=== PATIENT | male | born 1945 | race Caucasian/White ===

== ENCOUNTER 2016-11-10 09:26 | Inpatient (IN) | payer MEDICARE, MEDICAID ==
[~2016-11-10] VITALS: Ht 172.7 cm; Wt 76.4 kg
[~2016-11-10 09:26] MED LIST: AMBI10TA PO; ASPI325T PO; BACT800T5 PO; CELE20TA PO; FURO20TA PO; GLIP10TA6 PO; IBUP800T23 PO; K-TA10TA PO; METF1000 PO; PERC10TA27 PO; SERO25TA PO; SITA25 PO
[2016-11-10 09:28] VITALS: BP 135/66; PULSE 110; RESP 24; TEMP 98.2; O2SAT 96
[2016-11-10 10:32] VITALS: RESP 18; O2SAT 97
[2016-11-10 10:34] VITALS: BP 151/80; PULSE 104; RESP 18; O2SAT 96
--- NOTE | 2016-11-10 10:43 | PD ---
HPI Chief Complaint: Fall Time Seen by Provider: 10:29 Travel History International Travel<30 days: No Contact w/Intl Traveler<30days: No Traveled to known affect area: No History of Present Illness HPI This is a 71-year-old gentleman with history of tongue and neck cancer, who presents today after he had a mechanical fall. The patient denied any loss of consciousness or syncope. He has been having problems with sleeping and was groggy and fell floor. Daughter at the bedside states she's been on a new sleeping medicine that makes him sleepy but it does not help him sleep. She feels as though this may have been one of the causes of him falling. He has a small laceration to the back of his head. He denies any neck pain. He does also have a bruise to his left hand. The patient has an old injury to his left middle finger and it is chronically extended. He has bruising noted to his mid dorsal hand. The patient denies any pain anywhere else. PFSH Past Medical History Anxiety: Yes Depression: Yes Cancer: Yes Cardiovascular Problems: No Diabetes: Yes (TYPE II) Patient Takes Glucophage: Yes Diminished Hearing: Yes (HEARING LOSS BILAT) Endocrine: Yes Gastrointestinal Disorders: No Genitourinary: No Hepatitis: No Hiatal Hernia: No Hypertension: No Immune Disorder: No Musculoskeletal: Yes Neurologic: Yes (DEMINTIA) Reproductive: No Respiratory: Yes (SLEEP APNEA ) Thyroid Disease: No Past Surgical History Abdominal Surgery: Yes (APPY) AICD: No Appendectomy: Yes (UNSURE) Joint Replacement: No Oral Surgery: Yes Pacemaker: No Other Surgery: Yes (RIGHT BICEP, BROKEN RIBS) Social History Alcohol Use: Yes (BEER/WINE EVERY SO OFTEN) Tobacco Use: No Allergies-Medications (Allergen,Severity, Reaction): Coded Allergies: No Known Allergies (Unverified , 11/10/16) Reported Meds & Prescriptions Reported Meds & Active Scripts Active Ibuprofen 800 Mg Tab 800 Mg PO Q8H PRN Take with food Reported Pioglitazone (Pioglitazone HCl) 30 Mg Tab 30 Mg PO DAILY Metformin (Metformin HCl) 500 Mg Tab 500 Mg PO BID With meals Glipizide 10 Mg Tab 10 Mg PO BIDAC Take 30 minutes before a meal Percocet (Oxycodone-Acetaminophen) 10-325 mg Tab 1 Tab PO Q4H PRN Celexa (Citalopram Hydrobromide) 20 Mg Tab 20 Mg PO DAILY Aspirin 325 Mg Tab 325 Mg PO DAILY Ambien (Zolpidem Tartrate) 10 Mg Tab 10 Mg PO HS PRN Review of Systems Except as stated in HPI: all other systems reviewed are Neg General / Constitutional: No: Fever, Chills HENT: Positive: Headaches (scalp tenderness in the posterior scalp where he has a small superficial laceration.), Masses (mass and swelling to the left lateral neck.), Other (history of left sided tongue cancer) Cardiovascular: No: Chest Pain or Discomfort, Palpitations Respiratory: No: Cough, Shortness of Breath Gastrointestinal: No: Nausea, Vomiting, Abdominal Pain Genitourinary: No: Dysuria, Decreased Urinary Output Musculoskeletal: Positive: Pain (left hand), No: Weakness Neurologic: Positive: Weakness (and realized), Headache (posterior scalp), Other (chronic fatigue with associated insomnia), No: Sensory Disturbance Physical Exam Narrative GENERAL: Elderly ill appearing male in no acute respiratory distress. SKIN: Warm and dry. HEAD: There is a small superficial 1/2 cm laceration to his posterior scalp. Otherwise Normocephalic. EYES: No scleral icterus. No injection or drainage. ENT: No nasal bleeding or discharge. Mucous membranes pink and moist. NECK: Trachea midline. Large mass in the left lateral neck. CARDIOVASCULAR: Regular rate and rhythm. No murmur appreciated. RESPIRATORY: No accessory muscle use. Clear to auscultation. Breath sounds equal bilaterally. GASTROINTESTINAL: Abdomen soft, non-tender, nondistended. MUSCULOSKELETAL: Swelling and ecchymosis on the dorsal surface of the left hand. As per ROS, chronic deformity of the left middle finger with chronic extension. NEUROLOGICAL: Awake and alert. No obvious cranial nerve deficits. Motor grossly within normal limits. Slurred speech secondary to his oral and neck cancer. Data Data Last Documented VS Vital Signs Date Time Temp Pulse Resp B/P Pulse Ox O2 Delivery O2 Flow Rate FiO2 11/10/16 10:34 104 18 151/80 96 Room Air 11/10/16 09:[address] Brain W/O Iv Contrast(Rout) (11/10/16 ) Ct Cerv Spine W/O Contrast (11/10/16 10:29) Complete Blood Count With Diff (11/10/16 10:29) Comprehensive Metabolic Panel (11/10/16 10:29) Iv Access Insert/Monitor (11/10/16 10:29) Ecg Monitoring (11/10/16 10:29) Oximetry (11/10/16 10:29) Hand, Complete (Qyd1aup) (11/10/16 10:43) Urinalysis - C+S If Indicated (11/10/16 12:06) Chest, Single Ap (11/10/16 12:06) Insulin Human Regular Inj (Novolin R Inj (11/10/16 13:45) Sodium Chlorid 0.9% 500 Ml Inj (Ns 500 M (11/10/16 13:45) Admit Order (Ed Use Only) (11/10/16 13:57) Diet 1800 Ada Cons Carb (11/10/16 Dinner) Vital Signs (Adult) NESS.Q4H (11/10/16 14:01) Sodium Chlor 0.9% 1000 Ml Inj (Ns 1000 M (11/10/16 15:00) Basic Metabolic Panel (Bmp) (11/11/16 06:00) Consult Pt Eval & Treat (11/10/16 14:01) Consult Medical Oncology (11/10/16 ) ^ Fall Precautions (11/10/16 14:01) ^ Blood Glucose Goal (Criteria (11/10/16 14:01) ^ Hypoglycemia 51 - 69 Mg/Dl (11/10/16 14:01) ^ Hypoglycemia 50 Mg/Dl Or < (11/10/16 14:01) ^ Notify Dr: Other (11/10/16 14:01) Dextrose 50% In He (Vial) Inj (D50w (Vi (11/10/16 14:15) Glucagon Inj (Glucagon Inj) (11/10/16 14:15) Insulin Aspart Supplemtl Scale (Novolog (11/10/16 16:00) Acetaminophen (Tylenol) (11/10/16 14:15) Acetamin-Hydrocod 325-5 Mg ([place] 5-325 (11/10/16 14:15) Ondansetron Inj (Zofran Inj) (11/10/16 14:15) Scd Bilateral/Knee High NESS.QSHIFT (11/10/16 14:01) Zolpidem (Ambien) (11/10/16 14:15) Labs Laboratory Tests Test 11/10/16 11/10/16 10:36 12:47 White Blood Count 16.5 TH/MM3 Red Blood Count 4.84 MIL/MM3 Hemoglobin 13.7 GM/DL Hematocrit 41.1 % Mean Corpuscular Volume 84.8 FL Mean Corpuscular Hemoglobin 28.2 PG Mean Corpuscular Hemoglobin 33.3 % Concent Red Cell Distribution Width 12.9 % Platelet Count 435 TH/MM3 Mean Platelet Volume 7.6 FL Neutrophils (%) (Auto) 77.0 % Lymphocytes (%) (Auto) 13.8 % Monocytes (%) (Auto) 7.5 % Eosinophils (%) (Auto) 1.2 % Basophils (%) (Auto) 0.5 % Neutrophils # (Auto) 12.7 TH/MM3 Lymphocytes # (Auto) 2.3 TH/MM3 Monocytes # (Auto) 1.2 TH/MM3 Eosinophils # (Auto) 0.2 TH/MM3 Basophils # (Auto) 0.1 TH/MM3 CBC Comment DIFF FINAL Differential Comment Sodium Level 129 MEQ/L Potassium Level 4.3 MEQ/L Chloride Level 91 MEQ/L Carbon Dioxide Level 29.1 MEQ/L Anion Gap 9 MEQ/L Blood Urea Nitrogen 15 MG/DL Creatinine 1.15 MG/DL Estimat Glomerular Filtration 63 ML/MIN Rate Random Glucose 388 MG/DL Calcium Level 8.8 MG/DL Total Bilirubin 0.5 MG/DL Aspartate Amino Transf 17 U/L (AST/SGOT) Alanine Aminotransferase 19 U/L (ALT/SGPT) Alkaline Phosphatase 113 U/L Total Protein 7.4 GM/DL Albumin 3.1 GM/DL Urine Color LIGHT-YELLOW Urine Turbidity CLEAR Urine pH 5.5 Urine Specific [place] 1.012 Urine Protein 30 mg/dL Urine Glucose (UA) 1000 mg/dL Urine Ketones NEG mg/dL Urine Occult Blood NEG Urine Nitrite NEG Urine Bilirubin NEG Urine Urobilinogen LESS THAN 2.0 MG/DL Urine Leukocyte Esterase NEG Urine RBC 1 /hpf Urine WBC 1 /hpf Microscopic Urinalysis Comment CULT NOT INDICATED MDM Medical Decision Making Medical Screen Exam Complete: Yes Emergency Medical Condition: Yes Differential Diagnosis Closed head injury versus intracranial hemorrhage versus left hand fracture versus electrolyte abnormalities Narrative Course This is a 71-year-old male with a history of tongue and neck cancer, who presents today with complaints of mechanical fall. Patient and daughter who is at the bedside states that he's had severe insomnia and has not been sleeping well. He was started on a new medication for sleep and they were concerned that this may have caused him to fall. The patient is a poor historian but denies any loss of consciousness. Patient has a large left lateral neck mass that is being worked up for possible chemotherapy versus radiation therapy. The patient appears to be volume depleted with dry mucous membranes. His laboratory tests show a blood glucose of 388. He is currently not taking any diabetes medicine. The patient also appears to be very weak. His sodium is 129 , his urine shows 1000 glucose with protein. His white count is 16,000. Chest x-ray shows no obvious infiltrate and his urine does not appear to be infected. The leukocytosis could be secondary to his neck mass. Given this and no primary care physician, Field is important that we bring him into the hospital and correct his electrolytes and glucose. It may be prudent also to get a oncology consult as well. Is a call out to the [facility] hospitalist service. He's been started on I V fluids and has been given 6 units of Regular Insulin. Diagnosis Primary Impression: Uncontrolled diabetes mellitus with hyperglycemia Additional Impressions: Hyponatremia Squamous cell cancer of tongue Mass of left side of neck Devin Rubio MD Nov 10, 2016 10:43
[2016-11-10 10:48] LABS: AUTOMATED NEUTROPHIL # 12.7 TH/MM3 (1.8-7.7); BASOPHIL # 0.1 TH/MM3 (0-0.2); BASOPHIL % 0.5 % (0.0-2.0); EOSINOPHIL # 0.2 TH/MM3 (0-0.4); EOSINOPHIL % 1.2 % (0.0-4.0); HEMATOCRIT 41.1 % (39.0-51.0); HEMO FLAGS DIFF FINAL; LYMPH % 13.8 % (9.0-44.0); LYMPHOCYTE # 2.3 TH/MM3 (1.0-4.8); MEAN CELL VOLUME 84.8 FL (80.0-100.0); MEAN CORPUSCULAR HEMOGLOBIN 28.2 PG (27.0-34.0); MEAN CORPUSCULAR HGB CONC 33.3 % (32.0-36.0); MONO % 7.5 % (0.0-8.0); PLATELET COUNT 435 TH/MM3 (150-450); RED BLOOD COUNT 4.84 MIL/MM3 (4.50-5.90); RED CELL DISTRIBUTION WIDTH 12.9 % (11.6-17.2); WHITE BLOOD COUNT 16.5 TH/MM3 (4.0-11.0)
[2016-11-10 11:08] LABS: ALT (GPT) 19 U/L (12-78); ANION GAP 9 MEQ/L (5-15); AST (GOT) 17 U/L (15-37); BICARBONATE 29.1 MEQ/L (21.0-32.0); BLOOD UREA NITROGEN 15 MG/DL (7-18); CHLORIDE 91 MEQ/L (98-107); GLOMERULAR FILTRATION RATE 63 ML/MIN (>89); POTASSIUM 4.3 MEQ/L (3.5-5.1); SODIUM (NA) 129 MEQ/L (136-145)
[2016-11-10 11:10] LABS: ALKALINE PHOSPHATASE 113 U/L (45-117); TOTAL BILIRUBIN ADULT 0.5 MG/DL (0.2-1.0)
--- NOTE | 2016-11-10 11:11 | RADRPT ---
EXAM DATE/TIME: 11/10/2016 10:54 [facility] COMPARISON: No previous studies available for comparison. INDICATIONS : Patient fell this morning. MEDICAL HISTORY : None. SURGICAL HISTORY : Third digit left hand. ENCOUNTER: Initial ACUITY: 1 day PAIN SCORE: 0/10 LOCATION: Left Hand. FINDINGS: There is no evidence of fracture or dislocation. There is arthritic change in the wrist dorsally at t he radiocarpal joint and distal radioulnar joint. There is moderate dorsal soft tissue swelling. Vasc ular calcifications present in the forearm. CONCLUSION: Soft tissue swelling. No acute bony injury Milton Shay MD on November 10, 2016 at 11:07 Board Certified Radiologist. This report was verified electronically.
--- NOTE | 2016-11-10 11:58 | RADRPT ---
EXAM DATE/TIME: 11/10/2016 11:00 [facility] COMPARISON: No previous studies available for comparison. INDICATIONS : Trauma. Fall. Cephalgia. RADIATION DOSE: 56.35 CTDIvol (mGy) MEDICAL HISTORY : Dementia. Diabetes mellitus type 2. SURGICAL HISTORY : None. ENCOUNTER: Initial ACUITY: 1 day PAIN SCALE: 6/10 LOCATION: cranial TECHNIQUE: Multiple contiguous axial images were obtained of the head. Using automated exposure control and adj ustment of the mA and/or kV according to patient size, radiation dose was kept as low as reasonably a chievable to obtain optimal diagnostic quality images. FINDINGS: Mild generalized ventriculomegaly, increased from before. There is chronic low-attenuation in the per iventricular white matter. No bleed. No mass, mass effect or midline shift. No evidence of an acute i schemic event. Bone window images show an intact skull. Tiny fluid seen in a few of the right mastoid air cells . Visualized portions of the paranasal sinuses are clear. CONCLUSION: 1. No bleed or other acute intracranial abnormality. 2. Mild nonspecific ventriculomegaly. 3. Chronic white matter changes. Milton Shea MD on November 10, 2016 at 11:54 Board Certified Radiologist. This report was verified electronically.
--- NOTE | 2016-11-10 12:02 | RADRPT ---
EXAM DATE/TIME: 11/10/2016 11:00 [facility] COMPARISON: No previous studies available for comparison. INDICATIONS : Trauma. Fall. RADIATION DOSE: 38.03 CTDIvol (mGy) MEDICAL HISTORY : Dementia. Diabetes mellitus type 2. SURGICAL HISTORY : None. ENCOUNTER: Initial ACUITY: 1 day PAIN SCALE: 5/10 LOCATION: neck TECHNIQUE: Volumetric scanning of the cervical spine was performed. Multiplanar reconstructions in the sagittal, coronal and oblique axial planes were performed. Using automated exposure control and adjustment o f the mA and/or kV according to patient size, radiation dose was kept as low as reasonably achievable to obtain optimal diagnostic quality images. FINDINGS: Cervical spine alignment is normal. No fracture demonstrated. Vertebral bodies have normal height. Moderate disc space narrowing with uncovertebral and facet osteoarthritis, anterior and right greater the left osseous ridging seen at C5/C6 and C6/C7. There is right foraminal stenosis at C5/C6. Milder degenerative changes are seen at the other levels. CONCLUSION: No fracture or subluxation of the cervical spine. Multilevel degenerative changes, especially C5/C6 a nd C6 on C7. Milton Shea MD on November 10, 2016 at 11:59 Board Certified Radiologist. This report was verified electronically.
[2016-11-10] MEDS ORDERED: METF500T PO (12:27)
[2016-11-10] MEDS ORDERED: PIOG30TA4 PO (12:37)
--- NOTE | 2016-11-10 12:44 | RADRPT ---
EXAM DATE/TIME: 11/10/2016 12:18 [facility] COMPARISON: CHEST SINGLE AP, February 04, 2013, 16:05. INDICATIONS : Dry cough. MEDICAL HISTORY : Diabetes mellitus type II. dementia SURGICAL HISTORY : None. ENCOUNTER: Initial ACUITY: 3 days PAIN SCORE: 4/10 LOCATION: Bilateral upper chest FINDINGS: A single view of the chest demonstrates the lungs to be symmetrically aerated without evidence of mas s, infiltrate or effusion. The cardiomediastinal contours are unremarkable. Osseous structures are intact. CONCLUSION: No acute disease. Milton Shay MD on November 10, 2016 at 12:43 Board Certified Radiologist. This report was verified electronically.
[2016-11-10 12:56] LABS: BLOOD, URINE NEG (NEG); GLUCOSE,URINE 1000 mg/dL (NEG); KETONE, URINE NEG (NEG); NITRITE,URINE NEG (NEG); PH, URINE 5.5 (5.0-8.5); URINE COLOR LIGHT-YELLOW (YELLW/STRAW)
[2016-11-10 13:12] LABS: COMMENT (UR) CULT NOT INDICATED; CULTURE IF INDICATED CULT NOT INDICATED
[2016-11-10] MEDS ORDERED: INSULIN HUMAN REGULAR 1,000 UNITS/10 ML VIAL IVP ONE (13:45)
[2016-11-10] MEDS ORDERED: SODIUM CHLORID 0.9% 500 ML INJ 500 ML IV ONE (13:45)
--- NOTE | 2016-11-10 14:14 | HHI.HP ---
[facility] Service [facility] Hospitalists Primary Care Physician No Primary Care Physician Admission Diagnosis hyponatremia, uncontrolled hyperglycemia, leukocytosis, Diagnoses: (1) Fall Diagnosis: Principal (2) Squamous cell cancer of tongue Diagnosis: Principal (3) Uncontrolled diabetes mellitus with hyperglycemia Diagnosis: Principal (4) Mass of left side of neck Diagnosis: Secondary (5) Hyponatremia Diagnosis: Secondary (6) Insomnia Diagnosis: Secondary Chief Complaint: fall Travel History International Travel<30 Days: No Contact w/Intl Traveler <30 Da: No Traveled to Known Affected Are: No History of Present Illness patient is a 71 y/o male with history of tongue cancer who was brought to ER after he fell earlier. he says that he was walking in the house when he fell. he denies any prodromal symptoms like chest pain, sob or dizziness before the incident. he didn't lose his consciousness but he says that he thinks he hit his head on the floor. he denies any pain at this time. he says that he uses a cane but he doesn't walk as much. he says that he's noticed a mass in the left neck which has been going on for a few weeks and apparently it's being worked up for possible chemo/ radiation therapy. Review of Systems Constitutional: COMPLAINS OF: Fatigue, DENIES: Fever, Weight loss, Chills, Night Sweats Eyes: DENIES: Blurred vision, Diplopia, Vision loss, Double Vision Ears, nose, mouth, throat: DENIES: Tinnitus, Vertigo, Throat pain, Epistaxis Respiratory: DENIES: Apneas, Cough, Snoring, Wheezing, Hemoptysis, Sputum production, Shortness of breath Cardiovascular: DENIES: Chest pain, Palpitations, Syncope, Dyspnea on Exertion , PND, Lower Extremity Edema, Orthopnea, Claudication Gastrointestinal: DENIES: Abdominal pain, Black stools, Bloody stools, Constipation, Diarrhea, Nausea, Vomiting, Difficulty Swallowing, Anorexia Genitourinary: DENIES: Urinary frequency, Urgency, Hematuria, Dysuria Musculoskeletal: DENIES: Joint pain, Muscle aches, Stiffness, Joint Swelling Integumentary: DENIES: Rash Neurologic: DENIES: Abnormal gait, Headache, Localized weakness, Paresthesias, Seizures, Speech Problems, Tremor, Poor Balance Psychiatric: DENIES: Anxiety, Confusion, Mood changes, Depression, Hallucinations, Agitation, Suicidal Ideation, Homicidal Ideation, Delusions Past Family Social History Past Medical History tongue cancer diabetes mellitus Past Surgical History glossectomy appendectomy Reported Medications Pioglitazone (Pioglitazone HCl) 30 Mg Tab 30 Mg PO DAILY Metformin (Metformin HCl) 500 Mg Tab 500 Mg PO BID With meals Glipizide 10 Mg Tab 10 Mg PO BIDAC Take 30 minutes before a meal Percocet (Oxycodone-Acetaminophen) 10-325 mg Tab 1 Tab PO Q4H PRN Celexa (Citalopram Hydrobromide) 20 Mg Tab 20 Mg PO DAILY Aspirin 325 Mg Tab 325 Mg PO DAILY Ambien (Zolpidem Tartrate) 10 Mg Tab 10 Mg PO HS PRN Allergies: Coded Allergies: No Known Allergies (Unverified , 11/10/16) Active Ordered Medications Current Medications Insulin Human Regular 6 units 6 units ONCE ONCE IVP ; Start 11/10/16 at 13:45; Stop 11/10/16 at 13:47; Status DC Sodium Chloride (NS 500 ml Inj) 500 ml @ 500 mls/hr BOLUS ONCE IV ; Start 11/10 at 13:45; Stop 11/10/16 at 14:44 Social History doesn't smoke. quit drinking in the past. Physical Exam Vital Signs Vital Signs Date Time Temp Pulse Resp B/P Pulse Ox O2 Delivery O2 Flow Rate FiO2 11/10/16 10:34 104 18 151/80 96 Room Air 11/10/16 10:32 18 97 Room Air 11/10/16 10:21 106 18 96 Room Air 11/10/16 09:28 98.2 110 24 135/66 96 Room Air Physical Exam GENERAL: in no apparent distress. SKIN: No rashes, ecchymoses or lesions. Cool and dry. HEAD: Atraumatic. Normocephalic. No temporal or scalp tenderness. EYES: Pupils equal round and reactive. Extraocular motions intact. No scleral icterus. No injection or drainage. ENT: Nose without bleeding, purulent drainage or septal hematoma. Throat without erythema, tonsillar hypertrophy or exudate. Uvula midline. Airway patent. NECK:mass noted on the left neck CARDIOVASCULAR: Regular rate and rhythm without murmurs, gallops, or rubs. RESPIRATORY: Clear to auscultation. Breath sounds equal bilaterally. No wheezes , rales, or rhonchi. GASTROINTESTINAL: Abdomen soft, non-tender, nondistended. No hepato-splenomegaly , or palpable masses. No guarding. MUSCULOSKELETAL: Extremities without clubbing, cyanosis, or edema. No joint tenderness, effusion, or edema noted. No calf tenderness. Negative Homans sign bilaterally. NEUROLOGICAL: Awake and alert. Cranial nerves II through XII intact. Motor and sensory grossly within normal limits. Five out of 5 muscle strength in all muscle groups. Normal speech. Laboratory Laboratory Tests Test 11/10/16 11/10/16 10:36 12:47 White Blood Count 16.5 Red Blood Count 4.84 Hemoglobin 13.7 Hematocrit 41.1 Mean Corpuscular Volume 84.8 Mean Corpuscular Hemoglobin 28.2 Mean Corpuscular Hemoglobin 33.3 Concent Red Cell Distribution Width 12.9 Platelet Count 435 Mean Platelet Volume 7.6 Neutrophils (%) (Auto) 77.0 Lymphocytes (%) (Auto) 13.8 Monocytes (%) (Auto) 7.5 Eosinophils (%) (Auto) 1.2 Basophils (%) (Auto) 0.5 Neutrophils # (Auto) 12.7 Lymphocytes # (Auto) 2.3 Monocytes # (Auto) 1.2 Eosinophils # (Auto) 0.2 Basophils # (Auto) 0.1 CBC Comment DIFF FINAL Differential Comment Sodium Level 129 Potassium Level 4.3 Chloride Level 91 Carbon Dioxide Level 29.1 Anion Gap 9 Blood Urea Nitrogen 15 Creatinine 1.15 Estimat Glomerular Filtration 63 Rate Random Glucose 388 Calcium Level 8.8 Total Bilirubin 0.5 Aspartate Amino Transf 17 (AST/SGOT) Alanine Aminotransferase 19 (ALT/SGPT) Alkaline Phosphatase 113 Total Protein 7.4 Albumin 3.1 Urine Color LIGHT-YELLOW Urine Turbidity CLEAR Urine pH 5.5 Urine Specific [place] 1.012 Urine Protein 30 Urine Glucose (UA) 1000 Urine Ketones NEG Urine Occult Blood NEG Urine Nitrite NEG Urine Bilirubin NEG Urine Urobilinogen LESS THAN 2.0 Urine Leukocyte Esterase NEG Urine RBC 1 Urine WBC 1 Microscopic Urinalysis Comment CULT NOT INDICATED Result Diagram: 11/10/16 1036 11/10/16 1036 Imaging Last Impressions Chest X-Ray 11/10/16 1206 Signed Impressions: Service Date/Time: Thursday, November 10, 2016 12:18 - CONCLUSION: No acute disease. Milton Shay MD Hand X-Ray 11/10/16 1043 Signed Impressions: Service Date/Time: Thursday, November 10, 2016 10:54 - CONCLUSION: Soft tissue swelling. No acute bony injury Milton Shay MD Cervical Spine CT 11/10/16 1029 Signed Impressions: Service Date/Time: Thursday, November 10, 2016 11:00 - CONCLUSION: No fracture or subluxation of the cervical spine. Multilevel degenerative changes, especially C5/C6 and C6 on C7. Milton Shea MD Head CT 11/10/16 0000 Signed Impressions: Service Date/Time: Thursday, November 10, 2016 11:00 - CONCLUSION: 1. No bleed or other acute intracranial abnormality. 2. Mild nonspecific ventriculomegaly. 3. Chronic white matter changes. Milton Shea MD Assessment and Plan Assessment and Plan A/P - fall with generalized weakness fall precautions- will consult PT and case management. -diabetes mellitus- uncontrolled- start accu-check with SSI- hold oral hypoglycemics for now-will monitor- -tongue cancer with left neck mass- will consult oncology -hyponatremia; likely due to hyperglycemia- will start IV fluid and monitor the level. -leukocytosis- stress-related?- will monitor- CBC in am. -insomnia; ambien as needed. -DVT prophylaxis with lovenox Discussed Condition With ER physician and the patient. Physician Certification 2 Midnight Certification Type: Admission for Inpatient Services Order for Inpatient Services The services are ordered in accordance with Medicare regulations or non- Medicare payer requirements, as applicable. In the case of services not specified as inpatient-only, they are appropriately provided as inpatient services in accordance with the 2-midnight benchmark. Estimated LOS (days): 2 days is the estimated time the patient will need to remain in the hospital, assuming treatment plan goals are met and no additional complications. Post-Hospital Plan: Not yet determined Problem Qualifiers (1) Uncontrolled diabetes mellitus with hyperglycemia: Qualified Code: E11.65 - Uncontrolled type 2 diabetes mellitus with hyperglycemia, unspecified terminal manager insulin use status Maya Braden MD Nov 10, 2016 14:14 Maya Braden MD Nov 10, 2016 14:14
[2016-11-10] MEDS ORDERED: ACETAMINOPHEN 325 MG TAB PO PRN (14:15)
[2016-11-10] MEDS ORDERED: DEXTROSE 50% IN WATER 50 ML VIAL(D50) IV PUSH PRN (14:15)
[2016-11-10] MEDS ORDERED: ONDANSETRON HCL 4 MG/2 ML VIAL IV PUSH PRN (14:15)
[2016-11-10] MEDS ORDERED: GLUCAGON 1 MG/ML VIAL OTHER PRN (14:15)
[2016-11-10 14:57] VITALS: BP 135/83; PULSE 100; RESP 16; O2SAT 96
[2016-11-10] MEDS: SODIUM CHLOR 0.9% 1000 ML INJ 1,000 ML IV SCH (15:15)
[2016-11-10] MEDS: ACETAMINOPHEN/HYDROcodone 325 MG/5 MG TAB PO PRN (15:15)
[2016-11-10 16:00] VITALS: BP 136/94; PULSE 91; RESP 18; TEMP 98.9; O2SAT 97
[2016-11-10] MEDS: INSULIN ASPART SUPPLEMENTAL SCALE SQ SCH ×2 (16:00→20:51)
[2016-11-10 20:00] VITALS: BP 164/78; PULSE 85; RESP 20; TEMP 98.2; O2SAT 96
--- NOTE | 2016-11-10 21:36 | RADRPT ---
EXAM DATE/TIME: 11/10/2016 21:02 [facility] COMPARISON: No previous studies available for comparison. INDICATIONS : Evaluate status of left sided neck mass. RADIATION DOSE: 26.17 CTDIvol (mGy) MEDICAL HISTORY : Carcinoma, tongue. Dementia. SURGICAL HISTORY : Appendectomy. ENCOUNTER: Initial ACUITY: 1 day PAIN SCORE: Non-responsive LOCATION: Bilateral neck TECHNIQUE: Volumetric scanning of the neck was performed. Using automated exposure control and adjustment of th e mA and/or kV according to patient size, radiation dose was kept as low as reasonably achievable to obtain optimal diagnostic quality images. FINDINGS: NASOPHARYNX: The nasopharyngeal airway has a normal configuration. No mucosal thickening or mass is seen. OROPHARYNX: Slight soft tissue prominence in the left vallecula. LARYNX: The supraglottic, glottic, and infraglottic structures are intact. PARAPHARYNGEAL: The parapharyngeal space is intact. SALIVARY GLANDS: The parotid and submandibular glands are intact. LYMPH NODES: No enlarged or necrotic-appearing nodes. THYROID: Homogeneous enhancement without evidence of nodule. BONES: Unremarkable. OTHER: Large left-sided neck mass is posterior to the left submandibular gland and just deep to the sternocl eidomastoid musculature. This measures approximately 3.2 x 4.6 cm. Adjacent prominent lymph nodes are seen. There is some supraclavicular adenopathy. CONCLUSION: 1. Large left-sided neck mass measuring up to 4.6 cm. 2. Prominent lymph nodes in the left neck and left supraclavicular region. 3. Slight soft tissue prominence in the vallecula on the left. Koby Viveros MD on November 10, 2016 at 21:30 Board Certified Radiologist. This report was verified electronically.
--- NOTE | 2016-11-10 21:59 | MB ---
cc: FREDY BRADEN MD, RUBY ANNE E. M.D. DATE OF CONSULTATION: 11/10/2016 DATE OF : [address] Braden CHIEF COMPLAINT Recurrent head and neck cancer. HISTORY OF PRESENT ILLNESS Mr. Moura is a 71 year-old man with multiple medical problems. He has history of diabetes, hypertension, hyperlipidemia, hypertriglyceridemia. He has a psychiatric history, [place] Act initiated by police. He told his sister he wanted to kill himself. He was disinterested. Psychiatry found him to have dementia with psychosis, possible polysubstance induced mood disorder. He had positive amphetamines in his urine drug screen. His course was complicated by left oral tongue cancer. He was managed with Dr. Denise. 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 He was admitted by Dr. Denise on 06/10/2016 for resection. Workup prior to his definitive surgery was not available during the consultation. Unable to find his preoperative staging scans. He has not been seen by medical oncology or radiation oncology. He had definitive surgery for his oral tongue cancer June 10, 2016. He underwent a partial glossectomy with tumor measuring 2.7 x 1.7 x 0.5 cm. It was squamous cell cancer, moderately differentiated grade 2. The margins were uninvolved. The tumor in the partial glossectomy specimen extended within a few cell diameter of the deep surgical margin of resection. Additional tissue was sent as the deep margin, and that was negative for carcinoma. There were no lymph nodes identified. Mr. Moura recovered from his surgery. His follow up has been through his primary surgeon. His course was further complicated by a left middle finger injury after a fall. He states that he just cannot get a break. He presents to the emergency room on 11/10/2016 after a fall. He denies loss of consciousness. He has been having trouble sleeping and was groggy with the Ambien and fell to the floor. He had a small laceration on the back of the head and bruise on his left hand. On examination he has swelling in the neck. He has leukocytosis and hyponatremia. He was subsequently admitted for further evaluation. The ER evaluation for his head laceration included CT scan of the head that shows no bleed or other intracranial abnormality. There was some mild nonspecific ventriculomegaly and chronic white matter changes. Cervical spine shows no fracture. There are multilevel degenerative changes especially C5-6, C6-C7. Hand x-ray showed soft tissue swelling, no acute bony injury. Chest x-ray shows no acute disease. Because of the left neck swelling and history of oral tongue cancer, hematology/oncology is consulted. Mr. Moura was able to give limited history. He finds it painful to talk post his hemiglossectomy. He has an ulceration left side of the tongue. His mouth is dry. He complains of being depressed. He is agreeable to try something for depression. He has insomnia and is requesting his Ambien. He reports the 10 milligrams of Ambien helps him the best. He denies any headaches, no vision changes. His bowels move regularly. He was able to walk prior to his hospitalization. He has been advised not to walk in light of fall precautions. He denies any chest pain or shortness of breath. He does not recall when or how soon after the left neck swelling began. He reports referral to radiation oncology is still being contemplated despite the obvious left neck swelling and prominent adenopathy. The rest of his review of systems is negative. PAST MEDICAL HISTORY 1. Oral tongue cancer. 2. Anxiety 3. Depression 4. Diabetes 5. Hearing loss 6. Tinnitus 7. Dementia. 8. Sleep apnea. 9. Degenerative disc disease, cervical spine. 10. Chronic white matter changes. 11. Dementia with psychosis. PAST SURGICAL HISTORY 1. Appendectomy for a left hemiglossectomy 2. Tongue biopsy. SOCIAL HISTORY Occasional alcohol use. Denies tobacco use. He was never a smoker. He lives with his brother and his [id number]. FAMILY HISTORY Reports mother had breast cancer in her 80s. Father had no cancer. PHYSICAL EXAMINATION VITAL SIGNS: Temperature 98.2, heart rate 85, respiratory rate 20, blood pressure 164/78. GENERAL: Mr. Moura is a well-developed elderly man. He looks depressed and lethargic. HEENT: His pupils are small and reactive. Oropharynx is dry with thickened mucosa. There is some coating on the tongue, ulceration on the lateral left side. There is some packing in the upper molar. There is a mild parotid enlargement, swelling on the left side of the neck, there is a prominent lymph node. Neck: Supple. There is abrasion of the left cheek in the nasolabial fold. Lungs: Clear to auscultation. Cardiovascular: Normal rate and rhythm. Abdomen: Large and benign. Extremities: Lower extremity with no edema. He has chronic injury of the left hand which he moves very little. He has no focal deficits. IMAGING STUDIES Described above. LABORATORY DATA Sodium 129, BUN of 15, creatinine 1.5, glucose 388. His urine tox from 2012 was positive for amphetamines. ASSESSMENT/PLAN Mr. Moura is a 71 year-old male with multiple medical problems described above. He has also underlying psychiatric history with dementia associated with psychosis. He looks clinically depressed. He was Regalado Acted several years ago. Hematology/Oncology is consulted for oral tongue cancer. Staging evaluation prior to his definitive resection was not available. Appears that the surgery went well with negative margins. He had staging CT PET scan shortly after his definitive resection June 29, 2016. This showed no evidence of residual disease status post partial glossectomy. There is no evidence of metastatic disease in the neck nodes. There is some nonspecific changes in the chest including an infiltrate of the right costophrenic angle and minimally but not enlarged left axillary lymph nodes were found. We discussed plans to evaluate his head and neck cancer further. I will obtain CT scan of the soft tissue of the neck. If this lymph node is indeed enlarged, he may need a biopsy to rule out recurrent disease. We consider that this may be associated with healing, however, he did very well after his surgery in the beginning of june. The neck swelling and lymph node appears to be a recurrence. It is also concerning that there is a lesion and ulceration on his tongue. The chronicity of that is also not known. If he has evidence of recurrence, we will need to restage him to rule out metastatic disease. This is appearing to be a local recurrence in which case the definitive concurrent chemotherapy and radiation will still render him a cure. We discussed his depression. He was agreeable to try trazodone which is an antidepressant may help him with sleep. We will take care to give him Ambien which may have precipitated his fall per history provided by his daughter to the emergency room. Emotional support is provided. Magic Mouth Wash for symptomatic relief. Pending on the results of the CT scan, soft tissue of the neck consultation with radiation oncology to coordinate his care will be needed. MD VANESSA Hu/SEBASTIAN /8:37 PM /9:24 PM
[2016-11-10] MEDS: traZODone HCL 50 MG TAB PO SCH (23:07)
[2016-11-10] MEDS: NYSTAT/DIPHENHY/LIDO MOUTHWASH (Adult) 120ML SWISH-SWAL SCH (23:07)
[2016-11-11] VITALS: BP 142/78; PULSE 89; RESP 18; TEMP 98.2; O2SAT 97
[2016-11-11] MEDS: SODIUM CHLOR 0.9% 1000 ML INJ 1,000 ML IV SCH ×2 (01:32→07:56)
[2016-11-11 04:00] VITALS: BP 171/89; PULSE 95; RESP 18; TEMP 98.6; O2SAT 94
[2016-11-11] MEDS: INSULIN ASPART SUPPLEMENTAL SCALE SQ SCH ×4 (06:10→21:49)
[2016-11-11 07:49] LABS: POTASSIUM 3.8 MEQ/L (3.5-5.1)
[2016-11-11] MEDS: NYSTAT/DIPHENHY/LIDO MOUTHWASH (Adult) 120ML SWISH-SWAL SCH ×4 (07:53→21:48)
[2016-11-11] MEDS: ENOXAPARIN SODIUM 40 MG/0.4 ML SYRINGE SQ SCH (07:54)
[2016-11-11 08:00] VITALS: BP 142/75; PULSE 109; RESP 16; TEMP 98.7; O2SAT 96
--- NOTE | 2016-11-11 08:21 | HHI.PR ---
Subjective Remarks sitting on the chair having his breakfast. says that overall ' he's not feeling good'. couldn't sleep well last night. d/w the RN and no acute issues over night. Objective Vitals Vital Signs Date Time Temp Pulse Resp B/P Pulse Ox O2 Delivery O2 Flow Rate FiO2 11/11/16 04:00 98.6 95 18 171/89 94 11/11/16 00:00 98.2 89 18 142/78 97 11/10/16 20:00 98.2 85 20 164/78 96 11/10/16 16:00 98.9 91 18 136/94 97 11/10/16 14:57 100 16 135/83 96 Room Air 11/10/16 10:34 104 18 151/80 96 Room Air 11/10/16 10:32 18 97 Room Air 11/10/16 10:21 106 18 96 Room Air 11/10/16 09:28 98.2 110 24 135/66 96 Room Air I/O 11/10/16 11/10/16 11/10/16 11/11/16 11/11/16 11/11/16 07:00 15:00 23:00 07:00 15:00 23:00 Intake Total 1240 ml 120 ml Output Total 100 ml Balance 1240 ml 20 ml Intake Oral 540 ml 120 ml IV Total 700 ml Output Urine Total 100 ml # Voids 1 # Bowel Movements 0 0 Result Diagram: 11/10/16 1036 11/11/16 0619 Imaging Last Impressions Chest X-Ray 11/10/16 1206 Signed Impressions: Service Date/Time: Thursday, November 10, 2016 12:18 - CONCLUSION: No acute disease. Milton Shay MD Hand X-Ray 11/10/16 1043 Signed Impressions: Service Date/Time: Thursday, November 10, 2016 10:54 - CONCLUSION: Soft tissue swelling. No acute bony injury Milton Shay MD Cervical Spine CT 11/10/16 1029 Signed Impressions: Service Date/Time: Thursday, November 10, 2016 11:00 - CONCLUSION: No fracture or subluxation of the cervical spine. Multilevel degenerative changes, especially C5/C6 and C6 on C7. Milton Shea MD Neck CT 11/10/16 0000 Signed Impressions: Service Date/Time: Thursday, November 10, 2016 21:02 - CONCLUSION: 1. Large left-sided neck mass measuring up to 4.6 cm. 2. Prominent lymph nodes in the left neck and left supraclavicular region. 3. Slight soft tissue prominence in the vallecula on the left. Koby Viveros MD Head CT 11/10/16 0000 Signed Impressions: Service Date/Time: Thursday, November 10, 2016 11:00 - CONCLUSION: 1. No bleed or other acute intracranial abnormality. 2. Mild nonspecific ventriculomegaly. 3. Chronic white matter changes. Milton Shea MD Objective Remarks GENERAL: This is a well-nourished, well-developed patient, in no apparent distress. Neck; left neck mass with no tenderness CARDIOVASCULAR: Regular rate and regular rhythm without murmurs, gallops, or rubs. RESPIRATORY: Clear to auscultation. Breath sounds equal bilaterally. No wheezes , rales, or rhonchi. GASTROINTESTINAL: Abdomen soft, non-tender, nondistended. Normal, active bowel sounds MUSCULOSKELETAL: Extremities without clubbing, cyanosis, or edema. NEURO: Alert & Oriented x4 to person, place, time, situation. Moves all ext x4 Procedures none Medications and IVs Current Medications Insulin Human Regular 6 units 6 units ONCE ONCE IVP Last administered on 15:15; Start 11/10/16 at 13:45; Stop 11/10/16 at 13:47; Status DC Sodium Chloride 500 ml @ 500 mls/hr BOLUS ONCE IV Last administered on 15:14; Start 11/10/16 at 13:45; Stop 11/10/16 at 14:44; Status DC Sodium Chloride (NS 1000 ml Inj) 1,000 ml @ 100 mls/hr Q10H IV Last administered on 11/11/16 07:56; Start 11/10/16 at 15:00 Dextrose (D50w (Vial) Inj) 25 ml UNSCH PRN IV PUSH HYPOGLYCEMIA-SEE COMMENTS; Start 11/10/16 at 14:15 Glucagon (Glucagon Inj) 1 mg UNSCH PRN OTHER HYPOGLYCEMIA-SEE COMMENTS; Start 11/10/16 at 14:15 Insulin Aspart (NovoLOG SUPPLEMENTAL SCALE) 1 ACHS SLIDING SCALE SQ Last administered on 11/11/16 06:10; Start 11/10/16 at 16:00 Acetaminophen (Tylenol) 650 mg Q4H PRN PO FEVER/ PAIN <5; Start 11/10/16 at 14: 15 Acetaminophen/ Hydrocodone Bitart ([place] 5-325 Mg) 1 tab Q4H PRN PO PAIN> 5 Last administered on 11/10/16 15:15; Start 11/10/16 at 14:15 Ondansetron HCl (Zofran Inj) 4 mg Q8H PRN IV PUSH NAUSEA; Start 11/10/16 at 14: 15; Status Cancel Zolpidem Tartrate (Ambien) 5 mg HS PRN PO INSOMNIA; Start 11/10/16 at 14:15 Enoxaparin Sodium (Lovenox Inj) 40 mg Q24H SQ Last administered on 11/11/16 07: 54; Start 11/11/16 at 09:00 Trazodone HCl (Desyrel) 50 mg HS PO Last administered on 11/10/16 23:07; Start 11/10/16 at 21:00 Multi-Ingredient Mouthwash/Gargle (Magic Mouthwash Adult Liq) 5 ml QID SWISH- SWAL Last administered on 11/11/16 07:53; Start 11/10/16 at 21:00 A/P Assessment and Plan A/P - fall with generalized weakness fall precautions- consulted PT and case management. -diabetes mellitus- overall better controlled- continue accu-check with SSI- hold oral hypoglycemics for now-will monitor- -tongue cancer with left neck mass- oncology consult appreciated. -hyponatremia; resolved. -leukocytosis- stress-related?- will monitor- CBC in am. -insomnia; ambien as needed. -depressed mood; started on Trazodone -DVT prophylaxis with Maya Garcia MD Nov 11, 2016 08:20
[2016-11-11 12:00] VITALS: BP 178/86; PULSE 100; RESP 16; TEMP 98.6; O2SAT 97
--- NOTE | 2016-11-11 13:55 | PD.ONC.PN ---
Subjective Subjective Remarks "Can I have a milk shake?" Discussed finding of L neck LN concerning for local recurrence. State that we would be willing to receive chemotherapy and XRT. Objective Data Date Time Temp Pulse Resp B/P Pulse Ox O2 Delivery O2 Flow Rate FiO2 11/11/16 12:00 98.6 100 16 178/86 97 11/11/16 08:00 98.7 109 16 142/75 96 11/11/16 04:00 98.6 95 18 171/89 94 11/11/16 00:00 98.2 89 18 142/78 97 11/10/16 20:00 98.2 85 20 164/78 96 11/10/16 16:00 98.9 91 18 136/94 97 11/10/16 14:57 100 16 135/83 96 Room Air 11/11/16 11/11/16 11/11/16 07:00 15:00 23:00 Intake Total 120 ml 761 ml Output Total 100 ml Balance 20 ml 761 ml Result Diagram: 11/10/16 1036 11/11/16 0619 Laboratory Results Laboratory Tests Test 11/11/16 06:19 Sodium Level 137 MEQ/L Potassium Level 3.8 MEQ/L Chloride Level 101 MEQ/L Carbon Dioxide Level 27.0 MEQ/L Anion Gap 9 MEQ/L Blood Urea Nitrogen 15 MG/DL Creatinine 0.91 MG/DL Estimat Glomerular Filtration 82 ML/MIN Rate Random Glucose 204 MG/DL Calcium Level 8.5 MG/DL Administered Medications Medications (Trade) Dose Ordered Sig/Rosalind Route PRN Reason Start Time Stop Time Status Last Admin Dose Admin Sodium Chloride (NS 1000 ml Inj) 1,000 ml @ 100 mls/hr Q10H IV 11/10/16 15:00 Hold 11/11/16 07:56 Acetaminophen/ Hydrocodone Bitart ([place] 5-325 Mg) 1 tab Q4H PRN PO PAIN> 5 11/10/16 14:15 11/10/16 15:15 Enoxaparin Sodium (Lovenox Inj) 40 mg Q24H SQ 11/11/16 09:00 11/11/16 07:54 Trazodone HCl (Desyrel) 50 mg HS PO 11/10/16 21:00 11/10/16 23:07 Multi-Ingredient Mouthwash/Gargle (Magic Mouthwash Adult Liq) 5 ml QID SWISH-RAVINDRA 11/10/16 21:00 11/11/16 11:25 Objective Remarks GENERAL: Elderly, well-developed patient. SKIN: Warm and dry. HEAD: Normocephalic. Mouth with thick mucous, L tongue ulceration. EYES: No scleral icterus. No injection or drainage. NECK: Supple, trachea midline. No JVD or lymphadenopathy. LYMPHATIC: No adenopathy. L face swelling, L neck lymphadenopathy. CARDIOVASCULAR: Regular rate and rhythm without murmurs. RESPIRATORY: Breath sounds equal bilaterally. No accessory muscle use. GASTROINTESTINAL: Abdomen large and mildly distended. EXTREMITIES: No cyanosis, or edema. MUSCULOSKELETAL: Adequate muscle tone. NEUROLOGICAL: No obvious focal deficit. Awake, alert, and oriented x3. PSYCHIATRIC: Looks depressed. Assessment/Plan Problem List: (1) Squamous cell cancer of tongue Status: Acute Plan: CT soft tissue neck show LN L neck measure 4.6cm, suspect recurrent disease. Check CT chest to r/o metastatic disease. Need CT guided bx to r/o local recurrence. Consult RAd Onc inplanning concurrent chemo/XRT for treatment or palliation pending result of staging. Pt agree to receive therapy. (2) Insomnia Status: Chronic Plan: Trial Trazodone. Monitor also his depression. Assessment 71 y/o man with oral tongue cancer s/p L hemoglossectomy with local recurrence. Plan 1. CT guided biopsy L neck LN. 2. CT chest r/o distant metastatic disease 3. Consult rad onc. Marjan Villeda MD Nov 11, 2016 13:55
[2016-11-11 16:00] VITALS: BP 155/86; PULSE 103; RESP 18; TEMP 98.3; O2SAT 98
--- NOTE | 2016-11-11 18:28 | RADRPT ---
EXAM DATE/TIME: 11/11/2016 18:15 [facility] COMPARISON: CT SOFT TISSUE NECK W/O CONTRAST, November 10, 2016, 21:02. INDICATIONS : Recurrent oral cancer with cough; evaluate for metastatic disease. RADIATION DOSE: 9.89 CTDIvol (mGy) MEDICAL HISTORY : Dementia. Diabetes mellitus type 2. Carcinoma, oral cavity. SURGICAL HISTORY : Tonsillectomy. ENCOUNTER: Initial ACUITY: 1 day PAIN SCALE: 2/10 LOCATION: chest TECHNIQUE: Volumetric scanning of the chest was performed. Using automated exposure control and adjustment of t he mA and/or kV according to patient size, radiation dose was kept as low as reasonably achievable to obtain optimal diagnostic quality images. FINDINGS: LUNGS: Trace atelectasis of the bases. PLEURAE: There is no pleural thickening or pleural effusion. MEDIASTINUM: The heart and great vessels demonstrate no acute abnormality. There is no mediastinal or hilar lymph adenopathy. Coronary artery calcification noted. AXILLAE: Within normal limits. No lymphadenopathy. MUSCULOSKELETAL: Within normal limits for patient age. MISCELLANEOUS: The visualized upper abdominal organs demonstrate no acute abnormality. CONCLUSION: No evidence of metastatic disease or other acute chest disease. Milton Shea MD on November 11, 2016 at 18:26 Board Certified Radiologist. This report was verified electronically.
[2016-11-11 20:00] VITALS: BP 158/83; PULSE 100; RESP 20; TEMP 100.1; O2SAT 96
[2016-11-11] MEDS: traZODone HCL 50 MG TAB PO SCH (21:48)
[2016-11-12] VITALS (7 sets, daily range): BP systolic 112–168; BP diastolic 58–83; PULSE 87–115; RESP 17–20; TEMP 98.1–102.3; O2SAT 94–97
[2016-11-12] MEDS: INSULIN ASPART SUPPLEMENTAL SCALE SQ SCH ×4 (06:46→21:12)
[2016-11-12 08:08] LABS: AUTOMATED NEUTROPHIL # 9.2 TH/MM3 (1.8-7.7); BASOPHIL # 0.2 TH/MM3 (0-0.2); BASOPHIL % 1.3 % (0.0-2.0); EOSINOPHIL # 0.3 TH/MM3 (0-0.4); EOSINOPHIL % 1.8 % (0.0-4.0); HEMATOCRIT 39.9 % (39.0-51.0); HEMO FLAGS DIFF FINAL; LYMPH % 22.6 % (9.0-44.0); LYMPHOCYTE # 3.2 TH/MM3 (1.0-4.8); MEAN CELL VOLUME 83.3 FL (80.0-100.0); MEAN CORPUSCULAR HEMOGLOBIN 28.1 PG (27.0-34.0); MEAN CORPUSCULAR HGB CONC 33.7 % (32.0-36.0); MONO % 8.3 % (0.0-8.0); PLATELET COUNT 332 TH/MM3 (150-450); RED BLOOD COUNT 4.79 MIL/MM3 (4.50-5.90); RED CELL DISTRIBUTION WIDTH 12.9 % (11.6-17.2)
[2016-11-12] MEDS: NYSTAT/DIPHENHY/LIDO MOUTHWASH (Adult) 120ML SWISH-SWAL SCH ×4 (09:00→21:12)
--- NOTE | 2016-11-12 10:05 | PD.ONC.PN ---
Subjective Subjective Remarks Tmax 100.1 overnight. Patient waiting to go down for biopsy. He complains of some pain in tongue. Objective Data Date Time Temp Pulse Resp B/P Pulse Ox O2 Delivery O2 Flow Rate FiO2 11/12/16 08:11 98.2 87 18 168/83 96 11/12/16 04:00 98.3 90 20 150/76 94 11/12/16 00:00 99.3 94 20 140/65 97 11/11/16 20:00 100.1 100 20 158/83 96 11/11/16 16:00 98.3 103 18 155/86 98 11/11/16 12:00 98.6 100 16 178/86 97 Result Diagram: 11/12/16 0643 11/11/16 0619 Laboratory Results Laboratory Tests Test 11/12/16 06:43 White Blood Count 14.0 TH/MM3 Red Blood Count 4.79 MIL/MM3 Hemoglobin 13.5 GM/DL Hematocrit 39.9 % Mean Corpuscular Volume 83.3 FL Mean Corpuscular Hemoglobin 28.1 PG Mean Corpuscular Hemoglobin 33.7 % Concent Red Cell Distribution Width 12.9 % Platelet Count 332 TH/MM3 Mean Platelet Volume 8.5 FL Neutrophils (%) (Auto) 66.0 % Lymphocytes (%) (Auto) 22.6 % Monocytes (%) (Auto) 8.3 % Eosinophils (%) (Auto) 1.8 % Basophils (%) (Auto) 1.3 % Neutrophils # (Auto) 9.2 TH/MM3 Lymphocytes # (Auto) 3.2 TH/MM3 Monocytes # (Auto) 1.2 TH/MM3 Eosinophils # (Auto) 0.3 TH/MM3 Basophils # (Auto) 0.2 TH/MM3 CBC Comment DIFF FINAL Differential Comment Hematology Comments Administered Medications Medications (Trade) Dose Ordered Sig/Rosalind Route PRN Reason Start Time Stop Time Status Last Admin Dose Admin Sodium Chloride (NS 1000 ml Inj) 1,000 ml @ 100 mls/hr Q10H IV 11/10/16 15:00 Hold 11/11/16 07:56 Acetaminophen/ Hydrocodone Bitart ([place] 5-325 Mg) 1 tab Q4H PRN PO PAIN> 5 11/10/16 14:15 11/10/16 15:15 Enoxaparin Sodium (Lovenox Inj) 40 mg Q24H SQ 11/11/16 09:00 11/11/16 07:54 Trazodone HCl (Desyrel) 50 mg HS PO 11/10/16 21:00 11/11/16 21:48 Multi-Ingredient Mouthwash/Gargle (Magic Mouthwash Adult Liq) 5 ml QID SWISH-SWAL 11/10/16 21:00 11/11/16 21:48 Objective Remarks GENERAL: Elderly male, sitting up in bed in nad. SKIN: Warm and dry. HEAD: Normocephalic. EYES: No injection or drainage. NECK: Supple, trachea midline. CARDIOVASCULAR: +S1/S2 RESPIRATORY: anterior geller clear GASTROINTESTINAL: Abdomen soft, non-tender, nondistended. EXTREMITIES: No cyanosis NEUROLOGICAL: awake and alert, normal speech. moving all extremities. Assessment/Plan Problem List: (1) Squamous cell cancer of tongue Status: Acute Plan: CT soft tissue neck show LN L neck measure 4.6cm, suspect recurrent disease--awaiting biopsy CT chest: no metsce. await Radiation oncology consult --will need concurrent chemo/radiation (2) Insomnia Status: Chronic Plan: Trial Trazodone. Monitor also his depression. Assessment 71 y/o man with oral tongue cancer s/p L hemoglossectomy with local recurrence. Plan 1. biopsy today 2. supportive care 3. radiation oncology consult Attending Statement The exam, history, and the medical decision-making described in the above note were completed with the assistance of the mid-level provider. I reviewed and agree with the findings presented. I attest that I had a [id number] encounter with the patient on the same day, and personally performed and documented my assessment and findings in the medical record. Jacqueline Bowden Nov 12, 2016 10:05 Magdaleno Clarke MD Nov 12, 2016 23:40
[2016-11-12] MEDS ORDERED: LIDOCAINE HCL 1% PF 30 ML VIAL ONE (12:36)
[2016-11-12] MEDS ORDERED: SODIUM BICARBONATE 8.4% INJ 50 ML ONE (12:36)
--- NOTE | 2016-11-12 12:40 | RADRPT ---
EXAM DATE/TIME: 11/12/2016 11:42 [facility] COMPARISON: EXTERNAL COMPARISON: CT SOFT TISSUE NECK W/O CONTRAST, November 10, 2016, 21:02. [facility], PET/CT - HEAD & NECK CA , Jun 29 2016. INDICATIONS : Left neck lymph node. MEDICAL HISTORY : Dementia. Diabetes mellitus type 2. Tongue cancer. SURGICAL HISTORY : Tonsillectomy. Appendectomy. Right upper arm surgery. ENCOUNTER: Initial ACUITY: 1 day PAIN SCORE: 1/10 LOCATION: Left neck ORGAN: Left neck SPECIMENS: Five core specimen(s) submitted for pathologic evaluation. DEVICE: 18 gauge Temno needle Post procedure scanning reveals no hematoma or other complication. The possibility does exist that the tissue obtained will be non-diagnostic. If the sample is non-mariya gnostic a repeat biopsy or surgical biopsy may need to be performed. TECHNIQUE: 1. Ultrasound guidance for needle biopsy. 2. Needle biopsy. The risks, benefits, and alternatives to ultrasound guided needle biopsy were explained to the patien t's brother in detail including the risk of bleeding and infection. Written and verbal informed cons ent was obtained. The patient is unable to consent for himself. With the patient on the ultrasound table, images were obtained. There are multiple enlarged lymph no [place] in the left neck in levels 2 through 4. The targeted lymph node measures 3.4 x 1.8 x 2.2 cm. Ther e is an adjacent conglomeration of adjacent lymph nodes measuring up to 4.1 x 2.7 x 3.5 cm. Given the blood vessels associated with this larger conglomeration of lymph nodes, decision was made to biopsy the next largest lymph node. Overlying skin was prepped and draped in the usual sterile fashion and Lidocaine was utilized as a local anesthetic. A needle was advanced into the identified target and the number of specimens as above obtained and bermudez bmitted for pathologic evaluation. The patient tolerated the procedure well and left the ultrasound suite in stable condition. CONCLUSION: Uncomplicated ultrasound guided needle biopsy of an abnormally enlarged left neck lymph node. Milton Laughlin MD on November 12, 2016 at 12:37 Board Certified Radiologist. This report was verified electronically.
--- NOTE | 2016-11-12 13:17 | HHI.PR ---
Subjective Remarks came back from the biopsy of the neck mass. in no acute distress. had a low grade fever last night. Objective Vitals Vital Signs Date Time Temp Pulse Resp B/P Pulse Ox O2 Delivery O2 Flow Rate FiO2 11/12/16 12:08 98.1 90 20 159/79 97 11/12/16 08:11 98.2 87 18 168/83 96 11/12/16 04:00 98.3 90 20 150/76 94 11/12/16 00:00 99.3 94 20 140/65 97 11/11/16 20:00 100.1 100 20 158/83 96 11/11/16 16:00 98.3 103 18 155/86 98 I/O 11/11/16 11/11/16 11/11/16 11/12/16 11/12/16 11/12/16 07:00 15:00 23:00 07:00 15:00 23:00 Intake Total 120 ml 1241 ml Output Total 100 ml 325 ml 25 ml Balance 20 ml 916 ml -25 ml Intake Oral 120 ml 480 ml IV Total 761 ml Output Urine Total 100 ml 325 ml 25 ml # Voids 2 1 # Bowel Movements 0 0 0 Result Diagram: 11/12/16 0643 11/11/16 0619 Imaging Last Impressions Lymph Node Biopsy Ultrasound 11/12/16 0000 Signed Impressions: Service Date/Time: Saturday, November 12, 2016 11:42 - CONCLUSION: Uncomplicated ultrasound guided needle biopsy of an abnormally enlarged left neck lymph node. Milton Laughlin MD Chest CT 11/11/16 0000 Signed Impressions: Service Date/Time: November 18:15 - CONCLUSION: No evidence of metastatic disease or other acute chest disease. Milton Shea MD Chest X-Ray 11/10/16 1206 Signed Impressions: Service Date/Time: Thursday, November 10, 2016 12:18 - CONCLUSION: No acute disease. Milton Shay MD Hand X-Ray 11/10/16 1043 Signed Impressions: Service Date/Time: Thursday, November 10, 2016 10:54 - CONCLUSION: Soft tissue swelling. No acute bony injury Milton Shay MD Cervical Spine CT 11/10/16 1029 Signed Impressions: Service Date/Time: Thursday, November 10, 2016 11:00 - CONCLUSION: No fracture or subluxation of the cervical spine. Multilevel degenerative changes, especially C5/C6 and C6 on C7. Milton Shea MD Neck CT 11/10/16 Signed Impressions: Service Date/Time: Thursday, November 10, 2016 21:02 - CONCLUSION: 1. Large left-sided neck mass measuring up to 4.6 cm. 2. Prominent lymph nodes in the left neck and left supraclavicular region. 3. Slight soft tissue prominence in the vallecula on the left. Koby Viveros MD Head CT 11/10/16 Signed Impressions: Service Date/Time: Thursday, November 10, 2016 11:00 - CONCLUSION: 1. No bleed or other acute intracranial abnormality. 2. Mild nonspecific ventriculomegaly. 3. Chronic white matter changes. Milton Shea MD Objective Remarks GENERAL: This is a well-nourished, well-developed patient, in no apparent distress. Neck; left neck mass with no tenderness CARDIOVASCULAR: Regular rate and regular rhythm without murmurs, gallops, or rubs. RESPIRATORY: Clear to auscultation. Breath sounds equal bilaterally. No wheezes , rales, or rhonchi. GASTROINTESTINAL: Abdomen soft, non-tender, nondistended. Normal, active bowel sounds MUSCULOSKELETAL: Extremities without clubbing, cyanosis, or edema. NEURO: Alert & Oriented x4 to person, place, time, situation. Moves all ext x4 Procedures none Medications and IVs Current Medications Insulin Human Regular 6 units 6 units ONCE ONCE IVP Last administered on 15:15; Start 11/10/16 at 13:45; Stop 11/10/16 at 13:47; Status DC Sodium Chloride 500 ml @ 500 mls/hr BOLUS ONCE IV Last administered on 15:14; Start 11/10/16 at 13:45; Stop 11/10/16 at 14:44; Status DC Sodium Chloride (NS 1000 ml Inj) 1,000 ml @ 100 mls/hr Q10H IV Last administered on 11/11/16 07:56; Start 11/10/16 at 15:00; Status Hold Dextrose (D50w (Vial) Inj) 25 ml UNSCH PRN IV PUSH HYPOGLYCEMIA-SEE COMMENTS; Start 11/10/16 at 14:15 Glucagon (Glucagon Inj) 1 mg UNSCH PRN OTHER HYPOGLYCEMIA-SEE COMMENTS; Start 11/10/16 at 14:15 Insulin Aspart (NovoLOG SUPPLEMENTAL SCALE) 1 ACHS SLIDING SCALE SQ Last administered on 11/12/16 06:46; Start 11/10/16 at 16:00 Acetaminophen (Tylenol) 650 mg Q4H PRN PO FEVER/ PAIN <5; Start 11/10/16 at 14: 15 Acetaminophen/ Hydrocodone Bitart ([place] 5-325 Mg) 1 tab Q4H PRN PO PAIN> 5 Last administered on 11/10/16 15:15; Start 11/10/16 at 14:15 Ondansetron HCl (Zofran Inj) 4 mg Q8H PRN IV PUSH NAUSEA; Start 11/10/16 at 14: 15; Status Cancel Zolpidem Tartrate (Ambien) 5 mg HS PRN PO INSOMNIA; Start 11/10/16 at 14:15 Enoxaparin Sodium (Lovenox Inj) 40 mg Q24H SQ Last administered on 11/11/16 07: 54; Start 11/11/16 at 09:00 Trazodone HCl (Desyrel) 50 mg HS PO Last administered on 11/11/16 21:48; Start 11/10/16 at 21:00 Multi-Ingredient Mouthwash/Gargle (Magic Mouthwash Adult Liq) 5 ml QID SWISH- SWAL Last administered on 11/11/16 21:48; Start 11/10/16 at 21:00 Lidocaine HCl 30 ml 30 ml STK-MED ONCE .ROUTE ; Start 11/12/16 at 12:36; Stop at 12:37; Status DC Sodium Bicarbonate (Sodium Bicarbonate 8.4% Inj) 50 ml @ As Directed STK-MED ONCE .ROUTE ; Start 11/12/16 at 12:36; Stop 11/12/16 at 12:37; Status DC A/P Assessment and Plan A/P - fall with generalized weakness fall precautions- consulted PT and case management. -diabetes mellitus- continue accu-check with SSI- hold oral hypoglycemics for now-will monitor- -tongue cancer with left neck mass- oncology consult appreciated. s/p biopsy of the neck mass- will follow the pathology. radiation oncology consulted. -hyponatremia; resolved. -leukocytosis- stress-related?- improved- will monitor. -insomnia; ambien as needed. -depressed mood; started on Trazodone -DVT prophylaxis with lovenox Discharge Planning will consult case management for possible rehab. Maya Braden MD Nov 12, 2016 13:17
[2016-11-12] MEDS: ENOXAPARIN SODIUM 40 MG/0.4 ML SYRINGE SQ SCH (14:00)
[2016-11-12] MEDS: traZODone HCL 50 MG TAB PO SCH (21:11)
[2016-11-12 21:39] LABS: AUTOMATED NEUTROPHIL # 14.3 TH/MM3 (1.8-7.7); BASOPHIL # 0.1 TH/MM3 (0-0.2); BASOPHIL % 0.7 % (0.0-2.0); EOSINOPHIL # 0.1 TH/MM3 (0-0.4); EOSINOPHIL % 0.5 % (0.0-4.0); HEMATOCRIT 36.4 % (39.0-51.0); HEMO FLAGS DIFF FINAL; LYMPH % 9.4 % (9.0-44.0); LYMPHOCYTE # 1.6 TH/MM3 (1.0-4.8); MEAN CELL VOLUME 84.3 FL (80.0-100.0); MEAN CORPUSCULAR HEMOGLOBIN 27.7 PG (27.0-34.0); MEAN CORPUSCULAR HGB CONC 32.8 % (32.0-36.0); MONO % 6.3 % (0.0-8.0); NEUT % 83.1 % (16.0-70.0); PLATELET COUNT 386 TH/MM3 (150-450); RED BLOOD COUNT 4.32 MIL/MM3 (4.50-5.90); RED CELL DISTRIBUTION WIDTH 13.2 % (11.6-17.2); WHITE BLOOD COUNT 17.1 TH/MM3 (4.0-11.0)
--- NOTE | 2016-11-12 22:04 | RADRPT ---
EXAM DATE/TIME: 11/12/2016 21:06 [facility] COMPARISON: CHEST SINGLE AP, November 10, 2016, 12:18. INDICATIONS : Fever, SOB MEDICAL HISTORY : Diabetes mellitus type II. Dementia. SURGICAL HISTORY : None. ENCOUNTER: Subsequent ACUITY: 2 days PAIN SCORE: 0/10 LOCATION: chest FINDINGS: A single view of the chest demonstrates the lungs to be symmetrically aerated without evidence of mas s, infiltrate or effusion. The cardiomediastinal contours are unremarkable. Osseous structures are intact. CONCLUSION: No evidence of acute cardiopulmonary disease. Milton Shea MD on November 12, 2016 at 22:02 Board Certified Radiologist. This report was verified electronically.
[2016-11-12 22:44] LABS: BICARBONATE 29.2 MEQ/L (21.0-32.0); POTASSIUM 4.2 MEQ/L (3.5-5.1)
[2016-11-13] MEDS: ZOLPIDEM TARTRATE 5 MG TAB PO PRN ×2 (01:20→20:44)
[2016-11-13] MEDS: PIPERACIL-TAZO 3.375 GM PREMIX 50 ML IV SCH ×4 (01:51→17:17)
[2016-11-13 04:00] VITALS: BP 144/71; PULSE 91; RESP 18; TEMP 98.8; O2SAT 96
[2016-11-13] MEDS: INSULIN ASPART SUPPLEMENTAL SCALE SQ SCH ×4 (05:44→20:45)
[2016-11-13 08:04] VITALS: BP 149/73; PULSE 93; RESP 18; TEMP 98.6; O2SAT 96
[2016-11-13] MEDS: ENOXAPARIN SODIUM 40 MG/0.4 ML SYRINGE SQ SCH (09:13)
[2016-11-13] MEDS: NYSTAT/DIPHENHY/LIDO MOUTHWASH (Adult) 120ML SWISH-SWAL SCH ×4 (09:13→20:46)
[2016-11-13 09:35] LABS: BACTERIA, URINE OCC /hpf; BLOOD, URINE NEG (NEG); GLUCOSE,URINE 300 mg/dL (NEG); GRANULAR CAST, URINE 1 /lpf; HYALINE CAST, URINE 1 /lpf (RARE); KETONE, URINE NEG (NEG); NITRITE,URINE NEG (NEG); PH, URINE 5.5 (5.0-8.5); URINE COLOR YELLOW (YELLW/STRAW)
[2016-11-13 09:36] LABS: COMMENT (UR) CULT NOT INDICATED; CULTURE IF INDICATED CULT NOT INDICATED
--- NOTE | 2016-11-13 09:44 | HHI.PR ---
Subjective Remarks in no acute distress. was febrile last night ; T max 102.3. has some back pain. Objective Vitals Vital Signs Date Time Temp Pulse Resp B/P Pulse Ox O2 Delivery O2 Flow Rate FiO2 11/13/16 08:04 98.6 93 18 149/73 96 11/13/16 04:00 98.8 91 18 144/71 96 11/12/16 23:59 100.8 110 17 112/58 94 11/12/16 20:00 102.3 115 18 158/80 95 11/12/16 16:05 98.6 109 20 155/80 96 11/12/16 12:08 98.1 90 20 159/79 97 I/O 11/12/16 11/12/16 11/12/16 11/13/16 11/13/16 11/13/16 07:00 15:00 23:00 07:00 15:00 23:00 Intake Total 240 ml 240 ml 180 ml Output Total 100 ml Balance 140 ml 240 ml 180 ml Intake Oral 240 ml 240 ml 180 ml Output Urine Total 100 ml # Voids 1 2 1 0 # Bowel Movements 0 0 0 0 Result Diagram: 11/12/16212611/12/162126 Imaging Last Impressions Lymph Node Biopsy Ultrasound 11/12/16 0000 Signed Impressions: Service Date/Time: Saturday, November 12, 2016 11:42 - CONCLUSION: Uncomplicated ultrasound guided needle biopsy of an abnormally enlarged left neck lymph node. Milton Laughlin MD Chest X-Ray 11/12/16 0000 Signed Impressions: Service Date/Time: Saturday, November 12, 2016 21:06 - CONCLUSION: No evidence of acute cardiopulmonary disease. Milton Shea MD Chest CT 11/11/16 0000 Signed Impressions: Service Date/Time: November 18:15 - CONCLUSION: No evidence of metastatic disease or other acute chest disease. Milton Shea MD Hand X-Ray 11/10/16 1043 Signed Impressions: Service Date/Time: Thursday, November 10, 2016 10:54 - CONCLUSION: Soft tissue swelling. No acute bony injury Milton Shay MD Cervical Spine CT 11/10/16 1029 Signed Impressions: Service Date/Time: Thursday, November 10, 2016 11:00 - CONCLUSION: No fracture or subluxation of the cervical spine. Multilevel degenerative changes, especially C5/C6 and C6 on C7. Milton Shea MD Neck CT 11/10/16 0000 Signed Impressions: Service Date/Time: Thursday, November 10, 2016 21:02 - CONCLUSION: 1. Large left-sided neck mass measuring up to 4.6 cm. 2. Prominent lymph nodes in the left neck and left supraclavicular region. 3. Slight soft tissue prominence in the vallecula on the left. Koby Viveros MD Head CT 11/10/16 0000 Signed Impressions: Service Date/Time: Thursday, November 10, 2016 11:00 - CONCLUSION: 1. No bleed or other acute intracranial abnormality. 2. Mild nonspecific ventriculomegaly. 3. Chronic white matter changes. Milton Shea MD Objective Remarks GENERAL: This is a well-nourished, well-developed patient, in no apparent distress. Neck; left neck mass with no tenderness CARDIOVASCULAR: Regular rate and regular rhythm without murmurs, gallops, or rubs. RESPIRATORY: Clear to auscultation. Breath sounds equal bilaterally. No wheezes , rales, or rhonchi. GASTROINTESTINAL: Abdomen soft, non-tender, nondistended. Normal, active bowel sounds MUSCULOSKELETAL: Extremities without clubbing, cyanosis, or edema. NEURO: Alert & Oriented x4 to person, place, time, situation. Moves all ext x4 Procedures biopsy of the neck mass Medications and IVs Current Medications Insulin Human Regular 6 units 6 units ONCE ONCE IVP Last administered on 15:15; Start 11/10/16 at 13:45; Stop 11/10/16 at 13:47; Status DC Sodium Chloride 500 ml @ 500 mls/hr BOLUS ONCE IV Last administered on 15:14; Start 11/10/16 at 13:45; Stop 11/10/16 at 14:44; Status DC Sodium Chloride (NS 1000 ml Inj) 1,000 ml @ 100 mls/hr Q10H IV Last administered on 11/11/16 07:56; Start 11/10/16 at 15:00; Status Hold Dextrose (D50w (Vial) Inj) 25 ml UNSCH PRN IV PUSH HYPOGLYCEMIA-SEE COMMENTS; Start 11/10/16 at 14:15 Glucagon (Glucagon Inj) 1 mg UNSCH PRN OTHER HYPOGLYCEMIA-SEE COMMENTS; Start 11/10/16 at 14:15 Insulin Aspart (NovoLOG SUPPLEMENTAL SCALE) 1 ACHS SLIDING SCALE SQ Last administered on 11/13/16 05:44; Start 11/10/16 at 16:00 Acetaminophen (Tylenol) 650 mg Q4H PRN PO FEVER/ PAIN <5 Last administered on 21:11; Start 11/10/16 at 14:15 Acetaminophen/ Hydrocodone Bitart ([place] 5-325 Mg) 1 tab Q4H PRN PO PAIN> 5 Last administered on 11/10/16 15:15; Start 11/10/16 at 14:15 Ondansetron HCl (Zofran Inj) 4 mg Q8H PRN IV PUSH NAUSEA; Start 11/10/16 at 14: 15; Status Cancel Zolpidem Tartrate (Ambien) 5 mg HS PRN PO INSOMNIA Last administered on 01:20; Start 11/10/16 at 14:15 Enoxaparin Sodium (Lovenox Inj) 40 mg Q24H SQ Last administered on 11/13/16 09 :13; Start 11/11/16 at 09:00 Trazodone HCl (Desyrel) 50 mg HS PO Last administered on 11/12/16 21:11; Start 11/10/16 at 21:00 Multi-Ingredient Mouthwash/Gargle (Magic Mouthwash Adult Liq) 5 ml QID SWISH- SWAL Last administered on 11/13/16 09:13; Start 11/10/16 at 21:00 Lidocaine HCl 30 ml 30 ml STK-MED ONCE .ROUTE ; Start 11/12/16 at 12:36; Stop at 12:37; Status DC Sodium Bicarbonate 50 ml @ As Directed STK-MED ONCE .ROUTE ; Start 11/12/16 at 12:36; Stop 11/12/16 at 12:37; Status DC Piperacillin Sod/ Tazobactam Sod (Zosyn 3.375 Gm Premix) 50 ml @ 100 mls/hr Q6H IV Last administered on 11/13/16 05:40; Start 11/13/16 at 01:00 A/P Assessment and Plan A/P - fall with generalized weakness fall precautions- consulted PT and case management. -diabetes mellitus- continue accu-check with SSI- hold oral hypoglycemics for now-will monitor- will consider starting long-acting insulin if blood sugar levels remain elevated. -tongue cancer with left neck mass- oncology consult appreciated. s/p biopsy of the neck mass- will follow the pathology. radiation oncology consulted. -fever spike- started on Zosyn- will follow the cultures- CXR with no acute disease. -hyponatremia; resolved. -leukocytosis-monitor temps- continue Abx- will monitor. -insomnia; ambien as needed. -depressed mood; started on Trazodone -DVT prophylaxis with lovenox Discharge Planning consulted case management for possible rehab. not ready for discharge. Maya Braden MD Nov 13, 2016 09:44
[2016-11-13 12:01] VITALS: BP 159/80; PULSE 93; RESP 18; TEMP 98.5; O2SAT 95
[2016-11-13 16:01] VITALS: BP 141/68; PULSE 99; RESP 18; TEMP 98.6; O2SAT 96
[2016-11-13 20:00] VITALS: BP 175/81; PULSE 94; RESP 20; TEMP 98.9; O2SAT 96
[2016-11-13] MEDS ORDERED: ENALAPRILAT 2.5 MG/2 ML VIAL IV PUSH ONE (20:30)
[2016-11-13] MEDS: traZODone HCL 50 MG TAB PO SCH (20:44)
[2016-11-13 21:23] VITALS: BP 148/70
[2016-11-14] VITALS: BP 145/63; PULSE 94; RESP 18; TEMP 97.8; O2SAT 96
[2016-11-14] MEDS: PIPERACIL-TAZO 3.375 GM PREMIX 50 ML IV SCH ×4 (03:16→17:28)
[2016-11-14 04:00] VITALS: BP 140/68; PULSE 93; RESP 20; TEMP 97.6; O2SAT 98
[2016-11-14] MEDS: INSULIN ASPART SUPPLEMENTAL SCALE SQ SCH ×4 (05:39→22:13)
[2016-11-14 08:00] VITALS: BP 144/67; PULSE 100; RESP 20; TEMP 98.6; O2SAT 94
[2016-11-14 08:24] LABS: BASOPHIL # 0.1 TH/MM3 (0-0.2); BASOPHIL % 0.7 % (0.0-2.0); EOSINOPHIL # 0.3 TH/MM3 (0-0.4); EOSINOPHIL % 2.1 % (0.0-4.0); HEMATOCRIT 33.7 % (39.0-51.0); HEMO FLAGS DIFF FINAL; LYMPH % 17.9 % (9.0-44.0); LYMPHOCYTE # 2.5 TH/MM3 (1.0-4.8); MEAN CELL VOLUME 84.6 FL (80.0-100.0); MEAN CORPUSCULAR HEMOGLOBIN 27.5 PG (27.0-34.0); MEAN CORPUSCULAR HGB CONC 32.6 % (32.0-36.0); MONO % 8.6 % (0.0-8.0); NEUT % 70.7 % (16.0-70.0); PLATELET COUNT 353 TH/MM3 (150-450); RED BLOOD COUNT 3.98 MIL/MM3 (4.50-5.90); WHITE BLOOD COUNT 14.2 TH/MM3 (4.0-11.0)
[2016-11-14] MEDS: NYSTAT/DIPHENHY/LIDO MOUTHWASH (Adult) 120ML SWISH-SWAL SCH ×4 (09:02→22:21)
[2016-11-14] MEDS: ENOXAPARIN SODIUM 40 MG/0.4 ML SYRINGE SQ SCH (09:02)
[2016-11-14 09:49] LABS: BICARBONATE 30.8 MEQ/L (21.0-32.0); POTASSIUM 3.7 MEQ/L (3.5-5.1)
--- NOTE | 2016-11-14 11:41 | HHI.PR ---
Subjective Remarks in no acute distress. no fever this morning. still with some pain to the left hand. d/w the RN. Objective Vitals Vital Signs Date Time Temp Pulse Resp B/P Pulse Ox O2 Delivery O2 Flow Rate FiO2 11/14/16 08:00 98.6 100 20 144/67 94 11/14/16 04:00 97.6 93 20 140/68 98 11/14/16 00:00 97.8 94 18 145/63 96 11/13/16 21:23 148/70 11/13/16 20:00 98.9 94 20 175/81 96 11/13/16 16:01 98.6 99 18 141/68 96 11/13/16 12:01 98.5 93 18 159/80 95 I/O 11/13/16 11/13/16 11/13/16 11/14/16 11/14/16 11/14/16 07:00 15:00 23:00 07:00 15:00 23:00 Intake Total 180 ml 360 ml 360 ml Output Total 700 ml 350 ml Balance 180 ml -340 ml 10 ml Intake Oral 180 ml 360 ml 360 ml Output Urine Total 700 ml 350 ml # Voids 0 1 # Bowel Movements 0 0 0 Result Diagram: 11/14/16 0721 11/14/16 0721 Imaging Last Impressions Lymph Node Biopsy Ultrasound 11/12/16 0000 Signed Impressions: Service Date/Time: Saturday, November 12, 2016 11:42 - CONCLUSION: Uncomplicated ultrasound guided needle biopsy of an abnormally enlarged left neck lymph node. Milton Laughlin MD Chest X-Ray 11/12/16 0000 Signed Impressions: Service Date/Time: Saturday, November 12, 2016 21:06 - CONCLUSION: No evidence of acute cardiopulmonary disease. Milton Shea MD Chest CT 11/11/16 0000 Signed Impressions: Service Date/Time: November 18:15 - CONCLUSION: No evidence of metastatic disease or other acute chest disease. Milton Shea MD Hand X-Ray 11/10/16 1043 Signed Impressions: Service Date/Time: Thursday, November 10, 2016 10:54 - CONCLUSION: Soft tissue swelling. No acute bony injury Milton Shay MD Cervical Spine CT 11/10/16 1029 Signed Impressions: Service Date/Time: Thursday, November 10, 2016 11:00 - CONCLUSION: No fracture or subluxation of the cervical spine. Multilevel degenerative changes, especially C5/C6 and C6 on C7. Milton Shea MD Neck CT 11/10/16 Signed Impressions: Service Date/Time: Thursday, November 10, 2016 21:02 - CONCLUSION: 1. Large left-sided neck mass measuring up to 4.6 cm. 2. Prominent lymph nodes in the left neck and left supraclavicular region. 3. Slight soft tissue prominence in the vallecula on the left. Koby Viveros MD Head CT 11/10/16 Signed Impressions: Service Date/Time: Thursday, November 10, 2016 11:00 - CONCLUSION: 1. No bleed or other acute intracranial abnormality. 2. Mild nonspecific ventriculomegaly. 3. Chronic white matter changes. Milton Shea MD Objective Remarks GENERAL: This is a well-nourished, well-developed patient, in no apparent distress. Neck; left neck mass with no tenderness CARDIOVASCULAR: Regular rate and regular rhythm without murmurs, gallops, or rubs. RESPIRATORY: Clear to auscultation. Breath sounds equal bilaterally. No wheezes , rales, or rhonchi. GASTROINTESTINAL: Abdomen soft, non-tender, nondistended. Normal, active bowel sounds MUSCULOSKELETAL: Extremities without clubbing, cyanosis, or edema. NEURO: Alert & Oriented x4 to person, place, time, situation. Moves all ext x4 Procedures biopsy of the neck mass Medications and IVs Current Medications Insulin Human Regular 6 units 6 units ONCE ONCE IVP Last administered on 15:15; Start 11/10/16 at 13:45; Stop 11/10/16 at 13:47; Status DC Sodium Chloride 500 ml @ 500 mls/hr BOLUS ONCE IV Last administered on 15:14; Start 11/10/16 at 13:45; Stop 11/10/16 at 14:44; Status DC Sodium Chloride (NS 1000 ml Inj) 1,000 ml @ 100 mls/hr Q10H IV Last administered on 11/11/16 07:56; Start 11/10/16 at 15:00; Status Hold Dextrose (D50w (Vial) Inj) 25 ml UNSCH PRN IV PUSH HYPOGLYCEMIA-SEE COMMENTS; Start 11/10/16 at 14:15 Glucagon (Glucagon Inj) 1 mg UNSCH PRN OTHER HYPOGLYCEMIA-SEE COMMENTS; Start 11/10/16 at 14:15 Insulin Aspart (NovoLOG SUPPLEMENTAL SCALE) 1 ACHS SLIDING SCALE SQ Last administered on 11/14/16 05:39; Start 11/10/16 at 16:00 Acetaminophen (Tylenol) 650 mg Q4H PRN PO FEVER/ PAIN <5 Last administered on 21:11; Start 11/10/16 at 14:15 Acetaminophen/ Hydrocodone Bitart ([place] 5-325 Mg) 1 tab Q4H PRN PO PAIN> 5 Last administered on 11/10/16 15:15; Start 11/10/16 at 14:15 Ondansetron HCl (Zofran Inj) 4 mg Q8H PRN IV PUSH NAUSEA; Start 11/10/16 at 14: 15; Status Cancel Zolpidem Tartrate (Ambien) 5 mg HS PRN PO INSOMNIA Last administered on 20:44; Start 11/10/16 at 14:15 Enoxaparin Sodium (Lovenox Inj) 40 mg Q24H SQ Last administered on 11/14/16 09 :02; Start 11/11/16 at 09:00 Trazodone HCl (Desyrel) 50 mg HS PO Last administered on 11/13/16 20:44; Start 11/10/16 at 21:00 Multi-Ingredient Mouthwash/Gargle (Magic Mouthwash Adult Liq) 5 ml QID SWISH- SWAL Last administered on 11/14/16 09:02; Start 11/10/16 at 21:00 Lidocaine HCl 30 ml 30 ml STK-MED ONCE .ROUTE ; Start 11/12/16 at 12:36; Stop at 12:37; Status DC Sodium Bicarbonate 50 ml @ As Directed STK-MED ONCE .ROUTE ; Start 11/12/16 at 12:36; Stop 11/12/16 at 12:37; Status DC Piperacillin Sod/ Tazobactam Sod (Zosyn 3.375 Gm Premix) 50 ml @ 100 mls/hr Q6H IV Last administered on 11/14/16 05:36; Start 11/13/16 at 01:00 Enalaprilat (Vasotec Inj) 2.5 mg ONCE ONCE IV PUSH Last administered on t 20:43; Start 11/13/16 at 20:30; Stop 11/13/16 at 20:31; Status DC A/P Assessment and Plan A/P - fall with generalized weakness fall precautions- consulted PT and case management. -diabetes mellitus- continue accu-check with SSI- hold oral hypoglycemics for now-will monitor- will add long-acting insulin while is in the hospital. -tongue cancer with left neck mass- oncology consult appreciated. s/p biopsy of the neck mass- will follow the pathology. radiation oncology consulted. -fever spike- with no recurrence- started on Zosyn- blood cultures negative so far. CXR with no acute disease. -left hand swelling/ pain; XR with soft tissue swelling- will consult hand surgery -right foot swelling; will check XR of the right foot -hyponatremia; resolved. -leukocytosis-monitor temps- continue Abx- will monitor. -insomnia; ambien as needed. -depressed mood; started on Trazodone -DVT prophylaxis with lovenox Discharge Planning consulted case management for possible rehab. not ready for discharge. Maya Braden MD Nov 14, 2016 11:41
[2016-11-14 12:00] VITALS: BP 186/90; PULSE 95; RESP 20; TEMP 98.8; O2SAT 96
--- NOTE | 2016-11-14 12:36 | RADRPT ---
EXAM DATE/TIME: 11/14/2016 12:01 [facility] COMPARISON: No previous studies available for comparison. INDICATIONS : Patient states right foot pain. MEDICAL HISTORY : None. SURGICAL HISTORY : None. ENCOUNTER: Initial ACUITY: 1 day PAIN SCORE: 09/14 LOCATION: Right Foot FINDINGS: No fracture is seen. The bones and joints are aligned. There is hypertrophic change and joint space n arrowing at the first MTP joint. There does abuser 0.5 cm area of soft tissue calcification or foreig n material seen in the anterior aspect of the heel fat-pad. Calcaneal spurring is seen at the Milady s attachment site. Vascular calcifications are seen. CONCLUSION: 1. 5 mm calcification or a foreign material seen in the anterior superficial fat pad. 2. Degenerative change at the first MTP joint. 3. Calcaneal spur. Milton Cheek MD on November 14, 2016 at 12:32 Board Certified Radiologist. This report was verified electronically.
--- NOTE | 2016-11-14 15:39 | RADRPT ---
EXAM DATE/TIME: 11/14/2016 15:07 [facility] COMPARISON: No previous studies available for comparison. INDICATIONS : Left posterior hand palpable area. MEDICAL HISTORY : Dementia. Diabetes. Sleep apnea. Tongue cancer. Pneumonia. SURGICAL HISTORY : Tonsillectomy. Appendectomy. ENCOUNTER: Initial ACUITY: 1 week PAIN SCORE: 3/10 LOCATION: Left posterior hand. AREA EVALUATED: Left posterior hand. FINDINGS: There is a superficial debris filled fluid collection dorsal to the metacarpal phalangeal joints of t he left hand. The collection measures approximately 1.1 x 2.5 x 4.7 cm in size. There is surrounding hyperemia and this may be indicative of chest. It does not appear to be related to any of the extenso r tendons or extensor tendon sheaths. Also no convincing evidence of intra-articular involvement. CONCLUSION: Relatively large fluid collection just below the skin dorsally of the left hand as described above, c ould be an abscess in the proper clinical setting. Milton Shea MD on November 14, 2016 at 15:35 Board Certified Radiologist. This report was verified electronically.
[2016-11-14 16:00] VITALS: BP 125/66; PULSE 97; RESP 20; TEMP 98.6; O2SAT 94
--- NOTE | 2016-11-14 16:42 | MB ---
cc: KASIA BOWER MD DATE OF CONSULTATION 11/14/2016 REASON FOR CONSULTATION Left hand pain and swelling. HISTORY OF THE PRESENT ILLNESS The patient is 71-year-old right-hand dominant male with history of tongue and neck cancer presented to the hospital with history of fall on November 10, 2016. The patient was initially noted to have swelling over the left hand. He also had associated bruising. He had x-rays done which was negative for fracture. Hand surgery was consulted for persistent swelling involving the left hand with associated pain. The patient denies any constant throbbing pain. The patient gives history of injury to the left middle finger of several months' duration and states he is unable to flex the left middle finger since then. He complains of worsening pain with range of motion of the finger. Denies any tingling or numbness. PAST MEDICAL AND SURGICAL HISTORY His past medical and surgical history are noted. PHYSICAL EXAMINATION GENERAL: The patient is lying down on the bed. He does respond to commands. EXTREMITIES: Examination of left hand reveals swelling over the dorsal aspect of the third and fourth metacarpal phalangeal joint region. Chronically extended middle finger with loss of creases on the dorsal aspect of the PIP joint. Fluctuation noted over the dorsal aspect of the hand. Tenderness noted over the fourth metacarpal head and base of the proximal phalanx. On making a fist, terminal degrees of flexion of the ring finger is associated with pain. No active flexion noted with the middle finger. He has limited flexion of the index finger. He has intact distal circulation. IMAGING X-rays of the left hand done a few days ago were reviewed and show evidence of soft tissue swelling. No evidence of fracture. LABORATORY FINDINGS Was reviewed. He has a white count of 14.2. ASSESSMENT A 71-year-old male with injury to the left hand likely a hematoma over the third and fourth metacarpal phalangeal joint region. PLAN The plan will be to keep the limb elevated. We will obtain ultrasound of left hand. Hand surgery will follow Kasia Bower MD SE/[facility]AN[facility] /1:23 PM /3:31 PM [facility]
[2016-11-14 20:00] VITALS: BP 162/71; PULSE 98; RESP 18; TEMP 98.7; O2SAT 96
[2016-11-14] MEDS ORDERED: INSULIN DETEMIR 100 UNITS/ML VIAL SQ SCH (21:00)
[2016-11-14] MEDS: ZOLPIDEM TARTRATE 5 MG TAB PO PRN (22:12)
[2016-11-14] MEDS: traZODone HCL 50 MG TAB PO SCH (22:13)
[2016-11-15] VITALS (7 sets, daily range): BP systolic 135–186; BP diastolic 64–91; PULSE 79–95; RESP 18–20; TEMP 97.1–99.4; O2SAT 93–96
[2016-11-15] MEDS: PIPERACIL-TAZO 3.375 GM PREMIX 50 ML IV SCH ×4 (02:47→19:00)
[2016-11-15] MEDS: INSULIN ASPART SUPPLEMENTAL SCALE SQ SCH ×4 (05:56→22:31)
[2016-11-15] MEDS: NYSTAT/DIPHENHY/LIDO MOUTHWASH (Adult) 120ML SWISH-SWAL SCH ×4 (09:00→22:34)
[2016-11-15] MEDS: ENOXAPARIN SODIUM 40 MG/0.4 ML SYRINGE SQ SCH (09:00)
--- NOTE | 2016-11-15 10:49 | HHI.PR ---
Subjective Remarks in no acute distress. looks somewhat lethargic but per RN he was up last night. no fever. denies pain. Objective Vitals Vital Signs Date Time Temp Pulse Resp B/P Pulse Ox O2 Delivery O2 Flow Rate FiO2 11/15/16 08:04 98.3 90 18 164/77 95 11/15/16 04:00 97.1 95 18 167/79 96 11/15/16 00:00 99.4 90 18 157/68 96 11/14/16 20:00 98.7 98 18 162/71 96 11/14/16 16:00 98.6 97 20 125/66 94 11/14/16 12:00 98.8 95 20 186/90 96 I/O 11/14/16 11/14/16 11/14/16 11/15/16 11/15/16 11/15/16 07:00 15:00 23:00 07:00 15:00 23:00 Intake Total 360 ml 290 ml 120 ml 400 ml Output Total 350 ml 150 ml 200 ml Balance 10 ml 140 ml -80 ml 400 ml Intake Oral 360 ml 240 ml 120 ml 100 ml IV Total 50 ml 300 ml Output Urine Total 350 ml 150 ml 200 ml # Voids 1 1 2 # Bowel Movements 0 1 0 0 Result Diagram: 11/14/16 0721 11/14/16 0721 Imaging Last Impressions Lymph Node Biopsy Ultrasound 11/12/16 0000 Signed Impressions: Service Date/Time: Saturday, November 12, 2016 11:42 - CONCLUSION: Uncomplicated ultrasound guided needle biopsy of an abnormally enlarged left neck lymph node. Milton Laughlin MD Chest X-Ray 11/12/16 0000 Signed Impressions: Service Date/Time: Saturday, November 12, 2016 21:06 - CONCLUSION: No evidence of acute cardiopulmonary disease. Milton Shea MD Chest CT 11/11/16 0000 Signed Impressions: Service Date/Time: November 18:15 - CONCLUSION: No evidence of metastatic disease or other acute chest disease. Milton Shea MD Hand X-Ray 11/10/16 1043 Signed Impressions: Service Date/Time: Thursday, November 10, 2016 10:54 - CONCLUSION: Soft tissue swelling. No acute bony injury Milton Shay MD Cervical Spine CT 11/10/16 1029 Signed Impressions: Service Date/Time: Thursday, November 10, 2016 11:00 - CONCLUSION: No fracture or subluxation of the cervical spine. Multilevel degenerative changes, especially C5/C6 and C6 on C7. Milton Shea MD Neck CT 11/10/16 0000 Signed Impressions: Service Date/Time: Thursday, November 10, 2016 21:02 - CONCLUSION: 1. Large left-sided neck mass measuring up to 4.6 cm. 2. Prominent lymph nodes in the left neck and left supraclavicular region. 3. Slight soft tissue prominence in the vallecula on the left. Koby Viveros MD Head CT 11/10/16 0000 Signed Impressions: Service Date/Time: Thursday, November 10, 2016 11:00 - CONCLUSION: 1. No bleed or other acute intracranial abnormality. 2. Mild nonspecific ventriculomegaly. 3. Chronic white matter changes. Milton Shea MD Objective Remarks GENERAL: This is a well-nourished, well-developed patient, in no apparent distress. Neck; left neck mass with no tenderness CARDIOVASCULAR: Regular rate and regular rhythm without murmurs, gallops, or rubs. RESPIRATORY: Clear to auscultation. Breath sounds equal bilaterally. No wheezes , rales, or rhonchi. GASTROINTESTINAL: Abdomen soft, non-tender, nondistended. Normal, active bowel sounds MUSCULOSKELETAL: swelling of the left hand NEURO: somewhat lethargic today. Procedures biopsy of the neck mass Medications and IVs Current Medications Insulin Human Regular 6 units 6 units ONCE ONCE IVP Last administered on 15:15; Start 11/10/16 at 13:45; Stop 11/10/16 at 13:47; Status DC Sodium Chloride 500 ml @ 500 mls/hr BOLUS ONCE IV Last administered on 15:14; Start 11/10/16 at 13:45; Stop 11/10/16 at 14:44; Status DC Sodium Chloride (NS 1000 ml Inj) 1,000 ml @ 100 mls/hr Q10H IV Last administered on 11/11/16 07:56; Start 11/10/16 at 15:00; Status Hold Dextrose (D50w (Vial) Inj) 25 ml UNSCH PRN IV PUSH HYPOGLYCEMIA-SEE COMMENTS; Start 11/10/16 at 14:15 Glucagon (Glucagon Inj) 1 mg UNSCH PRN OTHER HYPOGLYCEMIA-SEE COMMENTS; Start 11/10/16 at 14:15 Insulin Aspart (NovoLOG SUPPLEMENTAL SCALE) 1 ACHS SLIDING SCALE SQ Last administered on 11/15/16 05:56; Start 11/10/16 at 16:00 Acetaminophen (Tylenol) 650 mg Q4H PRN PO FEVER/ PAIN <5 Last administered on 21:11; Start 11/10/16 at 14:15 Acetaminophen/ Hydrocodone Bitart ([place] 5-325 Mg) 1 tab Q4H PRN PO PAIN> 5 Last administered on 11/10/16 15:15; Start 11/10/16 at 14:15 Ondansetron HCl (Zofran Inj) 4 mg Q8H PRN IV PUSH NAUSEA; Start 11/10/16 at 14: 15; Status Cancel Zolpidem Tartrate (Ambien) 5 mg HS PRN PO INSOMNIA Last administered on 22:12; Start 11/10/16 at 14:15 Enoxaparin Sodium (Lovenox Inj) 40 mg Q24H SQ Last administered on 11/14/16 09 :02; Start 11/11/16 at 09:00 Trazodone HCl (Desyrel) 50 mg HS PO Last administered on 11/14/16 22:13; Start 11/10/16 at 21:00 Multi-Ingredient Mouthwash/Gargle (Magic Mouthwash Adult Liq) 5 ml QID SWISH- SWAL Last administered on 11/14/16 22:21; Start 11/10/16 at 21:00 Lidocaine HCl 30 ml 30 ml STK-MED ONCE .ROUTE ; Start 11/12/16 at 12:36; Stop at 12:37; Status DC Sodium Bicarbonate 50 ml @ As Directed STK-MED ONCE .ROUTE ; Start 11/12/16 at 12:36; Stop 11/12/16 at 12:37; Status DC Piperacillin Sod/ Tazobactam Sod (Zosyn 3.375 Gm Premix) 50 ml @ 100 mls/hr Q6H IV Last administered on 11/15/16 05:56; Start 11/13/16 at 01:00 Enalaprilat (Vasotec Inj) 2.5 mg ONCE ONCE IV PUSH Last administered on 20:43; Start 11/13/16 at 20:30; Stop 11/13/16 at 20:31; Status DC Insulin Detemir (Levemir Inj) 5 units HS SQ Last administered on 11/14/16 22: 13; Start 11/14/16 at 21:00 A/P Assessment and Plan A/P - fall with generalized weakness fall precautions- consulted PT and case management. -diabetes mellitus- continue accu-check with SSI- hold oral hypoglycemics for now-will monitor- will increase long-acting insulin while is in the hospital. -tongue cancer with left neck mass- oncology consult appreciated. s/p biopsy of the neck mass- will follow the pathology. radiation oncology consulted. -possible abscess of the left hand; continue Abx- hand surgery consult appreciated. blood cultures negative so far. CXR with no acute disease. -right footn mild swelling;XR with no acute fracture. -hyponatremia; resolved. -leukocytosis-monitor temps- continue Abx- will monitor. -insomnia; ambien as needed. -depressed mood; started on Trazodone -DVT prophylaxis with lovenox Discharge Planning consulted case management for possible rehab. not ready for discharge. Maya Braden MD Nov 15, 2016 10:49
[2016-11-15] MEDS ORDERED: KETAMINE HCL 500 MG/5 ML VIAL IV ONE (12:00)
[2016-11-15] MEDS ORDERED: MIDAZOLAM HCL 2 MG/2 ML VIAL IV ONE (12:00)
[2016-11-15] MEDS ORDERED: ENALAPRILAT 1.25 MG/ML VIAL IV PUSH PRN (13:00)
[2016-11-15] MEDS ORDERED: LIDOCAINE HCL 1% 50 ML VIAL ONE (13:01)
--- NOTE | 2016-11-15 15:11 | PD.OP ---
Operative Report Preoperative Diagnosis: (1) Abscess of hand, left (2) Traumatic hematoma of left hand Postoperative Diagnosis: (1) Traumatic hematoma of left hand Procedure: incision and drainage of hematoma left hand dorsum Anesthesia: MAC Surgeon: Napoleon Cosme Software Trainer(s): bhavani Operation and Findings: clotted hematoma over the dorsal aspect of the left hand Napoleon Cosme MD Nov 15, 2016 15:11
[2016-11-15] MEDS ORDERED: DO NOT ADM ANY ANTICOAGULANT DRUGS XX PRN (16:00)
[2016-11-15] MEDS: ACETAMINOPHEN/HYDROcodone 325 MG/5 MG TAB PO PRN (22:28)
[2016-11-15] MEDS: traZODone HCL 50 MG TAB PO SCH (22:29)
[2016-11-15] MEDS: INSULIN DETEMIR 100 UNITS/ML VIAL SQ SCH (22:30)
[2016-11-16] MEDS: PIPERACIL-TAZO 3.375 GM PREMIX 50 ML IV SCH ×5 (02:07→23:58)
[2016-11-16 04:18] VITALS: BP 146/71; PULSE 89; RESP 18; TEMP 89; O2SAT 94
[2016-11-16] MEDS: ACETAMINOPHEN/HYDROcodone 325 MG/5 MG TAB PO PRN ×3 (05:45→21:01)
[2016-11-16] MEDS: INSULIN ASPART SUPPLEMENTAL SCALE SQ SCH ×4 (05:46→21:04)
[2016-11-16 08:00] VITALS: BP 123/65; PULSE 79; RESP 18; TEMP 98.6; O2SAT 97
[2016-11-16 08:55] LABS: AUTOMATED NEUTROPHIL # 8.4 TH/MM3 (1.8-7.7); BASOPHIL # 0.1 TH/MM3 (0-0.2); BASOPHIL % 0.9 % (0.0-2.0); EOSINOPHIL # 0.4 TH/MM3 (0-0.4); HEMATOCRIT 32.8 % (39.0-51.0); HEMO FLAGS DIFF FINAL; LYMPH % 20.3 % (9.0-44.0); LYMPHOCYTE # 2.5 TH/MM3 (1.0-4.8); MEAN CELL VOLUME 83.1 FL (80.0-100.0); MEAN CORPUSCULAR HEMOGLOBIN 28.1 PG (27.0-34.0); MEAN CORPUSCULAR HGB CONC 33.8 % (32.0-36.0); MONO % 7.7 % (0.0-8.0); NEUT % 68.1 % (16.0-70.0); PLATELET COUNT 391 TH/MM3 (150-450); RED BLOOD COUNT 3.94 MIL/MM3 (4.50-5.90); RED CELL DISTRIBUTION WIDTH 12.7 % (11.6-17.2); WHITE BLOOD COUNT 12.3 TH/MM3 (4.0-11.0)
[2016-11-16] MEDS: NYSTAT/DIPHENHY/LIDO MOUTHWASH (Adult) 120ML SWISH-SWAL SCH ×4 (09:00→21:01)
[2016-11-16] MEDS: ENOXAPARIN SODIUM 40 MG/0.4 ML SYRINGE SQ SCH (09:23)
--- NOTE | 2016-11-16 10:04 | PD.ONC.PN ---
Subjective Subjective Remarks Afebrile overnight. Patient resting comfortably without complaint. He ate breakfast this AM. Denies pain. Tells me he wants to go home. Objective Data Date Time Temp Pulse Resp B/P Pulse Ox O2 Delivery O2 Flow Rate FiO2 11/16/16 08:00 98.6 79 18 123/65 97 11/16/16 04:18 89.0 89 18 146/71 94 11/15/16 23:30 98.9 95 18 156/82 96 11/15/16 19:20 99.4 86 18 135/65 93 11/15/16 16:00 97.1 79 18 138/64 96 11/15/16 15:40 98.5 80 15 119/62 98 Nasal Cannula 2 11/15/16 15:30 78 18 112/60 99 Nasal Cannula 2 11/15/16 15:15 77 12 152/80 97 Nasal Cannula 2 11/15/16 15:09 98.7 85 15 139/73 98 Nasal Cannula 2 Manual Cuff/Auscultation 11/15/16 12:00 98.8 89 20 186/91 96 11/16/16 11/16/16 11/16/16 07:00 15:00 23:00 Intake Total 120 ml Output Total 450 ml Balance -330 ml Result Diagram: 11/16/16 0748 11/14/16 0721 Laboratory Results Laboratory Tests Test 11/16/16 07:48 White Blood Count 12.3 TH/MM3 Red Blood Count 3.94 MIL/MM3 Hemoglobin 11.1 GM/DL Hematocrit 32.8 % Mean Corpuscular Volume 83.1 FL Mean Corpuscular Hemoglobin 28.1 PG Mean Corpuscular Hemoglobin 33.8 % Concent Red Cell Distribution Width 12.7 % Platelet Count 391 TH/MM3 Mean Platelet Volume 7.5 FL Neutrophils (%) (Auto) 68.1 % Lymphocytes (%) (Auto) 20.3 % Monocytes (%) (Auto) 7.7 % Eosinophils (%) (Auto) 3.0 % Basophils (%) (Auto) 0.9 % Neutrophils # (Auto) 8.4 TH/MM3 Lymphocytes # (Auto) 2.5 TH/MM3 Monocytes # (Auto) 1.0 TH/MM3 Eosinophils # (Auto) 0.4 TH/MM3 Basophils # (Auto) 0.1 TH/MM3 CBC Comment DIFF FINAL Differential Comment Culture Results Microbiology Date/Time Procedure Status Source Growth 11/15/16 14:38 Gram Stain - Final Resulted Wound Hand 11/15/16 14:38 Wound Culture Resulted Wound Hand Pending 11/15/16 14:38 Acid Fast Stain Received Wound Hand Pending 11/15/16 14:38 Mycobacterial Culture Received Wound Hand Pending 11/15/16 14:38 Fungal Smear Received Wound Hand Pending 11/15/16 14:38 Fungal Culture Received Wound Hand Pending Administered Medications Medications (Trade) Dose Ordered Sig/Rosalind Route PRN Reason Start Time Stop Time Status Last Admin Dose Admin Sodium Chloride (NS 1000 ml Inj) 1,000 ml @ 100 mls/hr Q10H IV 11/10/16 15:00 Hold 11/11/16 07:56 Acetaminophen (Tylenol) 650 mg Q4H PRN PO FEVER/ PAIN <5 11/10/16 14:15 11/12/16 21:11 Acetaminophen/ Hydrocodone Bitart ([place] 5-325 Mg) 1 tab Q4H PRN PO PAIN> 5 11/10/16 14:15 11/16/16 09:25 Zolpidem Tartrate (Ambien) 5 mg HS PRN PO INSOMNIA 11/10/16 14:15 11/14/16 22:12 Enoxaparin Sodium (Lovenox Inj) 40 mg Q24H SQ 11/11/16 09:00 11/16/16 09:23 Trazodone HCl (Desyrel) 50 mg HS PO 11/10/16 21:00 11/15/16 22:29 Multi-Ingredient Mouthwash/Gargle 5 ml 5 ml QID SWISH-SWAL 11/10/16 21:00 11/16/16 09:00 Piperacillin Sod/ Tazobactam Sod (Zosyn 3.375 Gm Premix) 50 ml @ 100 mls/hr Q6H IV 11/13/16 01:00 11/16/16 05:46 Insulin Detemir (Levemir Inj) 10 units HS SQ 11/15/16 21:00 11/15/16 22:30 Objective Remarks GENERAL: Elderly male, sitting up in bed in [facility]. SKIN: Warm and dry. HEAD: Normocephalic. EYES: No injection or drainage. NEUROLOGICAL: awake and alert, garbled speech d/t prior partial glossectomy. able to move extremities. Assessment/Plan Problem List: (1) Squamous cell cancer of tongue Status: Acute Plan: CT soft tissue neck show LN L neck measure 4.6cm, pathology shows moderately differentiated squamous cell carcinoma CT chest: no mets --will need concurrent chemo/radiation Assessment 71 y/o man with oral tongue cancer s/p L hemoglossectomy with local recurrence. Plan 1. LN biopsy returned showing moderately differentiated squamous cell carcinoma. Discussed with patient the diagnosis and plan for chemo and radiation outpatient. Emotional support provided. Opportunity to ask questions provided. Patient states he understands the diagnosis and need for follow up. He tells me he wants to go home. Jacqueline Bowden Nov 16, 2016 10:04 provided. Patient states he understands the diagnosis and need for follow up. He tells me he wants to go home. Jacqueline Bowden Nov 16, 2016 10:04
--- NOTE | 2016-11-16 11:05 | HHI.PR ---
Subjective Remarks in no acute distress. no fever. pain is controlled. Objective Vitals Vital Signs Date Time Temp Pulse Resp B/P Pulse Ox O2 Delivery O2 Flow Rate FiO2 11/16/16 08:00 98.6 79 18 123/65 97 11/16/16 04:18 89.0 89 18 146/71 94 11/15/16 23:30 98.9 95 18 156/82 96 11/15/16 19:20 99.4 86 18 135/65 93 11/15/16 16:00 97.1 79 18 138/64 96 11/15/16 15:40 98.5 80 15 119/62 98 Nasal Cannula 2 11/15/16 15:30 78 18 112/60 99 Nasal Cannula 2 11/15/16 15:15 77 12 152/80 97 Nasal Cannula 2 11/15/16 15:09 98.7 85 15 139/73 98 Nasal Cannula 2 Manual Cuff/Auscultation 11/15/16 12:00 98.8 89 20 186/91 96 I/O 11/15/16 11/15/16 11/15/16 11/16/16 11/16/16 11/16/16 07:00 15:00 23:00 07:00 15:00 23:00 Intake Total 400 ml 0 ml 940 ml 120 ml Output Total 200 ml 225 ml 450 ml Balance 400 ml -200 ml 715 ml -330 ml Intake Oral 100 ml 0 ml 240 ml 120 ml IV Total 300 ml Other 700 ml Output Urine Total 200 ml 200 ml 450 ml Estimated Blood Loss 25 ml # Voids 2 # Bowel Movements 0 0 1 0 Result Diagram: 11/16/16 0748 11/14/16 0721 Imaging Last Impressions Upper Extremity Ultrasound 11/14/16 0000 Signed Impressions: Service Date/Time: Monday, November 14, 2016 15:07 - CONCLUSION: Relatively large fluid collection just below the skin dorsally of the left hand as described above, could be an abscess in the proper clinical setting. Milton Shea MD Foot X-Ray 11/14/16 0000 Signed Impressions: Service Date/Time: Monday, November 14, 2016 12:01 - CONCLUSION: 1. 5 mm calcification or a foreign material seen in the anterior superficial fat pad. 2. Degenerative change at the first MTP joint. 3. Calcaneal spur. Milton Cheek MD Lymph Node Biopsy Ultrasound 11/12/16 0000 Signed Impressions: Service Date/Time: Saturday, November 12, 2016 11:42 - CONCLUSION: Uncomplicated ultrasound guided needle biopsy of an abnormally enlarged left neck lymph node. Milton Laughlin MD Chest X-Ray 11/12/16 0000 Signed Impressions: Service Date/Time: Saturday, November 12, 2016 21:06 - CONCLUSION: No evidence of acute cardiopulmonary disease. Milton Shea MD Chest CT 11/11/16 0000 Signed Impressions: Service Date/Time: November 18:15 - CONCLUSION: No evidence of metastatic disease or other acute chest disease. Milton Shea MD Hand X-Ray 11/10/16 1043 Signed Impressions: Service Date/Time: Thursday, November 10, 2016 10:54 - CONCLUSION: Soft tissue swelling. No acute bony injury Milton Shay MD Cervical Spine CT 11/10/16 1029 Signed Impressions: Service Date/Time: Thursday, November 10, 2016 11:00 - CONCLUSION: No fracture or subluxation of the cervical spine. Multilevel degenerative changes, especially C5/C6 and C6 on C7. Milton Shea MD Neck CT 11/10/16 0000 Signed Impressions: Service Date/Time: Thursday, November 10, 2016 21:02 - CONCLUSION: 1. Large left-sided neck mass measuring up to 4.6 cm. 2. Prominent lymph nodes in the left neck and left supraclavicular region. 3. Slight soft tissue prominence in the vallecula on the left. Koby Viveros MD Head CT 11/10/16 0000 Signed Impressions: Service Date/Time: Thursday, November 10, 2016 11:00 - CONCLUSION: 1. No bleed or other acute intracranial abnormality. 2. Mild nonspecific ventriculomegaly. 3. Chronic white matter changes. Milton Shea MD Objective Remarks GENERAL: This is a well-nourished, well-developed patient, in no apparent distress. Neck; left neck mass with no tenderness CARDIOVASCULAR: Regular rate and regular rhythm without murmurs, gallops, or rubs. RESPIRATORY: Clear to auscultation. Breath sounds equal bilaterally. No wheezes , rales, or rhonchi. GASTROINTESTINAL: Abdomen soft, non-tender, nondistended. Normal, active bowel sounds MUSCULOSKELETAL: left hand covered with clean dressing. NEURO: awake and alert. Procedures biopsy of the neck mass I/D of the left hand hematoma Medications and IVs Current Medications Insulin Human Regular 6 units 6 units ONCE ONCE IVP Last administered on 15:15; Start 11/10/16 at 13:45; Stop 11/10/16 at 13:47; Status DC Sodium Chloride 500 ml @ 500 mls/hr BOLUS ONCE IV Last administered on 15:14; Start 11/10/16 at 13:45; Stop 11/10/16 at 14:44; Status DC Sodium Chloride (NS 1000 ml Inj) 1,000 ml @ 100 mls/hr Q10H IV Last administered on 11/11/16 07:56; Start 11/10/16 at 15:00; Status Hold Dextrose (D50w (Vial) Inj) 25 ml UNSCH PRN IV PUSH HYPOGLYCEMIA-SEE COMMENTS; Start 11/10/16 at 14:15 Glucagon (Glucagon Inj) 1 mg UNSCH PRN OTHER HYPOGLYCEMIA-SEE COMMENTS; Start 11/10/16 at 14:15 Insulin Aspart (NovoLOG SUPPLEMENTAL SCALE) 1 ACHS SLIDING SCALE SQ Last administered on 11/16/16 05:46; Start 11/10/16 at 16:00 Acetaminophen (Tylenol) 650 mg Q4H PRN PO FEVER/ PAIN <5 Last administered on 21:11; Start 11/10/16 at 14:15 Acetaminophen/ Hydrocodone Bitart ([place] 5-325 Mg) 1 tab Q4H PRN PO PAIN> 5 Last administered on 11/16/16 09:25; Start 11/10/16 at 14:15 Ondansetron HCl (Zofran Inj) 4 mg Q8H PRN IV PUSH NAUSEA; Start 11/10/16 at 14: 15; Status Cancel Zolpidem Tartrate (Ambien) 5 mg HS PRN PO INSOMNIA Last administered on 22:12; Start 11/10/16 at 14:15 Enoxaparin Sodium (Lovenox Inj) 40 mg Q24H SQ Last administered on 11/16/16 09 :23; Start 11/11/16 at 09:00 Trazodone HCl (Desyrel) 50 mg HS PO Last administered on 11/15/16 22:29; Start 11/10/16 at 21:00 Multi-Ingredient Mouthwash/Gargle (Magic Mouthwash Adult Liq) 5 ml QID SWISH- SWAL Last administered on 11/16/16 09:00; Start 11/10/16 at 21:00 Lidocaine HCl 30 ml 30 ml STK-MED ONCE .ROUTE ; Start 11/12/16 at 12:36; Stop at 12:37; Status DC Sodium Bicarbonate 50 ml @ As Directed STK-MED ONCE .ROUTE ; Start 11/12/16 at 12:36; Stop 11/12/16 at 12:37; Status DC Piperacillin Sod/ Tazobactam Sod (Zosyn 3.375 Gm Premix) 50 ml @ 100 mls/hr Q6H IV Last administered on 11/16/16 05:46; Start 11/13/16 at 01:00 Enalaprilat (Vasotec Inj) 2.5 mg ONCE ONCE IV PUSH Last administered on 20:43; Start 11/13/16 at 20:30; Stop 11/13/16 at 20:31; Status DC Insulin Detemir (Levemir Inj) 5 units HS SQ Last administered on 11/14/16 22: 13; Start 11/14/16 at 21:00; Stop 11/15/16 at 10:50; Status DC Insulin Detemir (Levemir Inj) 10 units HS SQ Last administered on 11/15/16 22: 30; Start 11/15/16 at 21:00 Enalaprilat (Vasotec Inj) 1.25 mg Q8H PRN IV PUSH SBP> OR = 180, DBP> OR = 100 ; Start 11/15/16 at 13:00 Lidocaine HCl (Xylocaine 1% Inj (50 ml)) 50 ml STK-MED ONCE .ROUTE ; Start 11/15 at 13:01; Stop 11/15/16 at 13:02; Status DC Miscellaneous Information ALL NURSING DEPARTME... UNSCH PRN XX SEE LABEL COMMENTS; Start 11/15/16 at 16:00; Stop 11/16/16 at 15:59 Fentanyl Citrate (fentaNYL INJ) 75 mcg STK-MED ONCE IV ; Start 11/15/16 at 12:00 ; Stop 11/16/16 at 10:23; Status DC Ketamine HCl (Ketalar Inj) 30 mg STK-MED ONCE IV ; Start 11/15/16 at 12:00; Stop 11/16/16 at 10:23; Status DC Midazolam HCl (Versed Inj) 2 mg STK-MED ONCE IV ; Start 11/15/16 at 12:00; Stop 11/16/16 at 10:23; Status DC A/P Assessment and Plan A/P - fall with generalized weakness fall precautions- consulted PT and case management. -diabetes mellitus- continue accu-check with SSI- hold oral hypoglycemics for now-will monitor- continue long-acting insulin while is in the hospital. -tongue cancer with left neck mass- oncology consult appreciated. s/p biopsy of the neck mass- pathology with squamous cell carcinoma outpatient f/u with oncology and radiation oncology- -hematoma of the left hand; s/p I/D of the hematoma- continue Abx- follow the cultures. blood cultures negative so far. -right foot mild swelling;XR with no acute fracture. -hyponatremia; resolved. -lvyqfotgxkee-iutaidyni-jpuhsnw temps- continue Abx- will monitor. -insomnia; ambien as needed. -depressed mood; started on Trazodone -DVT prophylaxis with lovenox Discharge Planning rehab was offered but the patient decline; he wants to go home. will consult case management for HHC. possible discharge within the next 24-48 hrs - if cleared by hand surgery- pending the cultures. Maya Braden MD Nov 16, 2016 11:05
--- NOTE | 2016-11-16 11:06 | HHI.FF ---
Face to Face Verification Diagnosis: (1) Fall (2) Abscess of hand, left Physical Therapy Order: Evaluate and Treat Home Health Nursing Order: Medical education Signs/symptoms of disease process Wound care and dressing changes I have seen patient Devante Moura on 11/16/16. My clinical findings support the need for the requested home health care services because: Ltd mobility - disease progression I certify that my clinical findings support that this patient is homebound because: Unsteady gait/balance Maya Braden MD Nov 16, 2016 11:06
[2016-11-16] MEDS ORDERED: TRAZ50TA12 PO (11:09)
[2016-11-16] MEDS ORDERED: AMBI5TAB PO (11:09)
[2016-11-16] MEDS ORDERED: HYDR-3516 PO (11:09)
[2016-11-16 11:46] VITALS: BP 111/55; PULSE 77; RESP 18; TEMP 98.5; O2SAT 94
[2016-11-16 16:00] VITALS: BP 153/88; PULSE 83; RESP 18; TEMP 97; O2SAT 99
[2016-11-16 20:00] VITALS: BP 178/89; PULSE 86; RESP 18; TEMP 98; O2SAT 97
[2016-11-16] MEDS: INSULIN DETEMIR 100 UNITS/ML VIAL SQ SCH (21:03)
--- NOTE | 2016-11-16 21:32 | RC ---
cc: LUC MUSA,CATHERINE KING MD, MICHAEL DATE OF SERVICE 11/11/16 DATE OF [address] Marjan Villeda. DIAGNOSIS Recurrent oral tongue squamous cell carcinoma. Stage: clinically at least stage T3 versus T4a due to possible deep muscle of tongue involvement. N3, IVB. CHIEF COMPLAINT Left neck mass, new tongue lesion. REASON FOR VISIT The patient being evaluated for possible concomitant chemoradiotherapy for cure. HISTORY OF PRESENT ILLNESS This is a 71-year-old year-old white male who had diagnosis of squamous cell carcinoma of the tongue and had surgical resection on 06/10/2016. It appears from the records that the patient underwent a partial glossectomy and the tumor measured 2.7 x 1.7 x 0.5 cm moderately differentiated and grade II with negative margins. No lymph nodes identified. It appears that the patient had a fall on 2016 and presented to the emergency room. During evaluation, the patient was noted to have left neck swelling and as a result of this an oncology consult was obtained. The patient was seen by Dr. Villeda on a 11/10/2016 with suspicions of recurrent squamous cell carcinoma of the tongue. As a result of this, I have been requested to see the patient in consultation for possible concomitant radiotherapy treatment options. PAST MEDICAL HISTORY As above. Also history of multiple medical problems including 1. History of diabetes, 2. Hypertension, 3. Hyperlipidemia 4. Hypertriglyceridemia 5. Psychiatric history has been [place] Acted by police. The patient has been found to have some dementia with psychosis and possible drug abuse. 6. History of depression. 7. Anxiety 8. Diabetes 9. Hearing loss. 10. sleep apnea. 11. Degenerative disk disease of the cervical spine 12. Chronic white matter changes. 13. History of appendectomy. 14. Tongue biopsy. MEDICATIONS 1. Insulin regular. 2. Sodium chloride. 3. Pioglitazone 4. Metformin 5. Glipizide 6. Percocet 7. Celexa. 8. Aspirin 9. Ambien ALLERGIES No known drug allergies. FAMILY HISTORY Mother of breast carcinoma. No other history of carcinoma in the family. SOCIAL HISTORY The patient denies any tobacco use. Has never been a smoker apparently. Occasional alcohol use. REVIEW OF SYSTEMS CONSTITUTIONAL: The patient denies any major decrease in appetite. ALLERGIES: Has not had any allergic reaction recently. EYES: Unremarkable. ENT: The patient has some difficulty swallowing. Initially I asked him - he says he had no pain in the mouth but then he says that when he eats or drinks something tongue hurts. I asked him how long has the mass been on the left neck, he says about 2 weeks. NECK: Admits to left neck mass. ENT: Unremarkable. CARDIOVASCULAR: Unremarkable. Denies any chest pain. No clinical signs or symptoms of myocardial infarction. RESPIRATORY: Unremarkable. Denies any wheezing or hemoptysis. CHEST: Unremarkable. RECTAL: Denies any rectal bleeding. GENITOURINARY:: Unremarkable. MUSCULOSKELETAL: Unremarkable. NEUROLOGIC: No clinical signs, symptoms of stroke. No motor function deficits. PSYCHIATRIC: Multiple psychiatric problems as described above. ENDOCRINE: As noted. HEMATOLOGIC: Unremarkable. DERMATOLOGIC: Unremarkable. PHYSICAL EXAMINATION GENERAL: The patient knows that he is in the hospital and appears to be oriented in time and space. Does not appear to be in a major distress. When asked about the pain level, he is not able to tell me how much pain he has, but he says he has some pain in the tongue. He says his left neck also bothers him. The patient appears to have a laceration on the left oral commissure, has bruising of the left hand with a stiff left middle finger which the patient was caused by injury. He also has a laceration on the right knee. LUNGS: Clear to auscultation with decreased ventilatory and inspiratory respiratory effort. HEART: Regular rate and rhythm for murmurs. HEENT: Visual examination of the face area - there is swelling of the left neck. No suspicious changes in the dermal architecture. To palpation of the right neck - No masses or nodules were palpated. The right supraclavicular is unremarkable. Palpation of the left neck - there is a large mass measuring about 8.5 cm x 6.5 cm occupying the left jugulodigastric area. It is hard, irregular in shape, slightly tender to palpation. To visual examination of the oral cavity, the left side of the tongue appears to have some bulging when compared to the left, but overall the tongue appears to be swollen bilaterally. There is a lesion which appears to be superficial on the anterior one-third of the tongue measuring about 2.5 x 3 cm in diameter which is ulcerative, non-bleeding. Palpation of the oral cavity is tender in the tongue. I cannot detect any extension into the floor of mouth, but the left side of tongue is extremely indurated and there is some induration on the right, but not as much as on the left. The tongue movement is not adequate and deep tongue muscle involvement by the carcinoma is suspected. Area is tender to palpation. The patient has bad dentition. ABDOMEN: To palpation of the abdominal cavity, no hepatosplenomegaly was palpated. No periumbilical masses noted. No pain elicited. EXTREMITIES: To examination there is no lower extremity edema detected. NEUROLOGIC: No neurological deficits were detected. Cognitive functions appear to be preserved. No other positive findings. PATHOLOGY: Surgical pathology - History of squamous cell carcinoma of the tongue: No recent tongue biopsy. RADIOLOGY: CT of the neck 11/10/2016: Impression - Large left-sided neck mass measuring 4.6 cm. Prominent lymph nodes in the left neck and left supraclavicular region. Slight soft tissue prominence of the vallecula on the left. CT of the head 11/10/2016: Impression - No bleed or acute intracranial abnormality. Mild nonspecific ventriculomegaly, chronic white matter changes. Cervical spine 11/10/2016: Impression - No fracture of subluxation of the cervical spine. Multilevel degenerative changes especially C5-C6 and C6-C7. CT of the chest 11/11/2016: Impression - No evidence of metastatic disease or acute chest disease. ASSESSMENT A 71-year white male with diagnosis of recurrent squamous cell carcinoma of the tongue. Clinically no biopsy yet. The patient being evaluated for possible radiotherapy treatment options. PLAN I have discussed this case with Dr. Villeda and I have also evaluated her note from 11/10/2016. We are in agreement that the patient may have a recurrence of his previous oral tongue carcinoma and we are in agreement that the patient will benefit from concomitant chemoradiotherapy if patient so desires to do so. The patient has a bad dentition, so he will need a dental evaluation and extraction. Since this could delay the treatment, I have discussed this with Dr. Villeda and told her that if she wants to proceed forward with initial neoadjuvant chemotherapy that this could be done followed by concomitant chemoradiation therapy once a dental evaluation takes place. I personally would like to have also a PET scan once the patient gets discharged. The patient may want to consider an ENT evaluation. Discussed with the patient also the possibility of PEG placement due to the fact that I would have to treat the entire tongue and mouth area due to the clinical findings. I discussed with the patient the merits of the radiation therapy. Potential side effects, complications to include but not limited to weakness and fatigue, decreased blood counts, edema of the skin, necrosis of the skin, difficulty and pain with swallowing, esophageal strictures which may require dilation, lung damage, lung fibrosis, lung pneumonitis, nerve damage, spinal cord damage, Lhermitte's syndrome, loss of hair in the occipital area as well as the facial area which could be permanent, dry mouth which will be permanent, damage to the salivary glands which will be permanent, bone necrosis in the jaw which may require surgical repair, thick saliva, loss of weight, loss of taste which could be permanent, decreased hearing, loss of hearing, fibrosis of the tissues of the neck, telangiectasia. After discussion he understood everything that was explained. He agreed to move forward accordingly. The patient will be followed with Dr. Villeda. The patient advised that if I can be of any further assistance to please let me know. I left him one of my business cards in case any family members want to give me a call. He is to return for evaluation once discharged. Nurse navigator consult placed. Dr. Villeda, thank you much for placing this consult and allowing me to participate in the care of your patient. If you have any questions, please do not hesitate to contact me. Luc Musa MD Radiation Oncologist PEDRO ZAVALA/ /6:47 PM /7:56 PM YOBANY
[2016-11-16] MEDS: traZODone HCL 50 MG TAB PO SCH (23:58)
[2016-11-17] VITALS: BP 197/91; PULSE 85; RESP 18; TEMP 98.8; O2SAT 98
[2016-11-17] MEDS: ZOLPIDEM TARTRATE 5 MG TAB PO PRN ×2 (01:37→23:38)
[2016-11-17] MEDS: ACETAMINOPHEN/HYDROcodone 325 MG/5 MG TAB PO PRN ×4 (01:38→18:45)
[2016-11-17 04:00] VITALS: BP 159/94; PULSE 93; RESP 18; TEMP 97.4; O2SAT 97
[2016-11-17] MEDS: INSULIN ASPART SUPPLEMENTAL SCALE SQ SCH ×4 (06:03→21:44)
[2016-11-17] MEDS: PIPERACIL-TAZO 3.375 GM PREMIX 50 ML IV SCH ×4 (06:03→23:38)
[2016-11-17 08:00] VITALS: BP 134/69; PULSE 91; RESP 20; TEMP 98.2; O2SAT 98
[2016-11-17] MEDS: ENOXAPARIN SODIUM 40 MG/0.4 ML SYRINGE SQ SCH (08:49)
[2016-11-17] MEDS: NYSTAT/DIPHENHY/LIDO MOUTHWASH (Adult) 120ML SWISH-SWAL SCH ×4 (08:49→21:42)
--- NOTE | 2016-11-17 11:02 | HHI.PR ---
Subjective Remarks resting comfortably with no distress. pain is controlled. no fever. no new complaints. Objective Vitals Vital Signs Date Time Temp Pulse Resp B/P Pulse Ox O2 Delivery O2 Flow Rate FiO2 11/17/16 08:00 98.2 91 20 134/69 98 11/17/16 04:00 97.4 93 18 159/94 97 11/17/16 00:00 98.8 85 18 197/91 98 11/16/16 20:00 98.0 86 18 178/89 97 11/16/16 16:00 97.0 83 18 153/88 99 11/16/16 11:46 98.5 77 18 111/55 94 I/O 11/16/16 11/16/16 11/16/16 11/17/16 11/17/16 11/17/16 07:00 15:00 23:00 07:00 15:00 23:00 Intake Total 120 ml 120 ml 410 ml 290 ml Output Total 450 ml 200 ml 600 ml Balance -330 ml 120 ml 210 ml -310 ml Intake Oral 120 ml 120 ml 360 ml 240 ml IV Total 50 ml 50 ml Output Urine Total 450 ml 200 ml 600 ml # Voids 4 # Bowel Movements 0 1 0 0 Result Diagram: 11/16/16 0748 11/14/16 0721 Imaging Last Impressions Upper Extremity Ultrasound 11/14/16 0000 Signed Impressions: Service Date/Time: Monday, November 14, 2016 15:07 - CONCLUSION: Relatively large fluid collection just below the skin dorsally of the left hand as described above, could be an abscess in the proper clinical setting. Milton Shea MD Foot X-Ray 11/14/16 0000 Signed Impressions: Service Date/Time: Monday, November 14, 2016 12:01 - CONCLUSION: 1. 5 mm calcification or a foreign material seen in the anterior superficial fat pad. 2. Degenerative change at the first MTP joint. 3. Calcaneal spur. Milton Cheek MD Lymph Node Biopsy Ultrasound 11/12/16 0000 Signed Impressions: Service Date/Time: Saturday, November 12, 2016 11:42 - CONCLUSION: Uncomplicated ultrasound guided needle biopsy of an abnormally enlarged left neck lymph node. Milton Laughlin MD Chest X-Ray 11/12/16 0000 Signed Impressions: Service Date/Time: Saturday, November 12, 2016 21:06 - CONCLUSION: No evidence of acute cardiopulmonary disease. Milton Shea MD Chest CT 11/11/16 0000 Signed Impressions: Service Date/Time: November 18:15 - CONCLUSION: No evidence of metastatic disease or other acute chest disease. Milton Shea MD Hand X-Ray 11/10/16 1043 Signed Impressions: Service Date/Time: Thursday, November 10, 2016 10:54 - CONCLUSION: Soft tissue swelling. No acute bony injury Milton Shay MD Cervical Spine CT 11/10/16 1029 Signed Impressions: Service Date/Time: Thursday, November 10, 2016 11:00 - CONCLUSION: No fracture or subluxation of the cervical spine. Multilevel degenerative changes, especially C5/C6 and C6 on C7. Milton Shea MD Neck CT 11/10/16 0000 Signed Impressions: Service Date/Time: Thursday, November 10, 2016 21:02 - CONCLUSION: 1. Large left-sided neck mass measuring up to 4.6 cm. 2. Prominent lymph nodes in the left neck and left supraclavicular region. 3. Slight soft tissue prominence in the vallecula on the left. Koby Viveros MD Head CT 11/10/16 0000 Signed Impressions: Service Date/Time: Thursday, November 10, 2016 11:00 - CONCLUSION: 1. No bleed or other acute intracranial abnormality. 2. Mild nonspecific ventriculomegaly. 3. Chronic white matter changes. Milton Shea MD Objective Remarks GENERAL: This is a well-nourished, well-developed patient, in no apparent distress. Neck; left neck mass with no tenderness CARDIOVASCULAR: Regular rate and regular rhythm without murmurs, gallops, or rubs. RESPIRATORY: Clear to auscultation. Breath sounds equal bilaterally. No wheezes , rales, or rhonchi. GASTROINTESTINAL: Abdomen soft, non-tender, nondistended. Normal, active bowel sounds MUSCULOSKELETAL: left hand covered with clean dressing. NEURO: awake and alert. Procedures biopsy of the neck mass I/D of the left hand hematoma Medications and IVs Current Medications Insulin Human Regular 6 units 6 units ONCE ONCE IVP Last administered on t 15:15; Start 11/10/16 at 13:45; Stop 11/10/16 at 13:47; Status DC Sodium Chloride 500 ml @ 500 mls/hr BOLUS ONCE IV Last administered on 15:14; Start 11/10/16 at 13:45; Stop 11/10/16 at 14:44; Status DC Sodium Chloride (NS 1000 ml Inj) 1,000 ml @ 100 mls/hr Q10H IV Last administered on 11/11/16 07:56; Start 11/10/16 at 15:00; Status Hold Dextrose (D50w (Vial) Inj) 25 ml UNSCH PRN IV PUSH HYPOGLYCEMIA-SEE COMMENTS; Start 11/10/16 at 14:15 Glucagon (Glucagon Inj) 1 mg UNSCH PRN OTHER HYPOGLYCEMIA-SEE COMMENTS; Start 11/10/16 at 14:15 Insulin Aspart (NovoLOG SUPPLEMENTAL SCALE) 1 ACHS SLIDING SCALE SQ Last administered on 11/17/16 06:03; Start 11/10/16 at 16:00 Acetaminophen (Tylenol) 650 mg Q4H PRN PO FEVER/ PAIN <5 Last administered on 21:11; Start 11/10/16 at 14:15 Acetaminophen/ Hydrocodone Bitart ([place] 5-325 Mg) 1 tab Q4H PRN PO PAIN> 5 Last administered on 11/17/16 10:33; Start 11/10/16 at 14:15 Ondansetron HCl (Zofran Inj) 4 mg Q8H PRN IV PUSH NAUSEA; Start 11/10/16 at 14: 15; Status Cancel Zolpidem Tartrate (Ambien) 5 mg HS PRN PO INSOMNIA Last administered on 01:37; Start 11/10/16 at 14:15 Enoxaparin Sodium (Lovenox Inj) 40 mg Q24H SQ Last administered on 11/17/16 08 :49; Start 11/11/16 at 09:00 Trazodone HCl (Desyrel) 50 mg HS PO Last administered on 11/16/16 23:58; Start 11/10/16 at 21:00 Multi-Ingredient Mouthwash/Gargle (Magic Mouthwash Adult Liq) 5 ml QID SWISH- SWAL Last administered on 11/17/16 08:49; Start 11/10/16 at 21:00 Lidocaine HCl 30 ml 30 ml STK-MED ONCE .ROUTE ; Start 11/12/16 at 12:36; Stop at 12:37; Status DC Sodium Bicarbonate 50 ml @ As Directed STK-MED ONCE .ROUTE ; Start 11/12/16 at 12:36; Stop 11/12/16 at 12:37; Status DC Piperacillin Sod/ Tazobactam Sod (Zosyn 3.375 Gm Premix) 50 ml @ 100 mls/hr Q6H IV Last administered on 11/17/16 06:03; Start 11/13/16 at 01:00 Enalaprilat (Vasotec Inj) 2.5 mg ONCE ONCE IV PUSH Last administered on 20:43; Start 11/13/16 at 20:30; Stop 11/13/16 at 20:31; Status DC Insulin Detemir (Levemir Inj) 5 units HS SQ Last administered on 11/14/16 22: 13; Start 11/14/16 at 21:00; Stop 11/15/16 at 10:50; Status DC Insulin Detemir (Levemir Inj) 10 units HS SQ Last administered on 11/16/16 21: 03; Start 11/15/16 at 21:00 Enalaprilat (Vasotec Inj) 1.25 mg Q8H PRN IV PUSH SBP> OR = 180, DBP> OR = 100 Last administered on 11/16/16 23:57; Start 11/15/16 at 13:00 Lidocaine HCl (Xylocaine 1% Inj (50 ml)) 50 ml STK-MED ONCE .ROUTE ; Start 11/15 at 13:01; Stop 11/15/16 at 13:02; Status DC Miscellaneous Information ALL NURSING DEPARTME... UNSCH PRN XX SEE LABEL COMMENTS; Start 11/15/16 at 16:00; Stop 11/16/16 at 15:59; Status DC Fentanyl Citrate (fentaNYL INJ) 75 mcg STK-MED ONCE IV ; Start 11/15/16 at 12:00 ; Stop 11/16/16 at 10:23; Status DC Ketamine HCl (Ketalar Inj) 30 mg STK-MED ONCE IV ; Start 11/15/16 at 12:00; Stop 3/14/17 at 10:23; Status DC Midazolam HCl (Versed Inj) 2 mg STK-MED ONCE IV ; Start 11/15/16 at 12:00; Stop 11/16/16 at 10:23; Status DC A/P Assessment and Plan A/P - fall with generalized weakness fall precautions- consulted PT and case management. -diabetes mellitus- continue accu-check with SSI- hold oral hypoglycemics for now-will monitor- continue long-acting insulin while is in the hospital. -tongue cancer with left neck mass- oncology consult appreciated. s/p biopsy of the neck mass- pathology with squamous cell carcinoma outpatient f/u with oncology and radiation oncology- -hematoma of the left hand; s/p I/D of the hematoma- continue Abx- follow the cultures. blood cultures negative so far. -right foot mild swelling;XR with no acute fracture. -hyponatremia; resolved. -fgtyvjyvnhqb-bnqzyiban-eyowqjc temps- continue Abx- will monitor. -insomnia; ambien as needed. -depressed mood; started on Trazodone -DVT prophylaxis with lovenox Discharge Planning rehab was offered but the patient decline; he wants to go home. consulted case management for [facility]. possible discharge with tomorrow when cleared by hand surgery. d/w . Maya Braden MD Nov 17, 2016 11:02
--- NOTE | 2016-11-17 11:03 | HHI.DCPOC ---
Discharge Care Plan Diagnosis: (1) Traumatic hematoma of left hand (2) Squamous cell cancer of tongue Your Health Problems Are: Difficulty with ADL Inflammation Swelling Goals to Promote Your Health * To prevent worsening of your condition and complications * To maintain your health at the optimal level Directions to Meet Your Goals Take your medications as prescribed Follow your dietary instruction Follow activity as directed Keep your appointments as scheduled Take your immunizations and boosters as scheduled If your symptoms worsen call your PCP, if no PCP go to Urgent Care Center or Emergency Room Smoking is Dangerous to Your Health. Avoid second hand smoke Call the 24-hour hour crisis hotline for domestic abuse at Maya Braden MD Nov 17, 2016 11:03
[2016-11-17 12:00] VITALS: BP 149/70; PULSE 82; RESP 20; TEMP 98.4; O2SAT 98
[2016-11-17 16:00] VITALS: BP 139/70; PULSE 83; RESP 20; TEMP 98.8; O2SAT 98
--- NOTE | 2016-11-17 16:59 | HHI.PR ---
Subjective Remarks left hand surgery follow up denies any pain complaint with dressing Objective Vital Signs Date Time Temp Pulse Resp B/P Pulse Ox O2 Delivery O2 Flow Rate FiO2 11/17/16 16:00 98.8 83 20 139/70 98 11/17/16 12:00 98.4 82 20 149/70 98 11/17/16 11:33 20 11/17/16 08:00 98.2 91 20 134/69 98 11/17/16 04:00 97.4 93 18 159/94 97 11/17/16 00:00 98.8 85 18 197/91 98 11/16/16 20:00 98.0 86 18 178/89 97 I/O 11/16/16 11/16/16 11/16/16 11/17/16 11/17/16 11/17/16 07:00 15:00 23:00 07:00 15:00 23:00 Intake Total 120 ml 120 ml 410 ml 290 ml 480 ml Output Total 450 ml 200 ml 600 ml 1475 ml Balance -330 ml 120 ml 210 ml -310 ml -995 ml Intake Oral 120 ml 120 ml 360 ml 240 ml 480 ml IV Total 50 ml 50 ml Output Urine Total 450 ml 200 ml 600 ml 1475 ml # Voids 4 # Bowel Movements 0 1 0 0 0 left hand: dressing in place examination after removal of dressing reveals surgical incision site clean and dry mild swelling noted sutures in place terminal degrees of flexion limited cultures are negative to date Result Diagram: 11/16/16 0748 11/14/16 0721 Assessment and Plan Assessment and Plan 71 year old male s/p incision and drainage of hematoma pod 2 Plan; dressing changed keep the part clean and dry cleared for discharge from hand surgery follow up in office in two weeks time for suture removal Napoleon Cosme MD Nov 17, 2016 16:59
--- NOTE | 2016-11-17 17:42 | MP ---
cc: KASIA BOWER MD DATE OF SURGERY: 11/15/2016 PREOPERATIVE DIAGNOSIS: Abscess versus traumatic hematoma left hand dorsum POSTOPERATIVE DIAGNOSIS Traumatic hematoma, left hand dorsum PROCEDURE Incision and evacuation of hematoma, left hand dorsum. SURGEON Dr. Bower. ANESTHESIA MAC. ESTIMATED BLOOD LOSS Minimal TOURNIQUET TIME 6 minutes at 250 mmHg. DISPOSITION: The patient was sent to the Recovery Room in stable condition. INDICATIONS FOR PROCEDURE: The patient is a 71-year-old male who presented to the hospital with history of fall and injury. The patient was noticed to have swelling over the dorsal aspect of the left hand. The patient also has history of tongue cancer for which he had partial ostectomy and had an enlarged lymph node on the left side of the neck. The patient continued to have fevers, swelling and he also had elevated white count. On examination he had a fluctuant mass over the dorsal aspect of the left hand corresponding to the third and fourth metacarpal phalangeal joint region and the dorsal aspect of the hand. Ultrasound showed evidence of collection with particles slightly abscessed. Because of the fever and elevated white count and questionable abscess, aspiration was initially carried out which was negative, hence he was consented for incision and drainage. The patient was explained the risks and benefits of the procedure. DESCRIPTION OF PROCEDURE: The patient was brought to the operating room. The left upper extremity was thoroughly prepped and draped under MAC anesthesia, 4 cc of local anesthesia containing 2% lidocaine about the palm, 0.25% Marcaine was injected as a proximal block. After limb elevation the tourniquet is inflated 250 mmHg. Incision was then made over the proposed incision site. Incision deepened. There was evidence in the subcutaneous pocket of clots in the region which was evacuated by rongeur. No evidence of purulent material was noted. Swab was obtained for culture and sensitivity. Bleeding points were cauterized with bipolar cautery. Tourniquet was deflated. Total tourniquet time was 6 minutes. He had complete collapse of the mass on the dorsal aspect after activation of the hematoma. After obtaining hemostasis, pressure dressing was applied. This was held in place by Sof-Rol and bias hand wrap. The patient had good distal circulation at the end of the procedure. He was recovered sent to recovery in stable condition. The plan will be to keep the dressing for another two days and change it to a smaller dressing. Kasia Bower MD SE/SEBASTIAN /2:14 PM /4:18 PM YOBANY
[2016-11-17 20:00] VITALS: BP 128/73; PULSE 81; RESP 18; TEMP 98.1; O2SAT 97
[2016-11-17] MEDS: traZODone HCL 50 MG TAB PO SCH (21:42)
[2016-11-17] MEDS: INSULIN DETEMIR 100 UNITS/ML VIAL SQ SCH (21:43)
[2016-11-18] VITALS: BP 156/81; PULSE 85; RESP 18; TEMP 99.2; O2SAT 100
[2016-11-18] MEDS: ACETAMINOPHEN/HYDROcodone 325 MG/5 MG TAB PO PRN ×3 (02:29→23:52)
[2016-11-18 04:00] VITALS: BP 149/75; PULSE 83; RESP 18; TEMP 98; O2SAT 97
[2016-11-18] MEDS: PIPERACIL-TAZO 3.375 GM PREMIX 50 ML IV SCH ×3 (06:29→19:00)
[2016-11-18] MEDS: INSULIN ASPART SUPPLEMENTAL SCALE SQ SCH ×4 (06:30→21:38)
[2016-11-18 08:00] VITALS: BP 119/67; PULSE 78; RESP 18; TEMP 97.7; O2SAT 97
[2016-11-18] MEDS: ENOXAPARIN SODIUM 40 MG/0.4 ML SYRINGE SQ SCH (09:21)
[2016-11-18] MEDS: NYSTAT/DIPHENHY/LIDO MOUTHWASH (Adult) 120ML SWISH-SWAL SCH ×4 (09:22→21:00)
[2016-11-18] MEDS ORDERED: WALKER WHEELS/F1 MIS (13:35)
--- NOTE | 2016-11-18 14:53 | HHI.PR ---
Subjective Remarks Pt feels ok. States his tongue bothers him but otherwise has no other complaints. Tells me that he wants to go home. no nausea or vomiting. no CP/SOB Objective Vitals Vital Signs Date Time Temp Pulse Resp B/P Pulse Ox O2 Delivery O2 Flow Rate FiO2 11/18/16 08:00 97.7 78 18 119/67 97 11/18/16 04:00 98.0 83 18 149/75 97 11/18/16 00:00 99.2 85 18 156/81 100 11/17/16 20:00 98.1 81 18 128/73 97 11/17/16 16:00 98.8 83 20 139/70 98 I/O 11/17/16 11/17/16 11/17/16 11/18/16 11/18/16 11/18/16 07:00 15:00 23:00 07:00 15:00 23:00 Intake Total 290 ml 480 ml 240 ml 240 ml Output Total 600 ml 1475 ml 200 ml 300 ml Balance -310 ml -995 ml 40 ml -60 ml Intake Oral 240 ml 480 ml 240 ml 240 ml IV Total 50 ml Output Urine Total 600 ml 1475 ml 200 ml 300 ml # Voids 1 # Bowel Movements 0 0 0 0 Result Diagram: 11/16/16 0748 11/14/16 0721 Imaging Last Impressions Upper Extremity Ultrasound 11/14/16 0000 Signed Impressions: Service Date/Time: Monday, November 14, 2016 15:07 - CONCLUSION: Relatively large fluid collection just below the skin dorsally of the left hand as described above, could be an abscess in the proper clinical setting. Milton Shea MD Foot X-Ray 11/14/16 0000 Signed Impressions: Service Date/Time: Monday, November 14, 2016 12:01 - CONCLUSION: 1. 5 mm calcification or a foreign material seen in the anterior superficial fat pad. 2. Degenerative change at the first MTP joint. 3. Calcaneal spur. Milton Cheek MD Lymph Node Biopsy Ultrasound 11/12/16 0000 Signed Impressions: Service Date/Time: Saturday, November 12, 2016 11:42 - CONCLUSION: Uncomplicated ultrasound guided needle biopsy of an abnormally enlarged left neck lymph node. Milton Laughlin MD Chest X-Ray 11/12/16 0000 Signed Impressions: Service Date/Time: Saturday, November 12, 2016 21:06 - CONCLUSION: No evidence of acute cardiopulmonary disease. Milton Shea MD Chest CT 11/11/16 0000 Signed Impressions: Service Date/Time: November 18:15 - CONCLUSION: No evidence of metastatic disease or other acute chest disease. Milton Shea MD Hand X-Ray 11/10/16 1043 Signed Impressions: Service Date/Time: Thursday, November 10, 2016 10:54 - CONCLUSION: Soft tissue swelling. No acute bony injury Milton Shay MD Cervical Spine CT 11/10/16 1029 Signed Impressions: Service Date/Time: Thursday, November 10, 2016 11:00 - CONCLUSION: No fracture or subluxation of the cervical spine. Multilevel degenerative changes, especially C5/C6 and C6 on C7. Milton Shea MD Neck CT 11/10/16 0000 Signed Impressions: Service Date/Time: Thursday, November 10, 2016 21:02 - CONCLUSION: 1. Large left-sided neck mass measuring up to 4.6 cm. 2. Prominent lymph nodes in the left neck and left supraclavicular region. 3. Slight soft tissue prominence in the vallecula on the left. Koby Viveros MD Head CT 11/10/16 0000 Signed Impressions: Service Date/Time: Thursday, November 10, 2016 11:00 - CONCLUSION: 1. No bleed or other acute intracranial abnormality. 2. Mild nonspecific ventriculomegaly. 3. Chronic white matter changes. Milton Shea MD Objective Remarks GENERAL: This is a well-nourished, well-developed patient, in no apparent distress. Neck; left neck mass with no tenderness, tongue noted to have some enlargement and some thrush. CARDIOVASCULAR: Regular rate and regular rhythm without murmurs, gallops, or rubs. RESPIRATORY: Clear to auscultation. Breath sounds equal bilaterally. No wheezes , rales, or rhonchi. GASTROINTESTINAL: Abdomen soft, non-tender, nondistended. Normal, active bowel sounds MUSCULOSKELETAL: left hand covered with clean dressing. NEURO: awake and alert. 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 I have discussed w CM, pt wants to go home w home health however because of PT's recs, pt's brother Anmol was contacted by CM and he stated that he cannot take care of pt and therefore would like pt to go to rehab. At this time , it was explained to pt and pt's brother will call pt to once again explain why he needs to go to rehab. apparently the two brothers had spoken to each other last night and brother had convinced pt to go to rehab. CM to work on rehab placement. -diabetes mellitus- continue accu-check with SSI- hold oral hypoglycemics for now-will monitor- continue long-acting insulin while is in the hospital. -tongue cancer with left neck mass- oncology consult appreciated. s/p biopsy of the neck mass- pathology with squamous cell carcinoma outpatient f/u with oncology and radiation oncology- added magic mouth wash -hematoma of the left hand; s/p I/D of the hematoma- cultures neg. Discussed w Dr. Tony Weldon sx, and from his standpoint pt can be discharged and he would like pt to f/u w him in 2 weeks for suture removal. no need for Abx from his standpoint -right foot mild swelling;XR with no acute fracture. -hyponatremia; resolved. -leukocytosis-much improved. suspect from his cancer. f/u w oncology as an outpatient. -insomnia; ambien as needed. 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
[2016-11-18 16:00] VITALS: BP 149/67; PULSE 80; RESP 18; TEMP 97; O2SAT 99
[2016-11-18 20:00] VITALS: BP 173/93; PULSE 85; RESP 18; TEMP 97.9; O2SAT 97
[2016-11-18] MEDS: INSULIN DETEMIR 100 UNITS/ML VIAL SQ SCH (21:38)
[2016-11-18] MEDS: ZOLPIDEM TARTRATE 5 MG TAB PO PRN (21:38)
[2016-11-18] MEDS: traZODone HCL 50 MG TAB PO SCH (21:39)
[2016-11-19] VITALS: BP 170/70; PULSE 98; RESP 20; TEMP 98.7; O2SAT 97
[2016-11-19] MEDS: PIPERACIL-TAZO 3.375 GM PREMIX 50 ML IV SCH ×3 (01:00→13:30)
[2016-11-19 04:00] VITALS: BP 172/85; PULSE 92; RESP 20; TEMP 97.6; O2SAT 96
[2016-11-19] MEDS: ACETAMINOPHEN/HYDROcodone 325 MG/5 MG TAB PO PRN ×4 (05:57→21:23)
[2016-11-19] MEDS: INSULIN ASPART SUPPLEMENTAL SCALE SQ SCH ×4 (05:58→21:18)
[2016-11-19 08:00] VITALS: BP 176/84; PULSE 92; RESP 20; TEMP 98.6; O2SAT 96
[2016-11-19] MEDS: ENOXAPARIN SODIUM 40 MG/0.4 ML SYRINGE SQ SCH (08:53)
[2016-11-19] MEDS: NYSTAT/DIPHENHY/LIDO MOUTHWASH (Adult) 120ML SWISH-SWAL SCH ×4 (08:56→21:19)
[2016-11-19 12:00] VITALS: BP 137/83; PULSE 84; RESP 16; TEMP 99.2; O2SAT 98
--- NOTE | 2016-11-19 14:55 | HHI.PR ---
Subjective Remarks Pt doing ok. not happy about his diet. No pain at this time. no n/v Objective Vitals Vital Signs Date Time Temp Pulse Resp B/P Pulse Ox O2 Delivery O2 Flow Rate FiO2 11/19/16 12:00 99.2 84 16 137/83 98 11/19/16 08:00 98.6 92 20 176/84 96 11/19/16 04:00 97.6 92 20 172/85 96 11/19/16 00:00 98.7 98 20 170/70 97 11/18/16 20:00 97.9 85 18 173/93 97 11/18/16 16:00 97.0 80 18 149/67 99 I/O 11/18/16 11/18/16 11/18/16 11/19/16 11/19/16 11/19/16 07:00 15:00 23:00 07:00 15:00 23:00 Intake Total 240 ml 120 ml 240 ml Output Total 300 ml 600 ml Balance -60 ml -480 ml 240 ml Intake Oral 240 ml 120 ml 240 ml Output Urine Total 300 ml 600 ml # Voids 1 103 # Bowel Movements 0 0 0 Result Diagram: 11/16/16 0748 Imaging Last Impressions Upper Extremity Ultrasound 11/14/16 0000 Signed Impressions: Service Date/Time: Monday, November 14, 2016 15:07 - CONCLUSION: Relatively large fluid collection just below the skin dorsally of the left hand as described above, could be an abscess in the proper clinical setting. Milton Shea MD Foot X-Ray 11/14/16 0000 Signed Impressions: Service Date/Time: Monday, November 14, 2016 12:01 - CONCLUSION: 1. 5 mm calcification or a foreign material seen in the anterior superficial fat pad. 2. Degenerative change at the first MTP joint. 3. Calcaneal spur. Milton Cheek MD Lymph Node Biopsy Ultrasound 11/12/16 0000 Signed Impressions: Service Date/Time: Saturday, November 12, 2016 11:42 - CONCLUSION: Uncomplicated ultrasound guided needle biopsy of an abnormally enlarged left neck lymph node. Milton Laughlin MD Chest X-Ray 11/12/16 0000 Signed Impressions: Service Date/Time: Saturday, November 12, 2016 21:06 - CONCLUSION: No evidence of acute cardiopulmonary disease. Milton Shea MD Chest CT 11/11/16 0000 Signed Impressions: Service Date/Time: November 18:15 - CONCLUSION: No evidence of metastatic disease or other acute chest disease. Milton Shea MD Hand X-Ray 11/10/16 1043 Signed Impressions: Service Date/Time: Thursday, November 10, 2016 10:54 - CONCLUSION: Soft tissue swelling. No acute bony injury Milton Shay MD Cervical Spine CT 11/10/16 1029 Signed Impressions: Service Date/Time: Thursday, November 10, 2016 11:00 - CONCLUSION: No fracture or subluxation of the cervical spine. Multilevel degenerative changes, especially C5/C6 and C6 on C7. Milton Shea MD Neck CT 11/10/16 0000 Signed Impressions: Service Date/Time: Thursday, November 10, 2016 21:02 - CONCLUSION: 1. Large left-sided neck mass measuring up to 4.6 cm. 2. Prominent lymph nodes in the left neck and left supraclavicular region. 3. Slight soft tissue prominence in the vallecula on the left. Koby Viveros MD Head CT 11/10/16 0000 Signed Impressions: Service Date/Time: Thursday, November 10, 2016 11:00 - CONCLUSION: 1. No bleed or other acute intracranial abnormality. 2. Mild nonspecific ventriculomegaly. 3. Chronic white matter changes. Milton Shea MD Objective Remarks GENERAL: This is a well-nourished, well-developed patient, in no apparent distress. Neck; left neck mass with no tenderness, tongue noted to have some enlargement. CARDIOVASCULAR: Regular rate and regular rhythm without murmurs, gallops, or rubs. RESPIRATORY: Clear to auscultation. Breath sounds equal bilaterally. No wheezes , rales, or rhonchi. GASTROINTESTINAL: Abdomen soft, non-tender, nondistended. Normal, active bowel sounds MUSCULOSKELETAL: left hand covered with clean dressing. NEURO: awake and alert. 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 pt's brother Anmol was contacted by CM and he stated that he cannot take care of pt and therefore would like pt to go to rehab. Pt is agreable to this. CM is currently working on rehab placement. -diabetes mellitus- continue accu-check with SSI- hold oral hypoglycemics for now-will monitor- continue long-acting insulin while is in the hospital. -tongue cancer with left neck mass- oncology consult appreciated. s/p biopsy of the neck mass- pathology with squamous cell carcinoma outpatient f/u with oncology and radiation oncology- added magic mouth wash and this has been helping -hematoma of the left hand; s/p I/D of the hematoma- cultures neg. Discussed w Dr. Tony Weldon sx, and from his standpoint pt can be discharged and he would like pt to f/u w him in 2 weeks for suture removal. no need for Abx from his standpoint. d/c Zosyn -right foot mild swelling;XR with no acute fracture. -hyponatremia; resolved. -leukocytosis-much improved. suspect from his cancer. f/u w oncology as an outpatient. -insomnia; ambien as needed. 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
[2016-11-19 16:00] VITALS: BP 166/95; PULSE 87; RESP 20; TEMP 98.2; O2SAT 96
--- NOTE | 2016-11-19 19:04 | PD.ONC.PN ---
Subjective Subjective Remarks left neck mass Objective Data Date Time Temp Pulse Resp B/P Pulse Ox O2 Delivery O2 Flow Rate FiO2 11/19/16 16:00 98.2 87 20 166/95 96 11/19/16 12:00 99.2 84 16 137/83 98 11/19/16 08:00 98.6 92 20 176/84 96 11/19/16 04:00 97.6 92 20 172/85 96 11/19/16 00:00 98.7 98 20 170/70 97 11/18/16 20:00 97.9 85 18 173/93 97 11/19/16 11/19/16 11/19/16 07:00 15:00 23:00 Intake Total 600 ml Output Total 350 ml Balance 250 ml Result Diagram: 11/16/16 0748 Administered Medications Medications (Trade) Dose Ordered Sig/Rosalind Route PRN Reason Start Time Stop Time Status Last Admin Dose Admin Sodium Chloride (NS 1000 ml Inj) 1,000 ml @ 100 mls/hr Q10H IV 11/10/16 15:00 Hold 11/11/16 07:56 Acetaminophen (Tylenol) 650 mg Q4H PRN PO FEVER/ PAIN <5 11/10/16 14:15 11/12/16 21:11 Acetaminophen/ Hydrocodone Bitart ([place] 5-325 Mg) 1 tab Q4H PRN PO PAIN> 5 11/10/16 14:15 11/19/16 16:15 Zolpidem Tartrate (Ambien) 5 mg HS PRN PO INSOMNIA 11/10/16 14:15 11/18/16 21:38 Enoxaparin Sodium (Lovenox Inj) 40 mg Q24H SQ 11/11/16 09:00 11/19/16 08:53 Trazodone HCl (Desyrel) 50 mg HS PO 11/10/16 21:00 11/18/16 21:39 Insulin Detemir (Levemir Inj) 10 units HS SQ 11/15/16 21:00 11/18/16 21:38 Enalaprilat (Vasotec Inj) 1.25 mg Q8H PRN IV PUSH SBP> OR = 180, DBP> OR = 100 11/15/16 13:00 11/16/16 23:57 Multi-Ingredient Mouthwash/Gargle (Magic Mouthwash Adult Liq) 10 ml QID SWISH-SWAL 11/18/16 18:00 11/19/16 17:33 Objective Remarks GENERAL: Well-nourished, well-developed patient. SKIN: Warm and dry. HEAD: Normocephalic. EYES: No scleral icterus. No injection or drainage. NECK:left neck mass LYMPHATIC: No adenopathy. CARDIOVASCULAR: Regular rate and rhythm without murmurs. RESPIRATORY: Breath sounds equal bilaterally. No accessory muscle use. GASTROINTESTINAL: Abdomen soft, non-tender, nondistended. EXTREMITIES: No cyanosis, or edema. Assessment/Plan Problem List: (1) Squamous cell cancer of tongue Status: Acute Plan: CT soft tissue neck show LN L neck measure 4.6cm, pathology shows moderately differentiated squamous cell carcinoma CT chest: no mets will need concurrent chemo/radiation Dr Villeda to follow as outpt Assessment 71 y/o man with oral tongue cancer s/p L hemoglossectomy with local recurrence. Plan 1. LN biopsy returned showing moderately differentiated squamous cell carcinoma. Discussed with patient the diagnosis and plan for chemo and radiation outpatient. Emotional support provided. Opportunity to ask questions provided. Patient states he understands the diagnosis and need for follow up. He tells me he wants to go home. Fátima Montelongo MD Nov 19, 2016 19:03
[2016-11-19 20:00] VITALS: BP 163/92; PULSE 77; RESP 20; TEMP 98.1; O2SAT 97
[2016-11-19] MEDS: traZODone HCL 50 MG TAB PO SCH (21:17)
[2016-11-19] MEDS: INSULIN DETEMIR 100 UNITS/ML VIAL SQ SCH (21:17)
[2016-11-19] MEDS: ZOLPIDEM TARTRATE 5 MG TAB PO PRN (22:45)
[2016-11-20] VITALS: BP 158/78; PULSE 84; RESP 20; TEMP 98.4; O2SAT 97
[2016-11-20 04:08] VITALS: BP 173/93; PULSE 87; RESP 20; TEMP 98.8; O2SAT 98
[2016-11-20] MEDS: ACETAMINOPHEN/HYDROcodone 325 MG/5 MG TAB PO PRN ×4 (06:10→21:16)
[2016-11-20] MEDS: INSULIN ASPART SUPPLEMENTAL SCALE SQ SCH ×4 (06:11→21:18)
[2016-11-20 08:00] VITALS: BP 149/85; PULSE 87; RESP 12; TEMP 98.5; O2SAT 97
[2016-11-20] MEDS: ENOXAPARIN SODIUM 40 MG/0.4 ML SYRINGE SQ SCH (10:06)
[2016-11-20] MEDS: NYSTAT/DIPHENHY/LIDO MOUTHWASH (Adult) 120ML SWISH-SWAL SCH ×4 (10:07→21:00)
[2016-11-20] MEDS ORDERED: amLODIPine BESYLATE 5 MG TAB PO SCH (10:45)
[2016-11-20 12:00] VITALS: BP 165/87; PULSE 89; RESP 16; TEMP 97.6; O2SAT 95
[2016-11-20] MEDS ORDERED: AMLO5 PO ×2 (12:48→13:40)
--- NOTE | 2016-11-20 12:48 | HHI.DS ---
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 he says that he was walking in the house when he fell. he denies any prodromal symptoms like chest pain, sob or dizziness before the incident. he didn't lose his consciousness but he says that he thinks he hit his head on the floor. he denies any pain at this time. he says that he uses a cane but he doesn't walk as much. he says that he's noticed a mass in the left neck which has been going on for a few weeks and apparently it's being worked up for possible chemo/ radiation therapy. CBC/BMP: 11/16/16 0748 Imaging Last Impressions Upper Extremity Ultrasound 11/14/16 0000 Signed Impressions: Service Date/Time: Monday, November 14, 2016 15:07 - CONCLUSION: Relatively large fluid collection just below the skin dorsally of the left hand as described above, could be an abscess in the proper clinical setting. Milton Shea MD Foot X-Ray 11/14/16 0000 Signed Impressions: Service Date/Time: Monday, November 14, 2016 12:01 - CONCLUSION: 1. 5 mm calcification or a foreign material seen in the anterior superficial fat pad. 2. Degenerative change at the first MTP joint. 3. Calcaneal spur. Milton Cheek MD Lymph Node Biopsy Ultrasound 11/12/16 0000 Signed Impressions: Service Date/Time: Saturday, November 12, 2016 11:42 - CONCLUSION: Uncomplicated ultrasound guided needle biopsy of an abnormally enlarged left neck lymph node. Milton Laughlin MD Chest X-Ray 11/12/16 0000 Signed Impressions: Service Date/Time: Saturday, November 12, 2016 21:06 - CONCLUSION: No evidence of acute cardiopulmonary disease. Milton Shea MD Chest CT 11/11/16 0000 Signed Impressions: Service Date/Time: November 18:15 - CONCLUSION: No evidence of metastatic disease or other acute chest disease. Milton Shea MD Hand X-Ray 11/10/16 1043 Signed Impressions: Service Date/Time: Thursday, November 10, 2016 10:54 - CONCLUSION: Soft tissue swelling. No acute bony injury Milton Shay MD Cervical Spine CT 11/10/16 1029 Signed Impressions: Service Date/Time: Thursday, November 10, 2016 11:00 - CONCLUSION: No fracture or subluxation of the cervical spine. Multilevel degenerative changes, especially C5/C6 and C6 on C7. Milton Shea MD Neck CT 11/10/16 0000 Signed Impressions: Service Date/Time: Thursday, November 10, 2016 21:02 - CONCLUSION: 1. Large left-sided neck mass measuring up to 4.6 cm. 2. Prominent lymph nodes in the left neck and left supraclavicular region. 3. Slight soft tissue prominence in the vallecula on the left. Koby Viveros MD Head CT 11/10/16 0000 Signed Impressions: Service Date/Time: Thursday, November 10, 2016 11:00 - CONCLUSION: 1. No bleed or other acute intracranial abnormality. 2. Mild nonspecific ventriculomegaly. 3. Chronic white matter changes. Milton Shea MD PE at Discharge GENERAL: This is a well-nourished, well-developed patient, in no apparent distress. Neck; left neck mass with no tenderness, tongue noted to have some enlargement. CARDIOVASCULAR: Regular rate and regular rhythm without murmurs, gallops, or rubs. RESPIRATORY: Clear to auscultation. Breath sounds equal bilaterally. No wheezes , rales, or rhonchi. GASTROINTESTINAL: Abdomen soft, non-tender, nondistended. Normal, active bowel sounds MUSCULOSKELETAL: left hand covered with clean dressing. NEURO: awake and alert. Pt update on day of discharge Pt has pain on his tongue but did ask for some medication. otherwise has no other complaints. no CP/SOB/N/V Hospital Course - fall with generalized weakness fall precautions- PT is recommending rehab. pt's brother Anmol was contacted by CM and he stated that he cannot take care of pt and therefore would like pt to go to rehab. Pt is agreable to this. CM is currently working on rehab placement. -tongue cancer with left neck mass- s/p biopsy of the neck mass- pathology with squamous cell carcinoma Oncology evaluated the patient and recommended outpatient f/u with oncology and radiation oncology -hematoma of the left hand; s/p I/D of the hematoma- cultures neg. Discussed w Dr. Tony Weldon sx, and from his standpoint pt can be discharged and he would like pt to f/u w him in 2 weeks for suture removal. no need for Abx from his standpoint. HTN: I have adjusted pt's meds: amlodipine 5mg po BID Pt will be discharged to rehab/SNF once arrangements are made by CM. Pt Condition on Discharge: Stable Discharge Disposition: Discharge to SNF Discharge Time: > 30 minutes Discharge Instructions DIET: Follow Instructions for: Heart Healthy Diet Speech Therapy-Diet Recommends: Mechanical Soft, [place] Thickened Liquids Activities you can perform: See Additionl Instruction Other Activity Instructions: keep the left hand clean and dry Follow up Referrals: Hand Surgery - 2 Weeks Oncology PCP Follow-up New Medications: Walker with Front Wheels (Walker with Front Wheels) 1 Mis Mis 1 EA .ROUTE DIRECTED #1 Ref 0 EA Amlodipine (Norvasc) 5 Mg Tab 5 MG PO BID Days 30 TAB Hydrocodone-Acetaminophen (Hydrocodone-Acetaminophen) 5-325 mg Tab 1 TAB PO Q6HR NEB PRN PAIN> 5 #20 Ref 0 TAB Trazodone (Trazodone) 50 Mg Tab 50 MG PO HS Depression Control Days 30 Ref 0 TAB Zolpidem (Ambien) 5 Mg Tab 5 MG PO HS PRN INSOMNIA Days 10 Ref 0 TAB Continued Medications: Aspirin (Aspirin) 325 Mg Tab 325 MG PO DAILY #30 Ref 0 TAB Glipizide (Glipizide) 10 Mg Tab 10 MG PO BIDAC Take 30 minutes before a meal Blood Sugar Management #60 Ref 0 TAB Metformin (Metformin) 500 Mg Tab 500 MG PO BID With meals Blood Sugar Management #60 Ref 0 TAB Pioglitazone (Pioglitazone) 30 Mg Tab 30 MG PO DAILY Blood Sugar Management #30 Ref 0 TAB Discontinued Medications: Citalopram (Celexa) 20 Mg Tab 20 MG PO DAILY Control Depression #30 Ref 0 TAB Ibuprofen (Ibuprofen) 800 Mg Tab 800 MG PO Q8H Take with food PRN PAIN SCALE 4 TO 10 #90 Ref 0 TAB Oxycodone-Acetaminophen (Percocet) 10-325 mg Tab 1 TAB PO Q4H PRN PAIN Ref 0 TAB Zolpidem (Ambien) 10 Mg Tab 10 MG PO HS PRN INSOMNIA Ref 0 TAB Myrna Prince MD Nov 20, 2016 12:48
[2016-11-20 16:00] VITALS: BP 124/69; PULSE 86; RESP 16; TEMP 98.6; O2SAT 97
[2016-11-20 20:00] VITALS: BP 130/71; PULSE 95; RESP 18; TEMP 98.6; O2SAT 96
[2016-11-20] MEDS: INSULIN DETEMIR 100 UNITS/ML VIAL SQ SCH (21:16)
[2016-11-20] MEDS: amLODIPine BESYLATE 5 MG TAB PO SCH (21:16)
[2016-11-20] MEDS: traZODone HCL 50 MG TAB PO SCH (21:16)
[2016-11-20] MEDS: ZOLPIDEM TARTRATE 5 MG TAB PO PRN (23:12)
[2016-11-21] VITALS: BP 114/65; PULSE 91; RESP 18; TEMP 98.6; O2SAT 96
[2016-11-21] MEDS: ACETAMINOPHEN/HYDROcodone 325 MG/5 MG TAB PO PRN ×4 (02:11→20:57)
[2016-11-21 04:00] VITALS: BP 152/76; PULSE 93; RESP 18; TEMP 98.2; O2SAT 96
[2016-11-21] MEDS: INSULIN ASPART SUPPLEMENTAL SCALE SQ SCH ×4 (06:13→20:58)
[2016-11-21 08:00] VITALS: BP 168/85; PULSE 106; RESP 16; TEMP 97.4; O2SAT 93
[2016-11-21] MEDS: ENOXAPARIN SODIUM 40 MG/0.4 ML SYRINGE SQ SCH (08:41)
[2016-11-21] MEDS: NYSTAT/DIPHENHY/LIDO MOUTHWASH (Adult) 120ML SWISH-SWAL SCH ×4 (08:42→21:00)
[2016-11-21] MEDS: amLODIPine BESYLATE 5 MG TAB PO SCH ×2 (08:42→20:56)
[2016-11-21 12:00] VITALS: BP 168/80; PULSE 90; RESP 20; TEMP 97.6; O2SAT 97
--- NOTE | 2016-11-21 13:52 | HHI.PR ---
Subjective Remarks Pt seen and evaluated. No concerns at this time. about to eat lunch states he still has the pain in his tongue but is able to eat Objective Vitals Vital Signs Date Time Temp Pulse Resp B/P Pulse Ox O2 Delivery O2 Flow Rate FiO2 11/21/16 09:43 18 11/21/16 08:00 97.4 106 16 168/85 93 11/21/16 04:00 98.2 93 18 152/76 96 11/21/16 00:00 98.6 91 18 114/65 96 11/20/16 20:00 98.6 95 18 130/71 96 11/20/16 16:00 98.6 86 16 124/69 97 I/O 11/20/16 11/20/16 11/20/16 11/21/16 11/21/16 11/21/16 07:00 15:00 23:00 07:00 15:00 23:00 Intake Total 360 ml 660 ml 480 ml Output Total 475 ml 575 ml 300 ml 300 ml Balance -115 ml 85 ml 180 ml -300 ml Intake Oral 360 ml 660 ml 480 ml Output Urine Total 475 ml 575 ml 300 ml 300 ml # Bowel Movements 0 0 0 0 Imaging Last Impressions Upper Extremity Ultrasound 11/14/16 0000 Signed Impressions: Service Date/Time: Monday, November 14, 2016 15:07 - CONCLUSION: Relatively large fluid collection just below the skin dorsally of the left hand as described above, could be an abscess in the proper clinical setting. Milton Shea MD Foot X-Ray 11/14/16 0000 Signed Impressions: Service Date/Time: Monday, November 14, 2016 12:01 - CONCLUSION: 1. 5 mm calcification or a foreign material seen in the anterior superficial fat pad. 2. Degenerative change at the first MTP joint. 3. Calcaneal spur. Milton Cheek MD Lymph Node Biopsy Ultrasound 11/12/16 0000 Signed Impressions: Service Date/Time: Saturday, November 12, 2016 11:42 - CONCLUSION: Uncomplicated ultrasound guided needle biopsy of an abnormally enlarged left neck lymph node. Milton Laughlin MD Chest X-Ray 11/12/16 0000 Signed Impressions: Service Date/Time: Saturday, November 12, 2016 21:06 - CONCLUSION: No evidence of acute cardiopulmonary disease. Milton Shea MD Chest CT 11/11/16 0000 Signed Impressions: Service Date/Time: November 18:15 - CONCLUSION: No evidence of metastatic disease or other acute chest disease. Milton Shea MD Hand X-Ray 11/10/16 1043 Signed Impressions: Service Date/Time: Thursday, November 10, 2016 10:54 - CONCLUSION: Soft tissue swelling. No acute bony injury Milton Shay MD Cervical Spine CT 11/10/16 1029 Signed Impressions: Service Date/Time: Thursday, November 10, 2016 11:00 - CONCLUSION: No fracture or subluxation of the cervical spine. Multilevel degenerative changes, especially C5/C6 and C6 on C7. Milton Shea MD Neck CT 11/10/16 0000 Signed Impressions: Service Date/Time: Thursday, November 10, 2016 21:02 - CONCLUSION: 1. Large left-sided neck mass measuring up to 4.6 cm. 2. Prominent lymph nodes in the left neck and left supraclavicular region. 3. Slight soft tissue prominence in the vallecula on the left. Koby Viveros MD Head CT 11/10/16 0000 Signed Impressions: Service Date/Time: Thursday, November 10, 2016 11:00 - CONCLUSION: 1. No bleed or other acute intracranial abnormality. 2. Mild nonspecific ventriculomegaly. 3. Chronic white matter changes. Milton Shea MD Objective Remarks GENERAL: This is a well-nourished, well-developed patient, in no apparent distress. Neck; left neck mass with no tenderness, tongue noted to have some enlargement. CARDIOVASCULAR: Regular rate and regular rhythm without murmurs. RESPIRATORY: Clear to auscultation. Breath sounds equal bilaterally. No wheezes GASTROINTESTINAL: Abdomen soft, non-tender, nondistended. Normal, active bowel sounds MUSCULOSKELETAL: left hand covered with clean dressing. NEURO: awake and alert. 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 pt's brother Anmol was contacted by CM and he stated that he cannot take care of pt and therefore would like pt to go to rehab. Pt is agreable to this. CM is currently working on rehab placement. -tongue cancer with left neck mass- s/p biopsy of the neck mass- pathology with squamous cell carcinoma Oncology evaluated the patient and recommended outpatient f/u with oncology and radiation oncology -hematoma of the left hand; s/p I/D of the hematoma- cultures neg. Discussed w Dr. Tony Weldon sx, and from his standpoint pt can be discharged and he would like pt to f/u w him in 2 weeks for suture removal. no need for Abx from his standpoint. HTN: amlodipine 5mg po BID, I will add lisinopril 20mg po daily as BP's in the 160's systolic Pt will be discharged to rehab/SNF once arrangements are made by CM. Discharge Planning anticipate discharge later today or tomorrow CM assisting Problem Qualifiers (1) Uncontrolled diabetes mellitus with hyperglycemia: Qualified Code: E11.65 - Uncontrolled type 2 diabetes mellitus with hyperglycemia, unspecified fci insulin use status Myrna Prince MD Nov 21, 2016 13:52
[2016-11-21] MEDS ORDERED: LISI-515 PO ×2 (13:53→13:54)
[2016-11-21] MEDS ORDERED: LISINOPRIL 20 MG TAB PO ONE (14:00)
[2016-11-21 16:00] VITALS: BP 136/69; PULSE 89; RESP 20; TEMP 98.1; O2SAT 97
[2016-11-21 20:11] VITALS: BP 155/79; PULSE 95; RESP 18; TEMP 98.3; O2SAT 96
[2016-11-21] MEDS: traZODone HCL 50 MG TAB PO SCH (20:56)
[2016-11-21] MEDS: INSULIN DETEMIR 100 UNITS/ML VIAL SQ SCH (20:58)
[2016-11-21] MEDS: ZOLPIDEM TARTRATE 5 MG TAB PO PRN (22:26)
[2016-11-22 00:01] VITALS: BP 159/78; PULSE 97; RESP 20; TEMP 98.5; O2SAT 97
[2016-11-22 04:15] VITALS: BP 113/62; PULSE 98; RESP 20; TEMP 99.5; O2SAT 95
[2016-11-22] MEDS: ACETAMINOPHEN/HYDROcodone 325 MG/5 MG TAB PO PRN (05:57)
[2016-11-22] MEDS: INSULIN ASPART SUPPLEMENTAL SCALE SQ SCH (05:58)
[2016-11-22 08:01] VITALS: BP 141/69; PULSE 83; RESP 18; TEMP 97.2; O2SAT 95
[2016-11-22] MEDS: NYSTAT/DIPHENHY/LIDO MOUTHWASH (Adult) 120ML SWISH-SWAL SCH (08:58)
[2016-11-22] MEDS: amLODIPine BESYLATE 5 MG TAB PO SCH (08:58)
[2016-11-22] MEDS: ENOXAPARIN SODIUM 40 MG/0.4 ML SYRINGE SQ SCH (08:58)
[2016-11-22] MEDS ORDERED: LISINOPRIL 20 MG TAB PO SCH (09:00)
[2016-12-14] MEDS ORDERED: NOVOINJ3 SQ (09:09)
[2016-12-14] MEDS ORDERED: LANTINJ SQ (09:09)
[2016-12-14] MEDS ORDERED: MAGICADU2 SWISH-SWAL (09:12)
[2016-12-14] MEDS ORDERED: NYST1000 SWISH-SWAL (09:12)
[2016-12-14] MEDS ORDERED: HYDR1SOL3 PO ×2 (10:52→10:54)
== END 2016-11-22 10:04 | DRG 629 ==
LOC: NEPC 09:26 → NEDA 14:04 → N04B 15:48
PROVIDERS: ADMIT Hospitalist; ATTEND Hospitalist
PROC: 07B23ZX Excision of Left Neck Lymphatic, Percutaneous Approach, Diagnostic (ICD-10-PCS; principal; 2016-11-12)
PROC: 0JCK0ZZ Extirpation of Matter from Left Hand Subcutaneous Tissue and Fascia, Open Approach (ICD-10-PCS; 2016-11-15)
DX: E87.1 Hypo-osmolality and hyponatremia (principal); C77.0 Secondary and unspecified malignant neoplasm of lymph nodes of head, face and neck; E11.65 Type 2 diabetes mellitus with hyperglycemia; D72.829 Elevated white blood cell count, unspecified; I10 Essential (primary) hypertension; C02.3 Malignant neoplasm of anterior two-thirds of tongue, part unspecified; S60.222A Contusion of left hand, initial encounter; F32.9 Major depressive disorder, single episode, unspecified; E78.1 Pure hyperglyceridemia; R53.1 Weakness; G47.00 Insomnia, unspecified; S01.01XA Laceration without foreign body of scalp, initial encounter; R50.9 Fever, unspecified; E78.5 Hyperlipidemia, unspecified; R22.41 Localized swelling, mass and lump, right lower limb; W18.30XA Fall on same level, unspecified, initial encounter; Y92.009 Unspecified place in unspecified non-institutional (private) residence as the place of occurrence of the external cause; Z79.84 Long term (current) use of oral hypoglycemic drugs
CPT/HCPCS: 38505; 70450; 70490; 71010; 71250; 72125; 73130; 73630; 76882; 76942; 80048; 80053; 81001; 82948; 83605; 85025; 87015; 87040; 87070; 87102; 87116; 87205; 87206; 88305; 99222; J1650; J1815; J2250; J2543; J3010; J7030; J7040

== ENCOUNTER → 2016-12-14 | Day surgery (SDC) | payer MEDICARE ==
[~2016-12-14] VITALS: Ht 172.7 cm; Wt 71.7 kg
[~2016-12-14] MED LIST changes: +*morphine SULFATE 8 MG/ML PERIprocedure ONLY ONE; +ACETAMINOPHEN 325MG/HYDROcodone 7.5MG/15ML UDC ONE; +ACETAMINOPHEN 325MG/HYDROcodone 7.5MG/15ML UDC PO ONE; -AMBI10TA PO; +AMBI5TAB PO; +AMLO5 PO; -BACT800T5 PO; +BUPIVACAINE HCL PF 0.5% 30 ML VIAL ONE; +BUPIVACAINE/EPINEPHRINE 0.5% PF 30 ML VIAL ONE; -CELE20TA PO; +CHLORHEXIDINE GLUCONATE 2 % 1 PACK (2 CLOTHS) TOPICAL PRN; +DIFL200T PO; +DILT60TA33 G-TUBE; +DO NOT ADM ANY ANTICOAGULANT DRUGS PRN; +FENT50T T-DERMAL; -FURO20TA PO; +HEPARIN SODIUM - IV 10,000 UNITS/10 ML VIAL ONE; +HYDR-3516 PO; +HYDR1SOL3 PO; +HYOS0.1231 PO; -IBUP800T23 PO; +INSULIN HUMAN REGULAR 1,000 UNITS/10 ML VIAL SQ PRN; +IPRASOL NEB; -K-TA10TA PO; +KETAMINE HCL 500 MG/5 ML VIAL ONE; +LACTATED RINGER'S 1000 ML IV PRN; +LANTINJ SQ; +LEVA500T PO; +LIDOCAINE 1%/EPINEPHrine 1:100,000 SOLN 20 ML VIAL ONE; +LISI-515 PO; +MAGICADU2 SWISH-SWAL; -METF1000 PO; +METF500T PO; +METOPROLOL TARTRATE 25 MG TAB PO PRN; +METR-1 PO; +MIDAZOLAM HCL 2 MG/2 ML VIAL ONE; +NOVOINJ3 SQ; +NYST1000 SWISH-SWAL; -PERC10TA27 PO; +PIOG30TA4 PO; +POVIDONE IODINE 5% (ANTISEPSIS KIT) 4 APPLICATIONS EACH NARE PRN; +PROPOFOL 200 MG/20 ML AMP IV ONE; +QUET1TAB7 PO; -SERO25TA PO; -SITA25 PO; +SODIUM CHLORID 0.9% 500 ML IV PRN; +SODIUM CHLORIDE 0.9% 20 ML VIAL ONE; +SODIUM CHLORIDE 0.9% INJ 100 ML ONE; +TRAZ50TA12 PO; +WALKER WHEELS/F1 MIS; +ceFAZolin 1,000 MG/NS 100 ML IV SCH; +ceFAZolin INJ 1,000 MG VIAL ONE
[2016-12-14 08:56] VITALS: BP 135/72; PULSE 90; RESP 18; TEMP 97.9; O2SAT 99
[2016-12-14 09:22] LABS: AUTOMATED NEUTROPHIL # 10.4 TH/MM3 (1.8-7.7); BASOPHIL # 0.1 TH/MM3 (0-0.2); BASOPHIL % 0.9 % (0.0-2.0); EOSINOPHIL # 0.5 TH/MM3 (0-0.4); EOSINOPHIL % 3.4 % (0.0-4.0); HEMATOCRIT 32.7 % (39.0-51.0); HEMO FLAGS DIFF FINAL; LYMPHOCYTE # 2.1 TH/MM3 (1.0-4.8); MEAN CELL VOLUME 82.4 FL (80.0-100.0); MEAN CORPUSCULAR HEMOGLOBIN 27.6 PG (27.0-34.0); MEAN CORPUSCULAR HGB CONC 33.5 % (32.0-36.0); MONO % 7.3 % (0.0-8.0); NEUT % 73.4 % (16.0-70.0); PLATELET COUNT 466 TH/MM3 (150-450); RED BLOOD COUNT 3.97 MIL/MM3 (4.50-5.90); RED CELL DISTRIBUTION WIDTH 13.4 % (11.6-17.2); WHITE BLOOD COUNT 14.2 TH/MM3 (4.0-11.0)
--- NOTE | 2016-12-14 10:42 | HHI.PR ---
cc: Wei Sosa MD Immediate Post Op Note Procedure Date: Dec 14, 2016 Pre Op Diagnosis: (1) Squamous cell cancer of tongue (2) Mass of left side of neck Post Op Diagnosis: (1) Squamous cell cancer of tongue (2) Mass of left side of neck Surgeon: Wei Sosa [employer]ing Machine Setter(s): see OR records Procedure: port placement Anesthesia: MAC Drains: None IVF Patient to: PACU Patient Condition: Good Implant/Devices: SEE IMPLANT LOG (if applicable) Date/Time of Procedure: SEE SURGICAL CARE RECORD Wei Sosa MD Dec 14, 2016 10:42
--- NOTE | 2016-12-14 11:15 | RADRPT ---
EXAM DATE/TIME: 12/14/2016 11:50 [facility] COMPARISON: CHEST SINGLE AP, November 12, 2016, 21:06. INDICATIONS : Post port placement. MEDICAL HISTORY : Dementia. Diabetes mellitus type 2. Carcinoma, oral cavity. SURGICAL HISTORY : Tonsillectomy. ENCOUNTER: Subsequent ACUITY: 1 day PAIN SCORE: 0/10 LOCATION: Bilateral chest FINDINGS: Left sided portacatheter is SVC. There is no evidence of pneumothorax. Cardiomegaly. Diminished lung volumes. Osseous structures are intact. CONCLUSION: 1. Portacatheter placement as above. Jassi An MD on December 14, 2016 at 11:13 Board Certified Radiologist. This report was verified electronically.
[2016-12-14 13:10] VITALS: BP 101/59; PULSE 80; RESP 18; TEMP 97.8; O2SAT 97
--- NOTE | 2016-12-14 23:48 | MP ---
cc: REGGIE DEL CID JOSEPH D. M.D. DATE OF SURGERY: 12/14/2016 PREOPERATIVE DIAGNOSIS: Tongue cancer, in need of Ambnlq-Q-Utvw. POSTOPERATIVE DIAGNOSIS Tongue cancer, in need of Vnxyre-A-Tpsy. PROCEDURE Placement of left sided Uckzih-T-Pbqi under fluoroscopic guidance. ANESTHESIA TIVA. SURGEON Dr. Sosa INDICATIONS A pleasant unfortunate 71-year-old gentleman who has advanced tongue carcinoma. He is in need of chemotherapy under the direction of Dr. Del Cid. DESCRIPTION OF PROCEDURE: The patient was taken to the operating room, placed in supine position. After anesthesia his left shoulder and chest was prepped with Betadine. Time-out was done. He was given preoperative antibiotics. We anesthetized the area with 0.25% Marcaine solution and the infraclavicular area on the left side. An 18 gauge needle was used to cannulate the subclavian vein without difficulty under fluoroscopic guidance. The guidewire was threaded through the needle into the superior vena cava. The needle was then removed. The subcutaneous pocket is made. The catheter is cut at 20-1/2 cm. The introducer and dilator then threaded over the guidewire without difficulty. The dilators was then removed. The catheter was threaded through the introducer. The introducer was removed and the catheter lays in the superior vena cava as this all was done under fluoroscopic guidance. The catheter was then secured to the deep layers with 3-0 Vicryl. The skin was closed with 4-0 Vicryl. The catheter aspirated blood quite easily and flushed with heparinized saline soltuion. Stat portable chest x-ray done at the time of the procedure showed no pneumothorax with the [id number]-B-Gbhx in place. MD RACHAEL Fisher/SEBASTIAN /1:23 PM /11:42 PM
== END | disposition home or self-care (01) ==
LOC: HSDC 08:25
PROVIDERS: ATTEND Surgery
DX: Z45.2 Encounter for adjustment and management of vascular access device (principal); C02.9 Malignant neoplasm of tongue, unspecified; R22.1 Localized swelling, mass and lump, neck; E11.9 Type 2 diabetes mellitus without complications; F03.90 Unspecified dementia, unspecified severity, without behavioral disturbance, psychotic disturbance, mood disturbance, and anxiety
CPT/HCPCS: 00532; 36561; 71010; 76000; 82948; 85025; C1788; J0690; J1644; J1815; J2250; J2270

== ENCOUNTER 2016-12-22 15:48 | Inpatient (IN) | payer MEDICARE, MEDICAID ==
[~2016-12-22] VITALS: Ht 172.7 cm; Wt 71.0 kg
[~2016-12-22 15:48] MED LIST changes: -*morphine SULFATE 8 MG/ML PERIprocedure ONLY ONE; -ACETAMINOPHEN 325MG/HYDROcodone 7.5MG/15ML UDC ONE; -ACETAMINOPHEN 325MG/HYDROcodone 7.5MG/15ML UDC PO ONE; -AMLO5 PO; -BUPIVACAINE HCL PF 0.5% 30 ML VIAL ONE; -BUPIVACAINE/EPINEPHRINE 0.5% PF 30 ML VIAL ONE; -CHLORHEXIDINE GLUCONATE 2 % 1 PACK (2 CLOTHS) TOPICAL PRN; -DIFL200T PO; -DILT60TA33 G-TUBE; -DO NOT ADM ANY ANTICOAGULANT DRUGS PRN; -FENT50T T-DERMAL; -GLIP10TA6 PO; -HEPARIN SODIUM - IV 10,000 UNITS/10 ML VIAL ONE; -HYDR-3516 PO; -HYOS0.1231 PO; -INSULIN HUMAN REGULAR 1,000 UNITS/10 ML VIAL SQ PRN; -IPRASOL NEB; -KETAMINE HCL 500 MG/5 ML VIAL ONE; -LACTATED RINGER'S 1000 ML IV PRN; -LEVA500T PO; -LIDOCAINE 1%/EPINEPHrine 1:100,000 SOLN 20 ML VIAL ONE; -METF500T PO; -METOPROLOL TARTRATE 25 MG TAB PO PRN; -METR-1 PO; -MIDAZOLAM HCL 2 MG/2 ML VIAL ONE; -PIOG30TA4 PO; -POVIDONE IODINE 5% (ANTISEPSIS KIT) 4 APPLICATIONS EACH NARE PRN; -PROPOFOL 200 MG/20 ML AMP IV ONE; -QUET1TAB7 PO; -SODIUM CHLORID 0.9% 500 ML IV PRN; -SODIUM CHLORIDE 0.9% 20 ML VIAL ONE; -SODIUM CHLORIDE 0.9% INJ 100 ML ONE; -ceFAZolin 1,000 MG/NS 100 ML IV SCH; -ceFAZolin INJ 1,000 MG VIAL ONE
[2016-12-22] MEDS ORDERED: NALOXONE HCL 0.4 MG/ML AMP IV PRN (16:15)
[2016-12-22] MEDS ORDERED: ONDANSETRON HCL 4 MG/2 ML VIAL IVP PRN (16:15)
[2016-12-22 17:38] VITALS: BP 138/82; PULSE 80; PULSE 85; RESP 18; RESP 20; TEMP 95.1; O2SAT 96; O2SAT 97
[2016-12-22] MEDS ORDERED: GLUCAGON 1 MG/ML VIAL OTHER PRN (18:30)
[2016-12-22] MEDS ORDERED: RESP: ALBUTEROL 2.5 MG/IPRATROPIUM 0.5 MG NEB (PRN) NEB (18:30)
[2016-12-22] MEDS ORDERED: ZOLPIDEM TARTRATE 5 MG TAB PO PRN (18:30)
[2016-12-22] MEDS ORDERED: DEXTROSE 50% IN WATER 50 ML VIAL(D50) IV PUSH PRN (18:30)
--- NOTE | 2016-12-22 20:10 | RADRPT ---
EXAM DATE/TIME: 12/22/2016 19:51 [facility] COMPARISON: CHEST SINGLE AP, December 14, 2016, 11:50. INDICATIONS : Cough. MEDICAL HISTORY : None. SURGICAL HISTORY : None. ENCOUNTER: Initial ACUITY: 2 weeks PAIN SCORE: 0/10 LOCATION: Bilateral chest FINDINGS: A single view of the chest demonstrates the lungs to be symmetrically aerated without evidence of mas s, infiltrate or effusion. The cardiomediastinal contours are unremarkable. Osseous structures are intact. Left-sided Port-A-Cath. CONCLUSION: No acute disease. Ji Trevino Jr., MD on December 22, 2016 at 20:08 Board Certified Radiologist. This report was verified electronically.
[2016-12-22 20:11] VITALS: BP 158/73; PULSE 81; RESP 16; TEMP 97.1; O2SAT 96
[2016-12-22 21:08] LABS: AUTOMATED NEUTROPHIL # 10.3 TH/MM3 (1.8-7.7); BASOPHIL # 0.1 TH/MM3 (0-0.2); BASOPHIL % 0.5 % (0.0-2.0); HEMATOCRIT 30.2 % (39.0-51.0); HEMO FLAGS DIFF FINAL; LYMPHOCYTE # 0.8 TH/MM3 (1.0-4.8); MEAN CORPUSCULAR HEMOGLOBIN 27.3 PG (27.0-34.0); MEAN CORPUSCULAR HGB CONC 32.4 % (32.0-36.0); MONO % 2.2 % (0.0-8.0); NEUT % 90.3 % (16.0-70.0); PLATELET COUNT 407 TH/MM3 (150-450); RED BLOOD COUNT 3.59 MIL/MM3 (4.50-5.90); RED CELL DISTRIBUTION WIDTH 13.8 % (11.6-17.2); WHITE BLOOD COUNT 11.4 TH/MM3 (4.0-11.0)
[2016-12-22 21:23] LABS: INDIRECT BILIRUBIN 0.2 MG/DL (0.0-0.8); POTASSIUM 5.3 MEQ/L (3.5-5.1); TOTAL BILIRUBIN ADULT 0.3 MG/DL (0.2-1.0)
[2016-12-22] MEDS: SODIUM CHLORIDE 0.9% FLUSH 10 ML FLUSH IV FLUSH SCH (22:27)
[2016-12-22] MEDS: traZODone HCL 50 MG TAB PO SCH (22:27)
[2016-12-22] MEDS: NYSTATIN SUSP 500,000 U/5 ML CUP SWISH-SWAL SCH (22:28)
[2016-12-22] MEDS: SODIUM CHLOR 0.9% 1000 ML INJ 1,000 ML IV SCH (22:28)
[2016-12-22] MEDS: INSULIN DETEMIR 100 UNITS/ML VIAL SQ SCH (22:29)
[2016-12-22] MEDS: NYSTAT/DIPHENHY/LIDO MOUTHWASH (Adult) 120ML SWISH-SWAL SCH (22:42)
[2016-12-22] MEDS: INSULIN ASPART SUPPLEMENTAL SCALE SQ SCH (22:43)
[2016-12-22] MEDS: ACETAMINOPHEN 325MG/HYDROcodone 7.5MG/15ML UDC PO PRN (22:44)
[2016-12-23] VITALS: BP 184/84; PULSE 84; RESP 18; TEMP 97.7; O2SAT 95
[2016-12-23] MEDS: methylPREDNISolone SOD SUCC 40 MG/1 ML VIAL IV PUSH SCH ×5 (01:15→23:33)
[2016-12-23 04:00] VITALS: BP 145/66; PULSE 78; RESP 18; TEMP 97.7; O2SAT 99
[2016-12-23] MEDS: MORPHINE SULFATE 4 MG/ML INJ IV PUSH PRN ×2 (04:50→09:09)
[2016-12-23] MEDS: SODIUM CHLOR 0.9% 1000 ML INJ 1,000 ML IV SCH ×3 (05:00→23:00)
[2016-12-23] MEDS: HEPARIN SODIUM - SQ 10,000 UNITS/ML VIAL SQ SCH ×2 (05:00→17:34)
[2016-12-23 06:03] LABS: AUTOMATED NEUTROPHIL # 10.6 TH/MM3 (1.8-7.7); BASOPHIL % 0.4 % (0.0-2.0); HEMATOCRIT 32.6 % (39.0-51.0); HEMO FLAGS DIFF FINAL; LYMPH % 10.1 % (9.0-44.0); LYMPHOCYTE # 1.2 TH/MM3 (1.0-4.8); MEAN CELL VOLUME 82.6 FL (80.0-100.0); MEAN CORPUSCULAR HEMOGLOBIN 27.8 PG (27.0-34.0); MEAN CORPUSCULAR HGB CONC 33.6 % (32.0-36.0); MONO % 0.7 % (0.0-8.0); NEUT % 88.8 % (16.0-70.0); PLATELET COUNT 414 TH/MM3 (150-450); RED BLOOD COUNT 3.94 MIL/MM3 (4.50-5.90); RED CELL DISTRIBUTION WIDTH 13.7 % (11.6-17.2)
[2016-12-23 06:15] LABS: POTASSIUM 4.5 MEQ/L (3.5-5.1)
[2016-12-23] MEDS: INSULIN ASPART SUPPLEMENTAL SCALE SQ SCH ×4 (06:32→22:08)
[2016-12-23] MEDS: NYSTAT/DIPHENHY/LIDO MOUTHWASH (Adult) 120ML SWISH-SWAL SCH ×4 (06:32→21:59)
--- NOTE | 2016-12-23 07:35 | MB ---
cc: NEWTON DELGADILLO MD, RUBY ANNE E. M.D. DATE OF CONSULTATION 12/22/2016 DATE OF [address] Newton Delgadillo CHIEF COMPLAINT Dr. Delgadillo requested a consultation for Mr. Moura regarding head and neck cancer. HISTORY OF PRESENT ILLNESS Mr. Moura PTCA GERD is a 71-year-old man well-known patient from initial consultation November 10, 2016. He has a history of diabetes, hypertension, hyperlipidemia and a psychiatric history. He was initially [place] acted by police. He has a history of dementia with psychoses. He had possible polysubstance induced mood disorder. He had a left oral tongue cancer managed by Dr. Denise. 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 Denise on 06/10/2016. The tumor measured 2.7 x 1.7 by 0.5 cm. It was moderately differentiated grade 2. The margins were uninvolved. The tumor in the partial glossectomy specimen extended within a few cell diameter of the deep surgical margin of resection. Additional tissue was sent as the deep margin and that was negative. His follow up has been sketchy in terms of his head and neck cancer. He was admitted to the hospital after a fall. He had a head laceration. He was noted to have left neck swelling with a history of oral tongue cancer. Hematology/Oncology was consulted. A CT-guided biopsy was performed of the left neck mass on November 12, 2016 that confirmed a moderately differentiated keratinizing squamous, cell carcinoma. Mr. Moura is discharged to rehab after that hospitalization. During his stay in rehab, his follow up in hematology oncology clinic was delayed. He was finally seen in clinic to coordinate treatment with radiation oncology. He was agreeable to concurrent chemotherapy and radiation. He has missed several appointments due to his social situation. Since his rehab days have completed, he returned home. His family reports hardship in taking care of him at home. His brother, who he lives with has a history of cancer himself and was requiring surgery. He had trouble meeting his appointments with medical oncology. We had planned to administer induction chemotherapy two weeks ago which appointment he has missed, as well as the rescheduled appointment. Finally, Mr. Moura was able to have one of the items for his treatment port placed on 12/14/[address] Wei Sosa. He was seen by the maxillofacial surgeon who recommended tooth extraction in which Mr. Moura had declined. He returned to clinic today for his first dose of induction therapy. His family reports that he was swallowing at home, his Boost and Ensure. His pills have been crushed by his home care nurse. He has a lot of pain associated with his oral tongue cancer recurrence. He is treating it with Magic Mouthwash. He has find the use of liquid Lortab helpful. He was set up to receive his first dose of carboplatin and Taxol in clinic. It became apparent very shortly that he would had difficulty controlling and managing his own secretions. He required suctioning from respiratory. He had rhonchi in both lungs. He had difficulty swallowing the premedication despite it being crushed. He has difficulty managing even his secretions. His labs show evidence of dehydration as he was clinically dehydrated as well. His PEG tube has not been placed as yet. He is pending PEG tube placement in two weeks' time by Dr. Montes De Oca. In this setting with dehydration, difficulty managing his secretions and no access for nutrition, he was admitted to the hospital coordinated through Dr. Delgadillo. His chemotherapy could not be administered. PAST MEDICAL HISTORY 1. Recurrent oral tongue cancer 2. Anxiety 3. Depression 4. Diabetes 5. Dementia 6. Sleep apnea 7. Degenerative disk disease PAST SURGICAL HISTORY 1. Biopsy of left neck lymph node 2. Appendectomy 3. Left hemiglossectomy 4. Tongue biopsy SOCIAL HISTORY He has occasional alcohol use. Denies any tobacco use. He was never a smoker. He lives with his brother and [id number]. FAMILY HISTORY Mother had breast cancer in her 80s. Father had no cancer. PHYSICAL EXAMINATION Temperature 97.1 heart rate 81, respiratory rate 16, blood pressure 158/73, saturation 96%. GENERAL: Mr. Moura he is a well-developed, slender man who looks thinner than previous exam. He has drooling constantly, unable to manage his secretions. He is having difficulty with communication in light of the partial glossectomy. NECK: His left neck mass appears larger. LUNGS: His lungs are clear to auscultation. CARDIOVASCULAR: Exam reveals a normal rate, rhythm. ABDOMEN: Benign. EXTREMITIES: Lower extremities with no edema. A port is in place. LABORATORY DATA Significant for anemia with hemoglobin 9.8, platelet counts are normal, white blood cell count mildly elevated at 11.4. BUN in clinic is 31, creatinine 1.20 which is increased to his baseline of 0.9. Iron studies are difficult to interpret, decreased iron saturation his albumin is low at 2.8. Serum B12 levels is 721. ASSESSMENT/PLAN Mr. Moura is a 71-year-old man with a locally recurrent oral tongue cancer metastatic to the left neck. He is pending definitive treatment with concurrent chemotherapy and radiation. He was supposed to receive induction chemotherapy that was delayed because of difficulty managing his secretions and no way to manage his nutrition. I discussed with Mr. Moura and his family present at the consultation in clinic our plans to admit him to the hospital to manage his secretions better. He will need a way to obtain nutrition sooner than two weeks given the fact that he is clearly unable to swallow despite the history provided by the family of his swallowing liquid nutrition at home. He is an aspiration risk. He has evidence of dehydration at the time of his presentation with an increased BUN and hyponatremia. He is given IV fluid hydration in the clinic and continued in the hospital. We will monitor electrolyte abnormality and optimize his renal function. His glucose is poorly controlled. It will be difficult to manage in light of his erratic p.o. intake. At this point, he is not taking anything p.o. and we will keep him n.p.o. until a PEG tube can be placed. GI or interventional radiology will be consulted for PEG tube placement for nutrition. Chemotherapy needs to be placed on hold as supportive treatment and care not in place. His port is functioning well. I have no way to provide for his nutrition to keep him from becoming dehydrated or decompensating quickly so that his chemotherapy was held. We anticipate resuming his chemotherapy once he is more stable with a way to manage his nutrition. The acute problem of dehydration will be corrected. Furthermore, he has cancer related pain. Cancer related pain management will be optimized. Since he is unable to tolerate p.o. pain medications, parenteral pain medication is needed at present. He is offered a Fentanyl patch since he cannot take p.o. treatment. We will monitor closely for increased sedation. Over the past two weeks, he has been using the oxycodone liquid, but preferred the Lortab liquid which he is using a p.r.n. basis. On further questioning, he is using the treatment rather regularly. His glucose will be monitored. He has evidence of anemia, but no bleeding. His iron studies are difficult to interpret. He is noted to have mild hypercalcemia I suspected to be related to his dehydration. We will monitor his calcium after the hydration. Mr. Moura and his family's questions were answered to his satisfaction. His admission was coordinated with Dr. Delgadillo for the above. MD VANESSA Hu/DANNY /9:19 PM /7:07 AM
[2016-12-23 08:00] VITALS: BP 157/84; PULSE 79; RESP 20; TEMP 97; O2SAT 97
[2016-12-23] MEDS: NYSTATIN SUSP 500,000 U/5 ML CUP SWISH-SWAL SCH ×4 (08:48→22:00)
[2016-12-23] MEDS: SODIUM CHLORIDE 0.9% FLUSH 10 ML FLUSH IV FLUSH SCH ×2 (08:48→22:01)
[2016-12-23] MEDS ORDERED: ASPIRIN 325 MG TAB PO SCH (09:00)
--- NOTE | 2016-12-23 10:11 | HHI.HP ---
HPI Service [facility] Primary Care Physician Jordy Martinez MD Admission Diagnosis Diagnoses: Chief Complaint: unable to hold secretions Travel History International Travel<30 Days: No Contact w/Intl Traveler <30 Da: No Traveled to Known Affected Are: No History of Present Illness Pt is a 71-year-old man with PMHx of diabetes, hypertension, hyperlipidemia, dementia with psychoses, previous Baked Act, possible polysubstance induced mood disorder. Pt. was sent as a direct admit. Information is obtained from medical record, pt. is a poor historian and has difficulty speaking. He was diagnosed last year with left oral tongue cancer by Dr. Denise. 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 Denise on 06/10/2016. Most recently was admitted November 2016 after fall and hyponatremia. Was noted to have left neck swelling, Hematology/ Oncology was consulted. A CT-guided biopsy was performed of the left neck mass on November 12, 2016 that confirmed a moderately differentiated keratinizing squamous, cell carcinoma. He was discharged to rehab. Pt. has missed oncology follow and they have not been able to coordinate treatment with radiation oncology. Has also missed appointment for induction chemotherapy. Yesterday, he presented to Dr. Vick's office for induction chemotherapy, and was noted with difficulty clearing secretions. Per Dr. Vick's notes, family has reported difficulty caring for patient as pt's own brother also has cancer. He had a port placed on 12/14/2016 and was supposed to have tooth extraction by maxillofacial but has refused. dose of induction therapy. Family reports patient taking medications crushed and drinking Boost and Ensure. Pt. was sent to hospital for admission. He is noted dehydrated, currently on IVF. He is pending peg placement per Dr. Montes De Oca and is scheduled for next week. Pt. is evaluated in the oncology unit. He wants to go home and refuses peg placement. He wants to drink coffee and states there is nothing wrong with him even as he is obviously drooling and can't control secretions. When asked why type of cancer he has, states he doesn't know. He has been seen by Dr. Villeda who recommends GI evaluation as well as psychiatric evaluation for competency. Pt. states he has as son in [place] and states it's okay to contact him. Pt. is admitted for further evaluation and treatment. Review of Systems ROS Limitations: Speech Impaired, Poor Historian Past Family Social History Past Medical History 1. Oral tongue cancer. 2. Anxiety 3. Depression 4. Diabetes 5. Hearing loss 6. Tinnitus 7. Dementia. 8. Sleep apnea. 9. Degenerative disc disease, cervical spine. 10. Chronic white matter changes. 11. Dementia with psychosis. 12. Hyponatremia Past Surgical History ben glossectomy 06/10/2016 tongue biopsy. port placed on 12/14/2016 left neck mass Bx 11/12/2016 Reported Medications Reported Meds & Active Scripts Active Hydrocodone-Acetaminophen Liq 7.5-325 Mg/15 Ml Soln 10 Ml PO Q6H PRN Lisinopril 20 Mg Tab 20 Mg PO DAILY Walker with Front Wheels (Device) 1 Mis Mis 1 Ea .ROUTE DIRECTED Ambien (Zolpidem Tartrate) 5 Mg Tab 5 Mg PO HS PRN 10 Days Trazodone (Trazodone HCl) 50 Mg Tab 50 Mg PO HS 30 Days Reported Nystatin Liq 100,000 unit/ml Susp 5 Ml SWISH-SWAL QID Magic Mouthwash Adult Liq (Multi-Ingredient Mouthwash/Gargle) 120 Ml Susp 10 Ml SWISH-SWAL ACHS Each 5mL contains: Nystatin 200,000units, Diphenhydramine 4.25mg, Viscous Lidocaine 10mg, Archer syrup 0.8 mL Lantus Solostar Pen Inj (Insulin Glargine) 300 Unit/3 Ml Pen 5 Units SQ HS Novolog Flexpen Inj (Insulin Aspart) 300 Unit/3 Ml Pen Unknown Dose SQ Aspirin 325 Mg Tab 325 Mg PO DAILY Allergies: Coded Allergies: No Known Allergies (Unverified , 11/10/16) Active Ordered Medications Inpatient Medications Acetaminophen/ Hydrocodone Bitart (Hycet 325-7.5 Mg Liq) 10 ml Q6H PRN PO PAIN 1-6 Last administered on 12/22/16t 22:44; Start 12/22/16 at 18:30 Albuterol/ Ipratropium (Duoneb Neb) 1 ampule Q4HR NEB PRN NEB dyspnea; Start at 18:30 Aspirin (Aspirin) 325 mg DAILY PO ; Start 12/23/16 at 09:00; Stop 12/23/16 at 09 :00; Status DC Dextrose (D50w (Vial) Inj) 25 ml UNSCH PRN IV PUSH HYPOGLYCEMIA-SEE COMMENTS; Start 12/22/16 at 18:30 Glucagon (Glucagon Inj) 1 mg UNSCH PRN OTHER HYPOGLYCEMIA-SEE COMMENTS; Start 12/22/16 at 18:30 Heparin Sodium (Porcine) (Heparin Inj) 5,000 units Q12H SQ Last administered on 12/23/16 05:00; Start 12/22/16 at 17:00 Insulin Aspart (NovoLOG SUPPLEMENTAL SCALE) 1 ACHS SLIDING SCALE SQ Last administered on 12/23/16 06:32; Start 12/22/16 at 21:00 Insulin Detemir (Levemir Inj) 5 units HS SQ Last administered on 12/22/16 22: 29; Start 12/22/16 at 21:00 Methylprednisolone Sodium Succinate (SoluMEDROL INJ) 80 mg Q6HR IV PUSH Last administered on 12/23/16 05:03; Start 12/22/16 at 18:30 Morphine Sulfate (Morphine Inj) 4 mg Q3H PRN IV PUSH pain 7-10 Last administered on 12/23/16 09:09; Start 12/22/16 at 18:45 Multi-Ingredient Mouthwash/Gargle (Magic Mouthwash Adult Liq) 10 ml ACHS SWISH- SWAL ; Start 12/22/16 at 21:00 Naloxone HCl (Narcan Inj) 0.4 mg UNSCH PRN IV SEE LABEL COMMENTS; Start at 16:15 Nystatin (Mycostatin Liq) 5 ml QID SWISH-SWAL Last administered on 12/23/16 08:48; Start 12/22/16 at 21:00 Ondansetron HCl (Zofran Inj) 4 mg Q6H PRN IVP NAUSEA OR VOMITING; Start at 16:15 Sodium Chloride (NS 1000 ml Inj) 1,000 ml @ 100 mls/hr Q10H IV Last administered on 12/23/16 05:00; Start 12/22/16 at 17:00 Sodium Chloride (NS Flush) 2 ml BID IV FLUSH ; Start 12/22/16 at 21:00 Trazodone HCl (Desyrel) 50 mg HS PO ; Start 12/22/16 at 21:00 Zolpidem Tartrate (Ambien) 5 mg HS PRN PO INSOMNIA; Start 12/22/16 at 18:30 Family History Reports mother had breast cancer in her 80s. Father had no cancer. Social History Occasional alcohol use. Denies tobacco use. He was never a smoker. He lives with his brother and his [id number]. Has a son who lives in [place] Physical Exam Vital Signs Vital Signs Date Time Temp Pulse Resp B/P Pulse Ox O2 Delivery O2 Flow Rate FiO2 12/23/16 08:00 97.0 79 20 157/84 97 12/23/16 04:00 97.7 78 18 145/66 99 12/23/16 00:00 97.7 84 18 184/84 95 12/22/16 20:11 97.1 81 16 158/73 96 12/22/16 17:38 95.1 85 18 138/82 96 12/22/16 17:38 95.1 80 20 138/82 97 Physical Exam GENERAL: This is a well-nourished, well-developed patient, in no apparent distress. SKIN: No rashes, ecchymoses or lesions. Cool and dry. HEAD: Atraumatic. Normocephalic. No temporal or scalp tenderness. EYES: Pupils equal round and reactive. Extraocular motions intact. No scleral icterus. No injection or drainage. ENT: Nose without bleeding, purulent drainage or septal hematoma. Throat without erythema, tonsillar hypertrophy or exudate. Uvula midline. Airway patent. Partial glossectomy, thrush noted. Constantly drooling, unable to hold secretions NECK: Trachea midline.Left neck mass. CARDIOVASCULAR: Regular rate and rhythm without murmurs, gallops, or rubs. RESPIRATORY: faint bibasilar rales, diminished at bases. Left CW with PAC. GASTROINTESTINAL: Abdomen soft, non-tender, nondistended. No hepato-splenomegaly , or palpable masses. No guarding. MUSCULOSKELETAL: Extremities without clubbing, cyanosis, or edema. No joint tenderness, effusion, or edema noted. No calf tenderness. Negative Homans sign bilaterally. NEUROLOGICAL: Speech slurred due to partial glossectomy, oriented to year, place , self, doesn't understand why he is here. No focal deficits. Laboratory Laboratory Tests Test 12/22/16 12/23/16 20:19 04:55 White Blood Count 11.4 12.0 Red Blood Count 3.59 3.94 Hemoglobin 9.8 11.0 Hematocrit 30.2 32.6 Mean Corpuscular Volume 84.0 82.6 Mean Corpuscular Hemoglobin 27.3 27.8 Mean Corpuscular Hemoglobin 32.4 33.6 Concent Red Cell Distribution Width 13.8 13.7 Platelet Count 407 414 Mean Platelet Volume 8.4 9.0 Neutrophils (%) (Auto) 90.3 88.8 Lymphocytes (%) (Auto) 7.0 10.1 Monocytes (%) (Auto) 2.2 0.7 Eosinophils (%) (Auto) 0.0 0.0 Basophils (%) (Auto) 0.5 0.4 Neutrophils # (Auto) 10.3 10.6 Lymphocytes # (Auto) 0.8 1.2 Monocytes # (Auto) 0.2 0.1 Eosinophils # (Auto) 0.0 0.0 Basophils # (Auto) 0.1 0.0 CBC Comment DIFF FINAL DIFF FINAL Differential Comment Sodium Level 134 135 Potassium Level 5.3 4.5 Chloride Level 96 98 Carbon Dioxide Level 27.0 27.0 Anion Gap 11 10 Blood Urea Nitrogen 28 26 Creatinine 1.14 0.99 Estimat Glomerular Filtration 63 74 Rate Random Glucose 357 304 Calcium Level 10.0 10.1 Phosphorus Level 3.3 Magnesium Level 2.0 Total Bilirubin 0.3 Direct Bilirubin 0.1 Indirect Bilirubin 0.2 Aspartate Amino Transf 11 (AST/SGOT) Alanine Aminotransferase 13 (ALT/SGPT) Alkaline Phosphatase 82 Total Protein 7.0 Albumin 2.5 Result Diagram: 12/23/16 0455 12/23/16 0455 Imaging Last Impressions Chest X-Ray 12/22/16 0000 Signed Impressions: Service Date/Time: Thursday, December 22, 2016 19:51 - CONCLUSION: No acute disease. Ji Trevino Jr., MD Assessment and Plan Problem List: (1) Dehydration (2) Dysphagia (3) Squamous cell cancer of tongue (4) Mass of left side of neck (5) Depression (6) HTN (hypertension) (7) Dementia (8) Uncontrolled diabetes mellitus with hyperglycemia Assessment and Plan Admit to Dr. 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 Has not started chemo and radiation. Dysphagia, unable to clear secretions, came in with diffuse rhonchi and Rales, some respiratory distress -Oxygen as needed -Solu-Medrol 80 mg IV every 6 -DuoNeb's when necessary -Keep NPO -IVF -GI consult for peg placement, pt. refusing Dementia, hx psychosis, doesn't appear to be competent to make healthcare decision. -Psychiatry consulted for evaluation Dehydration, secondary to poor PO intake, malnourished -continue with IVF -monitor labs HTN, stable -continue home meds Type 2 diabetes, uncontrolled blood glucose Continue with Accu-Cheks before meals and at bedtime and insulin therapy Oral pain, thrush -Pain management Continue with nystatin Continue with Magic mouth wash Heparin for DVT prophylaxis Plan of care discussed with the patient, doesn't appear to have good insight into his medical condition. We will need to recheck to family, most likely his son for decision-making. Plan of care discussed with RN and attending. Further management of the patient will be dependent on the hospital course This patient was seen by myself and Dr. Mckeon, this H&P is written on his behalf Physician Certification 2 Midnight Certification Type: Admission for Inpatient Services Order for Inpatient Services The services are ordered in accordance with Medicare regulations or non- Medicare payer requirements, as applicable. In the case of services not specified as inpatient-only, they are appropriately provided as inpatient services in accordance with the 2-midnight benchmark. Estimated LOS (days): 2 2 days is the estimated time the patient will need to remain in the hospital, assuming treatment plan goals are met and no additional complications. Post-Hospital Plan: Not yet determined Problem Qualifiers (1) Dysphagia: Qualified Code: R13.10 - Dysphagia, unspecified type (2) Depression: Qualified Code: F32.9 - Depression, unspecified depression type (3) HTN (hypertension): Qualified Code: I10 - Essential hypertension (4) Dementia: Qualified Code: F03.90 - Dementia without behavioral disturbance, unspecified dementia type (5) Uncontrolled diabetes mellitus with hyperglycemia: Qualified Code: E11.65 - Uncontrolled type 2 diabetes mellitus with hyperglycemia, unspecified terminal operations supervisor insulin use status Savanna Kent Dec 23, 2016 10:11
--- NOTE | 2016-12-23 11:11 | HP.UPD ---
H&P Update Note There is a 71-year-old male who was referred as a direct admission from Dr. DEL CID office on 12/22/16. He was seen by the undersigned in room 701 at 7:30 PM on 12/22/16. He's a gentleman with left-sided tongue cancer and the large left-sided neck tumor. He was admitted because of his inability to handle his oropharyngeal secretions. Labs are not available at the time of admission. X-ray was not available at time of admission. A stat chest x-ray was ordered. Also per oncologist opinion the patient is to have a PEG tube placement for nutrition. Full history and physical to follow. The case was discussed with the patient and with the nurse and also with the oncologist This is a belated note reflecting encounter with this patient on 12/22/16. The patient was registered initially incorrectly therefore an admission note could not be completed on 12/22/16. The reader is referred to the orders given on 12/22/16 Newton Mckeon MD Dec 23, 2016 11:04
--- NOTE | 2016-12-23 11:23 | PD.ONC.PN ---
Subjective Subjective Remarks Afebrile overnight. Patient having difficulty controlling oral secretions. continuing to drool. No difficulty breathing. Objective Data Date Time Temp Pulse Resp B/P Pulse Ox O2 Delivery O2 Flow Rate FiO2 12/23/16 08:00 97.0 79 20 157/84 97 12/23/16 04:00 97.7 78 18 145/66 99 12/23/16 00:00 97.7 84 18 184/84 95 12/22/16 20:11 97.1 81 16 158/73 96 12/22/16 17:38 95.1 85 18 138/82 96 12/22/16 17:38 95.1 80 20 138/82 97 Result Diagram: 12/23/16 0455 12/23/16 0455 Laboratory Results Laboratory Tests Test 12/22/16 12/23/16 20:19 04:55 White Blood Count 11.4 TH/MM3 12.0 TH/MM3 Red Blood Count 3.59 MIL/MM3 3.94 MIL/MM3 Hemoglobin 9.8 GM/DL 11.0 GM/DL Hematocrit 30.2 % 32.6 % Mean Corpuscular Volume 84.0 FL 82.6 FL Mean Corpuscular Hemoglobin 27.3 PG 27.8 PG Mean Corpuscular Hemoglobin 32.4 % 33.6 % Concent Red Cell Distribution Width 13.8 % 13.7 % Platelet Count 407 TH/MM3 414 TH/MM3 Mean Platelet Volume 8.4 FL 9.0 FL Neutrophils (%) (Auto) 90.3 % 88.8 % Lymphocytes (%) (Auto) 7.0 % 10.1 % Monocytes (%) (Auto) 2.2 % 0.7 % Eosinophils (%) (Auto) 0.0 % 0.0 % Basophils (%) (Auto) 0.5 % 0.4 % Neutrophils # (Auto) 10.3 TH/MM3 10.6 TH/MM3 Lymphocytes # (Auto) 0.8 TH/MM3 1.2 TH/MM3 Monocytes # (Auto) 0.2 TH/MM3 0.1 TH/MM3 Eosinophils # (Auto) 0.0 TH/MM3 0.0 TH/MM3 Basophils # (Auto) 0.1 TH/MM3 0.0 TH/MM3 CBC Comment DIFF FINAL DIFF FINAL Differential Comment Sodium Level 134 MEQ/L 135 MEQ/L Potassium Level 5.3 MEQ/L 4.5 MEQ/L Chloride Level 96 MEQ/L 98 MEQ/L Carbon Dioxide Level 27.0 MEQ/L 27.0 MEQ/L Anion Gap 11 MEQ/L 10 MEQ/L Blood Urea Nitrogen 28 MG/DL 26 MG/DL Creatinine 1.14 MG/DL 0.99 MG/DL Estimat Glomerular Filtration 63 ML/MIN 74 ML/MIN Rate Random Glucose 357 MG/DL 304 MG/DL Calcium Level 10.0 MG/DL 10.1 MG/DL Phosphorus Level 3.3 MG/DL Magnesium Level 2.0 MG/DL Total Bilirubin 0.3 MG/DL Direct Bilirubin 0.1 MG/DL Indirect Bilirubin 0.2 MG/DL Aspartate Amino Transf 11 U/L (AST/SGOT) Alanine Aminotransferase 13 U/L (ALT/SGPT) Alkaline Phosphatase 82 U/L Total Protein 7.0 GM/DL Albumin 2.5 GM/DL Administered Medications Medications (Trade) Dose Ordered Sig/Rosalind Route PRN Reason Start Time Stop Time Status Last Admin Dose Admin Sodium Chloride (NS 1000 ml Inj) 1,000 ml @ 100 mls/hr Q10H IV 12/22/16 17:00 12/23/16 05:00 Heparin Sodium (Porcine) (Heparin Inj) 5,000 units Q12H SQ 12/22/16 17:00 12/23/16 05:00 Methylprednisolone Sodium Succinate (SoluMEDROL INJ) 80 mg Q6HR IV PUSH 12/22/16 18:30 12/23/16 05:03 Acetaminophen/ Hydrocodone Bitart (Hycet 325-7.5 Mg Liq) 10 ml Q6H PRN PO PAIN 1-6 12/22/16 18:30 12/22/16 22:44 Nystatin (Mycostatin Liq) 5 ml QID SWISH-SWAL 12/22/16 21:00 12/23/16 08:48 Insulin Detemir (Levemir Inj) 5 units HS SQ 12/22/16 21:00 12/22/16 22:29 Morphine Sulfate (Morphine Inj) 4 mg Q3H PRN IV PUSH pain 7-10 12/22/16 18:45 12/23/16 09:09 Objective Remarks GENERAL: Elderly male, sitting up in bed, drooling. SKIN: Warm and dry. HEAD: Normocephalic. EYES: No injection or drainage. NECK: Supple, trachea midline. CARDIOVASCULAR: Regular rate and rhythm RESPIRATORY: Breath sounds equal bilaterally. No accessory muscle use. GASTROINTESTINAL: Abdomen soft, non-tender, nondistended. EXTREMITIES: No cyanosis NEUROLOGICAL: awake and alert, garbled speech. moving extremities. Assessment/Plan Problem List: (1) Squamous cell cancer of tongue Status: Acute Plan: --pending definitive treatment with concurrent chemotherapy and radiation. --was supposed to receive induction chemotherapy that was delayed because of difficulty managing his secretions and no way to manage his nutrition. --will keep him n.p.o. until a PEG tube can be placed. (2) Mouth pain Status: Acute Plan: --due to oral cancer --currently receiving Morphine 4mg IV PRN --may need to add Fentanyl patch in the future --was using Oxycodone liquid on outpatient basis, but stated he preferred the Lortab liquid. Assessment 71y/o male with head and neck cancer. history of diabetes, hypertension, hyperlipidemia history of dementia with psychoses. He had possible polysubstance induced mood disorder. Left hemiglossectomy Plan 1. consult GI for PEG tube placement 2. keep NPO 3. maintain IVF 4. pain management with morphine. 5. consult psychiatry to determine competence 6. swallow eval Attending Statement The exam, history, and the medical decision-making described in the above note were completed with the assistance of the mid-level provider. I reviewed and agree with the findings presented. I attest that I had a [id number] encounter with the patient on the same day, and personally performed and documented my assessment and findings in the medical record. Pt seen and examined. Angry as he wanted coffee, pointed out he is having trouble handling his own secretions, compromise to taste and spit out his coffee. Consulted psychiatry for aggitation and pt's previous psychiatric problem. Appreciate consult. Dehydration improved but still no access to give nutrition w/o PEG tube, to be discussed with family. Case manger consulted for DC planning and placement. Treatment for head and neck cancer with chemo held until health care surrogate established and goals of therapy clarified and supportive procedure in place such as PEG. Jacqueline Bowden Dec 23, 2016 11:23 Marjan Villeda MD Dec 23, 2016 20:20
[2016-12-23 12:00] VITALS: BP 131/79; PULSE 79; RESP 16; TEMP 96.9; O2SAT 96
[2016-12-23] MEDS ORDERED: DOCUSATE SODIUM 100 MG CAP PO SCH (13:00)
--- NOTE | 2016-12-23 14:35 | PD.CONS ---
HPI History of Present Illness This is a 71 year old with a history of DM, hypertension, hyperlipidemia, dementia, who was sent as a direct admission from [facility] for difficulty clearing secretions and GI evaluation (PEG tube placement) and Psychiatric evaluation (determine competency). The patient is a very poor historian and therefore the history has been obtained from the EMR. 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 He was then hospitalized in November for after a fall and electrolyte abnormalities. He was noted to have left neck swelling and he underwent a biopsy of the mass (11/12/16) which revealed moderately differentiated keratinizing squamous, cell carcinoma. A port was placed on . He was also supposed to have tooth extraction by maxillofacial but has refused.He was discharged to rehab and has since missed his follow up appointments with oncology and has not been able to coordinate treatment with radiation oncology. He was seen in Dr. Vick's office for induction chemotherapy, but was found to be having difficulty clearing his secretions. Pt. has missed oncology follow and they have not been able to coordinate treatment with radiation oncology. Yesterday, he presented to Dr. Vick's office for induction chemotherapy, and was noted with difficulty clearing secretions. According to the EMR, the family reports that the patient has been taking his medications crushed and drinking Boost and Ensure. The patient tells me that he has no difficulty eating at home and tells me that he does not want a PEG tube. He becomes upset and yells "NO! NO!" when feeding tube is mentioned. Shortly after I saw the patient, the psychiatrist went in to evaluate the patient and deemed him incompetent to make decisions. His sister' s Alexandria Graves and Kimberly Woodward are listed as the next of kin/person to notify. I called and spoke to Kimberly Woodward at re: failed speech evaluation, recommendation for PEG, patient refusing, and psychiatrist declaring him incompetent. She reports that she will speak to the other siblings and call us back with their decision. Of note, when I was reviewing records, there is mention of a son, but no number for him. (oTva ReedP) PFSH Past Medical History Oral tongue cancer. Anxiety/Depression Diabetes Hearing loss Tinnitus Dementia. Sleep apnea. Degenerative disc disease, cervical spine. Chronic white matter changes. Hyponatremia Past Surgical History Roland glossectomy 06/10/2016 Tongue biopsy. Port placed on 12/14/2016 (Tova Reed) Coded Allergies: No Known Allergies (Unverified , 11/10/16) Medications Allergies Coded Allergies Type Severity Reaction Last Updated Verified No Known Allergies 11/10/16 No Active Scripts Medications Dose Route/Sig Days Date Category Dose Instructions Hydrocodone-Acetaminophen Liq 7.5-325 Mg/15 Ml Soln 10 Ml PO Q6H PRN 12/14/16 Rx Nystatin Liq 100,000 unit/ml Susp 5 Ml SWISH-SWAL QID 12/14/16 Reported Magic Mouthwash Adult Liq (Multi-Ingredient Mouthwash/Gargle) 120 Ml Susp 10 Ml SWISH-SWAL ACHS 12/14/16 Reported Each 5mL contains: Nystatin 200,000units, Diphenhydramine 4.25mg, Viscous Lidocaine 10mg, Archer syrup 0.8 mL Lantus Solostar Pen Inj (Insulin Glargine) 300 Unit/3 Ml Pen 5 Units SQ HS 12/14/16 Reported Novolog Flexpen Inj (Insulin Aspart) 300 Unit/3 Ml Pen Unknown Dose SQ 12/14/16 Reported Lisinopril 20 Mg Tab 20 Mg PO DAILY 11/21/16 Rx Walker with Front Wheels (Device) 1 Mis Mis 1 Ea .ROUTE DIRECTED 11/18/16 Rx Ambien (Zolpidem Tartrate) 5 Mg Tab 5 Mg PO HS PRN 10 11/16/16 Rx Trazodone (Trazodone HCl) 50 Mg Tab 50 Mg PO HS 30 11/16/16 Rx Aspirin 325 Mg Tab 325 Mg PO DAILY 07/15/16 Reported Family History Mother had breast cancer in her 80s. Father had no cancer. Social History Occasional alcohol use. Denies tobacco use. (Tova Reed) Review of Systems ROS Unable to get from patient. He was upset that feeding tube was mentioned and uncooperative (Tova Reed) GI Exam Vitals I&O Vital Signs Date Time Temp Pulse Resp B/P Pulse Ox O2 Delivery O2 Flow Rate FiO2 12/23/16 08:00 97.0 79 20 157/84 97 12/23/16 04:00 97.7 78 18 145/66 99 12/23/16 00:00 97.7 84 18 184/84 95 12/22/16 20:11 97.1 81 16 158/73 96 12/22/16 17:38 95.1 85 18 138/82 96 12/22/16 17:38 95.1 80 20 138/82 97 I/O 12/22/16 12/22/16 12/22/16 12/23/16 12/23/16 12/23/16 07:00 15:00 23:00 07:00 15:00 23:00 Intake Total 800 ml Output Total 250 ml 400 ml Balance -250 ml 400 ml Intake IV Total 800 ml Output Urine Total 250 ml 400 ml Imaging Last Impressions Chest X-Ray 12/22/16 0000 Signed Impressions: Service Date/Time: Thursday, December 22, 2016 19:51 - CONCLUSION: No acute disease. Ji Trevino Jr., MD Laboratory Test 12/22/16 12/23/16 20:19 04:55 White Blood Count 11.4 TH/MM3 12.0 TH/MM3 Red Blood Count 3.59 MIL/MM3 3.94 MIL/MM3 Hemoglobin 9.8 GM/DL 11.0 GM/DL Hematocrit 30.2 % 32.6 % Mean Corpuscular Volume 84.0 FL 82.6 FL Mean Corpuscular Hemoglobin 27.3 PG 27.8 PG Mean Corpuscular Hemoglobin 32.4 % 33.6 % Concent Red Cell Distribution Width 13.8 % 13.7 % Platelet Count 407 TH/MM3 414 TH/MM3 Mean Platelet Volume 8.4 FL 9.0 FL Neutrophils (%) (Auto) 90.3 % 88.8 % Lymphocytes (%) (Auto) 7.0 % 10.1 % Monocytes (%) (Auto) 2.2 % 0.7 % Eosinophils (%) (Auto) 0.0 % 0.0 % Basophils (%) (Auto) 0.5 % 0.4 % Neutrophils # (Auto) 10.3 TH/MM3 10.6 TH/MM3 Lymphocytes # (Auto) 0.8 TH/MM3 1.2 TH/MM3 Monocytes # (Auto) 0.2 TH/MM3 0.1 TH/MM3 Eosinophils # (Auto) 0.0 TH/MM3 0.0 TH/MM3 Basophils # (Auto) 0.1 TH/MM3 0.0 TH/MM3 CBC Comment DIFF FINAL DIFF FINAL Differential Comment Sodium Level 134 MEQ/L 135 MEQ/L Potassium Level 5.3 MEQ/L 4.5 MEQ/L Chloride Level 96 MEQ/L 98 MEQ/L Carbon Dioxide Level 27.0 MEQ/L 27.0 MEQ/L Anion Gap 11 MEQ/L 10 MEQ/L Blood Urea Nitrogen 28 MG/DL 26 MG/DL Creatinine 1.14 MG/DL 0.99 MG/DL Estimat Glomerular Filtration 63 ML/MIN 74 ML/MIN Rate Random Glucose 357 MG/DL 304 MG/DL Calcium Level 10.0 MG/DL 10.1 MG/DL Phosphorus Level 3.3 MG/DL Magnesium Level 2.0 MG/DL Total Bilirubin 0.3 MG/DL Direct Bilirubin 0.1 MG/DL Indirect Bilirubin 0.2 MG/DL Aspartate Amino Transf 11 U/L (AST/SGOT) Alanine Aminotransferase 13 U/L (ALT/SGPT) Alkaline Phosphatase 82 U/L Total Protein 7.0 GM/DL Albumin 2.5 GM/DL Physical Examination HEENT: Normocephalic; atraumatic; no jaundice. Significant oral secretions NECK: Left neck mass CHEST: CTA CARDIAC: RRR ABDOMEN: Soft, nondistended, nontender; no hepatosplenomegaly; bowel sounds are present in all four quadrants. EXTREMITIES: No clubbing, cyanosis, or edema. SKIN: Normal; no rash; no jaundice. GRANT MANAGER: Alert, ?oriented to self. Uncooperative. Garbled speech (Tova Reed) Assessment and Plan Plan ASSESSMENT: - Dysphagia, FEN. 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 Port was placed on 12/14/16. He was also supposed to have teeth extraction by maxillofacial in anticipation of radiation. He was seen in Dr. Vick's office for induction chemotherapy, but was found to be having difficulty clearing his secretions. Pt. has missed oncology follow and they have not been able to coordinate treatment with radiation oncology. Yesterday, he presented to Dr. Vick's office for induction chemotherapy, and was noted with difficulty clearing secretions. GI consulted for PEG tube placement. Pt is adamantly refusing, but shortly after I saw patient, the psychiatrist evaluated the patient and declared him incompetent. His sister's Alexandria Graves and Kimberly Woodward are listed as the next of kin/person to notify. I called and spoke to Kimberly Woodward at re: failed speech evaluation, recommendation for PEG, patient refusing, and psychiatrist declaring him incompetent. She reports that she will speak to the other siblings and call us back with their decision. Of note, when I was reviewing records, there is mention of a son, but no number for him. Kimberly did call back and say that they are still trying to contact all family members. I did ask if there were any children and Kimberly said there is a son, but that he has only seen his father a couple of times during the last 10 years and that they do not have any contact information for him. They will try to obtain this. Palliative care consult. 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 Port has been placed. Needs teeth extraction for radiation and PEG for nutrition prior to tx for cancer. - DM, HTN, Hyperlipidemia, Dementia per primary. PLAN: - EGD with PEG tube placement once consents obtained - Obtain consents - Palliative care consult. - Pt deemed incompetent. Next of kin listed in computer are siblings. However , there is a son, for which we do not have any contact information for. His siblings will try to obtain this. Will ask CM to help assist with this. Legally, consents should come from children before his siblings. - Pt seen and examined by Dr. Mancia and myself and this note is written on his behalf (Tova Reed) Physician Comments seen, examined agree with above possible peg in am, we will ask anesthesia to evaluate, if airway problem , may need to consult IR for placement pt/inr (Lima Mancia MD) Tova Reed Dec 23, 2016 14:35 Lima Mancia MD Dec 23, 2016 18:05
[2016-12-23] MEDS ORDERED: HYOSCYAMINE SOLN 0.125 MG/ML 15 ML BTL PO PRN (14:45)
--- NOTE | 2016-12-23 14:51 | PD.CONS ---
Provisional Diagnosis Admission Date Dec 22, 2016 at 16:13 [employer]. Dementia without behavioral disturbances, history of anxiety and depression [employer] II. Deferred History of Present Illness Service Psychiatry Consult Requested By Primary Care Physician Jordy Martinez MD HPI The patient is 71-year-old man with psychiatric history of depression, anxiety and dementia, rigorously Regalado acted, probably related with drug use, he is on trazodone 50 mg, PMHx of diabetes, hypertension, hyperlipidemia, previous Baked Act. Pt. was sent as a direct admit. Information is obtained from medical record, pt. is a poor historian and has difficulty speaking. He was diagnosed last year with left oral tongue cancer by Dr. Denise. 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 Denise on 06/10/2016. Most recently was admitted November 2016 after fall and hyponatremia. Was noted to have left neck swelling, Hematology/Oncology was consulted. A CT-guided biopsy was performed of the left neck mass on November 12, 2016 that confirmed a moderately differentiated keratinizing squamous, cell carcinoma. He was discharged to rehab. Pt. has missed oncology follow and they have not been able to coordinate treatment with radiation oncology. Has also missed appointment for induction chemotherapy. Yesterday, he presented to Dr. Vick's office for induction chemotherapy, and was noted with difficulty clearing secretions. Per Dr. Vick's notes, family has reported difficulty caring for patient as pt's own brother also has cancer. "He had a port placed on 12/14/2016 and was supposed to have tooth extraction by maxillofacial but has refused. dose of induction therapy. Family reports patient taking medications crushed and drinking Boost and Ensure. Pt. was sent to hospital for admission. He is noted dehydrated, currently on IVF. He is pending peg placement per Dr. Montes De Oca and is scheduled for next week. Pt. is evaluated in the oncology unit. He wants to go home and refuses peg placement. He wants to drink coffee and states there is nothing wrong with him even as he is obviously drooling and can' t control secretions. When asked why type of cancer he has, states he doesn't know. He has been seen by Dr. Villeda who recommends GI evaluation as well as psychiatric evaluation for competency. Pt. states he has as son in [place] and states it's okay to contact him. Pt. is admitted for further evaluation and treatment". The patient was consulted to psychiatry for management of agitation and also for decision-making capacity assessment. On psychiatric evaluation patient is found calm, irritable, superficially cooperative, assessment becomes difficult due to difficulty expressing ideas, profuse drooling, and disorientation. Patient is stays that he doesn't want to be in the hospital. He says that he wants to go home. However, he is unable to clarify where he lives and who he lives with. Patient is able to verbalize that he is in the hospital, he doesn't know which hospital, he doesn't know today's date. Patient doesn't know the reason his in the hospital. He is perseverant in the idea of this discharged back home and refuses to elaborate in the understanding and appreciation of medical conditions.. He denies depressive symptoms, he reports his mood as angry but denies hopelessness, denies helplessness, denies worthlessness, denies suicidal or homicidal ideation. He denies visual and auditory hallucinations.. Even though full cognitive tests could not be done due to lack of cooperation, cognition seems to be impaired. He denies the use of drugs and alcohol. Review of Systems Constitutional: DENIES: Diaphoretic episodes, Fatigue, Fever, Weight gain, Weight loss, Chills, Dizziness, Change in appetite, Night Sweats Endocrine: DENIES: Heat/cold intolerance, Polydipsia, Polyuria, Polyphagia Ears, nose, mouth, throat: DENIES: Tinnitus, Hearing loss, Vertigo, Nasal discharge, Oral lesions, Throat pain, Hoarseness, Ear Pain, Running Nose, Epistaxis, Sinus Pain, Toothache, Odynophagia Respiratory: DENIES: Apneas, Cough, Snoring, Wheezing, Hemoptysis, Sputum production, Shortness of breath Cardiovascular: DENIES: Chest pain, Palpitations, Syncope, Dyspnea on Exertion , PND, Lower Extremity Edema, Orthopnea, Claudication Gastrointestinal: DENIES: Abdominal pain, Black stools, Bloody stools, Constipation, Diarrhea, Nausea, Vomiting, Difficulty Swallowing, Anorexia Musculoskeletal: DENIES: Joint pain, Muscle aches, Stiffness, Joint Swelling, Back pain, Neck pain Integumentary: DENIES: Abnormal pigmentation, Nail changes, Pruritus, Rash Hematologic/lymphatic: DENIES: Bruising, Lymphadenopathy Immunologic/allergic: DENIES: Eczema, Urticaria Neurologic: DENIES: Abnormal gait, Headache, Localized weakness, Paresthesias, Seizures, Speech Problems, Tremor, Poor Balance Psychiatric: DENIES: Anxiety, Confusion, Mood changes, Depression, Hallucinations, Agitation, Suicidal Ideation, Homicidal Ideation, Delusions Other Patient has a profuse poorly Past Family Social History Coded Allergies: No Known Allergies (Unverified , 11/10/16) Active Scripts Hydrocodone-Acetaminophen Liq 7.5-325 Mg/15 Ml Soln10 Ml PO Q6H PRN (PAIN) #200 ML Ref 0 Prov:Wei Sosa MD 12/14/16 Lisinopril 20 Mg Tab20 Mg PO DAILY #30 TAB Ref 0 Prov:Myrna Prince MD 11/21/16 Walker with Front Wheels 1 Mis Mis #1 EA .ROUTE DIRECTED Ref 0 Prov:Myrna Prince MD 11/18/16 Zolpidem (Ambien)5 Mg Tab5 Mg PO HS PRN (INSOMNIA) 10 Days Ref 0 Prov:Maya Braden MD 11/16/16 Trazodone 50 Mg Tab50 Mg PO HS 30 Days Ref 0 Prov:Maya Braden MD 11/16/16 Reported Medications Nystatin Liq 100,000 unit/ml Susp5 Ml SWISH-SWAL QID Ref 0 12/14/16 Lubluhtv-Vxiebsjgzmiqasi-Mvadkixyl Liq (Magic Mouthwash Adult Liq)120 Ml Susp10 Ml SWISH-SWAL ACHS #120 ML Ref 0 Each 5mL contains: Nystatin 200,000units, Diphenhydramine 4.25mg, Viscous Lidocaine 10mg, Archer syrup 0.8 mL 12/14/16 Insulin Glargine Inj (Lantus Solostar Pen Inj)300 Unit/3 Ml Pen5 Units SQ HS Ref 0 12/14/16 Insulin Aspart Inj (Novolog Flexpen Inj)300 Unit/3 Ml PenUnknown Dose SQ #1 PEN Ref 0 12/14/16 Aspirin 325 Mg Ipr643 Mg PO DAILY #30 TAB Ref 0 07/15/16 Current Medications Medications (Trade) Dose Ordered Sig/Rosalind Route Start Time Stop Time Status Last Admin (NS 1000 ml Inj) 1,000 ml @ 100 mls/hr Q10H IV 12/22/16 17:00 12/23/16 13:00 (NS Flush) 2 ml UNSCH PRN IV FLUSH 12/22/16 16:15 (NS Flush) 2 ml BID IV FLUSH 12/22/16 21:00 (Zofran Inj) 4 mg Q6H PRN IVP 12/22/16 16:15 (Heparin Inj) 5,000 units Q12H SQ 12/22/16 17:00 12/23/16 05:00 (Narcan Inj) 0.4 mg UNSCH PRN IV 12/22/16 16:15 (D50w (Vial) Inj) 25 ml UNSCH PRN IV PUSH 12/22/16 18:30 (Glucagon Inj) 1 mg UNSCH PRN OTHER 12/22/16 18:30 (SoluMEDROL INJ) 80 mg Q6HR IV PUSH 12/22/16 18:30 12/23/16 13:50 (Hycet 325-7.5 Mg Liq) 10 ml Q6H PRN PO 12/22/16 18:30 12/22/16 22:44 (Mycostatin Liq) 5 ml QID SWISH-SWAL 12/22/16 21:00 12/23/16 13:47 (Magic Mouthwash Adult Liq) 10 ml ACHS SWISH-SWAL 12/22/16 21:00 (Desyrel) 50 mg HS PO 12/22/16 21:00 (Ambien) 5 mg HS PRN PO 12/22/16 18:30 (Levemir Inj) 5 units HS SQ 12/22/16 21:00 12/22/16 22:29 (Morphine Inj) 4 mg Q3H PRN IV PUSH 12/22/16 18:45 12/23/16 09:09 (Levsin Liq) 0.125 mg Q4H PRN PO 12/23/16 14:45 UNV Physical Exam Vital Signs Vital Signs Date Time Temp Pulse Resp B/P Pulse Ox O2 Delivery O2 Flow Rate FiO2 12/23/16 12:00 96.9 79 16 131/79 96 I/O 12/22/16 12/22/16 12/23/16 08:00 16:00 00:00 Output Total 450 ml Balance -450 ml Mental Status Examination Appearance man, age appearing, poorly cooperative, oppositional, with profuse pulling Speech: Incoherent (due to profuse drooling) Orientation: Person Memory: Impaired (describe) Thought Process: Goal Directed, Loose Association Thought Content: Unremarkable Hallucination Type: None Attention and Concentration: Good Homicidal Ideation: No Judgment: Poor Affect if Inappropriate: Blunt Mood: Angry Motor Activity: Normal gait Assessment & Plan Problem List: (1) Dementia Assessment & Plan: Patient was documented history of dementia with psychosis, history of agitation and aggressive behavior. However, he denies depression, denies anxiety, denies perceptual disturbances. No agitation or aggressive behavior observed at this moment. Patient would benefit of Seroquel 25 mg twice a day for behavioral control. Collateral information from his son and his sister could not be reached by me at this moment. Since patient is unable to verbalize a rational understanding and appreciation of medical conditions, and unable to express a rational reason to be discharged back home and to refuse PEG tube, since patient doesn't seem to be aware of the consequences of his actions, he does not have decision-making capacity to refuse PEG tube of to leave AMA. Next of kin or health care by proxy should be contacted in order to be involved in the decision-making thing of the patient. Palliative care team could be very helpful helping with this. We'll follow-up. ICD Code: F03.90 Assessment & Plan Estimated LOS: days Problem Qualifiers (1) Dementia: Qualified Code: F03.90 - Dementia without behavioral disturbance, unspecified dementia type Loco Arellano MD Dec 23, 2016 14:51
[2016-12-23 16:00] VITALS: BP 135/80; PULSE 77; RESP 16; TEMP 97; O2SAT 96
--- NOTE | 2016-12-23 16:28 | PD.CONS ---
Consult Service Palliative Care Consult Requested By Christy JOHNS Primary Care Physician Jordy Martinez MD Reason for Consultation a. To assist with evaluation and management of symptoms including: dysphagia , pain b. To assist medical decision maker(s) with: better understanding of current medical conditions; weighing benefits/burdens of medical treatment options; making medical treatment decisions. HPI History of Present Illness 71-year-old patient is admitted to [facility] on 12/23/16. Patient was a direct admit. He apparently presented to his known oncologist office yesterday Dr. Villeda for induction chemotherapy and was noted to have difficulty clearing secretions. He apparently had been pending for a PEG placement, scheduled for next week. Patient's family reported increased difficulties in caring for the patient. He was sent to the hospital for admission. He had been having ongoing difficulties with oral intake. Upon admission here at [place] patient apparently requesting to go home and refusing PEG placement. He also indicates he wants to eat and drink and there is nothing wrong with him he does not appear to have insight into his conditions. Dr. Villeda requested GI consult, psychiatry evaluation, palliative care also consulted to assist with clarification of goals of treatment. Is planned for possible induction chemotherapy, which has since been delayed due to difficulty managing secretions and no nutrition Route, currently nothing by mouth until PEG tube can be in place. GI has been consulted for PEG tube. He is reported to have some acute oral pain secondary to disease process, currently managed with morphine, at home had been using oxycodone, Lortab liquids. --CXR with no acute process identified. PVC 12. --Psychiatry has evaluated patient 12/22- psychiatry notes patient is unable to verbalize rational understanding or appreciation of medical conditions unable to express rational reasons to discharge home or refused treatments and patient does not seem aware of consequences of his actions. Further notes he does not have decision-making capacity to refuse PEG or to leave AMA. Recommends next of kin or appropriate proxy be contacted for decision making for the patient. --Speech therapy has evaluated the patient patient demonstrating significant oral spillage, significant signs of cough reflex and symptoms of aspiration. Nothing by mouth recommended Pt seen in room no visitors present. He is alert. He is oriented x2-3-- answers some questions appropriately, however appears to have very limited understanding of overall situation, hospitalization, disease process. He speaks very few words, gestures, soft weak voice, at first he did not speak I asked if he could and he then did. He keeps asking for the nurse to trim his fingernails. When I explore feeding tube with him he says no way. When I explore why his reason is "it is a pain in the a ". He is able to name his son , 3 sisters first name (though apparently some of these are sister in law). He does follow commands and is generally cooperative. 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 * Additional oncology history =diagnosed last year with left oral tongue cancer by Dr. Denise. 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 Denise on 06/10/2016. =admitted November 2016 after fall and hyponatremia. Was noted to have left neck swelling, Hematology/Oncology was consulted. A CT-guided biopsy of the left neck mass on November 12, 2016 confirmed a moderately differentiated keratinizing squamous, cell carcinoma. He was discharged to rehab. Pt. has missed oncology follow ups and they have not been able to coordinate treatment with radiation oncology. Has also missed appointment for induction chemotherapy. During prior admission November 2016 he was discharged to SNF. Of note patient insisted that he wanted to go home not to an SNF however medical attending, case management spoke with patient and family and it was felt patient was not safe to return home. He was discharged to [facility]. Function/Cognitive Trajectory Prior to admission apparently lives at home with his sister fairly independent with ADLs. Review of Systems ROS Limitations: Poor Historian (not clear how accurate his provided ROS is given hx poor historian/dementia ) Constitutional: COMPLAINS OF: Pain (oral), Generalized weakness Eyes: DENIES: Vision loss Ears, nose, mouth, throat: COMPLAINS OF: Oral lesions, DENIES: Throat pain Respiratory: DENIES: Cough, Shortness of breath Cardiovascular: DENIES: Dyspnea on Exertion, Lower Extremity Edema Gastrointestinal: COMPLAINS OF: Difficulty Swallowing, DENIES: Abdominal pain , Constipation, Diarrhea, Nausea, Vomiting Neurologic: COMPLAINS OF: Speech Problems, DENIES: Headache Past Family Social History Coded Allergies: No Known Allergies (Unverified , 11/10/16) Past Medical History Oral tongue cancer. Anxiety/Depression Diabetes Hearing loss Tinnitus Dementia. Sleep apnea. Degenerative disc disease, cervical spine. Chronic white matter changes. Hyponatremia . Past Surgical History Roland glossectomy 06/10/2016 Tongue biopsy. Port placed on 12/14/2016 Reported Medications Hydrocodone-Acetaminophen Liq 7.5-325 Mg/15 Ml Soln 10 Ml PO Q6H PRN Lisinopril 20 Mg Tab 20 Mg PO DAILY Walker with Front Wheels (Device) 1 Mis Mis 1 Ea .ROUTE DIRECTED Ambien (Zolpidem Tartrate) 5 Mg Tab 5 Mg PO HS PRN 10 Days Trazodone (Trazodone HCl) 50 Mg Tab 50 Mg PO HS 30 Days Nystatin Liq 100,000 unit/ml Susp 5 Ml SWISH-SWAL QID Magic Mouthwash Adult Liq (Multi-Ingredient Mouthwash/Gargle) 120 Ml Susp 10 Ml SWISH-SWAL ACHS Each 5mL contains: Nystatin 200,000units, Diphenhydramine 4.25mg, Viscous Lidocaine 10mg, Archer syrup 0.8 mL Lantus Solostar Pen Inj (Insulin Glargine) 300 Unit/3 Ml Pen 5 Units SQ HS Novolog Flexpen Inj (Insulin Aspart) 300 Unit/3 Ml Pen Unknown Dose SQ Aspirin 325 Mg Tab 325 Mg PO DAILY . Current Medications Medications (Trade) Dose Ordered Sig/Rosalind Route Start Time Stop Time Status Last Admin (NS 1000 ml Inj) 1,000 ml @ 100 mls/hr Q10H IV 12/22/16 17:00 12/23/16 13:00 (NS Flush) 2 ml UNSCH PRN IV FLUSH 12/22/16 16:15 (NS Flush) 2 ml BID IV FLUSH 12/22/16 21:00 (Zofran Inj) 4 mg Q6H PRN IVP 12/22/16 16:15 (Heparin Inj) 5,000 units Q12H SQ 12/22/16 17:00 12/23/16 05:00 (Narcan Inj) 0.4 mg UNSCH PRN IV 12/22/16 16:15 (D50w (Vial) Inj) 25 ml UNSCH PRN IV PUSH 12/22/16 18:30 (Glucagon Inj) 1 mg UNSCH PRN OTHER 12/22/16 18:30 (SoluMEDROL INJ) 80 mg Q6HR IV PUSH 12/22/16 18:30 12/23/16 13:50 (Hycet 325-7.5 Mg Liq) 10 ml Q6H PRN PO 12/22/16 18:30 12/22/16 22:44 (Mycostatin Liq) 5 ml QID SWISH-SWAL 12/22/16 21:00 12/23/16 13:47 (Magic Mouthwash Adult Liq) 10 ml ACHS SWISH-SWAL 12/22/16 21:00 (Desyrel) 50 mg HS PO 12/22/16 21:00 (Ambien) 5 mg HS PRN PO 12/22/16 18:30 (Levemir Inj) 5 units HS SQ 12/22/16 21:00 12/22/16 22:29 (Morphine Inj) 4 mg Q3H PRN IV PUSH 12/22/16 18:45 12/23/16 09:09 (Levsin Liq) 0.125 mg Q4H PRN PO 12/23/16 14:45 (SEROquel) 25 mg BID PO 12/23/16 15:00 Family History Mother had breast cancer in her 80s. Father had no cancer. Patient brother with some type of cancer Substance Use Tobacco: Never smoked no tobacco Alcohol: Occasional alcohol use Prescription med abuse: None reported Illicits: None reported . Psychosocial History Patient currently lives with his brother and [id number]. He has 1 son who lives in [place]. He apparently has previously been under a Regalado act for possible polysubstance-induced mood disorder (2012). Per review of prior psychiatric records from 2012 here it appears he is originally from [place], [place] parents are . He is supported by 2 sisters and one brother per this record. He has been and twice. His son Salas apparently lives in [place] and time of psychiatry (2012) evaluation was age 40. During that psychiatric admission family indicated some signs of dementia for the prior 2 years. 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 Living Will: Never completed Health Care Surrogate: Never completed Durable Power of Certified Nurse Aide: Never completed Ethical and Legal Issues There are no known advance directives. Patient apparently supported by several siblings, as well as a son who he may have been estranged from. There is no contact information available for the son, but per [place] statutes son would be appropriate legal proxy decision-maker. If the son is unable to be located or does not wish to participate been legal decision making would fall to the majority of his adult siblings. contact information available provided to CM for accurints report. Family to attempt to find contact information for son. Physical Exam Vital Signs Date Time Temp Pulse Resp B/P Pulse Ox O2 Delivery O2 Flow Rate FiO2 12/23/16 12:00 96.9 79 16 131/79 96 12/23/16 08:00 97.0 79 20 157/84 97 12/23/16 04:00 97.7 78 18 145/66 99 12/23/16 00:00 97.7 84 18 184/84 95 12/22/16 20:11 97.1 81 16 158/73 96 12/22/16 17:38 95.1 85 18 138/82 96 12/22/16 17:38 95.1 80 20 138/82 97 12/22/16 12/23/16 19:00 07:00 Intake Total 800 ml Output Total 650 ml Balance 150 ml IV Total 800 ml Output Urine Total 650 ml Exam CONSTITUTIONAL/GENERAL: This is an adequately nourished patient,alert, in no apparent distress. TUBES/LINES/DRAINS:POrt accessed Lt SC SKIN: No jaundice, rashes, or lesions. No wounds seen anteriorly. Skin temperature appropriate. Not diaphoretic. . EYES: Pupils equal and round and reactive. Extraocular motions intact. No scleral icterus. No injection or drainage. Fundi not examined. ENT:Nose without bleeding or purulent drainage.+ erosion left tongue, tissue deficit left tongue. +copious oral secretions. voice faint/soft. Large palpable mass left neck/jaw region. NECK: Trachea midline.+ large mass left neck. CARDIOVASCULAR: Regular rate and rhythm no murmur. Peripheral pulses symmetric. RESPIRATORY/CHEST: Symmetric, unlabored respirations on room air. Clear to auscultation. Breath sounds equal bilaterally. GASTROINTESTINAL: Abdomen soft, non-tender, nondistended. No palpable masses. No guarding. Bowel sounds present. GENITOURINARY: Without palpable bladder distension. MUSCULOSKELETAL: Extremities without clubbing, cyanosis, or edema. No mottling or clubbing. NEUROLOGICAL: Awake and alert.Oriented x 2-3. Insight poor . speech is soft and fairly garbled, speaks only a few words, difficult to understand. Gestures. Moves all 4 extremities PSYCHIATRIC: No obvious anxiety/depression. Diagnostic Tests Laboratory Laboratory Tests Test 12/22/16 12/23/16 20:19 04:55 White Blood Count 11.4 TH/MM3 12.0 TH/MM3 (4.0-11.0) (4.0-11.0) Red Blood Count 3.59 MIL/MM3 3.94 MIL/MM3 (4.50-5.90) (4.50-5.90) Hemoglobin 9.8 GM/DL 11.0 GM/DL (13.0-17.0) (13.0-17.0) Hematocrit 30.2 % 32.6 % (39.0-51.0) (39.0-51.0) Mean Corpuscular Volume 84.0 FL 82.6 FL (80.0-100.0) (80.0-100.0) Mean Corpuscular Hemoglobin 27.3 PG 27.8 PG (27.0-34.0) (27.0-34.0) Mean Corpuscular Hemoglobin 32.4 % 33.6 % Concent (32.0-36.0) (32.0-36.0) Red Cell Distribution Width 13.8 % 13.7 % (11.6-17.2) (11.6-17.2) Platelet Count 407 TH/MM3 414 TH/MM3 (150-450) (150-450) Mean Platelet Volume 8.4 FL 9.0 FL (7.0-11.0) (7.0-11.0) Neutrophils (%) (Auto) 90.3 % 88.8 % (16.0-70.0) (16.0-70.0) Lymphocytes (%) (Auto) 7.0 % 10.1 % (9.0-44.0) (9.0-44.0) Monocytes (%) (Auto) 2.2 % (0.0-8.0) 0.7 % (0.0-8.0) Eosinophils (%) (Auto) 0.0 % (0.0-4.0) 0.0 % (0.0-4.0) Basophils (%) (Auto) 0.5 % (0.0-2.0) 0.4 % (0.0-2.0) Neutrophils # (Auto) 10.3 TH/MM3 10.6 TH/MM3 (1.8-7.7) (1.8-7.7) Lymphocytes # (Auto) 0.8 TH/MM3 1.2 TH/MM3 (1.0-4.8) (1.0-4.8) Monocytes # (Auto) 0.2 TH/MM3 0.1 TH/MM3 (0-0.9) (0-0.9) Eosinophils # (Auto) 0.0 TH/MM3 0.0 TH/MM3 (0-0.4) (0-0.4) Basophils # (Auto) 0.1 TH/MM3 0.0 TH/MM3 (0-0.2) (0-0.2) CBC Comment DIFF FINAL DIFF FINAL Differential Comment Sodium Level 134 MEQ/L 135 MEQ/L (136-145) (136-145) Potassium Level 5.3 MEQ/L 4.5 MEQ/L (3.5-5.1) (3.5-5.1) Chloride Level 96 MEQ/L 98 MEQ/L (98-107) (98-107) Carbon Dioxide Level 27.0 MEQ/L 27.0 MEQ/L (21.0-32.0) (21.0-32.0) Anion Gap 11 MEQ/L (5-15) 10 MEQ/L (5-15) Blood Urea Nitrogen 28 MG/DL (7-18) 26 MG/DL (7-18) Creatinine 1.14 MG/DL 0.99 MG/DL (0.60-1.30) (0.60-1.30) Estimat Glomerular Filtration 63 ML/MIN (>89) 74 ML/MIN (>89) Rate Random Glucose 357 MG/DL 304 MG/DL (74-106) (74-106) Calcium Level 10.0 MG/DL 10.1 MG/DL (8.5-10.1) (8.5-10.1) Phosphorus Level 3.3 MG/DL (2.5-4.9) Magnesium Level 2.0 MG/DL (1.5-2.5) Total Bilirubin 0.3 MG/DL (0.2-1.0) Direct Bilirubin 0.1 MG/DL (0.0-0.2) Indirect Bilirubin 0.2 MG/DL (0.0-0.8) Aspartate Amino Transf 11 U/L (15-37) (AST/SGOT) Alanine Aminotransferase 13 U/L (12-78) (ALT/SGPT) Alkaline Phosphatase 82 U/L (45-117) Total Protein 7.0 GM/DL (6.4-8.2) Albumin 2.5 GM/DL (3.4-5.0) Result Diagram: 12/23/16 0455 12/23/16 0455 Imaging Last Impressions Chest X-Ray 12/22/16 0000 Signed Impressions: Service Date/Time: Thursday, December 22, 2016 19:51 - CONCLUSION: No acute disease. Ji Trevino Jr., MD Patient/Family Conference Issues Discussed: spoke briefly sister Marcus to introduce palliative care team. Plan for meeting Tue12/24/16, time TBD Assessment and Plan Disease Oriented Problem List: (1) Hyponatremia (2) Depression (3) Dementia (4) Dysphagia (5) Squamous cell cancer of tongue (6) Mass of left side of neck (7) Uncontrolled diabetes mellitus with hyperglycemia (8) HTN (hypertension) Symptom Scale: (1) Dysphagia (2) Mouth pain Pertinent Non-Medical Issues Psychosocial:Patient currently lives with his brother and [id number]. He has 1 son who lives in [place]. He apparently has previously been under a Reg[place]ado act for possible polysubstance-induced mood disorder. Per review of prior psychiatric records from 2012 here it appears he is originally from [facility] parents are . He is supported by 2 sisters and one brother. He has been and twice. His son Salas apparently lives in [place] and time of psychiatry (2013) evaluation was age 40. During that psychiatric admission family indicated some signs of dementia for the prior 2 years. 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 Spiritual: Legal:There are no known advance directives. Patient apparently supported by several siblings, as well as a son who he may have been estranged from. There is no contact information available for the son, but per [place] statutes son would be appropriate legal proxy decision-maker. If the son is unable to be located or does not wish to participate been legal decision making would fall to the majority of his adult siblings. Request case management assist in obtaining ACCURINT report from [facility] financial dept to locate possible son (salas [facility]) Ethical issues impacting care: Important Contacts Sister in law Kimberly Woodward friend Alexandria Graves [phone] Sister Demond Bundy brother Anmol ([phone]) Son? ___ Salas (Evangelista JOHNS?) . 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 He has had pending treatments with concurrent chemotherapy and radiation though has been unable to obtain these treatments thus far. He has had delay in treatment due to airway /nutrition issues. Oncology indicates that nutritional status will need to be supplemented, IV fluids for dehydration , will need to manage acute medical issues before pursuing chemotherapy. Oncology 10 again offered chemotherapy once overall condition stable and nutrition is managed. Plan * Legal decision maker:There are no known advance directives. Psychiatry has been consulted and patient is not felt to have decision-making capacity to make decisions and recommends a proxy to assist with decision-making. Patient apparently supported by several siblings, as well as a son who he may have been estranged from. There is no contact information available for the son, but per [place] statutes son would be appropriate legal proxy decision-maker. If the son is unable to be located or does not wish to participate been legal decision making would fall to the majority of his adult siblings- he apparently has a few sisters, and sister in laws, and a brother. Parents . 12/23 Request case management assist in obtaining ACCURINT report from [facility] financial dept to locate possible son (korey Bingham). Spoke w sister Kimberly 12/23 (apprently sister in law) who is his primary caregiver, she is going to try to locate contact info for the son. * Goals: TBD, pending ID of approp legal decision maker .Spoke w sister Kimberly (apparently sister in law) who is his primary caregiver, she is going to try to locate contact info for the son. Introduced palliative care team, role. Plan for meeting sometime Tuesday12/24/16-- she will call back w possible time, and coordinate other family members who can be present. * CODE STATUS: would be full by default * SYMPTOMS: --Dysphagia-progressive swallowing difficulties, unable to manage secretions. 2/2 disease process. --Oral pain- some erosion to tongue/oral mucosa. 2/2 disease process. reported to oncology was well managed at home on liq lortab. On IV morpine here. At time of my exam, denies pain currently but indicates ongoing oral pain. * Palliative care will continue to follow during hospital course as condition evolves, to assist patient/decision-maker with understanding of medical conditions, weighing benefits/burdens of treatment options, for clarification of goals of treatment. Additionally will assist with any symptoms of palliative concern Time Spent Total Floor Time (mins): 45 Thank you for the opportunity to participate in the care of Mr. Moura. Attestation To help prompt me to consider important information that might be impacting today's encounter and assessment, information from prior notes written by myself or my colleagues may have been "brought forward" into today's note. My signature on this note, however, is an attestation that I personally performed the exam, history, and/or decision-making noted today, and, unless otherwise indicated, the interactions with patient, family, and staff as well as the review of records all occurred today. I also attest that the listed assessment and stated plan reflect my best clinical judgment today based on the combination of historical information, prior notes, and today's exam/ interactions. When time spent is documented, it refers only to time spent today by the signer, or if indicated, combined time spent today by collaborating physician/nurse practitioner. Cynthia Caal Dec 23, 2016 16:28
[2016-12-23] MEDS: QUEtiapine FUMARATE 25 MG TAB PO SCH ×2 (17:45→23:33)
[2016-12-23] MEDS ORDERED: ceFAZolin 2 GM PREMIX 50 ML IV SCH (18:15)
--- NOTE | 2016-12-23 18:48 | HHI.PR ---
Subjective Interval History Alert, responsive, trying to say things, difficult to understand what he says, but does not appear to be rational, no visible distress Review of Systems Constitutional Constitutional Remarks Difficult to achieve Vitals/Results Intake & Output 12/22/16 12/22/16 12/23/16 15:00 23:00 07:00 Intake Total 800 ml Output Total 250 ml 400 ml Balance -250 ml 400 ml IV Total 800 ml Output Urine Total 250 ml 400 ml Vital Signs Vital Signs Date Time Temp Pulse Resp B/P Pulse Ox O2 Delivery O2 Flow Rate FiO2 12/23/16 16:00 97.0 77 16 135/80 96 12/23/16 12:00 96.9 79 16 131/79 96 12/23/16 08:00 97.0 79 20 157/84 97 12/23/16 04:00 97.7 78 18 145/66 99 12/23/16 00:00 97.7 84 18 184/84 95 12/22/16 20:11 97.1 81 16 158/73 96 CBC/BMP: 12/23/16 0455 12/23/16 0455 Lab Results Laboratory Tests Test 12/22/16 12/23/16 20:19 04:55 White Blood Count 11.4 TH/MM3 12.0 TH/MM3 Red Blood Count 3.59 MIL/MM3 3.94 MIL/MM3 Hemoglobin 9.8 GM/DL 11.0 GM/DL Hematocrit 30.2 % 32.6 % Mean Corpuscular Volume 84.0 FL 82.6 FL Mean Corpuscular Hemoglobin 27.3 PG 27.8 PG Mean Corpuscular Hemoglobin 32.4 % 33.6 % Concent Red Cell Distribution Width 13.8 % 13.7 % Platelet Count 407 TH/MM3 414 TH/MM3 Mean Platelet Volume 8.4 FL 9.0 FL Neutrophils (%) (Auto) 90.3 % 88.8 % Lymphocytes (%) (Auto) 7.0 % 10.1 % Monocytes (%) (Auto) 2.2 % 0.7 % Eosinophils (%) (Auto) 0.0 % 0.0 % Basophils (%) (Auto) 0.5 % 0.4 % Neutrophils # (Auto) 10.3 TH/MM3 10.6 TH/MM3 Lymphocytes # (Auto) 0.8 TH/MM3 1.2 TH/MM3 Monocytes # (Auto) 0.2 TH/MM3 0.1 TH/MM3 Eosinophils # (Auto) 0.0 TH/MM3 0.0 TH/MM3 Basophils # (Auto) 0.1 TH/MM3 0.0 TH/MM3 CBC Comment DIFF FINAL DIFF FINAL Differential Comment Sodium Level 134 MEQ/L 135 MEQ/L Potassium Level 5.3 MEQ/L 4.5 MEQ/L Chloride Level 96 MEQ/L 98 MEQ/L Carbon Dioxide Level 27.0 MEQ/L 27.0 MEQ/L Anion Gap 11 MEQ/L 10 MEQ/L Blood Urea Nitrogen 28 MG/DL 26 MG/DL Creatinine 1.14 MG/DL 0.99 MG/DL Estimat Glomerular Filtration 63 ML/MIN 74 ML/MIN Rate Random Glucose 357 MG/DL 304 MG/DL Calcium Level 10.0 MG/DL 10.1 MG/DL Phosphorus Level 3.3 MG/DL Magnesium Level 2.0 MG/DL Total Bilirubin 0.3 MG/DL Direct Bilirubin 0.1 MG/DL Indirect Bilirubin 0.2 MG/DL Aspartate Amino Transf 11 U/L (AST/SGOT) Alanine Aminotransferase 13 U/L (ALT/SGPT) Alkaline Phosphatase 82 U/L Total Protein 7.0 GM/DL Albumin 2.5 GM/DL Physical Exam General General Appearance: Well Nourished, Anxious Ears & Nose Ears & Nose Remarks Large ulceration involving the left side of the tongue Neck Neck Remarks Firm tumor protruding under the skin of the left neck Pulmonary Resp Exam: Crackles Cardiology CV Exam: Normal Sinus Rhythm, Good Perfusion Gastrointestinal/Abdomen GI Exam: Non-Tender, Bowel Sounds Present Musculoskeletal MS Exam: Normal Tone Integumentary Skin Exam: Warm, Intact Neurologic Neuro Exam: Alert, Awake, Moving All Extremities Assessment/Plan Assessment/Plan Assessment Lung cancer, squamous cell carcinoma Mouth pain Large neck tumor Difficulty swallowing Anemia History of Dementia,Diabetes, psychosis, hyperlipidemia, hypertension, mood disorder Management Pain control IV fluids Nothing by mouth GI consulted for PEG tube placement Psychiatry consultation to determine competence Swallow evaluation DVT prophylaxis Oncology following Discussed with nurse Discussed with GI team 35 minutes Discussed Condition with: Medical Consult Newton Mckeon MD Dec 23, 2016 18:48
[2016-12-23 20:00] VITALS: BP 152/83; PULSE 66; RESP 17; TEMP 95.5; O2SAT 98
[2016-12-23] MEDS: INSULIN DETEMIR 100 UNITS/ML VIAL SQ SCH (22:08)
[2016-12-23] MEDS: traZODone HCL 50 MG TAB PO SCH (23:33)
[2016-12-24] VITALS: BP 147/76; PULSE 78; RESP 18; TEMP 95.8; O2SAT 98
[2016-12-24] MEDS: methylPREDNISolone SOD SUCC 40 MG/1 ML VIAL IV PUSH SCH ×2 (06:28→21:17)
[2016-12-24] MEDS: HEPARIN SODIUM - SQ 10,000 UNITS/ML VIAL SQ SCH ×2 (06:28→17:34)
[2016-12-24] MEDS: INSULIN ASPART SUPPLEMENTAL SCALE SQ SCH ×4 (06:28→21:18)
[2016-12-24] MEDS: NYSTAT/DIPHENHY/LIDO MOUTHWASH (Adult) 120ML SWISH-SWAL SCH ×4 (06:30→21:15)
[2016-12-24 08:00] VITALS: BP 155/87; PULSE 81; RESP 16; TEMP 96.3; O2SAT 98
[2016-12-24] MEDS: QUEtiapine FUMARATE 25 MG TAB PO SCH ×2 (08:16→21:16)
[2016-12-24] MEDS: NYSTATIN SUSP 500,000 U/5 ML CUP SWISH-SWAL SCH ×4 (08:16→21:15)
[2016-12-24] MEDS: SODIUM CHLORIDE 0.9% FLUSH 10 ML FLUSH IV FLUSH SCH ×2 (09:00→21:17)
[2016-12-24] MEDS: SODIUM CHLOR 0.9% 1000 ML INJ 1,000 ML IV SCH ×2 (09:00→19:00)
--- NOTE | 2016-12-24 09:51 | HHI.GIFU ---
Subjective Remarks Resting in bed. Still stating he does not want PEG tube. D/W CM- working on [employer] report to try to locate son. Pt has never completed POA paperwork. EGD with peg on hold until consents obtained. (Tova Reed) Objective Vitals I&O Vital Signs Date Time Temp Pulse Resp B/P Pulse Ox O2 Delivery O2 Flow Rate FiO2 12/24/16 00:00 95.8 78 18 147/76 98 12/23/16 20:00 95.5 66 17 152/83 98 12/23/16 16:00 97.0 77 16 135/80 96 12/23/16 12:00 96.9 79 16 131/79 96 I/O 12/23/16 12/23/16 12/23/16 12/24/16 12/24/16 12/24/16 07:00 15:00 23:00 07:00 15:00 23:00 Intake Total 800 ml 50 ml 1477 ml 543 ml Output Total 400 ml 300 ml 300 ml 900 ml Balance 400 ml -250 ml 1177 ml -357 ml Intake Oral 50 ml IV Total 800 ml 1477 ml 543 ml Output Urine Total 400 ml 300 ml 300 ml 900 ml # Bowel Movements 0 Imaging Last Impressions Chest X-Ray 12/22/16 0000 Signed Impressions: Service Date/Time: Thursday, December 22, 2016 19:51 - CONCLUSION: No acute disease. Ji Trevino Jr., MD Physical Exam HEENT: Normocephalic; atraumatic; no jaundice. Significant oral secretions NECK: Left neck mass CHEST: CTA CARDIAC: RRR ABDOMEN: Soft, nondistended, nontender; no hepatosplenomegaly; bowel sounds are present in all four quadrants. EXTREMITIES: No clubbing, cyanosis, or edema. SKIN: Normal; no rash; no jaundice. WATER HAULER: Alert, ?oriented to self. Uncooperative. Garbled speech (Tova Reed) Assessment and Plan Plan ASSESSMENT: - Dysphagia, FEN. 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 Port was placed on 12/14/16. He was also supposed to have teeth extraction by maxillofacial in anticipation of radiation. He was seen in Dr. Vick's office for induction chemotherapy, but was found to be having difficulty clearing his secretions. Pt. has missed oncology follow and they have not been able to coordinate treatment with radiation oncology. Yesterday, he presented to Dr. Vick's office for induction chemotherapy, and was noted with difficulty clearing secretions. GI consulted for PEG tube placement. Pt is adamantly refusing, but shortly after I saw patient, the psychiatrist evaluated the patient and declared him incompetent. Palliative care/CM following. Durable POA has never been completed. CM running [employer] report to try to locate son. EGD with PEG is on hold until consents are able to be obtained. Has port and will get Complaint Operator recommendations for TPN. 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 Port has been placed. Needs teeth extraction for radiation and PEG for nutrition prior to tx for cancer. - DM, HTN, Hyperlipidemia, Dementia per primary. PLAN: - NPO - Complaint Operator consult for TPN recommendations - EGD with PEG tube placement once consents obtained - Palliative care following - Oncology following - Per psych, "Since patient is unable to verbalize a rational understanding and appreciation of medical conditions, and unable to express a rational reason to be discharged back home and to refuse PEG tube, since patient doesn't seem to be aware of the consequences of his actions, he does not have decision-making capacity to refuse PEG tube of to leave AMA. Next of kin or health care by proxy should be contacted in order to be involved in the decision-making thing of the patient" - Pt seen and examined by Dr. Mancia and myself and this note is written on his behalf (Tova Reed) Physician Comments seen, examined agree with above (Lima Mancia MD) Tova Reed Dec 24, 2016 09:51 Lima Mancia MD Dec 24, 2016 13:37
--- NOTE | 2016-12-24 10:25 | HHI.PR ---
Subjective Remarks refusing pain c/o oral pain secretions have lessened PEG procedure on hold, unable to obtain consent, son has been been located. pt. refusing peg tube no fever Objective Objective Results - Vital Signs Date Time Temp Pulse Resp B/P Pulse Ox O2 Delivery O2 Flow Rate FiO2 12/24/16 00:00 95.8 78 18 147/76 98 12/23/16 20:00 95.5 66 17 152/83 98 12/23/16 16:00 97.0 77 16 135/80 96 12/23/16 12:00 96.9 79 16 131/79 96 I/O 12/23/16 12/23/16 12/23/16 12/24/16 12/24/16 12/24/16 07:00 15:00 23:00 07:00 15:00 23:00 Intake Total 800 ml 50 ml 1477 ml 543 ml Output Total 400 ml 300 ml 300 ml 900 ml Balance 400 ml -250 ml 1177 ml -357 ml Intake Oral 50 ml IV Total 800 ml 1477 ml 543 ml Output Urine Total 400 ml 300 ml 300 ml 900 ml # Bowel Movements 0 Result Diagram: 12/23/16 0455 12/23/16 0455 Imaging Last Impressions Chest X-Ray 12/22/16 0000 Signed Impressions: Service Date/Time: Thursday, December 22, 2016 19:51 - CONCLUSION: No acute disease. Ji Trevino Jr., MD ROS HEENT: Other (ORAL PAIN ) Pulmonary: Cough Physical Exam Physical Exam GENERAL: This is a well-nourished, well-developed patient, in no apparent distress. SKIN: No rashes, ecchymoses or lesions. Cool and dry. HEAD: Atraumatic. Normocephalic. No temporal or scalp tenderness. EYES: Pupils equal round and reactive. Extraocular motions intact. No scleral icterus. No injection or drainage. ENT: Nose without bleeding, purulent drainage or septal hematoma. Throat without erythema, tonsillar hypertrophy or exudate. Uvula midline. Airway patent. Partial glossectomy, thrush noted. Constantly drooling, unable to hold secretions NECK: Trachea midline.Left neck mass. CARDIOVASCULAR: Regular rate and rhythm without murmurs, gallops, or rubs. RESPIRATORY: faint bibasilar rales, diminished at bases. Left CW with PAC. GASTROINTESTINAL: Abdomen soft, non-tender, nondistended. No hepato-splenomegaly , or palpable masses. No guarding. MUSCULOSKELETAL: Extremities without clubbing, cyanosis, or edema. No joint tenderness, effusion, or edema noted. No calf tenderness. Negative Homans sign bilaterally. NEUROLOGICAL: Speech slurred due to partial glossectomy, oriented to year, place , self, doesn't understand why he is here. No focal deficits. 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 Has not started chemo and radiation. Dysphagia, unable to clear secretions, came in with diffuse rhonchi and Rales, some respiratory distress -Oxygen as needed -Wean down Solu-Medrol 40 mg IV every 12 -DuoNeb's when necessary -Keep NPO -On Levsin to control secretions, improving -IVF -GI input appreciated, PEG on hold, son has not been located yet. -Will need TPN, dietary consulted per GI for recommendations. We will follow up Dementia, hx psychosis, doesn't appear to be competent to make healthcare decision. -Psychiatry input appreciated, recommends Seroquel for agitation. Agrees with palliative care input -Palliative care input appreciated, ACCURINT report pending Dehydration, secondary to poor PO intake, malnourished -continue with IVF -monitor labs HTN, stable -continue home meds Type 2 diabetes, uncontrolled blood glucose Continue with Accu-Cheks before meals and at bedtime and insulin therapy -Blood glucose elevated, on steroids, wean off steroids Oral pain, thrush -Pain management Continue with nystatin Continue with Magic mouth wash Heparin for DVT prophylaxis Continue with above treatment labs in am condition guarded D/W RN D/W pt D/W Dr. Mckeon This patient was seen by myself and Dr. Mckeon, this note is written on his behalf Problem Qualifiers (1) Dysphagia: Qualified Code: R13.10 - Dysphagia, unspecified type (2) Depression: Qualified Code: F32.9 - Depression, unspecified depression type (3) HTN (hypertension): Qualified Code: I10 - Essential hypertension (4) Dementia: Qualified Code: F03.90 - Dementia without behavioral disturbance, unspecified dementia type (5) Uncontrolled diabetes mellitus with hyperglycemia: Qualified Code: E11.65 - Uncontrolled type 2 diabetes mellitus with hyperglycemia, unspecified senior care insulin use status Savanna Kent [facility] Dec 24, 2016 10:25
[2016-12-24 12:00] VITALS: BP 175/86; PULSE 75; RESP 16; TEMP 96.7; O2SAT 97
[2016-12-24] MEDS: MORPHINE SULFATE 4 MG/ML INJ IV PUSH PRN ×3 (12:29→21:17)
--- NOTE | 2016-12-24 13:15 | PD.ONC.PN ---
Subjective Subjective Remarks Afebrile overnight. patient resting in bed. Remains adamant that he does not want a PEG tube. No family members at bedside. Objective Data Date Time Temp Pulse Resp B/P Pulse Ox O2 Delivery O2 Flow Rate FiO2 12/24/16 08:00 96.3 81 16 155/87 98 12/24/16 00:00 95.8 78 18 147/76 98 12/23/16 20:00 95.5 66 17 152/83 98 12/23/16 16:00 97.0 77 16 135/80 96 12/24/16 12/24/16 12/24/16 07:00 15:00 23:00 Intake Total 543 ml Output Total 900 ml Balance -357 ml Result Diagram: 12/23/16 0455 12/23/16 0455 Administered Medications Medications (Trade) Dose Ordered Sig/Rosalind Route PRN Reason Start Time Stop Time Status Last Admin Dose Admin Sodium Chloride (NS 1000 ml Inj) 1,000 ml @ 100 mls/hr Q10H IV 12/22/16 17:00 12/23/16 13:00 Sodium Chloride (NS Flush) 2 ml BID IV FLUSH 12/22/16 21:00 12/23/16 22:01 Heparin Sodium (Porcine) (Heparin Inj) 5,000 units Q12H SQ 12/22/16 17:00 12/24/16 06:28 Acetaminophen/ Hydrocodone Bitart (Hycet 325-7.5 Mg Liq) 10 ml Q6H PRN PO PAIN 1-6 12/22/16 18:30 12/22/16 22:44 Nystatin (Mycostatin Liq) 5 ml QID SWISH-SWAL 12/22/16 21:00 12/24/16 12:21 Multi-Ingredient Mouthwash/Gargle (Magic Mouthwash Adult Liq) 10 ml ACHS SWISH-SWAL 12/22/16 21:00 12/24/16 12:21 Trazodone HCl (Desyrel) 50 mg HS PO 12/22/16 21:00 12/23/16 23:33 Insulin Detemir (Levemir Inj) 5 units HS SQ 12/22/16 21:00 12/23/16 22:08 Morphine Sulfate (Morphine Inj) 4 mg Q3H PRN IV PUSH pain 7-10 12/22/16 18:45 12/24/16 12:29 Quetiapine Fumarate (SEROquel) 25 mg BID PO 12/23/16 15:00 12/24/16 08:16 Objective Remarks GENERAL: Elderly male, sitting up in bed in nad. watching tv SKIN: Warm and dry. HEAD: Normocephalic. EYES: No injection or drainage. NECK: Supple, trachea midline. CARDIOVASCULAR: Regular rate and rhythm RESPIRATORY: Breath sounds equal bilaterally. No accessory muscle use. GASTROINTESTINAL: Abdomen soft, non-tender, nondistended. EXTREMITIES: No cyanosis NEUROLOGICAL: awake. garbled speech. moving extremities Assessment/Plan Problem List: (1) Squamous cell cancer of tongue Status: Acute Plan: --physically patient is an excellent candidate for chemotherapy/ radiation. However, due to his mental status and rendering of incompetence by Psychiatry we will need assistance of palliative care team to define goals of care along with patient's family. --was supposed to receive induction chemotherapy that was delayed because of difficulty managing his secretions and no way to manage his nutrition. (2) Mouth pain Status: Acute Plan: --due to oral cancer --currently receiving Morphine 4mg IV PRN --may need to add Fentanyl patch in the future --was using Oxycodone liquid on outpatient basis, but stated he preferred the Lortab liquid. Assessment 71y/o male with head and neck cancer. history of diabetes, hypertension, hyperlipidemia history of dementia with psychoses. He had possible polysubstance induced mood disorder. Left hemiglossectomy Plan 1. await palliative care consult. appreciate palliative care assistance. 2. once a healthcare surrogate has been determined, goals of care can be further determined. 3. patient continuing to refuse PEG tube--without PEG tube placement he would not have adequate nutrition to be able to tolerate chemotherapy Attending Statement The exam, history, and the medical decision-making described in the above note were completed with the assistance of the mid-level provider. I reviewed and agree with the findings presented. I attest that I had a [id number] encounter with the patient on the same day, and personally performed and documented my assessment and findings in the medical record. Pt seen and examined. Cleaned, halitosis, still having trouble with secretions, wants mouthwash at bedside. Wants Ambien at 7:30Pm Events noted earlier, Healthcare surrogate established to be Anmol pt's brother. Family would like to proceed with plans for treatment. Proceed with PEG tube placement. Anticipate pt OK for DC after PEG tube, case management consulted to assist with placement to SNF. Plan to coordinate chemo xrt as out pt. Dehydration managed. Current symptoms stem from oral tongue cancer recurrence, needs to start treatment after nutrition/hydration established. Appreciate palliative care officiating the [facility]. Jacqueline Bowden Dec 24, 2016 13:15 Marjan Villeda MD Dec 24, 2016 18:40
[2016-12-24 16:00] VITALS: BP 156/81; PULSE 75; RESP 16; TEMP 96.2; O2SAT 96
--- NOTE | 2016-12-24 16:02 | HHI.HCPN ---
Reason for visit a. To assist with evaluation and management of symptoms including: dysphagia , pain b. To assist medical decision maker(s) with: better understanding of current medical conditions; weighing benefits/burdens of medical treatment options; making medical treatment decisions. Subjective/Interval History INTERVAL NOTE: Pt says he doesn't think anything has changed since yesterday. He is denying pain or dyspnea at this time. He remains afebrile. We had a lengthy discussion with patient and family about decision making, and about the challenges that they'll face in the upcoming weeks; see below. From initial consultation note from Richie TOLEDO on 12/23/16: --Psychiatry has evaluated patient 12/22- psychiatry notes patient is unable to verbalize rational understanding or appreciation of medical conditions unable to express rational reasons to discharge home or refused treatments and patient does not seem aware of consequences of his actions. Further notes he does not have decision-making capacity to refuse PEG or to leave AMA. Recommended next of kin or appropriate proxy be contacted for decision making for the patient. . Family/friend interactions Discussion in the room with the patient, his sister Lynnette Chaudhry, his brother Anmol, and Anmol's Kimberly, and patient's sister Demond via telephone.. They confirm that the patient is not , that he has no living parents, and that his son Bart has been estranged for more than 25 years and they have no idea where he is or how to reach him. [employer] reports here indicate pt's son Bart is in [place] with a phone # [phone] -- I tried to call that number 4 times today, and it just gives a "busy" sound. The patient's brother Anmol notes that he has the DPOA to handle the patient's affairs, and he does believe that that also includes healthcare (although they're having construction done at their home and he was unable to find that paperwork up to this point in time -- he says he will bring it in so we can copy it). The patient's two sisters opt out of any decision-making role for the pt, wanting the patient's brother Anmol to be the decision making proxy. Healthcare Proxy form completed, signed by Anmol. After much discussion on 12/24/16, the patient is now accepting the recommendations of his family and his doctors to have the PEG tube placed and to start chemotherapy and radiation. (Brother) Anmol and (S-I-L) Kimberly understand that the burden for getting the patient to all of these appointments , for managing his medicines and symptoms that will develop, and for ensuring strict and consistent follow-up will fall on their shoulders. Anmol notes that he is 74 years old and has a malignancy and is weak, and Kimberly cries and wonders how she "will manage all of this." They understand that, should chemotherapy and radiation ultimately be impossible to complete (whether due to refusal to cooperate by the patient, symptoms that become too severe, or other psychosocial or medical issues), it is likely that a transition to hospice services would be appropriate at that time. . Advance Directives Living Will: Never completed Health Care Surrogate: Never completed Durable Power of Telephone Answering Service Operator: Completed, but not made available Advance Directive Specifics Health Care Surrogate(s): The family confirm that the patient is not , that he has no living parents, and that his son Bart has been estranged for more than 25 years and they have no idea where he is or how to reach him. [employer] reports here indicate pt's son Bart may be in [place] with a phone # [phone] -- that number was called 4 times on 12/24/16, and it just gives a "busy" sound, no VM option. The patient's brother Anmol notes that he has the DPOA to handle the patient's affairs, and he does believe that that also includes healthcare ( although they're having construction done at their home and he was unable to find that paperwork up to this point in time -- he says he will bring it in so we can copy it). The patient's two sisters opt out of any decision-making role for the pt, wanting the patient's brother Anmol to be the decision making proxy. Anmol has been functioning as the decision-maker the past couple years, granting consents for surgery, etc. Healthcare Proxy form completed, signed by Anmol 12/24/16. . Significant change in goals: The patient and his family want to proceed with PEG tube placement, chemotherapy , and radiation. . Objective Vital Signs Date Time Temp Pulse Resp B/P Pulse Ox O2 Delivery O2 Flow Rate FiO2 12/24/16 12:00 96.7 75 16 175/86 97 12/24/16 08:00 96.3 81 16 155/87 98 12/24/16 00:00 95.8 78 18 147/76 98 12/23/16 20:00 95.5 66 17 152/83 98 12/23/16 16:00 97.0 77 16 135/80 96 Intake & Output 12/24/16 12/24/16 07:00 19:00 Intake Total 987 ml Output Total 1200 ml 150 ml Balance -213 ml -150 ml IV Total 987 ml Output Urine Total 1200 ml 150 ml Physical Exam CONSTITUTIONAL/GENERAL: This is an adequately nourished patient,alert, in no apparent distress. SKIN: No jaundice, rashes, or lesions. No wounds seen anteriorly. Skin temperature appropriate. Not diaphoretic. . EYES: Pupils equal and round and reactive. Extraocular motions intact. No scleral icterus. No injection or drainage. Fundi not examined. ENT:Nose without bleeding or purulent drainage.+ erosion left tongue, tissue deficit left tongue. +copious oral secretions. voice faint/soft. Large palpable mass left neck/jaw region. NECK: Trachea midline.+ large mass left neck. CARDIOVASCULAR: Regular rate and rhythm no murmur. Peripheral pulses symmetric. RESPIRATORY/CHEST: Symmetric, unlabored respirations on room air. Clear to auscultation. Breath sounds equal bilaterally. GASTROINTESTINAL: Abdomen soft, non-tender, nondistended. No palpable masses. No guarding. Bowel sounds present. MUSCULOSKELETAL: Extremities without clubbing, cyanosis, or edema. No mottling or clubbing. NEUROLOGICAL: Awake and alert.Oriented x 2. Insight poor . speech is soft and fairly garbled, speaks only a few words, difficult to understand. Gestures. Moves all 4 extremities PSYCHIATRIC: No obvious anxiety/depression. . Diagnostic Tests Laboratory Laboratory Tests Test 12/22/16 12/23/16 20:19 04:55 White Blood Count 11.4 TH/MM3 12.0 TH/MM3 (4.0-11.0) (4.0-11.0) Red Blood Count 3.59 MIL/MM3 3.94 MIL/MM3 (4.50-5.90) (4.50-5.90) Hemoglobin 9.8 GM/DL 11.0 GM/DL (13.0-17.0) (13.0-17.0) Hematocrit 30.2 % 32.6 % (39.0-51.0) (39.0-51.0) Mean Corpuscular Volume 84.0 FL 82.6 FL (80.0-100.0) (80.0-100.0) Mean Corpuscular Hemoglobin 27.3 PG 27.8 PG (27.0-34.0) (27.0-34.0) Mean Corpuscular Hemoglobin 32.4 % 33.6 % Concent (32.0-36.0) (32.0-36.0) Red Cell Distribution Width 13.8 % 13.7 % (11.6-17.2) (11.6-17.2) Platelet Count 407 TH/MM3 414 TH/MM3 (150-450) (150-450) Mean Platelet Volume 8.4 FL 9.0 FL (7.0-11.0) (7.0-11.0) Neutrophils (%) (Auto) 90.3 % 88.8 % (16.0-70.0) (16.0-70.0) Lymphocytes (%) (Auto) 7.0 % 10.1 % (9.0-44.0) (9.0-44.0) Monocytes (%) (Auto) 2.2 % (0.0-8.0) 0.7 % (0.0-8.0) Eosinophils (%) (Auto) 0.0 % (0.0-4.0) 0.0 % (0.0-4.0) Basophils (%) (Auto) 0.5 % (0.0-2.0) 0.4 % (0.0-2.0) Neutrophils # (Auto) 10.3 TH/MM3 10.6 TH/MM3 (1.8-7.7) (1.8-7.7) Lymphocytes # (Auto) 0.8 TH/MM3 1.2 TH/MM3 (1.0-4.8) (1.0-4.8) Monocytes # (Auto) 0.2 TH/MM3 0.1 TH/MM3 (0-0.9) (0-0.9) Eosinophils # (Auto) 0.0 TH/MM3 0.0 TH/MM3 (0-0.4) (0-0.4) Basophils # (Auto) 0.1 TH/MM3 0.0 TH/MM3 (0-0.2) (0-0.2) CBC Comment DIFF FINAL DIFF FINAL Differential Comment Sodium Level 134 MEQ/L 135 MEQ/L (136-145) (136-145) Potassium Level 5.3 MEQ/L 4.5 MEQ/L (3.5-5.1) (3.5-5.1) Chloride Level 96 MEQ/L 98 MEQ/L (98-107) (98-107) Carbon Dioxide Level 27.0 MEQ/L 27.0 MEQ/L (21.0-32.0) (21.0-32.0) Anion Gap 11 MEQ/L (5-15) 10 MEQ/L (5-15) Blood Urea Nitrogen 28 MG/DL (7-18) 26 MG/DL (7-18) Creatinine 1.14 MG/DL 0.99 MG/DL (0.60-1.30) (0.60-1.30) Estimat Glomerular Filtration 63 ML/MIN (>89) 74 ML/MIN (>89) Rate Random Glucose 357 MG/DL 304 MG/DL (74-106) (74-106) Calcium Level 10.0 MG/DL 10.1 MG/DL (8.5-10.1) (8.5-10.1) Phosphorus Level 3.3 MG/DL (2.5-4.9) Magnesium Level 2.0 MG/DL (1.5-2.5) Total Bilirubin 0.3 MG/DL (0.2-1.0) Direct Bilirubin 0.1 MG/DL (0.0-0.2) Indirect Bilirubin 0.2 MG/DL (0.0-0.8) Aspartate Amino Transf 11 U/L (15-37) (AST/SGOT) Alanine Aminotransferase 13 U/L (12-78) (ALT/SGPT) Alkaline Phosphatase 82 U/L (45-117) Total Protein 7.0 GM/DL (6.4-8.2) Albumin 2.5 GM/DL (3.4-5.0) Result Diagram: 12/23/16 0455 12/23/16 0455 Imaging Last Impressions Chest X-Ray 12/22/16 0000 Signed Impressions: Service Date/Time: Thursday, December 22, 2016 19:51 - CONCLUSION: No acute disease. Ji Trevino Jr., MD Assessment and Plan Disease Oriented Problem List: (1) Hyponatremia (2) Depression (3) Dementia (4) Dysphagia (5) Squamous cell cancer of tongue (6) Mass of left side of neck (7) Uncontrolled diabetes mellitus with hyperglycemia (8) HTN (hypertension) Symptom Scale: (1) Dysphagia 0-10 Scale: 6 (due to tumor growth) (2) Mouth pain 0-10 Scale: 2 Pertinent Non-Medical Issues Psychosocial:Patient currently lives with his brother and [id number]. He has 1 son who lives in [place]. He apparently has previously been under a [place] act for possible polysubstance-induced mood disorder. Per review of prior psychiatric records from 2012 here it appears he is originally from [facility] parents are . He is supported by 2 sisters and one brother. He has been and twice. His son Bart apparently lives in [place] and time of psychiatry (2012) evaluation was age 40. During that psychiatric admission family indicated some signs of dementia for the prior 2 years. 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 Spiritual: Legal: The family on 12/24/16 confirm that the patient is not , that he has no living parents, and that his son Bart has been estranged for more than 25 years and they have no idea where he is or how to reach him. [employer] reports here indicate pt's son Bart may be in [place] with a phone # [phone] -- I tried to call that number 4 times today, and it just gives a "busy " sound, no VM option. The patient's brother Anmol notes that he has the DPOA to handle the patient's affairs, and he does believe that that also includes healthcare (although they're having construction done at their home and he was unable to find that paperwork up to this point in time -- he says he will bring it in so we can copy it). The patient's two sisters opt out of any decision- making role for the pt, wanting the patient's brother Anmol to be the decision making proxy. Healthcare Proxy form completed, signed by Anmol. Ethical issues impacting care: none . Important Contacts Sister in law Kimberly Woodward friend Alexandria Graves [phone] Sister Demond Bundy [phone] brother Anmol ([phone]) Son? ___ Bart ([facility] . 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 He has had pending treatments with concurrent chemotherapy and radiation though has been unable to obtain these treatments thus far. He has had delay in treatment due to airway /nutrition issues. Oncology indicates that nutritional status will need to be supplemented, IV fluids for dehydration , will need to manage acute medical issues before pursuing chemotherapy. Oncology 10 again offered chemotherapy once overall condition stable and nutrition is managed. Code Status: Full Code Plan * FULL CODE * Legal decision maker: The family confirm that the patient is not , that he has no living parents, and that his son Bart has been estranged for more than 25 years and they have no idea where he is or how to reach him. [employer] reports here indicate pt's son Bart may be in [place] with a phone # [phone] -- that number was called 4 times on 12/24/16, and it just gives a "busy" sound, no VM option. The patient's brother Anmol notes that he has the DPOA to handle the patient's affairs, and he does believe that that also includes healthcare (although they're having construction done at their home and he was unable to find that paperwork up to this point in time -- he says he will bring it in so we can copy it). The patient's two sisters opt out of any decision-making role for the pt, wanting the patient's brother Anmol to be the decision making proxy. Anmol has been functioning as the decision-maker the past couple years, granting consents for surgery, etc. Healthcare Proxy form completed, signed by Anmol . * Goals: After much discussion on 12/24/16, the patient is now accepting the recommendations of his family and his doctors to have the PEG tube placed and to start chemotherapy and radiation. (Brother) Anmol and (S-I-L) Kimberly understand that the burden for getting the patient to all of these appointments , for managing his medicines and symptoms that will develop, and for ensuring strict and consistent follow-up will fall on their shoulders. Anmol notes that he is 74 years old and has a malignancy and is weak, and Kimberly cries and wonders how she "will manage all of this." They understand that, should chemotherapy and radiation ultimately be impossible to complete (whether due to refusal to cooperate by the patient, symptoms that become too severe, or other psychosocial or medical issues), it is likely that a transition to hospice services would be appropriate at that time. The patient and his family want to proceed with PEG tube placement, chemotherapy, and radiation. * SYMPTOMS: --Dysphagia-progressive swallowing difficulties, unable to manage secretions. 2/2 disease process. --Oral pain- some erosion to tongue/oral mucosa. 2/2 disease process. reported to oncology was well managed at home on liq lortab. On IV morpine here. At time of my exam, denies pain. * Palliative care will continue to follow during hospital course as condition evolves, to assist patient/decision-maker with understanding of medical conditions, weighing benefits/burdens of treatment options, for clarification of goals of treatment. Additionally will assist with any symptoms of palliative concern . Time Spent Total Floor Time (mins): 47 Face to Face Time (mins): 39 >50% Counseling/Coord of Care: Yes (d/w Dipika TOLEDO and Gina Bowden PA-C.) Attestation To help prompt me to consider important information that might be impacting today's encounter and assessment, information from prior notes written by myself or my colleagues may have been "brought forward" into today's note. My signature on this note, however, is an attestation that I personally performed the exam, history, and/or decision-making noted today, and, unless otherwise indicated, the interactions with patient, family, and staff as well as the review of records all occurred today. I also attest that the listed assessment and stated plan reflect my best clinical judgment today based on the combination of historical information, prior notes, and today's exam/ interactions. When time spent is documented, it refers only to time spent today by the signer, or if indicated, combined time spent today by collaborating physician/nurse practitioner. Maylin Jha MD Dec 24, 2016 16:02
[2016-12-24 20:00] VITALS: BP 152/72; PULSE 71; RESP 17; TEMP 96.6; O2SAT 98
[2016-12-24] MEDS: traZODone HCL 50 MG TAB PO SCH (21:16)
[2016-12-24] MEDS: INSULIN DETEMIR 100 UNITS/ML VIAL SQ SCH (21:17)
[2016-12-25] VITALS: BP 163/86; PULSE 64; RESP 16; TEMP 96.2; O2SAT 96
[2016-12-25 04:00] VITALS: BP 189/92; PULSE 73; RESP 18; TEMP 95.9; O2SAT 99
[2016-12-25] MEDS: SODIUM CHLOR 0.9% 1000 ML INJ 1,000 ML IV SCH ×2 (05:00→15:00)
[2016-12-25] MEDS: HEPARIN SODIUM - SQ 10,000 UNITS/ML VIAL SQ SCH ×2 (05:27→17:11)
[2016-12-25] MEDS: NYSTAT/DIPHENHY/LIDO MOUTHWASH (Adult) 120ML SWISH-SWAL SCH ×4 (05:27→20:54)
[2016-12-25] MEDS: INSULIN ASPART SUPPLEMENTAL SCALE SQ SCH ×4 (05:31→20:56)
[2016-12-25 08:00] VITALS: BP 154/74; PULSE 72; RESP 14; TEMP 98; O2SAT 95
[2016-12-25] MEDS: QUEtiapine FUMARATE 25 MG TAB PO SCH ×2 (08:36→20:56)
[2016-12-25] MEDS: NYSTATIN SUSP 500,000 U/5 ML CUP SWISH-SWAL SCH ×4 (08:36→20:55)
[2016-12-25] MEDS: methylPREDNISolone SOD SUCC 40 MG/1 ML VIAL IV PUSH SCH ×2 (08:37→20:56)
[2016-12-25] MEDS: MORPHINE SULFATE 4 MG/ML INJ IV PUSH PRN ×2 (08:40→21:17)
[2016-12-25] MEDS: SODIUM CHLORIDE 0.9% FLUSH 10 ML FLUSH IV FLUSH SCH ×2 (09:00→20:56)
--- NOTE | 2016-12-25 11:12 | PD.ONC.PN ---
Subjective Subjective Remarks Afebrile overnight. Pt resting in bed asleep in no distress. He shakes his head "no when asked about pain. He is now willing to go through with PEG tube placement after discussion with his brother, palliative team. Objective Data Date Time Temp Pulse Resp B/P Pulse Ox O2 Delivery O2 Flow Rate FiO2 12/25/16 08:00 98.0 72 14 154/74 95 12/25/16 04:00 95.9 73 18 189/92 99 12/25/16 00:00 96.2 64 16 163/86 96 12/24/16 22:59 16 12/24/16 20:00 96.6 71 17 152/72 98 12/24/16 16:00 96.2 75 16 156/81 96 12/24/16 12:00 96.7 75 16 175/86 97 12/25/16 12/25/16 12/25/16 07:00 15:00 23:00 Output Total 200 ml Balance -200 ml Result Diagram: 12/23/16 0455 12/23/16 0455 Administered Medications Medications (Trade) Dose Ordered Sig/Rosalind Route PRN Reason Start Time Stop Time Status Last Admin Dose Admin Sodium Chloride (NS 1000 ml Inj) 1,000 ml @ 100 mls/hr Q10H IV 12/22/16 17:00 12/23/16 13:00 Sodium Chloride (NS Flush) 2 ml BID IV FLUSH 12/22/16 21:00 12/25/16 09:00 Heparin Sodium (Porcine) (Heparin Inj) 5,000 units Q12H SQ 12/22/16 17:00 12/25/16 05:27 Acetaminophen/ Hydrocodone Bitart (Hycet 325-7.5 Mg Liq) 10 ml Q6H PRN PO PAIN 1-6 12/22/16 18:30 12/22/16 22:44 Nystatin (Mycostatin Liq) 5 ml QID SWISH-SWAL 12/22/16 21:00 12/25/16 08:36 Multi-Ingredient Mouthwash/Gargle (Magic Mouthwash Adult Liq) 10 ml ACHS SWISH-SWAL 12/22/16 21:00 12/25/16 05:27 Trazodone HCl (Desyrel) 50 mg HS PO 4/19/17 21:00 12/24/16 21:16 Insulin Detemir (Levemir Inj) 5 units HS SQ 12/22/16 21:00 12/24/16 21:17 Morphine Sulfate (Morphine Inj) 4 mg Q3H PRN IV PUSH pain 7-10 12/22/16 18:45 12/25/16 08:40 Quetiapine Fumarate (SEROquel) 25 mg BID PO 12/23/16 15:00 12/25/16 08:36 Methylprednisolone Sodium Succinate (SoluMEDROL INJ) 40 mg BID IV PUSH 12/24/16 21:00 12/25/16 08:37 Objective Remarks GENERAL: Elderly male, asleep in bed in no distress. Awakens to verbal stimuli. SKIN: Warm and dry. HEAD: Normocephalic. EYES: No injection or drainage. NECK: Supple, trachea midline. +Large mass to L neck. CARDIOVASCULAR: Regular rate and rhythm RESPIRATORY: Breath sounds equal bilaterally. No accessory muscle use. GASTROINTESTINAL: Abdomen soft, non-tender, nondistended. EXTREMITIES: No cyanosis. No edema. NEUROLOGICAL: Awake. garbled speech. Moving extremities Assessment/Plan Problem List: (1) Squamous cell cancer of tongue Status: Acute Plan: --physically patient is an excellent candidate for chemotherapy/ radiation. However, due to his mental status and rendering of incompetence by Psychiatry we will need assistance of palliative care team to define goals of care along with patient's family. --was supposed to receive induction chemotherapy that was delayed because of difficulty managing his secretions and no way to manage his nutrition. (2) Mouth pain Status: Acute Plan: --due to oral cancer --currently receiving Morphine 4mg IV PRN --may need to add Fentanyl patch in the future --was using Oxycodone liquid on outpatient basis, but stated he preferred the Lortab liquid. Assessment 71y/o male with head and neck cancer. history of diabetes, hypertension, hyperlipidemia history of dementia with psychoses. He had possible polysubstance induced mood disorder. Left hemiglossectomy Plan 1. Pt is agreeable of PEG tube. Pt's brother Anmol is healthcare surrogate. 2. Once PEG tube placed (likely Tuesday) he can be discharged to rehab to continue treatment as outpatient. Attending Statement The exam, history, and the medical decision-making described in the above note were completed with the assistance of the mid-level provider. I reviewed and agree with the findings presented. I attest that I had a [id number] encounter with the patient on the same day, and personally performed and documented my assessment and findings in the medical record. 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 Ideally if he has no evidence of metastatic disease he would be a candidate for surgical resection and in this case would likely require complete glossectomy with cervical lymph node dissection followed by Possible postoperative concurrent chemoradiotherapy. I'm not certain if he will be able to and you're such a radical surgery. Long-term treatment plans will be determined by Dr. Villeda the patient's primary oncologist. He tells me does want a feeding tube, he tells me he is eating well however, he is nothing by mouth. I'm not certain if he has a very good understanding of his current circumstances. I talked him a little bit about the necessity of him getting a feeding tube so he can get appropriate nutritional intake so he can subsequently received appropriate treatment for his malignancy. Ivis Helton Dec 25, 2016 11:12 Vance Santos MD Dec 25, 2016 14:36
[2016-12-25 12:00] VITALS: BP 148/80; PULSE 74; RESP 16; TEMP 98.3; O2SAT 94
--- NOTE | 2016-12-25 15:04 | HHI.PR ---
Subjective Remarks Dozing, will awaken with verbal stimuli Anxious, does not want to conversation No family present Afebrile Skin pale Left jaw edema (Juanita Ni) Objective Objective Results - Vital Signs Date Time Temp Pulse Resp B/P Pulse Ox O2 Delivery O2 Flow Rate FiO2 12/25/16 12:00 98.3 74 16 148/80 94 12/25/16 08:00 98.0 72 14 154/74 95 12/25/16 04:00 95.9 73 18 189/92 99 12/25/16 00:00 96.2 64 16 163/86 96 12/24/16 22:59 16 12/24/16 20:00 96.6 71 17 152/72 98 12/24/16 16:00 96.2 75 16 156/81 96 I/O 12/24/16 12/24/16 12/24/16 12/25/16 12/25/16 12/25/16 07:00 15:00 23:00 07:00 15:00 23:00 Intake Total 543 ml 0 ml Output Total 900 ml 150 ml 300 ml 200 ml Balance -357 ml -150 ml -300 ml -200 ml 0 ml Intake Oral 0 ml IV Total 543 ml Output Urine Total 900 ml 150 ml 300 ml 200 ml # Voids 1 1 # Bowel Movements 1 (Juanita Ni) Result Diagram: 12/23/16 0455 12/23/16 0455 ROS General: Fatigue, Weakness, Other (unable to assess, secondary to patient's altered mental status ) HEENT: Sore Throat, Dysphagia (Juanita Ni) Physical Exam Physical Exam PHYSICAL EXAMINATION GENERAL: This is a well-developed, well-nourished male who appears to be in no acute distress while sleeping. HEAD: Left cheek/oral cavity edema Facial features appear asymmetric. OROPHARYNGEAL: Oropharynx clear secretions, edema left cheek NECK: Supple. Trachea midline without deviation. CARDIAC: Regular rhythm, regular rate, S1 and S2 are heard. LUNGS: Diminished to auscultation bilaterally. Rhonchi heard ABDOMEN: Soft, nontender, no organomegaly or masses. Bowel sounds are heard in all four quadrants. EXTREMITIES: Trace edema right lower leg, left none NEUROLOGICAL: Patient mood and affect anxious, and agitation SKIN:Warm and moist, pale Objective Remarks No, leave me alone No PEG tube (Juanita Ni) A/P Assessment and Plan 71-year-old man sent as a direct admit for dehydration and dysphagia, recently diagnoses with squamous cell cancer of the mobile tongue, had resection. 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 Has not started chemo and radiation. Dysphagia, unable to clear secretions, -Oxygen, IV steroids, dual nebs Remain nothing by mouth Secretion control, medical management Edema noted left cheek area ,oral cavity -IVF -GI input appreciated, GI for recommendations. Dehydration, mild patient is unable to take any by mouth fluids or food. Will need PEG for nutrition if patient and family agree Tuesday. Dementia, hx psychosis, -Psychiatry input appreciated, recommends Seroquel for agitation. Agrees with palliative care consult and input Patient hollers out no! When asked if he was hungry, or any discussion with PEG tube. Patient's brother Anmol is the dpoa, PEG tube set up for Tuesday. Dehydration, secondary to poor PO intake, malnourished IVF, gentle hydration Monitor labs Type 2 diabetes, uncontrolled blood glucose, possibly secondary to steroid use Continue with Accu-Cheks before meals and at bedtime and insulin therapy Oral pain, thrush Pain management Continue with nystatin and Magic mouthwash Heparin for DVT prophylaxis Continue with above treatment labs in am condition guarded Discussed With: Nurse, Other (Dr. Mckeon, seen on his behalf) (Juanita Ni) Assessment and Plan seen, examined by myself, Dr Mckeon, today patient awake but is not verbal to me He is deemed incompetent Plan for PEG tube insertion after consent obtained Plan as above Discussed with mid level provider The exam, history, and the medical decision-making described in the above note were completed with the assistance of the mid-level provider. I reviewed the findings presented. I attest that I had a [id number] encounter with the patient on the same day, and personally performed and documented my assessment and findings in the medical record. (Newton Mckeon MD) Juanita Ni Dec 25, 2016 15:04 Newton Mckeon MD Dec 25, 2016 17:08
[2016-12-25 16:00] VITALS: BP 150/79; PULSE 76; RESP 16; TEMP 97; O2SAT 96
[2016-12-25 20:00] VITALS: BP 182/91; PULSE 72; RESP 17; TEMP 96.3; O2SAT 96
[2016-12-25] MEDS: INSULIN DETEMIR 100 UNITS/ML VIAL SQ SCH (20:54)
[2016-12-25] MEDS: traZODone HCL 50 MG TAB PO SCH (20:55)
[2016-12-25] MEDS: ZOLPIDEM TARTRATE 5 MG TAB PO PRN (23:17)
[2016-12-26] VITALS: BP 156/86; PULSE 76; RESP 17; TEMP 96.4; O2SAT 96
[2016-12-26] MEDS: SODIUM CHLOR 0.9% 1000 ML INJ 1,000 ML IV SCH ×3 (01:00→21:08)
[2016-12-26] MEDS: MORPHINE SULFATE 4 MG/ML INJ IV PUSH PRN ×3 (02:24→23:20)
[2016-12-26 04:00] VITALS: BP 181/96; PULSE 86; RESP 17; TEMP 96.6; O2SAT 99
[2016-12-26] MEDS: HEPARIN SODIUM - SQ 10,000 UNITS/ML VIAL SQ SCH ×2 (05:27→16:00)
[2016-12-26] MEDS: NYSTAT/DIPHENHY/LIDO MOUTHWASH (Adult) 120ML SWISH-SWAL SCH ×4 (05:27→21:07)
[2016-12-26] MEDS: INSULIN ASPART SUPPLEMENTAL SCALE SQ SCH ×4 (05:34→21:21)
[2016-12-26 08:00] VITALS: BP 173/92; PULSE 68; RESP 16; TEMP 98.2; O2SAT 95
--- NOTE | 2016-12-26 09:27 | PD.ONC.PN ---
Subjective Subjective Remarks Afebrile overnight. Pt resting in bed watching TV on approach. We discussed him getting a PEG tube in the am. Initially he states "I don't want it," but after further discussing it with him again he agrees. I explained to him that his brother was helping him make some of these decisions now. Objective Data Date Time Temp Pulse Resp B/P Pulse Ox O2 Delivery O2 Flow Rate FiO2 12/26/16 08:00 98.2 68 16 173/92 95 12/26/16 04:00 96.6 86 17 181/96 99 12/26/16 00:00 96.4 76 17 156/86 96 12/25/16 20:00 96.3 72 17 182/91 96 12/25/16 16:00 97.0 76 16 150/79 96 12/25/16 12:00 98.3 74 16 148/80 94 Result Diagram: 12/23/16 0455 12/23/16 0455 Administered Medications Medications (Trade) Dose Ordered Sig/Rosalind Route PRN Reason Start Time Stop Time Status Last Admin Dose Admin Sodium Chloride (NS 1000 ml Inj) 1,000 ml @ 100 mls/hr Q10H IV 12/22/16 17:00 12/23/16 13:00 Sodium Chloride (NS Flush) 2 ml BID IV FLUSH 12/22/16 21:00 12/25/16 20:56 Heparin Sodium (Porcine) (Heparin Inj) 5,000 units Q12H SQ 12/22/16 17:00 12/26/16 05:27 Acetaminophen/ Hydrocodone Bitart (Hycet 325-7.5 Mg Liq) 10 ml Q6H PRN PO PAIN 1-6 12/22/16 18:30 12/22/16 22:44 Nystatin (Mycostatin Liq) 5 ml QID SWISH-SWAL 12/22/16 21:00 12/25/16 20:55 Multi-Ingredient Mouthwash/Gargle (Magic Mouthwash Adult Liq) 10 ml ACHS SWISH-SWAL 12/22/16 21:00 12/26/16 05:27 Trazodone HCl (Desyrel) 50 mg HS PO 12/22/16 21:00 12/25/16 20:55 Insulin Detemir (Levemir Inj) 5 units HS SQ 12/22/16 21:00 12/25/16 20:54 Morphine Sulfate (Morphine Inj) 4 mg Q3H PRN IV PUSH pain 7-10 12/22/16 18:45 12/26/16 02:24 Quetiapine Fumarate (SEROquel) 25 mg BID PO 12/23/16 15:00 12/25/16 20:56 Methylprednisolone Sodium Succinate (SoluMEDROL INJ) 40 mg BID IV PUSH 12/24/16 21:00 12/25/16 20:56 Zolpidem Tartrate (Ambien) 5 mg HS PRN PO INSOMNIA 12/24/16 19:30 12/25/16 23:17 Objective Remarks GENERAL: Elderly male resting in bed watching TV in no distress. SKIN: Warm and dry. HEAD: Normocephalic. EYES: No injection or drainage. NECK: Supple, trachea midline. +Large mass to L neck. CARDIOVASCULAR: Regular rate and rhythm RESPIRATORY: Breath sounds equal bilaterally. No accessory muscle use. GASTROINTESTINAL: Abdomen soft, non-tender, nondistended. EXTREMITIES: No cyanosis. No edema. NEUROLOGICAL: Awake. Garbled speech. Moving all extremities. Assessment/Plan Problem List: (1) Squamous cell cancer of tongue Status: Acute Plan: -- Physically patient is an excellent candidate for chemotherapy/ radiation -- Pt has been rendered incompetent to make decisions by psychiatry -- Brother Anmol is now pt's healthcare surrogate (2) Mouth pain Status: Acute Plan: --due to oral cancer --currently receiving Morphine 4mg IV PRN --may need to add Fentanyl patch in the future --was using Oxycodone liquid on outpatient basis, but stated he preferred the Lortab liquid. Assessment 71y/o male with head and neck cancer. history of diabetes, hypertension, hyperlipidemia history of dementia with psychoses. He had possible polysubstance induced mood disorder. Left hemiglossectomy Plan 1. Again discussed with patient the need for PEG. Brother Anmol is pt's healthcare surrogate. 2. PEG tube placement planned for tomorrow. 3. Once PEG has been placed, he can be discharged and followup in the clinic. Ivis Helton Dec 26, 2016 09:27
[2016-12-26] MEDS: QUEtiapine FUMARATE 25 MG TAB PO SCH ×2 (09:52→21:07)
[2016-12-26] MEDS: NYSTATIN SUSP 500,000 U/5 ML CUP SWISH-SWAL SCH ×4 (09:52→21:07)
[2016-12-26] MEDS: methylPREDNISolone SOD SUCC 40 MG/1 ML VIAL IV PUSH SCH ×2 (09:52→21:07)
[2016-12-26] MEDS: SODIUM CHLORIDE 0.9% FLUSH 10 ML FLUSH IV FLUSH SCH ×2 (09:53→21:00)
[2016-12-26 12:00] VITALS: BP 160/85; PULSE 72; RESP 18; TEMP 97.4; O2SAT 94
--- NOTE | 2016-12-26 13:32 | HHI.GIFU ---
Subjective Remarks Nursing staff reports that the pt has been swallowing some small amounts of thickened liquids and ST is planned to re-evaluate. Objective Vitals I&O Vital Signs Date Time Temp Pulse Resp B/P Pulse Ox O2 Delivery O2 Flow Rate FiO2 12/26/16 12:00 97.4 72 18 160/85 94 12/26/16 08:00 98.2 68 16 173/92 95 12/26/16 04:00 96.6 86 17 181/96 99 12/26/16 00:00 96.4 76 17 156/86 96 12/25/16 20:00 96.3 72 17 182/91 96 12/25/16 16:00 97.0 76 16 150/79 96 I/O 12/25/16 12/25/16 12/25/16 12/26/16 12/26/16 12/26/16 07:00 15:00 23:00 07:00 15:00 23:00 Intake Total 0 ml 0 ml 0 ml Output Total 200 ml 300 ml 650 ml Balance -200 ml 0 ml -300 ml -650 ml Intake Oral 0 ml 0 ml 0 ml Output Urine Total 200 ml 300 ml 650 ml # Voids 1 1 1 # Bowel Movements 1 0 0 Physical Exam HEENT: Normocephalic; atraumatic; no jaundice. Significant oral secretions NECK: Left neck mass CHEST: CTA CARDIAC: RRR ABDOMEN: Soft, nondistended, nontender; no hepatosplenomegaly; bowel sounds are present in all four quadrants. EXTREMITIES: No clubbing, cyanosis, or edema. SKIN: Normal; no rash; no jaundice. SURVEYOR GEOPHYSICAL PROSPECTING: Alert, ?oriented to self. Uncooperative. Garbled speech Assessment and Plan Plan ASSESSMENT: - Dysphagia, FEN. Pt diagnosed with squamous cell cancer of the tongue, s/p resection 06/10/16. 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 Port was placed on 12/14/16. He was also supposed to have teeth extraction by maxillofacial in anticipation of radiation. He was seen in Dr. Villeda' office for induction chemotherapy, but was found to be having difficulty clearing his secretions. Pt. has missed oncology follow and they have not been able to coordinate treatment with radiation oncology. GI was consulted for PEG tube placement. Pt had been adamantly refusing, but was seen by the psychiatrist and declared incompetent. Palliative care/CM following. Durable POA has never been completed. Per the nursing staff the pts son was located but does not want to be the pts healthcare decision maker and the pts brother has reportedly stepped in as decision maker. 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 Port has been placed. Needs teeth extraction for radiation and PEG for nutrition prior to tx for cancer. - DM, HTN, Hyperlipidemia, Dementia per primary. PLAN: - NPO - EGD with PEG tube placement once consents obtained, possibly tomorrow. - Pts brother, Anmol, is reportedly the pts healthcare decision maker. I attempted to call Anmol @ phone number [phone] but I was unable to to reach him. It is my understanding that this procedure was already discussed with him and he is agreeable. I was attempting to call to answer any other questions he may have - Ancef ordered - Palliative care following - Oncology following - Obtain consent for EGD/PEG placement, discussed with nursing staff. - Pt seen and examined by Dr. Mancia and myself and this note is written on his behalf Maryanne Floyd Dec 26, 2016 13:32
--- NOTE | 2016-12-26 13:36 | HHI.PR ---
Subjective Remarks Awake Television on, watching Answers questions appropriately Less anxious now Afebrile Bowel regimen BM today Objective Objective Results - Vital Signs Date Time Temp Pulse Resp B/P Pulse Ox O2 Delivery O2 Flow Rate FiO2 12/26/16 12:00 97.4 72 18 160/85 94 12/26/16 08:00 98.2 68 16 173/92 95 12/26/16 04:00 96.6 86 17 181/96 99 12/26/16 00:00 96.4 76 17 156/86 96 12/25/16 20:00 96.3 72 17 182/91 96 12/25/16 16:00 97.0 76 16 150/79 96 I/O 12/25/16 12/25/16 12/25/16 12/26/16 12/26/16 12/26/16 07:00 15:00 23:00 07:00 15:00 23:00 Intake Total 0 ml 0 ml 0 ml Output Total 200 ml 300 ml 650 ml Balance -200 ml 0 ml -300 ml -650 ml Intake Oral 0 ml 0 ml 0 ml Output Urine Total 200 ml 300 ml 650 ml # Voids 1 1 1 # Bowel Movements 1 0 0 Result Diagram: 12/23/165 12/23/16 0455 ROS General: Fatigue, Weakness, Other (10 point ROS done, ) HEENT: Dysphagia, Other (head and neck cancer, unable to eat) Pulmonary: Cough (occasional), SOB (occasional) Physical Exam Physical Exam PHYSICAL EXAMINATION GENERAL: This is a chronically ill male Resting in the bed watching TV He is alert and awake, HEAD: Normocephalic , left jaw mildly swollen Facial features appear asymmetric. OROPHARYNGEAL: Oropharynx moist NECK: Supple. lymphadenopathy mild Trachea midline without deviation. CARDIAC: Regular rhythm, regular rate, S1 and S2 are heard. LUNGS: Clear to auscultation bilaterally. No SOB ABDOMEN: Soft, nontender, EXTREMITIES: no edema. Pulses palpable. NEUROLOGICAL: Patient mood and affect appropriate to day SKIN:Warm and moist Objective Remarks I cannot have any food A/P Assessment and Plan Dysphagia, unable to clear secretions, -Oxygen, IV steroids, duo nebs Remain nothing by mouth Secretion control, medical management Edema noted left cheek area ,oral cavity -IVF -GI input appreciated, GI for recommendations. Dehydration, mild patient is unable to take any by mouth fluids or food. Nothing by mouth for PEG tube placement tomorrow. Once PEG is stable and in, patient can be managed on an outpatient basis per oncology Dementia, hx psychosis, -Psychiatry input appreciated, recommends Seroquel for agitation. Agrees with palliative care consult and input Patient's brother Anmol is the dpoa, PEG tube set up for Tuesday. Dehydration, secondary to poor PO intake, malnourished IVF, gentle hydration Monitor labs Type 2 diabetes, uncontrolled blood glucose, possibly secondary to steroid use Continue with Accu-Cheks before meals and at bedtime and insulin therapy Heparin for DVT prophylaxis Continue with above treatment labs in am condition guarded Discussed With: Nurse, Other (Dr. Mckeon, seen on his behalf) Juanita Ni Dec 26, 2016 13:36 condition guarded Discussed With: Nurse, Other (Dr. Mckeon, seen on his behalf) Juanita Ni Dec 26, 2016 13:36
[2016-12-26 16:00] VITALS: BP 175/89; PULSE 81; RESP 18; TEMP 98; O2SAT 95
[2016-12-26 19:48] VITALS: BP 200/93; PULSE 73; RESP 17; TEMP 96.7; O2SAT 96
[2016-12-26] MEDS: traZODone HCL 50 MG TAB PO SCH (21:07)
[2016-12-26] MEDS: INSULIN DETEMIR 100 UNITS/ML VIAL SQ SCH (21:07)
[2016-12-26 23:01] LABS: PROTHROMBIN TIME - PATIENT 11.4 SEC (9.8-11.6)
[2016-12-26] MEDS: ZOLPIDEM TARTRATE 5 MG TAB PO PRN (23:20)
[2016-12-27] VITALS: BP 171/94; PULSE 63; RESP 17; TEMP 96.4; O2SAT 97
[2016-12-27 04:00] VITALS: BP 180/94; PULSE 65; RESP 17; TEMP 96.2; O2SAT 96
[2016-12-27] MEDS: HEPARIN SODIUM - SQ 10,000 UNITS/ML VIAL SQ SCH ×2 (05:00→17:48)
[2016-12-27] MEDS: INSULIN ASPART SUPPLEMENTAL SCALE SQ SCH ×4 (06:31→20:18)
[2016-12-27] MEDS: NYSTAT/DIPHENHY/LIDO MOUTHWASH (Adult) 120ML SWISH-SWAL SCH ×4 (06:35→21:00)
[2016-12-27] MEDS: SODIUM CHLOR 0.9% 1000 ML INJ 1,000 ML IV SCH ×2 (06:35→17:48)
[2016-12-27 08:00] VITALS: BP 155/87; PULSE 77; RESP 18; TEMP 96.2; O2SAT 98
[2016-12-27] MEDS: QUEtiapine FUMARATE 25 MG TAB PO SCH ×2 (09:22→20:24)
[2016-12-27] MEDS: NYSTATIN SUSP 500,000 U/5 ML CUP SWISH-SWAL SCH ×4 (09:22→20:19)
[2016-12-27] MEDS: methylPREDNISolone SOD SUCC 40 MG/1 ML VIAL IV PUSH SCH ×2 (09:24→20:19)
[2016-12-27] MEDS: SODIUM CHLORIDE 0.9% FLUSH 10 ML FLUSH IV FLUSH SCH ×2 (09:24→21:00)
[2016-12-27] MEDS: MORPHINE SULFATE 4 MG/ML INJ IV PUSH PRN ×4 (09:33→22:13)
--- NOTE | 2016-12-27 10:31 | HHI.HCPN ---
Reason for visit a. To assist with evaluation and management of symptoms including: dysphagia , pain b. To assist medical decision maker(s) with: better understanding of current medical conditions; weighing benefits/burdens of medical treatment options; making medical treatment decisions. Subjective/Interval History Pt seen to follow-up on comfort He is scheduled for PEG tube placement today. Speech therapy continues to follow; recommends spoon fed thickened liquids for pleasure only, continue with bypass feeding for nutritional requirements. No new labs or imaging. Patient seen in room[ dual visit elton TOLEDO] no visitors present. He is alert oriented to self, hospital. He does not know why he is in the hospital, insight is poor. He endorses pain in his mouth and throat though denies pain elsewhere on his body. Denies shortness of breath. Endorses a little bit of a cough sometimes. Tells me that he is hungry, I explore with him speech therapy recommendations and plan for feeding tube today. To exam note white exudates in oral cavity especially along left tongue deficits which I did not see during prior exams of patient. Of note he is on Magic mouthwash oral rinse. Encourage him to continue to use morphine prn (his last dose he used was about an hour prior to my visit--though he does not remember this) he tells me no family has been in yet today but his brother will be coming later to bring him his electric shaver, he is requesting to shave. No other acute issues, pleasant in no distress. From initial consultation note from Richie TOLEDO on 12/23/16: --Psychiatry has evaluated patient 12/22- psychiatry notes patient is unable to verbalize rational understanding or appreciation of medical conditions unable to express rational reasons to discharge home or refused treatments and patient does not seem aware of consequences of his actions. Further notes he does not have decision-making capacity to refuse PEG or to leave AMA. Recommended next of kin or appropriate proxy be contacted for decision making for the patient. . Advance Directives Living Will: Never completed Health Care Surrogate: Never completed Durable Power of Radiation Safety Officer: Completed, but not made available Advance Directive Specifics Health Care Surrogate(s): The family confirm that the patient is not , that he has no living parents, and that his son Bart has been estranged for more than 25 years and they have no idea where he is or how to reach him. [employer] reports here indicate pt's son Bart may be in [place] with a phone # [phone] -- that number was called 4 times on 12/24/16, and it just gives a "busy" sound, no VM option. The patient's brother Anmol notes that he has the DPOA to handle the patient's affairs, and he does believe that that also includes healthcare ( although they're having construction done at their home and he was unable to find that paperwork up to this point in time -- he says he will bring it in so we can copy it). The patient's two sisters opt out of any decision-making role for the pt, wanting the patient's brother Anmol to be the decision making proxy. Anmol has been functioning as the decision-maker the past couple years, granting consents for surgery, etc. Healthcare Proxy form completed, signed by Anmol 12/24/16. . Objective Vital Signs Date Time Temp Pulse Resp B/P Pulse Ox O2 Delivery O2 Flow Rate FiO2 12/27/16 08:00 96.2 77 18 155/87 98 12/27/16 04:00 96.2 65 17 180/94 96 12/27/16 00:00 96.4 63 17 171/94 97 12/26/16 23:25 18 12/26/16 19:48 96.7 73 17 200/93 96 12/26/16 16:00 98.0 81 18 175/89 95 12/26/16 12:00 97.4 72 18 160/85 94 Intake & Output 12/27/16 12/27/16 07:00 19:00 Intake Total 1252 ml Output Total 500 ml Balance 752 ml IV Total 1252 ml Output Urine Total 500 ml Physical Exam CONSTITUTIONAL/GENERAL: This is an adequately nourished patient,alert, in no apparent distress. ENT:Nose without bleeding or purulent drainage.+ erosion left tongue, tissue deficit left tongue. +copious oral secretions. voice faint/soft. Large palpable mass left neck/jaw region. + white exudate on tongue, oral mucosa NECK: Trachea midline.+ large mass left neck. CARDIOVASCULAR: Regular rate and rhythm no murmur. Peripheral pulses symmetric. no edema. RESPIRATORY/CHEST: Symmetric, unlabored respirations on room air. Clear to auscultation. Breath sounds equal bilaterally. GASTROINTESTINAL: Abdomen soft, non-tender, nondistended. No palpable masses. No guarding. Bowel sounds present. NEUROLOGICAL: Awake and alert.Oriented x 2. Insight poor . speech is soft and fairly garbled, speaks only a few words, difficult to understand. Gestures. Moves all 4 extremities PSYCHIATRIC: No obvious anxiety/depression. . Diagnostic Tests Laboratory Laboratory Tests Test 12/26/16 22:45 Prothrombin Time 11.4 SEC (9.8-11.6) Prothromb Time International 1.0 RATIO Ratio Result Diagram: 12/23/16 0455 12/23/16 0455 Assessment and Plan Disease Oriented Problem List: (1) Hyponatremia (2) Depression (3) Dementia (4) Dysphagia (5) Squamous cell cancer of tongue (6) Mass of left side of neck (7) Uncontrolled diabetes mellitus with hyperglycemia (8) HTN (hypertension) Symptom Scale: (1) Dysphagia 0-10 Scale: 6 (due to tumor growth) (2) Mouth pain 0-10 Scale: 2 Pertinent Non-Medical Issues Psychosocial:Patient currently lives with his brother and [id number]. He has 1 son who lives in [place]. He apparently has previously been under a [place] act for possible polysubstance-induced mood disorder. Per review of prior psychiatric records from 2013 here it appears he is originally from [facility] parents are . He is supported by 2 sisters and one brother. He has been and twice. His son Bart apparently lives in [place] and time of psychiatry (2012) evaluation was age 40. During that psychiatric admission family indicated some signs of dementia for the prior 2 years. 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 Spiritual: Legal: The family on 12/24/16 confirm that the patient is not , that he has no living parents, and that his son Bart has been estranged for more than 25 years and they have no idea where he is or how to reach him. [employer] reports here indicate pt's son Bart may be in [place] with a phone # -- I tried to call that number 4 times today, and it just gives a "busy " sound, no VM option. The patient's brother Anmol notes that he has the DPOA to handle the patient's affairs, and he does believe that that also includes healthcare (although they're having construction done at their home and he was unable to find that paperwork up to this point in time -- he says he will bring it in so we can copy it). The patient's two sisters opt out of any decision- making role for the pt, wanting the patient's brother Anmol to be the decision making proxy. Healthcare Proxy form completed, signed by Anmol. Ethical issues impacting care: none . Important Contacts brother Anmol ([phone]) healthcare proxy Sister in law Kimberly Crissy friend Alexandriamode Graves [phone] Sister Demond Bundy Son? ___ Bart ([facility] # [phone] -->> this number has not been working per multiple attempts 12/24 . 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 He has had pending treatments with concurrent chemotherapy and radiation though has been unable to obtain these treatments thus far. He has had delay in treatment due to airway /nutrition issues. Oncology indicates that nutritional status will need to be supplemented, IV fluids for dehydration , will need to manage acute medical issues before pursuing chemotherapy. Oncology 10 again offered chemotherapy once overall condition stable and nutrition is managed. Code Status: Full Code Plan * FULL CODE * Legal decision maker: The family confirm that the patient is not , that he has no living parents, and that his son Bart has been estranged for more than 25 years and they have no idea where he is or how to reach him. [employer] reports here indicate pt's son Bart may be in [place] with a phone # [phone] -- that number was called 4 times on 12/24/16, and it just gives a "busy" sound, no VM option. The patient's brother Anmol notes that he has the DPOA to handle the patient's affairs, and he does believe that that also includes healthcare (although they're having construction done at their home and he was unable to find that paperwork up to this point in time -- he says he will bring it in so we can copy it). The patient's two sisters opt out of any decision-making role for the pt, wanting the patient's brother Anmol to be the decision making proxy. Anmol has been functioning as the decision-maker the past couple years, granting consents for surgery, etc. Healthcare Proxy form completed, signed by Anmol . * Goals: After much discussion on 12/24/16, the patient is now accepting the recommendations of his family and his doctors to have the PEG tube placed and to start chemotherapy and radiation. (Brother) Anmol and (S-I-L) Kimberly understand that the burden for getting the patient to all of these appointments , for managing his medicines and symptoms that will develop, and for ensuring strict and consistent follow-up will fall on their shoulders. Anmol notes that he is 74 years old and has a malignancy and is weak, and Kimberly cries and wonders how she "will manage all of this." They understand that, should chemotherapy and radiation ultimately be impossible to complete (whether due to refusal to cooperate by the patient, symptoms that become too severe, or other psychosocial or medical issues), it is likely that a transition to hospice services would be appropriate at that time. The patient and his family want to proceed with PEG tube placement, chemotherapy, and radiation. Scheduled for PEG tube 4/24/17. * SYMPTOMS: --Dysphagia-progressive swallowing difficulties, unable to manage secretions. 2/2 disease process. + Able to swallow some thickened liquids via spoon only, per ST assessment, for pleasure only. Continue bypass feedings for nutrition. --Oral pain- some erosion to tongue/oral mucosa. 2/2 disease process. reported to oncology was well managed at home on liq lortab. On IV morpine here. + Oral thrush, on Magic mouthwash currently. Also has prn Morphine available. has been using 2-3x per day with reported effective relief. Today during my exam , does not remember he had a dose 1 hr prior to my visit. * Palliative care will continue to follow during hospital course as condition evolves, to assist patient/decision-maker with understanding of medical conditions, weighing benefits/burdens of treatment options, for clarification of goals of treatment. Additionally will assist with any symptoms of palliative concern . Attestation To help prompt me to consider important information that might be impacting today's encounter and assessment, information from prior notes written by myself or my colleagues may have been "brought forward" into today's note. My signature on this note, however, is an attestation that I personally performed the exam, history, and/or decision-making noted today, and, unless otherwise indicated, the interactions with patient, family, and staff as well as the review of records all occurred today. I also attest that the listed assessment and stated plan reflect my best clinical judgment today based on the combination of historical information, prior notes, and today's exam/ interactions. When time spent is documented, it refers only to time spent today by the signer, or if indicated, combined time spent today by collaborating physician/nurse practitioner. Cynthia Caal Dec 27, 2016 10:30
[2016-12-27 12:00] VITALS: BP 156/74; PULSE 71; RESP 18; TEMP 96.8; O2SAT 98
--- NOTE | 2016-12-27 14:37 | PD.ONC.PN ---
Subjective Subjective Remarks Afebrile overnight. No family members at bedside. patient resting comfortably watching TV. Objective Data Date Time Temp Pulse Resp B/P Pulse Ox O2 Delivery O2 Flow Rate FiO2 12/27/16 12:00 96.8 71 18 156/74 98 12/27/16 08:00 96.2 77 18 155/87 98 12/27/16 04:00 96.2 65 17 180/94 96 12/27/16 00:00 96.4 63 17 171/94 97 12/26/16 23:25 18 12/26/16 19:48 96.7 73 17 200/93 96 12/26/16 16:00 98.0 81 18 175/89 95 Result Diagram: 12/23/16 0455 12/23/16 0455 Laboratory Results Laboratory Tests Test 12/26/16 22:45 Prothrombin Time 11.4 SEC Prothromb Time International 1.0 RATIO Ratio Administered Medications Medications (Trade) Dose Ordered Sig/Rosalind Route PRN Reason Start Time Stop Time Status Last Admin Dose Admin Sodium Chloride (NS 1000 ml Inj) 1,000 ml @ 100 mls/hr Q10H IV 12/22/16 17:00 12/27/16 06:35 Sodium Chloride (NS Flush) 2 ml BID IV FLUSH 12/22/16 21:00 12/27/16 09:24 Heparin Sodium (Porcine) (Heparin Inj) 5,000 units Q12H SQ 12/22/16 17:00 12/26/16 16:00 Acetaminophen/ Hydrocodone Bitart (Hycet 325-7.5 Mg Liq) 10 ml Q6H PRN PO PAIN 1-6 12/22/16 18:30 12/22/16 22:44 Nystatin (Mycostatin Liq) 5 ml QID SWISH-SWAL 12/22/16 21:00 12/27/16 12:34 Multi-Ingredient Mouthwash/Gargle (Magic Mouthwash Adult Liq) 10 ml ACHS SWISH-SWAL 12/22/16 21:00 12/27/16 11:00 Trazodone HCl (Desyrel) 50 mg HS PO 12/22/16 21:00 12/26/16 21:07 Insulin Detemir (Levemir Inj) 5 units HS SQ 12/22/16 21:00 12/26/16 21:07 Morphine Sulfate (Morphine Inj) 4 mg Q3H PRN IV PUSH pain 7-10 12/22/16 18:45 12/27/16 12:42 Quetiapine Fumarate (SEROquel) 25 mg BID PO 12/23/16 15:00 12/27/16 09:22 Methylprednisolone Sodium Succinate (SoluMEDROL INJ) 40 mg BID IV PUSH 12/24/16 21:00 12/27/16 09:24 Zolpidem Tartrate (Ambien) 5 mg HS PRN PO INSOMNIA 12/24/16 19:30 12/26/16 23:20 Objective Remarks GENERAL: Elderly male, lying supine in bed in nad. SKIN: Warm and dry. HEAD: Normocephalic. EYES: No injection or drainage. NECK: Supple, trachea midline. CARDIOVASCULAR: Regular rate and rhythm RESPIRATORY: Breath sounds equal bilaterally. No accessory muscle use. GASTROINTESTINAL: Abdomen soft, non-tender, nondistended. EXTREMITIES: No cyanosis NEUROLOGICAL: awake. +mechanical dysarthria. moving extremities. 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 Assessment 71y/o male with head and neck cancer. history of diabetes, hypertension, hyperlipidemia history of dementia with psychoses. He had possible polysubstance induced mood disorder. Left hemiglossectomy Plan 1. PEG tube placement 2. start Vital 1.5 per lease purchase driver recommendations once PEG tube placed. 3. follow up outpatient for chemotherapy Attending Statement The exam, history, and the medical decision-making described in the above note were completed with the assistance of the mid-level provider. I reviewed and agree with the findings presented. I attest that I had a [id number] encounter with the patient on the same day, and personally performed and documented my assessment and findings in the medical record. Cooperative. PEG tube placed, anticipate start feed tomorrow. Car Supplier recommendation noted, plan to start tomorrow when OK by GI. Anticipate DC home. Case management to coordinate DC to home vs. SNF. FU in out pt hematology clinic for chemo and XRT w/ Dr. Giles. Jacqueline Bowden Dec 27, 2016 14:37 Marjan Villeda MD Dec 27, 2016 18:38
--- NOTE | 2016-12-27 14:53 | HHI.PR ---
Subjective Remarks Dozing but arouses easily Television on, watching Less anxious now Afebrile Plan for peg this afternoon Objective Objective Results - Vital Signs Date Time Temp Pulse Resp B/P Pulse Ox O2 Delivery O2 Flow Rate FiO2 12/27/16 12:00 96.8 71 18 156/74 98 12/27/16 08:00 96.2 77 18 155/87 98 12/27/16 04:00 96.2 65 17 180/94 96 12/27/16 00:00 96.4 63 17 171/94 97 12/26/16 23:25 18 12/26/16 19:48 96.7 73 17 200/93 96 12/26/16 16:00 98.0 81 18 175/89 95 I/O 12/26/16 12/26/16 12/26/16 12/27/16 12/27/16 12/27/16 07:00 15:00 23:00 07:00 15:00 23:00 Intake Total 0 ml 0 ml 1252 ml Output Total 650 ml 600 ml 500 ml Balance -650 ml -600 ml 752 ml Intake Oral 0 ml 0 ml IV Total 1252 ml Output Urine Total 650 ml 600 ml 500 ml # Bowel Movements 0 0 Result Diagram: 12/23/16 0455 12/23/16 0455 ROS General: Fatigue, Weakness, Other (10 point ROS done positives noted fatigue weakness and lack of control of oral secretions, dysphagia, systems negative or unremarkable) HEENT: Dysphagia, Other (unable to control oral secretions) GI: Other (plan for PEG tube today) Physical Exam Physical Exam PHYSICAL EXAMINATION GENERAL: This is a male who appears to be in no acute distress. He is dozing off and on but arouses to verbal stimuli HEAD: Normocephalic, Facial features appear asymmetric. OROPHARYNGEAL: Oropharynx without erythema, oral secretions uncontrolled NECK: Supple. No nuchal rigidity or lymphadenopathy. Trachea midline without deviation. CARDIAC: Regular rhythm, regular rate, S1 and S2 are heard. LUNGS: Clear to auscultation bilaterally. No rhonchi ABDOMEN: Soft, nontender, Bowel sounds are active EXTREMITIES: no edema. Pulses equal bilateral. NEUROLOGICAL: Patient mood and affect appropriate for now. SKIN:Warm and moist Objective Remarks Okay right now A/P Assessment and Plan Vital signs reviewed, normal ranges, afebrile Labs reviewed but no acute changes Dysphagia, unable to clear secretions, -Oxygen, IV steroids, duo nebs Remain nothing by mouth Secretion control, medical management Plan for PEG tube this afternoon, nothing by mouth -IVF -GI input appreciated, GI for recommendations. Dehydration, mild patient is unable to take any by mouth fluids or food. PEG tube this afternoon Once PEG is stable and in, patient can be managed on an outpatient basis per oncology Dementia, hx psychosis, -Psychiatry input appreciated, recommends Seroquel for agitation. Medical management Type 2 diabetes, uncontrolled blood glucose, possibly secondary to steroid use Continue with Accu-Cheks before meals and at bedtime and insulin therapy Heparin for DVT prophylaxis Continue with above treatment Discharge planning, possible tomorrow if cleared from GI perspective. Discussed With: Nurse, Other (Dr. Mckeon, seen on his behalf) Juanita Ni Dec 27, 2016 14:53
[2016-12-27] MEDS ORDERED: KETAMINE HCL 500 MG/5 ML VIAL ONE (15:15)
[2016-12-27] MEDS ORDERED: DO NOT ADM ANY ANTICOAGULANT DRUGS PRN (15:50)
--- NOTE | 2016-12-27 15:57 | PD.PROCEDR ---
GI Procedure REFERRING PHYSICIAN Dr. olvera PROCEDURE PERFORMED EGD with PEG placement INDICATION FOR PROCEDURE Dysphagia PROCEDURE: The procedure, risks and benefits were discussed with Mr. Moura and informed consent was obtained. Anesthesia sedated him with Diprivan. He was placed in the left lateral decubitus position. EGD: The Pentax videoscope was introduced through the oropharynx and advanced to the second portion of the duodenum under direct visualization. Retroflexion was performed in the stomach. FINDINGS: Esophagus this was normal Stomach this was normal Duodenum this was normal Following the evaluation of the stomach and the duodenum the stomach was insufflated with air and the area of PEG placement was identified through indentation and transillumination the area was prepped and draped in usual fashion 5 cc of lidocaine were injected locally a small incision was made then an Angiocath was passed into the stomach through which a guidewire was passed this was retrieved with the scope into that a PEG tube was attached and pulled into place and thereafter secured in usual fashion The patient tolerated procedure well and there are no immediate complications ESTIMATED BLOOD LOSS: None SPECIMENS REMOVED: None COMPLICATIONS: None IMPRESSION: Normal EGD Successful PEG placement PLAN: 1. May use PEG tube for medications today 2. May start feeding tomorrow 3. May obtain nutritional consult for tube feeding 4. Flush tube with 50 cc of water every 4-6 hours 5. Always flush tube after feedings 6. Apply abdominal binder as necessary 7. Clamp G-tube after use and flush. Lexa Neves MD Dec 27, 2016 15:57
[2016-12-27 16:00] VITALS: BP 179/89; PULSE 89; RESP 20; TEMP 96.2; O2SAT 98
[2016-12-27] MEDS ORDERED: ceFAZolin INJ 1,000 MG VIAL IV ONE (16:23)
[2016-12-27] MEDS ORDERED: PROPOFOL 200 MG/20 ML AMP IV ONE (16:25)
[2016-12-27 19:02] LABS: AUTOMATED NEUTROPHIL # 18.1 TH/MM3 (1.8-7.7); BASOPHIL % 0.2 % (0.0-2.0); HEMATOCRIT 37.2 % (39.0-51.0); HEMO FLAGS DIFF FINAL; LYMPH % 8.5 % (9.0-44.0); LYMPHOCYTE # 1.8 TH/MM3 (1.0-4.8); MEAN CORPUSCULAR HEMOGLOBIN 26.7 PG (27.0-34.0); MEAN CORPUSCULAR HGB CONC 32.1 % (32.0-36.0); NEUT % 87.3 % (16.0-70.0); PLATELET COUNT 416 TH/MM3 (150-450); RED BLOOD COUNT 4.48 MIL/MM3 (4.50-5.90); WHITE BLOOD COUNT 20.7 TH/MM3 (4.0-11.0)
[2016-12-27 19:17] LABS: ALKALINE PHOSPHATASE 82 U/L (45-117); ALT (GPT) 12 U/L (12-78); ANION GAP 8 MEQ/L (5-15); AST (GOT) 8 U/L (15-37); BICARBONATE 29.6 MEQ/L (21.0-32.0); BLOOD UREA NITROGEN 19 MG/DL (7-18); CHLORIDE 99 MEQ/L (98-107); GLOMERULAR FILTRATION RATE 73 ML/MIN (>89); POTASSIUM 3.1 MEQ/L (3.5-5.1); SODIUM (NA) 137 MEQ/L (136-145); TOTAL BILIRUBIN ADULT 0.3 MG/DL (0.2-1.0)
[2016-12-27 20:00] VITALS: BP 156/87; PULSE 70; RESP 17; TEMP 96.7; O2SAT 97
[2016-12-27] MEDS: INSULIN DETEMIR 100 UNITS/ML VIAL SQ SCH (20:18)
[2016-12-27] MEDS: traZODone HCL 50 MG TAB PO SCH (20:19)
[2016-12-28] VITALS: BP 157/75; PULSE 61; RESP 17; TEMP 96; O2SAT 94
[2016-12-28] MEDS: ZOLPIDEM TARTRATE 5 MG TAB PO PRN (00:23)
[2016-12-28 04:00] VITALS: BP 168/81; PULSE 64; RESP 17; TEMP 96.5; O2SAT 94
[2016-12-28 05:03] LABS: AUTOMATED NEUTROPHIL # 13.4 TH/MM3 (1.8-7.7); EOSINOPHIL % 0.1 % (0.0-4.0); HEMATOCRIT 34.7 % (39.0-51.0); LYMPH % 7.9 % (9.0-44.0); LYMPHOCYTE # 1.2 TH/MM3 (1.0-4.8); MEAN CELL VOLUME 82.6 FL (80.0-100.0); MEAN CORPUSCULAR HEMOGLOBIN 26.5 PG (27.0-34.0); MONO % 2.7 % (0.0-8.0); NEUT % 89.3 % (16.0-70.0); PLATELET COUNT 93 TH/MM3 (150-450); RED CELL DISTRIBUTION WIDTH 13.9 % (11.6-17.2)
[2016-12-28 05:12] LABS: BICARBONATE 27.7 MEQ/L (21.0-32.0); POTASSIUM 3.6 MEQ/L (3.5-5.1)
[2016-12-28] MEDS: INSULIN ASPART SUPPLEMENTAL SCALE SQ SCH ×4 (05:36→22:35)
[2016-12-28] MEDS: HEPARIN SODIUM - SQ 10,000 UNITS/ML VIAL SQ SCH ×2 (05:36→17:09)
[2016-12-28] MEDS: NYSTAT/DIPHENHY/LIDO MOUTHWASH (Adult) 120ML SWISH-SWAL SCH ×4 (05:40→22:37)
[2016-12-28] MEDS: SODIUM CHLOR 0.9% 1000 ML INJ 1,000 ML IV SCH ×2 (06:07→16:02)
[2016-12-28 06:11] LABS: HEMO FLAGS AUTO DIFF
[2016-12-28 06:56] LABS: PLATELET ESTIMATE SMEAR LOW (NORMAL); PLATELET MORPHOLOGY NORMAL (NORMAL); SCAN/DIFF AUTO DIFF CONFIRMED
[2016-12-28 08:00] VITALS: BP 161/100; PULSE 87; RESP 20; TEMP 96.1; O2SAT 93
[2016-12-28] MEDS: methylPREDNISolone SOD SUCC 40 MG/1 ML VIAL IV PUSH SCH ×2 (09:17→22:37)
[2016-12-28] MEDS: QUEtiapine FUMARATE 25 MG TAB PO SCH ×2 (09:17→22:36)
[2016-12-28] MEDS: MORPHINE SULFATE 4 MG/ML INJ IV PUSH PRN ×2 (09:18→22:37)
[2016-12-28] MEDS: NYSTATIN SUSP 500,000 U/5 ML CUP SWISH-SWAL SCH ×3 (09:18→22:36)
[2016-12-28] MEDS: SODIUM CHLORIDE 0.9% FLUSH 10 ML FLUSH IV FLUSH SCH ×2 (09:18→22:38)
[2016-12-28 12:00] VITALS: BP 166/87; PULSE 71; TEMP 95.3; O2SAT 93
--- NOTE | 2016-12-28 14:06 | PD.ONC.PN ---
Subjective Subjective Remarks Afebrile overnight. Patient resting comfortably without complaint. No reported bleeding. Tube feeding not started yet. Objective Data Date Time Temp Pulse Resp B/P Pulse Ox O2 Delivery O2 Flow Rate FiO2 12/28/16 12:00 95.3 71 166/87 93 12/28/16 08:00 96.1 87 20 161/100 93 12/28/16 04:00 96.5 64 17 168/81 94 12/28/16 00:00 96.0 61 17 157/75 94 12/27/16 20:00 96.7 70 17 156/87 97 12/27/16 16:15 80 12 161/82 99 Nasal Cannula 2 12/27/16 16:00 91 12 176/89 98 Nasal Cannula 2 12/27/16 16:00 96.2 89 20 179/89 98 12/27/16 15:45 98.1 81 12 161/98 98 Nasal Cannula 2 Result Diagram: 12/28/16 0415 12/28/16 0415 Laboratory Results Laboratory Tests Test 12/27/16 12/28/16 18:15 04:15 White Blood Count 20.7 TH/MM3 15.0 TH/MM3 Red Blood Count 4.48 MIL/MM3 4.20 MIL/MM3 Hemoglobin 11.9 GM/DL 11.1 GM/DL Hematocrit 37.2 % 34.7 % Mean Corpuscular Volume 83.0 FL 82.6 FL Mean Corpuscular Hemoglobin 26.7 PG 26.5 PG Mean Corpuscular Hemoglobin 32.1 % 32.0 % Concent Red Cell Distribution Width 14.0 % 13.9 % Platelet Count 416 TH/MM3 93 TH/MM3 Mean Platelet Volume 8.6 FL 8.6 FL Neutrophils (%) (Auto) 87.3 % 89.3 % Lymphocytes (%) (Auto) 8.5 % 7.9 % Monocytes (%) (Auto) 4.0 % 2.7 % Eosinophils (%) (Auto) 0.0 % 0.1 % Basophils (%) (Auto) 0.2 % 0.0 % Neutrophils # (Auto) 18.1 TH/MM3 13.4 TH/MM3 Lymphocytes # (Auto) 1.8 TH/MM3 1.2 TH/MM3 Monocytes # (Auto) 0.8 TH/MM3 0.4 TH/MM3 Eosinophils # (Auto) 0.0 TH/MM3 0.0 TH/MM3 Basophils # (Auto) 0.0 TH/MM3 0.0 TH/MM3 CBC Comment DIFF FINAL AUTO DIFF Differential Comment AUTO DIFF CONFIRMED Sodium Level 137 MEQ/L 137 MEQ/L Potassium Level 3.1 MEQ/L 3.6 MEQ/L Chloride Level 99 MEQ/L 100 MEQ/L Carbon Dioxide Level 29.6 MEQ/L 27.7 MEQ/L Anion Gap 8 MEQ/L 9 MEQ/L Blood Urea Nitrogen 19 MG/DL 16 MG/DL Creatinine 1.00 MG/DL 0.74 MG/DL Estimat Glomerular Filtration 73 ML/MIN 104 ML/MIN Rate Random Glucose 253 MG/DL 255 MG/DL Calcium Level 8.4 MG/DL 8.0 MG/DL Total Bilirubin 0.3 MG/DL Aspartate Amino Transf 8 U/L (AST/SGOT) Alanine Aminotransferase 12 U/L (ALT/SGPT) Alkaline Phosphatase 82 U/L Total Protein 6.0 GM/DL Albumin 2.5 GM/DL Platelet Estimate LOW Platelet Morphology Comment NORMAL Administered Medications Medications (Trade) Dose Ordered Sig/Rosalind Route PRN Reason Start Time Stop Time Status Last Admin Dose Admin Sodium Chloride (NS 1000 ml Inj) 1,000 ml @ 100 mls/hr Q10H IV 12/22/16 17:00 12/28/16 06:07 Sodium Chloride (NS Flush) 2 ml BID IV FLUSH 12/22/16 21:00 12/28/16 09:18 Heparin Sodium (Porcine) (Heparin Inj) 5,000 units Q12H SQ 12/22/16 17:00 12/28/16 05:36 Acetaminophen/ Hydrocodone Bitart (Hycet 325-7.5 Mg Liq) 10 ml Q6H PRN PO PAIN 1-6 12/22/16 18:30 12/22/16 22:44 Nystatin (Mycostatin Liq) 5 ml QID SWISH-SWAL 12/22/16 21:00 12/28/16 09:18 Multi-Ingredient Mouthwash/Gargle (Magic Mouthwash Adult Liq) 10 ml ACHS SWISH-SWAL 12/22/16 21:00 12/28/16 12:33 Trazodone HCl (Desyrel) 50 mg HS PO 12/22/16 21:00 12/27/16 20:19 Insulin Detemir (Levemir Inj) 5 units HS SQ 12/22/16 21:00 12/27/16 20:18 Morphine Sulfate (Morphine Inj) 4 mg Q3H PRN IV PUSH pain 7-10 12/22/16 18:45 12/28/16 09:18 Quetiapine Fumarate (SEROquel) 25 mg BID PO 12/23/16 15:00 12/28/16 09:17 Methylprednisolone Sodium Succinate (SoluMEDROL INJ) 40 mg BID IV PUSH 12/24/16 21:00 12/28/16 09:17 Zolpidem Tartrate (Ambien) 5 mg HS PRN PO INSOMNIA 12/24/16 19:30 12/28/16 00:23 Objective Remarks GENERAL: Elderly male, lying in bed watching TV SKIN: Warm and dry. HEAD: Normocephalic. EYES: No injection or drainage. NECK: Supple, trachea midline. CARDIOVASCULAR: Regular rate and rhythm RESPIRATORY: Breath sounds equal bilaterally. No accessory muscle use. GASTROINTESTINAL: Abdomen soft, non-tender, nondistended. EXTREMITIES: No cyanosis or edema. Assessment/Plan Problem List: (1) Thrombocytopenia Status: Acute Plan: --unclear etiology. will order repeat CBC to assess. --will also check u/s for emboli, coags for DIC, may need to check HIT as well as peripheral smear if repeat CBC shows persistent thrombocytopenia (2) Squamous cell cancer of tongue Status: Acute Plan: -- s/p PEG tube placement --plan to start chemotherapy outpatient -- Pt has been rendered incompetent to make decisions by psychiatry -- Brother Anmol is now pt's healthcare surrogate Assessment 71y/o male with head and neck cancer. history of diabetes, hypertension, hyperlipidemia history of dementia with psychoses. He had possible polysubstance induced mood disorder. Left hemiglossectomy Plan 1. start tube feeds per dietitian recommendations 2. check u/s lower extremities for emboli 3. check repeat CBC to assess thrombocytopenia Jacqueline Bowden Dec 28, 2016 14:06
--- NOTE | 2016-12-28 15:03 | HHI.GIFU ---
Subjective Remarks Pt resting in bed. Mostly nonverbal but does indicate that he is hungry,no n/v , or abd pain. (Delores Srivastava) Objective Vitals I&O Vital Signs Date Time Temp Pulse Resp B/P Pulse Ox O2 Delivery O2 Flow Rate FiO2 12/28/16 12:00 95.3 71 166/87 93 12/28/16 08:00 96.1 87 20 161/100 93 12/28/16 04:00 96.5 64 17 168/81 94 12/28/16 00:00 96.0 61 17 157/75 94 12/27/16 20:00 96.7 70 17 156/87 97 12/27/16 16:15 80 12 161/82 99 Nasal Cannula 2 12/27/16 16:00 91 12 176/89 98 Nasal Cannula 2 12/27/16 16:00 96.2 89 20 179/89 98 12/27/16 15:45 98.1 81 12 161/98 98 Nasal Cannula 2 I/O 12/27/16 12/27/16 12/27/16 12/28/16 12/28/16 12/28/16 07:00 15:00 23:00 07:00 15:00 23:00 Intake Total 1252 ml 530 ml 1125 ml 1162 ml 360 ml Output Total 500 ml 950 ml 550 ml 700 ml Balance 752 ml 530 ml 175 ml 612 ml -340 ml Intake Oral 625 ml 1162 ml 360 ml IV Total 1252 ml 530 ml Other 500 ml Output Urine Total 500 ml 950 ml 550 ml 700 ml # Voids 1 2 Laboratory Laboratory Tests Test 12/27/16 12/28/16 18:15 04:15 White Blood Count 20.7 15.0 Red Blood Count 4.48 4.20 Hemoglobin 11.9 11.1 Hematocrit 37.2 34.7 Mean Corpuscular Volume 83.0 82.6 Mean Corpuscular Hemoglobin 26.7 26.5 Mean Corpuscular Hemoglobin 32.1 32.0 Concent Red Cell Distribution Width 14.0 13.9 Platelet Count 416 93 Mean Platelet Volume 8.6 8.6 Neutrophils (%) (Auto) 87.3 89.3 Lymphocytes (%) (Auto) 8.5 7.9 Monocytes (%) (Auto) 4.0 2.7 Eosinophils (%) (Auto) 0.0 0.1 Basophils (%) (Auto) 0.2 0.0 Neutrophils # (Auto) 18.1 13.4 Lymphocytes # (Auto) 1.8 1.2 Monocytes # (Auto) 0.8 0.4 Eosinophils # (Auto) 0.0 0.0 Basophils # (Auto) 0.0 0.0 CBC Comment DIFF FINAL AUTO DIFF Differential Comment AUTO DIFF CONFIRMED Sodium Level 137 137 Potassium Level 3.1 3.6 Chloride Level 99 100 Carbon Dioxide Level 29.6 27.7 Anion Gap 8 9 Blood Urea Nitrogen 19 16 Creatinine 1.00 0.74 Estimat Glomerular Filtration 73 104 Rate Random Glucose 253 255 Calcium Level 8.4 8.0 Total Bilirubin 0.3 Aspartate Amino Transf 8 (AST/SGOT) Alanine Aminotransferase 12 (ALT/SGPT) Alkaline Phosphatase 82 Total Protein 6.0 Albumin 2.5 Platelet Estimate LOW Platelet Morphology Comment NORMAL Imaging Last Impressions Chest X-Ray 12/22/16 0000 Signed Impressions: Service Date/Time: Thursday, December 22, 2016 19:51 - CONCLUSION: No acute disease. Ji Trevino Jr., MD Physical Exam HEENT: Normocephalic; atraumatic; no jaundice. CHEST: CTA CARDIAC: RRR ABDOMEN: Soft, nondistended, nontender; no hepatosplenomegaly; bowel sounds are present in all four quadrants. PEG site free of redness, swelling EXTREMITIES: No clubbing, cyanosis, or edema. SKIN: Normal; no rash; no jaundice. STEP DOWN SPECIALIST: Alert,Garbled speech (Delores Srivastava) Assessment and Plan Plan ASSESSMENT: - Dysphagia, FEN. 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 Port was placed on 12/14/16. He was also supposed to have teeth extraction by maxillofacial in anticipation of radiation. He was seen in Dr. Villeda' office for induction chemotherapy, but was found to be having difficulty clearing his secretions. Pt. has missed oncology follow and they have not been able to coordinate treatment with radiation oncology. GI was consulted for PEG tube placement. Pt had been adamantly refusing, but was seen by the psychiatrist and declared incompetent. Palliative care/CM following. Durable POA has never been completed. Per the nursing staff the pts son was located but does not want to be the pts healthcare decision maker and the pts brother has reportedly stepped in as decision maker. 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 Port has been placed. Needs teeth extraction for radiation and PEG for nutrition prior to tx for cancer. - DM, HTN, Hyperlipidemia, Dementia per primary. PLAN: - start TF - palliative care following - Oncology following - Pt seen and examined by Dr. Neves and myself and this note is written on his behalf (Delores Srivastava) Physician Comments Patient seen and examined Agree with above Continue with current supportive care Monitor labs Okay to start using the PEG tube We will sign off (Lexa Neves MD) Delores Srivastava Dec 28, 2016 15:03 Lexa Neves MD Dec 28, 2016 21:09
--- NOTE | 2016-12-28 15:19 | HHI.PR ---
Subjective History of Present Illness resting in bed awake & responsive +ve intermittent cough , no sputum No fever or chills No N/V denies CP , No SOB forgetful offers no c/o Vitals/Results Intake & Output 12/27/16 12/27/16 12/28/16 15:00 23:00 07:00 Intake Total 530 ml 1125 ml 1162 ml Output Total 950 ml 550 ml Balance 530 ml 175 ml 612 ml Intake Oral 625 ml 1162 ml IV Total 530 ml Other 500 ml Output Urine Total 950 ml 550 ml # Voids 1 2 Vital Signs Vital Signs Date Time Temp Pulse Resp B/P Pulse Ox O2 Delivery O2 Flow Rate FiO2 12/28/16 12:00 95.3 71 166/87 93 12/28/16 08:00 96.1 87 20 161/100 93 12/28/16 04:00 96.5 64 17 168/81 94 12/28/16 00:00 96.0 61 17 157/75 94 12/27/16 20:00 96.7 70 17 156/87 97 12/27/16 16:15 80 12 161/82 99 Nasal Cannula 2 12/27/16 16:00 91 12 176/89 98 Nasal Cannula 2 12/27/16 16:00 96.2 89 20 179/89 98 12/27/16 15:45 98.1 81 12 161/98 98 Nasal Cannula 2 CBC/BMP: 12/28/16 0415 12/28/16 0415 Lab Results Laboratory Tests Test 12/27/16 12/28/16 18:15 04:15 White Blood Count 20.7 TH/MM3 15.0 TH/MM3 Red Blood Count 4.48 MIL/MM3 4.20 MIL/MM3 Hemoglobin 11.9 GM/DL 11.1 GM/DL Hematocrit 37.2 % 34.7 % Mean Corpuscular Volume 83.0 FL 82.6 FL Mean Corpuscular Hemoglobin 26.7 PG 26.5 PG Mean Corpuscular Hemoglobin 32.1 % 32.0 % Concent Red Cell Distribution Width 14.0 % 13.9 % Platelet Count 416 TH/MM3 93 TH/MM3 Mean Platelet Volume 8.6 FL 8.6 FL Neutrophils (%) (Auto) 87.3 % 89.3 % Lymphocytes (%) (Auto) 8.5 % 7.9 % Monocytes (%) (Auto) 4.0 % 2.7 % Eosinophils (%) (Auto) 0.0 % 0.1 % Basophils (%) (Auto) 0.2 % 0.0 % Neutrophils # (Auto) 18.1 TH/MM3 13.4 TH/MM3 Lymphocytes # (Auto) 1.8 TH/MM3 1.2 TH/MM3 Monocytes # (Auto) 0.8 TH/MM3 0.4 TH/MM3 Eosinophils # (Auto) 0.0 TH/MM3 0.0 TH/MM3 Basophils # (Auto) 0.0 TH/MM3 0.0 TH/MM3 CBC Comment DIFF FINAL AUTO DIFF Differential Comment AUTO DIFF CONFIRMED Sodium Level 137 MEQ/L 137 MEQ/L Potassium Level 3.1 MEQ/L 3.6 MEQ/L Chloride Level 99 MEQ/L 100 MEQ/L Carbon Dioxide Level 29.6 MEQ/L 27.7 MEQ/L Anion Gap 8 MEQ/L 9 MEQ/L Blood Urea Nitrogen 19 MG/DL 16 MG/DL Creatinine 1.00 MG/DL 0.74 MG/DL Estimat Glomerular Filtration 73 ML/MIN 104 ML/MIN Rate Random Glucose 253 MG/DL 255 MG/DL Calcium Level 8.4 MG/DL 8.0 MG/DL Total Bilirubin 0.3 MG/DL Aspartate Amino Transf 8 U/L (AST/SGOT) Alanine Aminotransferase 12 U/L (ALT/SGPT) Alkaline Phosphatase 82 U/L Total Protein 6.0 GM/DL Albumin 2.5 GM/DL Platelet Estimate LOW Platelet Morphology Comment NORMAL Physical Exam General General Appearance: No Acute Distress, Comfortable, Anxious Eyes Eye Exam: Pupils Equal, Sclera White, Extraocular Movement Intact Ears & Nose Ears & Nose Exam: Nasal Mucosa [place] Throat Throat Exam: Oral Mucosa [place] & Moist Neck Neck Exam: Neck Supple, Trachea Midline Pulmonary Resp Exam: Breath Sounds Equal, No Distress Cardiology CV Exam: Normal Sinus Rhythm, Good Perfusion Gastrointestinal/Abdomen GI Exam: Soft, Non-Tender, Bowel Sounds Present GI Remarks +ve PEG tube Integumentary Skin Exam: Warm, Dry, Intact Neurologic Neuro Exam: Alert, Awake, Moving All Extremities Neuro Remarks thick tongue, speech is not clear Psychiatric Psych Exam: Appropriate Responses PUD Prophylasis PUD Prophylaxis: Protonix Assessment/Plan Assessment/Plan Assessment Tongue cancer, squamous cell carcinoma Mouth pain Large neck tumor Difficulty swallowing/ Dysphagia Anemia History of Dementia, Diabetes, hyperlipidemia, hypertension, mood disorder Management Pain control IV fluids Nothing by mouth s/p; PEG tube placement Tube feeding analgesic BP control Psychiatry consultation appreciated /PT is deemed Not competent to give/ withhold consent . seroquel/[place] analgesic d/w Oncology DIRECTOR [employer] / chemo is being contemplated will need Port placement PT eval DVT prophylaxis/ sq Heparin I called & spoke w PT's brother Anmol , d/w findings in detail/answered all of his questions he verbalized understanding . ss for d/c planning , d/w SW , as pt need Chemo , SNF will not accept him , therefore will have to go home w [facility] am labs will f/u Memo Ulrich MD Dec 28, 2016 15:19
[2016-12-28 16:00] VITALS: BP 163/74; PULSE 62; RESP 18; TEMP 97.6; O2SAT 94
--- NOTE | 2016-12-28 16:04 | RADRPT ---
EXAM DATE/TIME: 12/28/2016 15:18 [place] COMPARISON: No previous studies available for comparison. INDICATIONS : Bilateral leg swelling. MEDICAL HISTORY : Carcinoma, tongue. Dementia. Neuropathy. CVA. HTN. Colitis. Sleep apnea. Diabetes. SURGICAL HISTORY : Tonsillectomy.Appendectomy. Right arm surgery. ENCOUNTER: Initial ACUITY: 1 day PAIN SCORE: 0/10 LOCATION: Bilateral leg. TECHNIQUE: Venous ultrasound of the left and right leg was performed from the inguinal ligament to the proximal calf. Real-time, color Doppler and spectral tracing, compression and augmentation techniques were us ed. FINDINGS: RIGHT LEG: There is normal compressibility of the deep venous system from the inguinal region to the proximal ca lf. No echogenic clot is seen in the lumen of the common femoral, femoral, popliteal, and posterior tibial veins. There is a normal response of the venous system to proximal and distal augmentation an d respiration. LEFT LEG: There is normal compressibility of the deep venous system from the inguinal region to the proximal ca lf. No echogenic clot is seen in the lumen of the common femoral, femoral, popliteal, and posterior tibial veins. There is a normal response of the venous system to proximal and distal augmentation an d respiration. CONCLUSION: Negative exam with no evidence of deep venous thrombosis. Eron Hernandez MD on December 28, 2016 at 16:02 Board Certified Radiologist. This report was verified electronically.
[2016-12-28 17:31] LABS: AUTOMATED NEUTROPHIL # 23.4 TH/MM3 (1.8-7.7); BASOPHIL % 0.2 % (0.0-2.0); HEMO FLAGS DIFF FINAL; LYMPH % 4.6 % (9.0-44.0); LYMPHOCYTE # 1.2 TH/MM3 (1.0-4.8); MEAN CELL VOLUME 82.2 FL (80.0-100.0); MEAN CORPUSCULAR HEMOGLOBIN 26.8 PG (27.0-34.0); MEAN CORPUSCULAR HGB CONC 32.7 % (32.0-36.0); MONO % 4.2 % (0.0-8.0); PLATELET COUNT 374 TH/MM3 (150-450); RED BLOOD COUNT 4.14 MIL/MM3 (4.50-5.90); RED CELL DISTRIBUTION WIDTH 13.9 % (11.6-17.2); WHITE BLOOD COUNT 25.8 TH/MM3 (4.0-11.0)
[2016-12-28 17:45] LABS: INTERNATIONAL NORMALIZED RATIO 1.1 RATIO; PROTHROMBIN TIME - PATIENT 11.9 SEC (9.8-11.6)
[2016-12-28 20:00] VITALS: BP 151/87; PULSE 62; RESP 18; TEMP 97.1; O2SAT 95
[2016-12-28] MEDS: INSULIN DETEMIR 100 UNITS/ML VIAL SQ SCH (22:35)
[2016-12-28] MEDS: traZODone HCL 50 MG TAB PO SCH (22:36)
[2016-12-29] VITALS: BP 144/67; PULSE 66; RESP 17; TEMP 96.2; O2SAT 96
[2016-12-29] MEDS ORDERED: SODIUM CHLORIDE 0.9% FLUSH 10 ML FLUSH IV FLUSH PRN (02:30)
[2016-12-29 04:00] VITALS: BP 177/99; PULSE 78; RESP 17; TEMP 96.7; O2SAT 97
[2016-12-29] MEDS: HEPARIN SODIUM - SQ 10,000 UNITS/ML VIAL SQ SCH ×2 (05:11→17:56)
[2016-12-29] MEDS: INSULIN ASPART SUPPLEMENTAL SCALE SQ SCH ×3 (05:12→17:56)
[2016-12-29] MEDS: NYSTAT/DIPHENHY/LIDO MOUTHWASH (Adult) 120ML SWISH-SWAL SCH ×3 (05:13→17:56)
[2016-12-29 06:22] LABS: AUTOMATED NEUTROPHIL # 20.1 TH/MM3 (1.8-7.7); BASOPHIL # 0.1 TH/MM3 (0-0.2); BASOPHIL % 0.3 % (0.0-2.0); HEMATOCRIT 36.3 % (39.0-51.0); HEMO FLAGS DIFF FINAL; LYMPH % 5.7 % (9.0-44.0); LYMPHOCYTE # 1.3 TH/MM3 (1.0-4.8); MEAN CELL VOLUME 81.9 FL (80.0-100.0); MEAN CORPUSCULAR HEMOGLOBIN 27.2 PG (27.0-34.0); MEAN CORPUSCULAR HGB CONC 33.2 % (32.0-36.0); MONO % 2.9 % (0.0-8.0); NEUT % 91.1 % (16.0-70.0); PLATELET COUNT 385 TH/MM3 (150-450); RED BLOOD COUNT 4.43 MIL/MM3 (4.50-5.90); RED CELL DISTRIBUTION WIDTH 13.8 % (11.6-17.2); WHITE BLOOD COUNT 22.1 TH/MM3 (4.0-11.0)
[2016-12-29 06:50] LABS: POTASSIUM 3.4 MEQ/L (3.5-5.1)
[2016-12-29 06:51] LABS: BICARBONATE 28.2 MEQ/L (21.0-32.0)
[2016-12-29 08:00] VITALS: BP 147/62; PULSE 80; RESP 20; TEMP 96.5; O2SAT 93
[2016-12-29] MEDS: SODIUM CHLORIDE 0.9% FLUSH 10 ML FLUSH IV FLUSH SCH (11:27)
[2016-12-29] MEDS: methylPREDNISolone SOD SUCC 40 MG/1 ML VIAL IV PUSH SCH (11:27)
[2016-12-29] MEDS: NYSTATIN SUSP 500,000 U/5 ML CUP SWISH-SWAL SCH ×3 (11:32→17:57)
[2016-12-29 12:00] VITALS: BP 153/86; PULSE 97; RESP 21; TEMP 97.1; O2SAT 92
[2016-12-29] MEDS: QUEtiapine FUMARATE 25 MG TAB PO SCH ×2 (13:21→23:44)
--- NOTE | 2016-12-29 15:23 | HHI.PR ---
Subjective Subjective Remarks Patient awake Watching TV Resting in bed no acute anxiety for now (Shara Ni) Review of Systems Constitutional Constitutional Remarks Unable to assess ROS due to patient's altered mental status (Shara Ni) Vitals/Results Intake & Output 12/28/16 12/28/16 12/29/16 15:00 23:00 07:00 Intake Total 1477 ml Output Total 700 ml 630 ml 400 ml Balance 777 ml -630 ml -400 ml Intake Oral 360 ml IV Total 1057 ml Other 60 ml Output Urine Total 700 ml 630 ml 400 ml # Voids 3 Vital Signs Vital Signs Date Time Temp Pulse Resp B/P Pulse Ox O2 Delivery O2 Flow Rate FiO2 12/29/16 12:00 97.1 97 21 153/86 92 12/29/16 08:00 96.5 80 20 147/62 93 12/29/16 04:00 96.7 78 17 177/99 97 12/29/16 00:47 16 12/29/16 00:00 96.2 66 17 144/67 96 12/28/16 20:00 97.1 62 18 151/87 95 12/28/16 16:00 97.6 62 18 163/74 94 (Shara Ni) CBC/BMP: 12/29/16 0503 12/29/16 0503 Lab Results Laboratory Tests Test 12/28/16 12/29/16 17:10 05:03 White Blood Count 25.8 TH/MM3 22.1 TH/MM3 Red Blood Count 4.14 MIL/MM3 4.43 MIL/MM3 Hemoglobin 11.1 GM/DL 12.1 GM/DL Hematocrit 34.0 % 36.3 % Mean Corpuscular Volume 82.2 FL 81.9 FL Mean Corpuscular Hemoglobin 26.8 PG 27.2 PG Mean Corpuscular Hemoglobin 32.7 % 33.2 % Concent Red Cell Distribution Width 13.9 % 13.8 % Platelet Count 374 TH/MM3 385 TH/MM3 Mean Platelet Volume 8.4 FL 9.6 FL Neutrophils (%) (Auto) 91.0 % 91.1 % Lymphocytes (%) (Auto) 4.6 % 5.7 % Monocytes (%) (Auto) 4.2 % 2.9 % Eosinophils (%) (Auto) 0.0 % 0.0 % Basophils (%) (Auto) 0.2 % 0.3 % Neutrophils # (Auto) 23.4 TH/MM3 20.1 TH/MM3 Lymphocytes # (Auto) 1.2 TH/MM3 1.3 TH/MM3 Monocytes # (Auto) 1.1 TH/MM3 0.6 TH/MM3 Eosinophils # (Auto) 0.0 TH/MM3 0.0 TH/MM3 Basophils # (Auto) 0.0 TH/MM3 0.1 TH/MM3 CBC Comment DIFF FINAL DIFF FINAL Differential Comment Prothrombin Time 11.9 SEC Prothromb Time International 1.1 RATIO Ratio Activated Partial 28.0 SEC Thromboplast Time Fibrinogen 249 mg/dL Sodium Level 134 MEQ/L Potassium Level 3.4 MEQ/L Chloride Level 96 MEQ/L Carbon Dioxide Level 28.2 MEQ/L Anion Gap 10 MEQ/L Blood Urea Nitrogen 14 MG/DL Creatinine 0.74 MG/DL Estimat Glomerular Filtration 104 ML/MIN Rate Random Glucose 270 MG/DL Calcium Level 8.5 MG/DL Imaging Remarks Last Impressions Lower Extremity Ultrasound 12/28/16 0000 Signed Impressions: Service Date/Time: Wednesday, December 28, 2016 15:18 - CONCLUSION: Negative exam with no evidence of deep venous thrombosis. Eron Hernandez MD Chest X-Ray 12/22/16 0000 Signed Impressions: Service Date/Time: Thursday, December 22, 2016 19:51 - CONCLUSION: No acute disease. Ji Trevino Jr., MD Current Medications Administered Medications Medications (Trade) Dose Ordered Sig/Rosalind Route PRN Reason Start Time Stop Time Status Last Admin Dose Admin Sodium Chloride (NS 1000 ml Inj) 1,000 ml @ 42 mls/hr [id number] IV 12/22/16 17:00 12/28/16 16:02 Sodium Chloride (NS Flush) 2 ml BID IV FLUSH 12/22/16 21:00 12/29/16 11:27 Heparin Sodium (Porcine) (Heparin Inj) 5,000 units Q12H SQ 12/22/16 17:00 12/29/16 05:11 Acetaminophen/ Hydrocodone Bitart (Hycet 325-7.5 Mg Liq) 10 ml Q6H PRN PO PAIN 1-6 12/22/16 18:30 12/22/16 22:44 Nystatin (Mycostatin Liq) 5 ml QID SWISH-SWAL 12/22/16 21:00 12/28/16 22:36 Multi-Ingredient Mouthwash/Gargle (Magic Mouthwash Adult Liq) 10 ml ACHS SWISH-SWAL 12/22/16 21:00 12/29/16 05:13 Trazodone HCl (Desyrel) 50 mg HS PO 12/22/16 21:00 12/28/16 22:36 Insulin Detemir (Levemir Inj) 5 units HS SQ 12/22/16 21:00 12/28/16 22:35 Morphine Sulfate (Morphine Inj) 4 mg Q3H PRN IV PUSH pain 7-10 12/22/16 18:45 12/28/16 22:37 Quetiapine Fumarate (SEROquel) 25 mg BID PO 12/23/16 15:00 12/28/16 22:36 Methylprednisolone Sodium Succinate (SoluMEDROL INJ) 40 mg BID IV PUSH 12/24/16 21:00 12/29/16 11:27 Zolpidem Tartrate (Ambien) 5 mg HS PRN PO INSOMNIA 12/24/16 19:30 12/28/16 00:23 (Shara Ni) Physical Exam General General Appearance: No Acute Distress, Comfortable, Anxious (Shara NiP) Eyes Eye Exam: Pupils Equal, Sclera White, Extraocular Movement Intact (Shara NiP) Ears & Nose Ears & Nose Exam: Nasal Mucosa [place] (Shara NiP) Throat Throat Exam: Oral Mucosa [place] & Moist (Shara NiP) Neck Neck Exam: Neck Supple, Trachea Midline (Shara NiP) Pulmonary Resp Exam: Breath Sounds Equal, No Distress (Shara NiP) Cardiology CV Exam: Normal Sinus Rhythm, Good Perfusion (Shara NiP) Gastrointestinal/Abdomen GI Exam: Soft, Non-Tender, Bowel Sounds Present GI Remarks New PEG tube on 12-28, pulled out on 12-29 along with IV (Shara NiP) Integumentary Skin Exam: Warm, Dry, Intact (Shara NiP) Neurologic Neuro Exam: Alert, Awake, Moving All Extremities (Shara Ni) Psychiatric Psych Exam: Appropriate Responses (Shara Ni) PUD Prophylasis PUD Prophylaxis: Protonix (Shara Ni) Assessment/Plan Assessment/Plan Assessment Tongue cancer, squamous cell carcinoma Mouth pain Large neck tumor Difficulty swallowing/ Dysphagia Patient states I'm hungry, Anemia History of Dementia, Diabetes, hyperlipidemia, hypertension, mood disorder Hypokalemia plan: Vital signs reviewed Labs reviewed, leukocytosis persist but is showing gradual improvement Anemia, probable secondary to chronic disease, and cancer Diabetes mellitus 2 managed with Accu-Cheks and sliding scale, blood sugars are labile and uncontrolled which is probably chronic for him Pain control IV fluids Nothing by mouth PEG tube placement on 425, got up and went to the bathroom on 426 and pulled out IV and PEG, abdominal dressing clean dry and intact, very small incision line has closed back up. Potassium doses given today 1 BP control Psychiatry consultation appreciated /PT is deemed Not competent to give/ withhold consent . seroquel/[place],, affected most of the time the patient still has mood swings analgesic PT following DVT prophylaxis/ sq Heparin Brother who is the POA is coming back into town on 427. Plan is for Dr. ulrich to meet with him and discuss options. For patient to be able to get chemotherapy he has to be at home with a full caregiver. Not sure that option is possible ss for d/c planning , d/w SW , as pt need Chemo , SNF will not accept him , therefore will have to go home w [facility] Palliative care has been involved, may need to revisit patient's options after meeting tomorrow (Shara Ni) Assessment/Plan pt was seen & examined yesterday afternoon he has pulled his PEG tube out Dr Neves was made aware d/w DR Villanueva , it will extremely challenging to treat this pt d/t his underlying dementia , weakness, hx of falls & poor support. she agreed , & Rec palliative treatment I called PT's brother again , d/w in detail , updated him on the situation. he wants to meet in person & will come tomorrow am to talk d/w shara d/w RN will f/u (Memo Ulrich MD) Shara Ni Dec 29, 2016 15:23 Memo Ulrich MD Dec 30, 2016 09:54
[2016-12-29 16:00] VITALS: BP 169/87; PULSE 82; RESP 20; TEMP 96.2; O2SAT 92
--- NOTE | 2016-12-29 16:29 | PD.ONC.PN ---
Subjective Subjective Remarks Afebrile overnight Per RN, he pulled out his PEG, port access. He currently denies pain. States he still wants chemo. Objective Data Date Time Temp Pulse Resp B/P Pulse Ox O2 Delivery O2 Flow Rate FiO2 12/29/16 12:00 97.1 97 21 153/86 92 12/29/16 08:00 96.5 80 20 147/62 93 12/29/16 04:00 96.7 78 17 177/99 97 12/29/16 00:47 16 12/29/16 00:00 96.2 66 17 144/67 96 12/28/16 20:00 97.1 62 18 151/87 95 12/29/16 12/29/16 12/29/16 07:00 15:00 23:00 Intake Total 540 ml Output Total 400 ml 600 ml Balance -400 ml -60 ml Result Diagram: 12/29/16 0503 12/29/16 0503 Laboratory Results Laboratory Tests Test 12/28/16 12/29/16 17:10 05:03 White Blood Count 25.8 TH/MM3 22.1 TH/MM3 Red Blood Count 4.14 MIL/MM3 4.43 MIL/MM3 Hemoglobin 11.1 GM/DL 12.1 GM/DL Hematocrit 34.0 % 36.3 % Mean Corpuscular Volume 82.2 FL 81.9 FL Mean Corpuscular Hemoglobin 26.8 PG 27.2 PG Mean Corpuscular Hemoglobin 32.7 % 33.2 % Concent Red Cell Distribution Width 13.9 % 13.8 % Platelet Count 374 TH/MM3 385 TH/MM3 Mean Platelet Volume 8.4 FL 9.6 FL Neutrophils (%) (Auto) 91.0 % 91.1 % Lymphocytes (%) (Auto) 4.6 % 5.7 % Monocytes (%) (Auto) 4.2 % 2.9 % Eosinophils (%) (Auto) 0.0 % 0.0 % Basophils (%) (Auto) 0.2 % 0.3 % Neutrophils # (Auto) 23.4 TH/MM3 20.1 TH/MM3 Lymphocytes # (Auto) 1.2 TH/MM3 1.3 TH/MM3 Monocytes # (Auto) 1.1 TH/MM3 0.6 TH/MM3 Eosinophils # (Auto) 0.0 TH/MM3 0.0 TH/MM3 Basophils # (Auto) 0.0 TH/MM3 0.1 TH/MM3 CBC Comment DIFF FINAL DIFF FINAL Differential Comment Prothrombin Time 11.9 SEC Prothromb Time International 1.1 RATIO Ratio Activated Partial 28.0 SEC Thromboplast Time Fibrinogen 249 mg/dL Sodium Level 134 MEQ/L Potassium Level 3.4 MEQ/L Chloride Level 96 MEQ/L Carbon Dioxide Level 28.2 MEQ/L Anion Gap 10 MEQ/L Blood Urea Nitrogen 14 MG/DL Creatinine 0.74 MG/DL Estimat Glomerular Filtration 104 ML/MIN Rate Random Glucose 270 MG/DL Calcium Level 8.5 MG/DL Administered Medications Medications (Trade) Dose Ordered Sig/Rosalind Route PRN Reason Start Time Stop Time Status Last Admin Dose Admin Sodium Chloride (NS 1000 ml Inj) 1,000 ml @ 42 mls/hr [id number] IV 12/22/16 17:00 12/28/16 16:02 Sodium Chloride (NS Flush) 2 ml BID IV FLUSH 12/22/16 21:00 12/29/16 11:27 Heparin Sodium (Porcine) (Heparin Inj) 5,000 units Q12H SQ 12/22/16 17:00 12/29/16 05:11 Acetaminophen/ Hydrocodone Bitart (Hycet 325-7.5 Mg Liq) 10 ml Q6H PRN PO PAIN 1-6 12/22/16 18:30 12/22/16 22:44 Nystatin (Mycostatin Liq) 5 ml QID SWISH-SWAL 12/22/16 21:00 12/28/16 22:36 Multi-Ingredient Mouthwash/Gargle (Magic Mouthwash Adult Liq) 10 ml ACHS SWISH-SWAL 12/22/16 21:00 12/29/16 05:13 Trazodone HCl (Desyrel) 50 mg HS PO 12/22/16 21:00 12/28/16 22:36 Insulin Detemir (Levemir Inj) 5 units HS SQ 12/22/16 21:00 12/28/16 22:35 Morphine Sulfate (Morphine Inj) 4 mg Q3H PRN IV PUSH pain 7-10 12/22/16 18:45 12/28/16 22:37 Quetiapine Fumarate (SEROquel) 25 mg BID PO 12/23/16 15:00 12/28/16 22:36 Methylprednisolone Sodium Succinate (SoluMEDROL INJ) 40 mg BID IV PUSH 12/24/16 21:00 12/29/16 11:27 Zolpidem Tartrate (Ambien) 5 mg HS PRN PO INSOMNIA 12/24/16 19:30 12/28/16 00:23 Objective Remarks GENERAL: Elderly male, lying in bed watching TV in nad. SKIN: Warm and dry. Dressing over abdomen where pt recently pulled PEG. HEAD: Normocephalic. EYES: No injection or drainage. CARDIOVASCULAR: Regular rate and rhythm without murmurs. RESPIRATORY: Breath sounds equal bilaterally. No accessory muscle use. GASTROINTESTINAL: Abdomen soft, non-tender, nondistended. Dressing to RUQ. EXTREMITIES: No cyanosis, or edema. MUSCULOSKELETAL: Generalized weakness. NEUROLOGICAL: No obvious focal deficit. Awake, alert, and oriented x3. Assessment/Plan Problem List: (1) Squamous cell cancer of tongue Status: Acute Plan: -- s/p PEG tube placement, however pt pulled his own PEG on 12/29. -- Dr Ulrich to have a meeting with pt's brother on 12/30. -- Pt has been rendered incompetent to make decisions by psychiatry -- Brother Anmol is now pt's healthcare surrogate Assessment 71y/o male with head and neck cancer. history of diabetes, hypertension, hyperlipidemia history of dementia with psychoses. He had possible polysubstance induced mood disorder. Left hemiglossectomy Plan 1. Discussed with Dr Ulrich; plan to have a family meeting on to again address goals. 2. Pt pulled his own PEG, de-accessed his own port today. 3. This will be very difficult for pt's brother to care for him as he has cancer himself and is also caregiver for his (Pt's sister in law). 4. SNF unwilling to accept pt while he is undergoing chemotherapy. Attending Statement The exam, history, and the medical decision-making described in the above note were completed with the assistance of the mid-level provider. I reviewed and agree with the findings presented. I attest that I had a [id number] encounter with the patient on the same day, and personally performed and documented my assessment and findings in the medical record. Pt seen and examined. Pt stated he pulled out his PEG tube because he had to go to the bathroom. Lengthy discussion with pt's brother Anmol regarding events. We have observed his progress since admission 12/22. We discussed that since his admission and reversal of dehydration and electrolyte abn, starting seroquel, he has not improved in cognition and understanding. Agree with psychiatry assessment of incompetent to make decision regarding his care. In this vein, it is difficult to offer chemotherapy. It is clear that patient has no understanding of consequences of treatment and their toxicity, ex: pulling out PEG tube to go to the bathroom. Even if definitive chemo and XRT offer a chance of cure, this is not a guaranteed. Chances of cure diminish if we cannot successfully treat a patient according to plan and schedule and provide appropriate support. Outcome differ and less than ideal if there are interruptions in the treatment and improper management of toxicity due to compliance. Pulling out PEG tubes, pulling out needles from port, will hinder progress and possibly bring about potential harm. For example: He is at risk for mucositis with treatment of chemo and XRT. He would need to comply with local treatment and maintaining PEG tube feeding to get nutrition to heal. Therefore, I am unable to offer chemotherapy due to patient's inability to comprehend treatment and the risks outweigh the benefit. I encourage Anmol to meet with Dr. Godfrey tomorrow. Ivis Helton Dec 29, 2016 16:28 Marjan Villeda MD Dec 29, 2016 19:29
[2016-12-29] MEDS ORDERED: POTASSIUM CHLORIDE 25 MEQ EFFERVESCENT TAB PO ONE (17:30)
[2016-12-29 20:31] VITALS: BP 150/82; PULSE 65; RESP 18; TEMP 97.2; O2SAT 96
--- NOTE | 2016-12-29 21:48 | HHI.GIFU ---
Subjective Remarks Patient comfortable bed but apparently pulled his PEG tube out Objective Vitals I&O Vital Signs Date Time Temp Pulse Resp B/P Pulse Ox O2 Delivery O2 Flow Rate FiO2 12/29/16 20:31 97.2 65 18 150/82 96 12/29/16 16:00 96.2 82 20 169/87 92 12/29/16 12:00 97.1 97 21 153/86 92 12/29/16 08:00 96.5 80 20 147/62 93 12/29/16 04:00 96.7 78 17 177/99 97 12/29/16 00:47 16 12/29/16 00:00 96.2 66 17 144/67 96 I/O 12/28/16 12/28/16 12/28/16 12/29/16 12/29/16 12/29/16 07:00 15:00 23:00 07:00 15:00 23:00 Intake Total 1162 ml 1477 ml 540 ml Output Total 550 ml 700 ml 630 ml 400 ml 600 ml Balance 612 ml 777 ml -630 ml -400 ml -60 ml Intake Oral 1162 ml 360 ml 540 ml IV Total 1057 ml Other 60 ml Output Urine Total 550 ml 700 ml 630 ml 400 ml 600 ml # Voids 2 3 # Bowel Movements 1 Laboratory Laboratory Tests Test 12/29/16 05:03 White Blood Count 22.1 Red Blood Count 4.43 Hemoglobin 12.1 Hematocrit 36.3 Mean Corpuscular Volume 81.9 Mean Corpuscular Hemoglobin 27.2 Mean Corpuscular Hemoglobin 33.2 Concent Red Cell Distribution Width 13.8 Platelet Count 385 Mean Platelet Volume 9.6 Neutrophils (%) (Auto) 91.1 Lymphocytes (%) (Auto) 5.7 Monocytes (%) (Auto) 2.9 Eosinophils (%) (Auto) 0.0 Basophils (%) (Auto) 0.3 Neutrophils # (Auto) 20.1 Lymphocytes # (Auto) 1.3 Monocytes # (Auto) 0.6 Eosinophils # (Auto) 0.0 Basophils # (Auto) 0.1 CBC Comment DIFF FINAL Differential Comment Sodium Level 134 Potassium Level 3.4 Chloride Level 96 Carbon Dioxide Level 28.2 Anion Gap 10 Blood Urea Nitrogen 14 Creatinine 0.74 Estimat Glomerular Filtration 104 Rate Random Glucose 270 Calcium Level 8.5 Imaging Last 48 hours Impressions Lower Extremity Ultrasound 12/28/16 0000 Signed Impressions: Service Date/Time: Wednesday, December 28, 2016 15:18 - CONCLUSION: Negative exam with no evidence of deep venous thrombosis. Eron Hernandez MD Physical Exam HEENT: Normocephalic; atraumatic; no jaundice. CHEST: CTA CARDIAC: RRR ABDOMEN: Soft, nondistended, nontender; no hepatosplenomegaly; bowel sounds are present in all four quadrants. PEG apparently pulled out site appears to be clean at this point EXTREMITIES: No clubbing, cyanosis, or edema. SKIN: Normal; no rash; no jaundice. SCAN COORDINATOR: Alert,Garbled speech Assessment and Plan Plan ASSESSMENT: - Dysphagia, FEN. 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 Port was placed on 12/14/16. He was also supposed to have teeth extraction by maxillofacial in anticipation of radiation. He was seen in Dr. Villeda' office for induction chemotherapy, but was found to be having difficulty clearing his secretions. Pt. has missed oncology follow and they have not been able to coordinate treatment with radiation oncology. GI was consulted for PEG tube placement. Pt had been adamantly refusing, but was seen by the psychiatrist and declared incompetent. Palliative care/CM following. Durable POA has never been completed. Per the nursing staff the pts son was located but does not want to be the pts healthcare decision maker and the pts brother has reportedly stepped in as decision maker. 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 Port has been placed. Needs teeth extraction for radiation and PEG for nutrition prior to tx for cancer. - DM, HTN, Hyperlipidemia, Dementia per primary. PLAN: -We will need to plan for PEG tube placement this will be on Tuesday so as to allow the stomach to heal from the last PEG tube Lexa Neves MD Dec 29, 2016 21:48
[2016-12-29] MEDS: traZODone HCL 50 MG TAB PO SCH (23:44)
[2016-12-30] MEDS: methylPREDNISolone SOD SUCC 40 MG/1 ML VIAL IV PUSH SCH ×2 (00:04→08:19)
[2016-12-30] MEDS: SODIUM CHLORIDE 0.9% FLUSH 10 ML FLUSH IV FLUSH SCH ×3 (00:05→21:00)
[2016-12-30] MEDS: INSULIN DETEMIR 100 UNITS/ML VIAL SQ SCH ×2 (00:05→20:59)
[2016-12-30] MEDS: INSULIN ASPART SUPPLEMENTAL SCALE SQ SCH ×5 (00:05→20:59)
[2016-12-30] MEDS: NYSTATIN SUSP 500,000 U/5 ML CUP SWISH-SWAL SCH ×5 (00:06→21:00)
[2016-12-30] MEDS: NYSTAT/DIPHENHY/LIDO MOUTHWASH (Adult) 120ML SWISH-SWAL SCH ×5 (00:06→21:00)
[2016-12-30 00:33] VITALS: BP 171/93; PULSE 82; RESP 16; TEMP 96; O2SAT 94
[2016-12-30 05:21] VITALS: BP 168/94; PULSE 87; RESP 16; TEMP 96.1; O2SAT 96
[2016-12-30] MEDS: HEPARIN SODIUM - SQ 10,000 UNITS/ML VIAL SQ SCH ×2 (05:54→15:39)
[2016-12-30 08:15] VITALS: BP 188/93; PULSE 92; RESP 16; TEMP 96.2; O2SAT 97
[2016-12-30] MEDS: QUEtiapine FUMARATE 25 MG TAB PO SCH ×2 (08:19→20:59)
[2016-12-30 10:03] LABS: AUTOMATED NEUTROPHIL # 24.6 TH/MM3 (1.8-7.7); BASOPHIL # 0.1 TH/MM3 (0-0.2); BASOPHIL % 0.3 % (0.0-2.0); HEMATOCRIT 35.3 % (39.0-51.0); LYMPHOCYTE # 1.4 TH/MM3 (1.0-4.8); MEAN CELL VOLUME 81.5 FL (80.0-100.0); MEAN CORPUSCULAR HEMOGLOBIN 27.1 PG (27.0-34.0); MEAN CORPUSCULAR HGB CONC 33.2 % (32.0-36.0); MONO % 3.8 % (0.0-8.0); NEUT % 90.9 % (16.0-70.0); PLATELET COUNT 353 TH/MM3 (150-450); RED BLOOD COUNT 4.33 MIL/MM3 (4.50-5.90); RED CELL DISTRIBUTION WIDTH 14.2 % (11.6-17.2); WHITE BLOOD COUNT 27.1 TH/MM3 (4.0-11.0)
[2016-12-30 10:11] LABS: HEMO FLAGS AUTO DIFF
[2016-12-30 10:59] LABS: BANDS 12 % (0-6); MYELOCYTES 2 % (0-0); NEUTROPHIL # MANUAL DIFF 22.2 TH/MM3 (1.8-7.7); POLYS (SEG NEUTROPHILS) 68 % (16-70); WBC DIFF SAMPLE 100
[2016-12-30 11:00] LABS: PLATELET ESTIMATE SMEAR NORMAL (NORMAL); PLATELET MORPHOLOGY NORMAL (NORMAL); SCAN/DIFF FINAL DIFF MANUAL
--- NOTE | 2016-12-30 11:23 | HHI.PR ---
Subjective Remarks non productive cough flat affect pulled peg tube out and de-accessed port NPO some oral pain difficult to obtain ROS Objective Objective Results - Vital Signs Date Time Temp Pulse Resp B/P Pulse Ox O2 Delivery O2 Flow Rate FiO2 12/30/16 08:15 96.2 92 16 188/93 97 12/30/16 05:21 96.1 87 16 168/94 96 12/30/16 00:33 96.0 82 16 171/93 94 12/29/16 20:31 97.2 65 18 150/82 96 12/29/16 16:00 96.2 82 20 169/87 92 12/29/16 12:00 97.1 97 21 153/86 92 I/O 12/29/16 12/29/16 12/29/16 12/30/16 12/30/16 12/30/16 07:00 15:00 23:00 07:00 15:00 23:00 Intake Total 540 ml 480 ml 0 ml Output Total 400 ml 600 ml 400 ml 600 ml Balance -400 ml -60 ml 80 ml -600 ml Intake Oral 540 ml 480 ml 0 ml Output Urine Total 400 ml 600 ml 400 ml 600 ml # Voids 3 2 # Bowel Movements 1 1 0 Result Diagram: 12/30/16 0946 12/29/16 0503 Imaging Last Impressions Chest X-Ray 12/22/16 0000 Signed Impressions: Service Date/Time: Thursday, December 22, 2016 19:51 - CONCLUSION: No acute disease. Ji Trevino Jr., MD Other Results Laboratory Tests Test 12/30/16 09:46 White Blood Count 27.1 Red Blood Count 4.33 Hemoglobin 11.7 Hematocrit 35.3 Mean Corpuscular Volume 81.5 Mean Corpuscular Hemoglobin 27.1 Mean Corpuscular Hemoglobin 33.2 Concent Red Cell Distribution Width 14.2 Platelet Count 353 Mean Platelet Volume 8.7 Neutrophils (%) (Auto) 90.9 Lymphocytes (%) (Auto) 5.0 Monocytes (%) (Auto) 3.8 Eosinophils (%) (Auto) 0.0 Basophils (%) (Auto) 0.3 Neutrophils # (Auto) 24.6 Lymphocytes # (Auto) 1.4 Monocytes # (Auto) 1.0 Eosinophils # (Auto) 0.0 Basophils # (Auto) 0.1 CBC Comment AUTO DIFF Differential Total Cells 100 Counted Neutrophils % (Manual) 68 Band Neutrophils % 12 Lymphocytes % 11 Monocytes % 7 Neutrophils # (Manual) 22.2 Myelocytes 2 Differential Comment FINAL DIFF MANUAL Platelet Estimate NORMAL Platelet Morphology Comment NORMAL ROS General: Other (12 point ROS difficult to obtain ) Physical Exam Physical Exam GENERAL: This is a well-nourished, well-developed patient, in no apparent distress. SKIN: No rashes, ecchymoses or lesions. Cool and dry. HEAD: Atraumatic. Normocephalic. No temporal or scalp tenderness. EYES: Pupils equal round and reactive. Extraocular motions intact. No scleral icterus. No injection or drainage. ENT: Nose without bleeding, purulent drainage or septal hematoma. Throat without erythema, tonsillar hypertrophy or exudate. Uvula midline. Airway patent. Partial glossectomy, thrush noted. Some retained oral secretions. NECK: Trachea midline.Left neck mass. CARDIOVASCULAR: Regular rate and rhythm without murmurs, gallops, or rubs. RESPIRATORY: coarse breath sounds, non productive cough GASTROINTESTINAL: Abdomen soft, non-tender, nondistended. No hepato-splenomegaly , or palpable masses. No guarding. Peg site with dressing intact, no longer has peg MUSCULOSKELETAL: Extremities without clubbing, cyanosis, or edema. No joint tenderness, effusion, or edema noted. No calf tenderness. Negative Homans sign bilaterally. NEUROLOGICAL: Speech slurred due to partial glossectomy, oriented to year, place , self, doesn't understand why he is here. No focal deficits. 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 Has not started chemo and radiation. Dysphagia, unable to clear secretions, came in with diffuse rhonchi and Rales, some respiratory distress -Oxygen as needed -DC IV steroids -DuoNeb's when necessary -Appreciate GI input -S/P peg placement, pt. pulled out yesterday. Dr. Neves plans to reinsert tomorrow -Keep NPO, inc. IVF to 100/hr -On Levsin to control secretions, improving Dementia, hx psychosis, doesn't appear to be competent to make healthcare decision. -Psychiatry input appreciated, recommended Seroquel for agitation. Not much improvement -appreciate palliative care input. Dehydration, secondary to poor PO intake, malnourished -continue with IVF -monitor labs HTN, stable -continue home meds Type 2 diabetes, uncontrolled blood glucose Continue with Accu-Cheks before meals and at bedtime and insulin therapy -labile, pt. removed peg. Oral pain, thrush -Pain management Continue with nystatin Continue with Magic mouth wash Leukocytosis poss. sec. to steroids -DC steroids -CBC in am Heparin for DVT prophylaxis poor prognosis Labs in am Dr. Ulrich to speak to brother today to discuss plan of care. Brother is not here yet per Dr. Villeda, pt. not appropriate for chemo considering he is removing peg, decannulated port. He can't go to a SNF while on chemo. Brother has health problems and will likely be very challenging to provide care for pt. and make sure he remains compliant. Will have palliative care also reach out to family. D/W RN D/W pt D/W Dr. Ulrich This patient was seen by myself and Dr. Ulrich, this note is written on his behalf Problem Qualifiers (1) Dysphagia: Qualified Code: R13.10 - Dysphagia, unspecified type (2) Depression: Qualified Code: F32.9 - Depression, unspecified depression type (3) HTN (hypertension): Qualified Code: I10 - Essential hypertension (4) Dementia: Qualified Code: F03.90 - Dementia without behavioral disturbance, unspecified dementia type (5) Uncontrolled diabetes mellitus with hyperglycemia: Qualified Code: E11.65 - Uncontrolled type 2 diabetes mellitus with hyperglycemia, unspecified intermodal customer service insulin use status Savanna Kent Dec 30, 2016 11:22
[2016-12-30] MEDS: RESP: ALBUTEROL 2.5 MG/IPRATROPIUM 0.5 MG NEB (SCH) NEB ×3 (11:36→19:59)
[2016-12-30 12:07] VITALS: BP 156/84; PULSE 94; RESP 16; TEMP 96.4; O2SAT 95
[2016-12-30] MEDS: MORPHINE SULFATE 4 MG/ML INJ IV PUSH PRN (15:39)
[2016-12-30 16:00] VITALS: BP 150/74; PULSE 87; RESP 16; TEMP 97; O2SAT 91
[2016-12-30 20:00] VITALS: BP 155/77; PULSE 71; RESP 21; TEMP 98.5; O2SAT 97
[2016-12-30] MEDS: SODIUM CHLOR 0.9% 1000 ML INJ 1,000 ML IV SCH (20:53)
[2016-12-30] MEDS: traZODone HCL 50 MG TAB PO SCH (20:59)
--- NOTE | 2016-12-30 21:56 | HHI.GIFU ---
Subjective Remarks Comfortable in bed no new complaints Objective Vitals I&O Vital Signs Date Time Temp Pulse Resp B/P Pulse Ox O2 Delivery O2 Flow Rate FiO2 12/30/16 20:00 98.5 71 21 155/77 97 12/30/16 16:00 97.0 87 16 150/74 91 12/30/16 12:07 96.4 94 16 156/84 95 12/30/16 08:15 96.2 92 16 188/93 97 12/30/16 05:21 96.1 87 16 168/94 96 12/30/16 00:33 96.0 82 16 171/93 94 I/O 12/29/16 12/29/16 12/29/16 12/30/16 12/30/16 12/30/16 07:00 15:00 23:00 07:00 15:00 23:00 Intake Total 540 ml 480 ml 0 ml 700 ml Output Total 400 ml 600 ml 400 ml 600 ml 250 ml 200 ml Balance -400 ml -60 ml 80 ml -600 ml 450 ml -200 ml Intake Oral 540 ml 480 ml 0 ml IV Total 700 ml Output Urine Total 400 ml 600 ml 400 ml 600 ml 250 ml 200 ml # Voids 3 2 1 # Bowel Movements 1 1 0 Laboratory Laboratory Tests Test 12/30/16 09:46 White Blood Count 27.1 Red Blood Count 4.33 Hemoglobin 11.7 Hematocrit 35.3 Mean Corpuscular Volume 81.5 Mean Corpuscular Hemoglobin 27.1 Mean Corpuscular Hemoglobin 33.2 Concent Red Cell Distribution Width 14.2 Platelet Count 353 Mean Platelet Volume 8.7 Neutrophils (%) (Auto) 90.9 Lymphocytes (%) (Auto) 5.0 Monocytes (%) (Auto) 3.8 Eosinophils (%) (Auto) 0.0 Basophils (%) (Auto) 0.3 Neutrophils # (Auto) 24.6 Lymphocytes # (Auto) 1.4 Monocytes # (Auto) 1.0 Eosinophils # (Auto) 0.0 Basophils # (Auto) 0.1 CBC Comment AUTO DIFF Differential Total Cells 100 Counted Neutrophils % (Manual) 68 Band Neutrophils % 12 Lymphocytes % 11 Monocytes % 7 Neutrophils # (Manual) 22.2 Myelocytes 2 Differential Comment FINAL DIFF MANUAL Platelet Estimate NORMAL Platelet Morphology Comment NORMAL Physical Exam HEENT: Normocephalic; atraumatic; no jaundice. CHEST: CTA CARDIAC: RRR ABDOMEN: Soft, nondistended, nontender; no hepatosplenomegaly; bowel sounds are present in all four quadrants. EXTREMITIES: No clubbing, cyanosis, or edema. SKIN: Normal; no rash; no jaundice. 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 Port was placed on 12/14/16. He was also supposed to have teeth extraction by maxillofacial in anticipation of radiation. He was seen in Dr. Villeda' office for induction chemotherapy, but was found to be having difficulty clearing his secretions. Pt. has missed oncology follow and they have not been able to coordinate treatment with radiation oncology. GI was consulted for PEG tube placement. Pt had been adamantly refusing, but was seen by the psychiatrist and declared incompetent. Palliative care/CM following. Durable POA has never been completed. Per the nursing staff the pts son was located but does not want to be the pts healthcare decision maker and the pts brother has reportedly stepped in as decision maker. 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 Port has been placed. Needs teeth extraction for radiation and PEG for nutrition prior to tx for cancer. - DM, HTN, Hyperlipidemia, Dementia per primary. PLAN: -We will plan for PEG tube placement tomorrow Continue present supportive care Lexa Neves MD Dec 30, 2016 21:56
[2016-12-31] VITALS (7 sets, daily range): BP systolic 127–174; BP diastolic 66–81; PULSE 78–92; RESP 16–20; TEMP 96.6–97.7; O2SAT 93–96
[2016-12-31] MEDS: MORPHINE SULFATE 4 MG/ML INJ IV PUSH PRN ×5 (00:43→23:40)
[2016-12-31] MEDS: HEPARIN SODIUM - SQ 10,000 UNITS/ML VIAL SQ SCH ×2 (05:00→17:34)
[2016-12-31] MEDS: INSULIN ASPART SUPPLEMENTAL SCALE SQ SCH ×4 (06:44→20:48)
[2016-12-31] MEDS: NYSTAT/DIPHENHY/LIDO MOUTHWASH (Adult) 120ML SWISH-SWAL SCH ×4 (07:00→20:43)
[2016-12-31 07:14] LABS: AUTOMATED NEUTROPHIL # 15.7 TH/MM3 (1.8-7.7); BASOPHIL % 0.1 % (0.0-2.0); EOSINOPHIL # 0.1 TH/MM3 (0-0.4); EOSINOPHIL % 0.3 % (0.0-4.0); HEMATOCRIT 32.9 % (39.0-51.0); LYMPH % 12.9 % (9.0-44.0); LYMPHOCYTE # 2.6 TH/MM3 (1.0-4.8); MEAN CELL VOLUME 82.5 FL (80.0-100.0); MEAN CORPUSCULAR HEMOGLOBIN 26.7 PG (27.0-34.0); MEAN CORPUSCULAR HGB CONC 32.4 % (32.0-36.0); MONO % 8.5 % (0.0-8.0); NEUT % 78.2 % (16.0-70.0); PLATELET COUNT 310 TH/MM3 (150-450); RED BLOOD COUNT 3.99 MIL/MM3 (4.50-5.90); RED CELL DISTRIBUTION WIDTH 14.1 % (11.6-17.2); WHITE BLOOD COUNT 20.1 TH/MM3 (4.0-11.0)
[2016-12-31 07:21] LABS: HEMO FLAGS AUTO DIFF
[2016-12-31] MEDS: SODIUM CHLOR 0.9% 1000 ML INJ 1,000 ML IV SCH ×2 (07:22→17:34)
[2016-12-31 07:49] LABS: BICARBONATE 26.4 MEQ/L (21.0-32.0); POTASSIUM 3.1 MEQ/L (3.5-5.1)
[2016-12-31] MEDS: RESP: ALBUTEROL 2.5 MG/IPRATROPIUM 0.5 MG NEB (SCH) NEB ×4 (08:00→20:00)
[2016-12-31 08:15] LABS: BANDS 2 % (0-6); EOSINOPHILS 1 % (0-4); MYELOCYTES 1 % (0-0); NEUTROPHIL # MANUAL DIFF 16.7 TH/MM3 (1.8-7.7); PLATELET ESTIMATE SMEAR NORMAL (NORMAL); PLATELET MORPHOLOGY NORMAL (NORMAL); POLYS (SEG NEUTROPHILS) 80 % (16-70); SCAN/DIFF FINAL DIFF MANUAL; WBC DIFF SAMPLE 100
[2016-12-31] MEDS: QUEtiapine FUMARATE 25 MG TAB PO SCH ×2 (08:27→20:45)
[2016-12-31] MEDS: NYSTATIN SUSP 500,000 U/5 ML CUP SWISH-SWAL SCH ×4 (08:27→20:42)
[2016-12-31] MEDS ORDERED: POTASSIUM CHLOR 20 MEQ PREMIX 100 ML IV ONE (09:00)
[2016-12-31] MEDS: SODIUM CHLORIDE 0.9% FLUSH 10 ML FLUSH IV FLUSH SCH ×2 (09:00→20:45)
--- NOTE | 2016-12-31 09:51 | HHI.PR ---
Subjective Remarks Less cough c/o oral pain, did not sleep well going for PEG today, emphasized to keep peg in place for nutrition, he nods yes non productive cough flat affect NPO difficult to obtain ROS Objective Objective Results - Vital Signs Date Time Temp Pulse Resp B/P Pulse Ox O2 Delivery O2 Flow Rate FiO2 12/31/16 08:22 96.7 88 16 161/81 94 12/31/16 04:00 96.6 78 17 174/81 95 12/31/16 02:00 20 12/31/16 00:23 97.1 92 20 150/79 95 12/31/16 00:00 96.8 80 18 153/73 93 12/30/16 20:00 98.5 71 21 155/77 97 12/30/16 16:00 97.0 87 16 150/74 91 12/30/16 12:07 96.4 94 16 156/84 95 I/O 12/30/16 12/30/16 12/30/16 12/31/16 12/31/16 12/31/16 07:00 15:00 23:00 07:00 15:00 23:00 Intake Total 0 ml 700 ml 1460 ml Output Total 600 ml 250 ml 200 ml 300 ml Balance -600 ml 450 ml -200 ml 1160 ml Intake Oral 0 ml IV Total 700 ml 1460 ml Output Urine Total 600 ml 250 ml 200 ml 300 ml # Voids 2 1 2 # Bowel Movements 0 Result Diagram: 12/31/16 0640 12/31/16 0640 Imaging Last Impressions Chest X-Ray 12/22/16 0000 Signed Impressions: Service Date/Time: Thursday, December 22, 2016 19:51 - CONCLUSION: No acute disease. Ji Trevino Jr., MD Other Results Laboratory Tests Test 12/31/16 06:40 White Blood Count 20.1 Red Blood Count 3.99 Hemoglobin 10.6 Hematocrit 32.9 Mean Corpuscular Volume 82.5 Mean Corpuscular Hemoglobin 26.7 Mean Corpuscular Hemoglobin 32.4 Concent Red Cell Distribution Width 14.1 Platelet Count 310 Mean Platelet Volume 8.9 Neutrophils (%) (Auto) 78.2 Lymphocytes (%) (Auto) 12.9 Monocytes (%) (Auto) 8.5 Eosinophils (%) (Auto) 0.3 Basophils (%) (Auto) 0.1 Neutrophils # (Auto) 15.7 Lymphocytes # (Auto) 2.6 Monocytes # (Auto) 1.7 Eosinophils # (Auto) 0.1 Basophils # (Auto) 0.0 CBC Comment AUTO DIFF Differential Total Cells 100 Counted Neutrophils % (Manual) 80 Band Neutrophils % 2 Lymphocytes % 9 Monocytes % 7 Eosinophils % 1 Neutrophils # (Manual) 16.7 Myelocytes 1 Differential Comment FINAL DIFF MANUAL Platelet Estimate NORMAL Platelet Morphology Comment NORMAL Red Cell Morphology Comment NORMAL Sodium Level 138 Potassium Level 3.1 Chloride Level 101 Carbon Dioxide Level 26.4 Anion Gap 11 Blood Urea Nitrogen 13 Creatinine 0.58 Estimat Glomerular Filtration 138 Rate Random Glucose 202 Calcium Level 8.2 ROS General: Other (limited ROS) Physical Exam Physical Exam GENERAL: This is a well-nourished, well-developed patient, in no apparent distress. SKIN: No rashes, ecchymoses or lesions. Cool and dry. HEAD: Atraumatic. Normocephalic. No temporal or scalp tenderness. EYES: Pupils equal round and reactive. Extraocular motions intact. No scleral icterus. No injection or drainage. ENT: Nose without bleeding, purulent drainage or septal hematoma. Throat without erythema, tonsillar hypertrophy or exudate. Uvula midline. Airway patent. Partial glossectomy, thrush noted. Some retained oral secretions. NECK: Trachea midline.Left neck mass. CARDIOVASCULAR: Regular rate and rhythm without murmurs, gallops, or rubs. RESPIRATORY: less coarse breath sounds, non productive cough GASTROINTESTINAL: Abdomen soft, non-tender, nondistended. No hepato-splenomegaly , or palpable masses. No guarding. Peg site with dressing intact, no longer has peg MUSCULOSKELETAL: Extremities without clubbing, cyanosis, or edema. No joint tenderness, effusion, or edema noted. No calf tenderness. Negative Homans sign bilaterally. NEUROLOGICAL: Speech slurred due to partial glossectomy, oriented to year, place , self, doesn't understand why he is here. No focal deficits. Urinary Catheter: No Vascular Central Line Catheter: No A/P Diagnosis: (1) Dehydration (2) Dysphagia (3) Squamous cell cancer of tongue (4) Mass of left side of neck (5) Depression (6) HTN (hypertension) (7) Dementia (8) Uncontrolled diabetes mellitus with hyperglycemia (9) Leukocytosis Assessment and Plan 71-year-old man sent as a direct admit for dehydration and dysphagia, recently diagnoses with squamous cell cancer of the mobile tongue, had resection. 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 Has not started chemo and radiation. Dysphagia, unable to clear secretions, came in with diffuse rhonchi and Rales, some respiratory distress -Oxygen as needed -DuoNeb's when necessary -Appreciate GI input -S/P peg placement, pt. pulled out 426. Dr. Neves plans to reinsert today -Keep NPO continue IVF to 100/hr -On Levsin to control secretions, improving Dementia, hx psychosis, doesn't appear to be competent to make healthcare decision. -Psychiatry input appreciated, recommended Seroquel for agitation. Not much improvement -appreciate palliative care input. Leukocytosis, poss. sec steroids -WBC trending down, Dehydration, secondary to poor PO intake, malnourished. Resolved -continue with IVF -monitor labs HTN,BP elevated -continue home meds -Add Vasotec PRN Type 2 diabetes, uncontrolled blood glucose Continue with Accu-Cheks before meals and at bedtime and insulin therapy -labile, pt. removed peg. Oral pain, thrush -Pain management Continue with nystatin Continue with Magic mouth wash Leukocytosis poss. sec. to steroids -DC steroids -CBC in am Heparin for DVT prophylaxis poor prognosis Labs in am per Dr. Villeda, pt. not appropriate for chemo considering he is removing peg, decannulated port. He can't go to a SNF while on chemo. Brother has health problems and will likely be very challenging to provide care for pt. and make sure he remains compliant. Will have palliative care also reach out to family. Replace K WBC trending down Continue with care, poss. discharge home soon D/W RN D/W pt D/W Dr. Ulrich This patient was seen by myself and Dr. Ulrich, this note is written on his behalf Problem Qualifiers (1) Dysphagia: Qualified Code: R13.10 - Dysphagia, unspecified type (2) Depression: Qualified Code: F32.9 - Depression, unspecified depression type (3) HTN (hypertension): Qualified Code: I10 - Essential hypertension (4) Dementia: Qualified Code: F03.90 - Dementia without behavioral disturbance, unspecified dementia type (5) Uncontrolled diabetes mellitus with hyperglycemia: Qualified Code: E11.65 - Uncontrolled type 2 diabetes mellitus with hyperglycemia, unspecified nursing home insulin use status (6) Leukocytosis: Qualified Code: D72.829 - Leukocytosis, unspecified type Savanna Kent Dec 31, 2016 09:51
--- NOTE | 2016-12-31 11:51 | HHI.HCPN ---
Reason for visit a. To assist with evaluation and management of symptoms including: dysphagia , pain b. To assist medical decision maker(s) with: better understanding of current medical conditions; weighing benefits/burdens of medical treatment options; making medical treatment decisions. Subjective/Interval History Pt seen to follow-up on comfort, goals. He was planned earlier this week for PEG (placed by GI 12/28) and d/c home, however pt pulled out his PEG and port on 12/29 when getting up to use restroom. Planned for PEG to be replaced today. Oncology cont to follow pt- bc of his confusion , inability to understand/comply they will not proceed with chemotherapy . Oncology, medical attending note ongoing discussions w brother ( HCP) Anmol RE prognosis, unable to provide chemo. Pt seen in room no visitors present. He is alert, oriented to self, hospital , family. Poor insight into hospitalization/illness. Explore recent PEG removal/ replacement planned today, he shrugs, denies removing prior PEG or IV. Denies pain. Endorses difficulty sleeping though he is not certain why, denies pain or anxiety overnight. Denies oral pain during my visit today. Cooperative. following exam call to brother, HCP Anmol. Spoke with him at length. Review hospital course, treatment plans in place (no chemo, XRT). Anmol voices frustration with the medical system and complications that his brother has encountered. He asks me why the patient had been offered chemotherapy and other aggressive measures all along if they are not going to proceed now. I reviewed high risk for potential complications and difficulty to manage said complications given patient's altered mental status. He asks if the only option is "to just let the patient " or "starve to ". Explore feeding tube is planned to be replaced today, and that in his condition hospice would be an option for him to manage symptoms and comfort for whatever time he has left with disease process. Brother continues to endorse frustration he does not accept that the patient will no longer be a candidate for chemotherapy or XRT. He does acknowledge that the patient had been declining in the home setting with increased care needs and inability to attend to his own safety, and given his own medical issues has had increased difficulty to care for his brother. He would like to meet again in person with palliative the next time here his are here at the hospital, possibly later today or Tuesday. I am not certain what other treatment options I will have to explore with him, however will continue to review conditions and available options. *Will discuss w andrea attending. From initial consultation note from Richie TOLEDO on 12/23/16: --Psychiatry has evaluated patient 12/22- psychiatry notes patient is unable to verbalize rational understanding or appreciation of medical conditions unable to express rational reasons to discharge home or refused treatments and patient does not seem aware of consequences of his actions. Further notes he does not have decision-making capacity to refuse PEG or to leave AMA. Recommended next of kin or appropriate proxy be contacted for decision making for the patient. . Advance Directives Living Will: Never completed Health Care Surrogate: Never completed Durable Power of Trim Stencil Maker: Completed, but not made available Advance Directive Specifics Health Care Surrogate(s): The family confirm that the patient is not , that he has no living parents, and that his son Bart has been estranged for more than 25 years and they have no idea where he is or how to reach him. [facility] here indicate pt's son Bart may be in [place] with a phone # [phone] -- that number was called 4 times on 12/24/16, and it just gives a "busy" sound, no VM option. The patient's brother Anmol notes that he has the DPOA to handle the patient's affairs, and he does believe that that also includes healthcare ( although they're having construction done at their home and he was unable to find that paperwork up to this point in time -- he says he will bring it in so we can copy it). The patient's two sisters opt out of any decision-making role for the pt, wanting the patient's brother Anmol to be the decision making proxy. Anmol has been functioning as the decision-maker the past couple years, granting consents for surgery, etc. Healthcare Proxy form completed, signed by Anmol 12/24/16. . Objective Vital Signs Date Time Temp Pulse Resp B/P Pulse Ox O2 Delivery O2 Flow Rate FiO2 12/31/16 08:22 96.7 88 16 161/81 94 12/31/16 04:00 96.6 78 17 174/81 95 12/31/16 02:00 20 12/31/16 00:23 97.1 92 20 150/79 95 12/31/16 00:00 96.8 80 18 153/73 93 12/30/16 20:00 98.5 71 21 155/77 97 12/30/16 16:00 97.0 87 16 150/74 91 12/30/16 12:07 96.4 94 16 156/84 95 Physical Exam CONSTITUTIONAL/GENERAL: This is an adequately nourished patient,alert, in no apparent distress. ENT:Nose without bleeding or purulent drainage.+ erosion left tongue, tissue deficit left tongue. +copious oral secretions. voice faint/soft. Large palpable mass left neck/jaw region. + white exudate on tongue, oral mucosa NECK: Trachea midline.+ large mass left neck. CARDIOVASCULAR: Regular rate and rhythm no murmur. Peripheral pulses symmetric. no edema. RESPIRATORY/CHEST: Symmetric, unlabored respirations on room air. Clear to auscultation. Breath sounds equal bilaterally. GASTROINTESTINAL: Abdomen soft, non-tender, nondistended. No palpable masses. No guarding. Bowel sounds present. NEUROLOGICAL: Awake and alert.Oriented x 2. Insight poor . speech is soft and fairly garbled, speaks only a few words, difficult to understand. Gestures. Moves all 4 extremities PSYCHIATRIC: No obvious anxiety/depression. . Diagnostic Tests Laboratory Laboratory Tests Test 12/28/16 12/29/16 12/30/16 12/31/16 17:10 05:03 09:46 06:40 White Blood Count 25.8 TH/MM3 22.1 TH/MM3 27.1 TH/MM3 20.1 TH/MM3 (4.0-11.0) (4.0-11.0) (4.0-11.0) (4.0-11.0) Red Blood Count 4.14 MIL/MM3 4.43 MIL/MM3 4.33 MIL/MM3 3.99 MIL/MM3 (4.50-5.90) (4.50-5.90) (4.50-5.90) (4.50-5.90) Hemoglobin 11.1 GM/DL 12.1 GM/DL 11.7 GM/DL 10.6 GM/DL (13.0-17.0) (13.0-17.0) (13.0-17.0) (13.0-17.0) Hematocrit 34.0 % 36.3 % 35.3 % 32.9 % (39.0-51.0) (39.0-51.0) (39.0-51.0) (39.0-51.0) Mean Corpuscular Volume 82.2 FL 81.9 FL 81.5 FL 82.5 FL (80.0-100.0) (80.0-100.0) (80.0-100.0) (80.0-100.0) Mean Corpuscular Hemoglobin 26.8 PG 27.2 PG 27.1 PG 26.7 PG (27.0-34.0) (27.0-34.0) (27.0-34.0) (27.0-34.0) Mean Corpuscular Hemoglobin 32.7 % 33.2 % 33.2 % 32.4 % Concent (32.0-36.0) (32.0-36.0) (32.0-36.0) (32.0-36.0) Red Cell Distribution Width 13.9 % 13.8 % 14.2 % 14.1 % (11.6-17.2) (11.6-17.2) (11.6-17.2) (11.6-17.2) Platelet Count 374 TH/MM3 385 TH/MM3 353 TH/MM3 310 TH/MM3 (150-450) (150-450) (150-450) (150-450) Mean Platelet Volume 8.4 FL 9.6 FL 8.7 FL 8.9 FL (7.0-11.0) (7.0-11.0) (7.0-11.0) (7.0-11.0) Neutrophils (%) (Auto) 91.0 % 91.1 % 90.9 % 78.2 % (16.0-70.0) (16.0-70.0) (16.0-70.0) (16.0-70.0) Lymphocytes (%) (Auto) 4.6 % 5.7 % 5.0 % 12.9 % (9.0-44.0) (9.0-44.0) (9.0-44.0) (9.0-44.0) Monocytes (%) (Auto) 4.2 % (0.0-8.0) 2.9 % (0.0-8.0) 3.8 % (0.0-8.0) 8.5 % (0.0- 8.0) Eosinophils (%) (Auto) 0.0 % (0.0-4.0) 0.0 % (0.0-4.0) 0.0 % (0.0-4.0) 0.3 % ( 0.0-4.0) Basophils (%) (Auto) 0.2 % (0.0-2.0) 0.3 % (0.0-2.0) 0.3 % (0.0-2.0) 0.1 % (0.0- 2.0) Neutrophils # (Auto) 23.4 TH/MM3 20.1 TH/MM3 24.6 TH/MM3 15.7 TH/MM3 (1.8-7.7) (1.8-7.7) (1.8-7.7) (1.8-7.7) Lymphocytes # (Auto) 1.2 TH/MM3 1.3 TH/MM3 1.4 TH/MM3 2.6 TH/MM3 (1.0-4.8) (1.0-4.8) (1.0-4.8) (1.0-4.8) Monocytes # (Auto) 1.1 TH/MM3 0.6 TH/MM3 1.0 TH/MM3 1.7 TH/MM3 (0-0.9) (0-0.9) (0-0.9) (0-0.9) Eosinophils # (Auto) 0.0 TH/MM3 0.0 TH/MM3 0.0 TH/MM3 0.1 TH/MM3 (0-0.4) (0-0.4) (0-0.4) (0-0.4) Basophils # (Auto) 0.0 TH/MM3 0.1 TH/MM3 0.1 TH/MM3 0.0 TH/MM3 (0-0.2) (0-0.2) (0-0.2) (0-0.2) CBC Comment DIFF FINAL DIFF FINAL AUTO DIFF AUTO DIFF Differential Comment FINAL DIFF FINAL DIFF MANUAL MANUAL Prothrombin Time 11.9 SEC (9.8-11.6) Prothromb Time International 1.1 RATIO Ratio Activated Partial 28.0 SEC Thromboplast Time (24.3-30.1) Fibrinogen 249 mg/dL (181-393) Sodium Level 134 MEQ/L 138 MEQ/L (136-145) (136-145) Potassium Level 3.4 MEQ/L 3.1 MEQ/L (3.5-5.1) (3.5-5.1) Chloride Level 96 MEQ/L 101 MEQ/L (98-107) (98-107) Carbon Dioxide Level 28.2 MEQ/L 26.4 MEQ/L (21.0-32.0) (21.0-32.0) Anion Gap 10 MEQ/L (5-15) 11 MEQ/L (5-15) Blood Urea Nitrogen 14 MG/DL (7-18) 13 MG/DL (7-18) Creatinine 0.74 MG/DL 0.58 MG/DL (0.60-1.30) (0.60-1.30) Estimat Glomerular Filtration 104 ML/MIN 138 ML/MIN Rate (>89) (>89) Random Glucose 270 MG/DL 202 MG/DL (74-106) (74-106) Calcium Level 8.5 MG/DL 8.2 MG/DL (8.5-10.1) (8.5-10.1) Differential Total Cells 100 100 Counted Neutrophils % (Manual) 68 % (16-70) 80 % (16-70) Band Neutrophils % 12 % (0-6) 2 % (0-6) Lymphocytes % 11 % (9-44) 9 % (9-44) Monocytes % 7 % (0-8) 7 % (0-8) Neutrophils # (Manual) 22.2 TH/MM3 16.7 TH/MM3 (1.8-7.7) (1.8-7.7) Myelocytes 2 % (0-0) 1 % (0-0) Platelet Estimate NORMAL NORMAL (NORMAL) (NORMAL) Platelet Morphology Comment NORMAL NORMAL (NORMAL) (NORMAL) Eosinophils % 1 % (0-4) Red Cell Morphology Comment NORMAL (NORMAL) Result Diagram: 12/31/16 0640 12/31/16 0640 Assessment and Plan Disease Oriented Problem List: (1) Hyponatremia (2) Depression (3) Dementia (4) Dysphagia (5) Squamous cell cancer of tongue (6) Mass of left side of neck (7) Uncontrolled diabetes mellitus with hyperglycemia (8) HTN (hypertension) Symptom Scale: (1) Dysphagia 0-10 Scale: Unable to quantify (due to tumor growth) (2) Mouth pain (3) Insomnia Pertinent Non-Medical Issues Psychosocial:Patient currently lives with his brother and [id number]. He has 1 son who lives in [place]. He apparently has previously been under a [place] act for possible polysubstance-induced mood disorder. Per review of prior psychiatric records from 2012 here it appears he is originally from [facility] parents are . He is supported by 2 sisters and one brother. He has been and twice. His son Bart apparently lives in [place] and time of psychiatry (2013) evaluation was age 40. During that psychiatric admission family indicated some signs of dementia for the prior 2 years. 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 Spiritual: Legal: The family on 12/24/16 confirm that the patient is not , that he has no living parents, and that his son Bart has been estranged for more than 25 years and they have no idea where he is or how to reach him. [employer] reports here indicate pt's son Bart may be in [place] with a phone # -- I tried to call that number 4 times today, and it just gives a "busy " sound, no VM option. The patient's brother Anmol notes that he has the DPOA to handle the patient's affairs, and he does believe that that also includes healthcare (although they're having construction done at their home and he was unable to find that paperwork up to this point in time -- he says he will bring it in so we can copy it). The patient's two sisters opt out of any decision- making role for the pt, wanting the patient's brother Anmol to be the decision making proxy. Healthcare Proxy form completed, signed by Anmol. Ethical issues impacting care: none . Important Contacts brother Anmol ([phone]) healthcare proxy Sister in law Kimberly Woodward friend Alexandria Graves [phone] Sister Demnod Bundy Son? ___ Bart ([facility]?) # [phone] -->> this number has not been working per multiple attempts 12/24 . 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 He has had pending treatments with concurrent chemotherapy and radiation though has been unable to obtain these treatments thus far. He has had delay in treatment due to airway /nutrition issues. Oncology indicates that nutritional status will need to be supplemented, IV fluids for dehydration , will need to manage acute medical issues before pursuing chemotherapy. Oncology 10 again offered chemotherapy once overall condition stable and nutrition is managed. Code Status: Full Code Plan * FULL CODE * Legal decision maker: The family confirm that the patient is not , that he has no living parents, and that his son Bart has been estranged for more than 25 years and they have no idea where he is or how to reach him. [employer] reports here indicate pt's son Bart may be in [place] with a phone # [phone] -- that number was called 4 times on 12/24/16, and it just gives a "busy" sound, no VM option. The patient's brother Anmol notes that he has the DPOA to handle the patient's affairs, and he does believe that that also includes healthcare (although they're having construction done at their home and he was unable to find that paperwork up to this point in time -- he says he will bring it in so we can copy it). The patient's two sisters opt out of any decision-making role for the pt, wanting the patient's brother Anmol to be the decision making proxy. Anmol has been functioning as the decision-maker the past couple years, granting consents for surgery, etc. Healthcare Proxy form completed, signed by Anmol . * Goals: initial palliative meeting: After much discussion on 12/24/16, the patient is now accepting the recommendations of his family and his doctors to have the PEG tube placed and to start chemotherapy and radiation. (Brother) Anmol and (S-I-L ) Kimberly understand that the burden for getting the patient to all of these appointments, for managing his medicines and symptoms that will develop, and for ensuring strict and consistent follow-up will fall on their shoulders. Anmol notes that he is 74 years old and has a malignancy and is weak, and Kimberly cries and wonders how she "will manage all of this." They understand that, should chemotherapy and radiation ultimately be impossible to complete (whether due to refusal to cooperate by the patient, symptoms that become too severe, or other psychosocial or medical issues), it is likely that a transition to hospice services would be appropriate at that time. The patient and his family want to proceed with PEG tube placement, chemotherapy, and radiation. Scheduled for PEG tube 12/27/16. 12/31/16 - spoke w/ patient brother/proxy Anmol at length via telephone. He expresses frustration with the change in treatment plans, and informs that he continues to wish to try to pursue chemotherapy, XRT does not understand why this will longer be offered to the patient. I did explore hospice role and philosophy and services provided. They are not interested in that at this time. They wish to further discuss plans with medical team, brother may be here later today or possibly Tuesday. * SYMPTOMS: --Dysphagia-progressive swallowing difficulties, unable to manage secretions. 2/2 disease process. + Able to swallow some thickened liquids via spoon only, per ST assessment, for pleasure only. Continue bypass feedings for nutrition. s/p peg, pt removed, plan for replacement today --Oral pain- some erosion to tongue/oral mucosa. 2/2 disease process. reported to oncology was well managed at home on liq lortab. On IV morpine here. + Oral thrush, on Magic mouthwash currently. Also has prn Morphine available. has used 2x today, 1x yesterday, reported effective relief. Today during my exam , denies pain. -- insomnia- pt endorses not sleeping well, unable to qualify why, or how many nights. has prn ambien available, if this has been effective /has not caused further AMS- rec cont use at HS, last dose 12/28/16 * Palliative care will continue to follow during hospital course as condition evolves, to assist patient/decision-maker with understanding of medical conditions, weighing benefits/burdens of treatment options, for clarification of goals of treatment. Additionally will assist with any symptoms of palliative concern . Attestation To help prompt me to consider important information that might be impacting today's encounter and assessment, information from prior notes written by myself or my colleagues may have been "brought forward" into today's note. My signature on this note, however, is an attestation that I personally performed the exam, history, and/or decision-making noted today, and, unless otherwise indicated, the interactions with patient, family, and staff as well as the review of records all occurred today. I also attest that the listed assessment and stated plan reflect my best clinical judgment today based on the combination of historical information, prior notes, and today's exam/ interactions. When time spent is documented, it refers only to time spent today by the signer, or if indicated, combined time spent today by collaborating physician/nurse practitioner. Cynthia Caal Dec 31, 2016 11:51
--- NOTE | 2016-12-31 14:13 | PD.ONC.PN ---
Subjective Subjective Remarks Afebrile overnight. No family at bedside. Patient resting comfortably watching TV. Objective Data Date Time Temp Pulse Resp B/P Pulse Ox O2 Delivery O2 Flow Rate FiO2 12/31/16 08:22 96.7 88 16 161/81 94 12/31/16 04:00 96.6 78 17 174/81 95 12/31/16 02:00 20 12/31/16 00:23 97.1 92 20 150/79 95 12/31/16 00:00 96.8 80 18 153/73 93 12/30/16 20:00 98.5 71 21 155/77 97 12/30/16 16:00 97.0 87 16 150/74 91 Result Diagram: 12/31/1640 12/31/16 0640 Laboratory Results Laboratory Tests Test 12/31/16 06:40 White Blood Count 20.1 TH/MM3 Red Blood Count 3.99 MIL/MM3 Hemoglobin 10.6 GM/DL Hematocrit 32.9 % Mean Corpuscular Volume 82.5 FL Mean Corpuscular Hemoglobin 26.7 PG Mean Corpuscular Hemoglobin 32.4 % Concent Red Cell Distribution Width 14.1 % Platelet Count 310 TH/MM3 Mean Platelet Volume 8.9 FL Neutrophils (%) (Auto) 78.2 % Lymphocytes (%) (Auto) 12.9 % Monocytes (%) (Auto) 8.5 % Eosinophils (%) (Auto) 0.3 % Basophils (%) (Auto) 0.1 % Neutrophils # (Auto) 15.7 TH/MM3 Lymphocytes # (Auto) 2.6 TH/MM3 Monocytes # (Auto) 1.7 TH/MM3 Eosinophils # (Auto) 0.1 TH/MM3 Basophils # (Auto) 0.0 TH/MM3 CBC Comment AUTO DIFF Differential Total Cells 100 Counted Neutrophils % (Manual) 80 % Band Neutrophils % 2 % Lymphocytes % 9 % Monocytes % 7 % Eosinophils % 1 % Neutrophils # (Manual) 16.7 TH/MM3 Myelocytes 1 % Differential Comment FINAL DIFF MANUAL Platelet Estimate NORMAL Platelet Morphology Comment NORMAL Red Cell Morphology Comment NORMAL Sodium Level 138 MEQ/L Potassium Level 3.1 MEQ/L Chloride Level 101 MEQ/L Carbon Dioxide Level 26.4 MEQ/L Anion Gap 11 MEQ/L Blood Urea Nitrogen 13 MG/DL Creatinine 0.58 MG/DL Estimat Glomerular Filtration 138 ML/MIN Rate Random Glucose 202 MG/DL Calcium Level 8.2 MG/DL Administered Medications Medications (Trade) Dose Ordered Sig/Rosalind Route PRN Reason Start Time Stop Time Status Last Admin Dose Admin Sodium Chloride (NS 1000 ml Inj) 1,000 ml @ 100 mls/hr Q10H IV 12/22/16 17:00 12/31/16 07:22 Sodium Chloride (NS Flush) 2 ml BID IV FLUSH 12/22/16 21:00 12/30/16 21:00 Heparin Sodium (Porcine) (Heparin Inj) 5,000 units Q12H SQ 12/22/16 17:00 12/30/16 15:39 Acetaminophen/ Hydrocodone Bitart (Hycet 325-7.5 Mg Liq) 10 ml Q6H PRN PO PAIN 1-6 12/22/16 18:30 12/22/16 22:44 Nystatin (Mycostatin Liq) 5 ml QID SWISH-SWAL 12/22/16 21:00 12/31/16 12:06 Multi-Ingredient Mouthwash/Gargle (Magic Mouthwash Adult Liq) 10 ml ACHS SWISH-SWAL 12/22/16 21:00 12/31/16 08:28 Trazodone HCl (Desyrel) 50 mg HS PO 12/22/16 21:00 12/28/16 22:36 Insulin Detemir (Levemir Inj) 5 units HS SQ 12/22/16 21:00 12/30/16 00:05 Morphine Sulfate (Morphine Inj) 4 mg Q3H PRN IV PUSH pain 7-10 12/22/16 18:45 12/31/16 12:06 Quetiapine Fumarate (SEROquel) 25 mg BID PO 12/23/16 15:00 12/31/16 08:27 Zolpidem Tartrate (Ambien) 5 mg HS PRN PO INSOMNIA 12/24/16 19:30 12/28/16 00:23 Objective Remarks GENERAL: Elderly male, sitting upright in bed in nad SKIN: Warm and dry. HEAD: Normocephalic. EYES: No injection or drainage. NECK: Supple, trachea midline. CARDIOVASCULAR: Regular rate and rhythm RESPIRATORY: Breath sounds equal bilaterally. No accessory muscle use. GASTROINTESTINAL: Abdomen soft, non-tender, nondistended. bandage on abdomen is c/d/i. EXTREMITIES: No cyanosis or edema. Assessment/Plan Problem List: (1) Squamous cell cancer of tongue Status: Acute Plan: -- s/p PEG tube placement, however pt pulled his own PEG on 12/29. -- Dr Ulrich to have a meeting with pt's brother on 12/30. -- Pt has been rendered incompetent to make decisions by psychiatry -- Brother Anmol is now pt's healthcare surrogate Assessment 71y/o male with head and neck cancer. history of diabetes, hypertension, hyperlipidemia history of dementia with psychoses. He had possible polysubstance induced mood disorder. Left hemiglossectomy Plan 1. palliative care notes reviewed. 2. patient's brother and healthcare surrogate to have family meeting Tuesday. 3. continue supportive care Jacqueline Bowden Dec 31, 2016 14:13
[2016-12-31] MEDS: INSULIN DETEMIR 100 UNITS/ML VIAL SQ SCH (20:45)
[2016-12-31] MEDS: traZODone HCL 50 MG TAB PO SCH (20:45)
--- NOTE | 2016-12-31 22:50 | HHI.GIFU ---
Subjective Remarks Appears to be comfortable in bed does not answer compressions Objective Vitals I&O Vital Signs Date Time Temp Pulse Resp B/P Pulse Ox O2 Delivery O2 Flow Rate FiO2 12/31/16 20:00 97.1 86 18 155/77 95 12/31/16 16:00 97.7 83 16 151/78 96 12/31/16 12:00 97.0 79 16 127/66 96 12/31/16 08:22 96.7 88 16 161/81 94 12/31/16 04:00 96.6 78 17 174/81 95 12/31/16 02:00 20 12/31/16 00:23 97.1 92 20 150/79 95 12/31/16 00:00 96.8 80 18 153/73 93 I/O 12/30/16 12/30/16 12/30/16 12/31/16 12/31/16 12/31/16 07:00 15:00 23:00 07:00 15:00 23:00 Intake Total 0 ml 700 ml 1460 ml 811 ml Output Total 600 ml 250 ml 200 ml 300 ml 450 ml 550 ml Balance -600 ml 450 ml -200 ml 1160 ml -450 ml 261 ml Intake Oral 0 ml IV Total 700 ml 1460 ml 811 ml Output Urine Total 600 ml 250 ml 200 ml 300 ml 450 ml 550 ml # Voids 2 1 2 # Bowel Movements 0 Laboratory Laboratory Tests Test 12/31/16 06:40 White Blood Count 20.1 Red Blood Count 3.99 Hemoglobin 10.6 Hematocrit 32.9 Mean Corpuscular Volume 82.5 Mean Corpuscular Hemoglobin 26.7 Mean Corpuscular Hemoglobin 32.4 Concent Red Cell Distribution Width 14.1 Platelet Count 310 Mean Platelet Volume 8.9 Neutrophils (%) (Auto) 78.2 Lymphocytes (%) (Auto) 12.9 Monocytes (%) (Auto) 8.5 Eosinophils (%) (Auto) 0.3 Basophils (%) (Auto) 0.1 Neutrophils # (Auto) 15.7 Lymphocytes # (Auto) 2.6 Monocytes # (Auto) 1.7 Eosinophils # (Auto) 0.1 Basophils # (Auto) 0.0 CBC Comment AUTO DIFF Differential Total Cells 100 Counted Neutrophils % (Manual) 80 Band Neutrophils % 2 Lymphocytes % 9 Monocytes % 7 Eosinophils % 1 Neutrophils # (Manual) 16.7 Myelocytes 1 Differential Comment FINAL DIFF MANUAL Platelet Estimate NORMAL Platelet Morphology Comment NORMAL Red Cell Morphology Comment NORMAL Sodium Level 138 Potassium Level 3.1 Chloride Level 101 Carbon Dioxide Level 26.4 Anion Gap 11 Blood Urea Nitrogen 13 Creatinine 0.58 Estimat Glomerular Filtration 138 Rate Random Glucose 202 Calcium Level 8.2 Physical Exam HEENT: Normocephalic; atraumatic; no jaundice. CHEST: CTA CARDIAC: RRR ABDOMEN: Soft, nondistended, nontender; no hepatosplenomegaly; bowel sounds are present in all four quadrants. EXTREMITIES: No clubbing, cyanosis, or edema. SKIN: Normal; no rash; no jaundice. PLANNING SPECIALIST: Alert,Garbled speech Assessment and Plan Plan ASSESSMENT: - Dysphagia, FEN. 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 Port was placed on 12/14/16. He was also supposed to have teeth extraction by maxillofacial in anticipation of radiation. He was seen in Dr. Villeda' office for induction chemotherapy, but was found to be having difficulty clearing his secretions. Pt. has missed oncology follow and they have not been able to coordinate treatment with radiation oncology. GI was consulted for PEG tube placement. Pt had been adamantly refusing, but was seen by the psychiatrist and declared incompetent. Palliative care/CM following. Durable POA has never been completed. Per the nursing staff the pts son was located but does not want to be the pts healthcare decision maker and the pts brother has reportedly stepped in as decision maker. 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 Port has been placed. Needs teeth extraction for radiation and PEG for nutrition prior to tx for cancer. - DM, HTN, Hyperlipidemia, Dementia per primary. PLAN: -We will plan for PEG tube placement Tuesday reason being is that we have not received the consent as of yet Continue present supportive care Lexa Neves MD Dec 31, 2016 22:50
[2017-01-01] VITALS (7 sets, daily range): BP systolic 151–183; BP diastolic 73–94; PULSE 85–96; RESP 16–20; TEMP 96.3–98.1; O2SAT 95–99
[2017-01-01] MEDS: MORPHINE SULFATE 4 MG/ML INJ IV PUSH PRN ×2 (04:00→22:05)
[2017-01-01] MEDS: HEPARIN SODIUM - SQ 10,000 UNITS/ML VIAL SQ SCH ×2 (05:39→18:11)
[2017-01-01] MEDS: INSULIN ASPART SUPPLEMENTAL SCALE SQ SCH ×4 (05:42→19:55)
[2017-01-01] MEDS: NYSTAT/DIPHENHY/LIDO MOUTHWASH (Adult) 120ML SWISH-SWAL SCH ×4 (07:00→19:56)
[2017-01-01] MEDS: ENALAPRILAT 1.25 MG/ML VIAL IV PUSH PRN ×2 (07:04→19:44)
[2017-01-01] MEDS: RESP: ALBUTEROL 2.5 MG/IPRATROPIUM 0.5 MG NEB (SCH) NEB ×4 (08:00→19:06)
[2017-01-01 08:09] LABS: HEMATOCRIT 32.2 % (39.0-51.0); MEAN CELL VOLUME 82.7 FL (80.0-100.0); MEAN CORPUSCULAR HGB CONC 32.6 % (32.0-36.0); PLATELET COUNT 289 TH/MM3 (150-450); RED BLOOD COUNT 3.89 MIL/MM3 (4.50-5.90); RED CELL DISTRIBUTION WIDTH 14.5 % (11.6-17.2); REVIEW FLAG FINAL; WHITE BLOOD COUNT 17.8 TH/MM3 (4.0-11.0)
[2017-01-01] MEDS: SODIUM CHLORIDE 0.9% FLUSH 10 ML FLUSH IV FLUSH SCH ×2 (09:00→19:44)
[2017-01-01] MEDS: QUEtiapine FUMARATE 25 MG TAB PO SCH ×2 (09:00→19:27)
[2017-01-01] MEDS: NYSTATIN SUSP 500,000 U/5 ML CUP SWISH-SWAL SCH ×4 (12:26→19:55)
[2017-01-01] MEDS: DEXT 5%-NACL 0.9% 1000 ML INJ 1,000 ML IV SCH (18:11)
--- NOTE | 2017-01-01 18:35 | HHI.PR ---
Subjective Remarks Less cough C/o oral pain. pulled off his PEG on 12/29/16. Need to be replaced by GI. Refusing meds/vitals per RN. flat affect NPO difficult to obtain ROS Objective Objective Results - Vital Signs Date Time Temp Pulse Resp B/P Pulse Ox O2 Delivery O2 Flow Rate FiO2 01/01/17 16:00 96.3 85 16 167/73 95 01/01/17 12:00 96.7 91 20 166/78 97 01/01/17 08:00 97.6 86 20 182/92 96 01/01/17 07:03 174/84 01/01/17 05:23 19 01/01/17 04:00 97.4 96 18 183/80 99 01/01/17 00:00 98.1 88 18 151/73 96 12/31/16 20:00 97.1 86 18 155/77 95 I/O 12/31/16 12/31/16 12/31/16 01/01/17 01/01/17 01/01/17 07:00 15:00 23:00 07:00 15:00 23:00 Intake Total 1460 ml 811 ml 1248 ml 0 ml Output Total 300 ml 450 ml 550 ml 375 ml 500 ml Balance 1160 ml -450 ml 261 ml 873 ml -500 ml Intake Oral 0 ml IV Total 1460 ml 811 ml 1248 ml Output Urine Total 300 ml 450 ml 550 ml 375 ml 500 ml # Voids 2 Result Diagram: 01/01/17 0654 12/31/16 0640 Imaging Last Impressions Chest X-Ray 12/22/16 0000 Signed Impressions: Service Date/Time: Thursday, December 22, 2016 19:51 - CONCLUSION: No acute disease. Ji Trevino Jr., MD Other Results Laboratory Tests Test 01/01/17 06:54 White Blood Count 17.8 Red Blood Count 3.89 Hemoglobin 10.5 Hematocrit 32.2 Mean Corpuscular Volume 82.7 Mean Corpuscular Hemoglobin 27.0 Mean Corpuscular Hemoglobin 32.6 Concent Red Cell Distribution Width 14.5 Platelet Count 289 Mean Platelet Volume 10.0 ROS General: Weakness HEENT: Sore Throat Cardiac: No: Chest Pain, Edema, Palpitations, Other Pulmonary: No: Cough, SOB, Wheezing, Other GI: No: Abdominal Pain, BM, Diarrhea, N/V, Other /DIVEMASTER: No: Dysuria, Urgency, Other Neuro/MS: No: Lightheaded, Confusion, Other Psych: No: Anxiety, Depression, Other Skin: No: Itching, Rash, Other Physical Exam Physical Exam PHYSICAL EXAMINATION GENERAL: This is a well-developed, well-nourished male who appears to be in no acute distress. He is alert and awake. HEAD: Normocephalic without any lesion or mass noted. EYES: Perrla, Normal eye movement. MOUTH/THROAT: Partial glossectomy, thrush noted. Some retained oral secretions. NECK: Supple. CARDIAC: Regular rhythm, regular rate, S1 and S2 are heard. LUNGS: Clear to auscultation bilaterally. ABDOMEN: Soft, nontender, no organomegaly or masses. Bowel sounds are heard in all four quadrants. No rebound. No guarding. EXTREMITIES: No CCE. NEUROLOGICAL: Speech slurred due to partial glossectomy, oriented to year, place, self, doesn't understand why he is here. No focal deficits. SKIN:Warm and moist PSYCH: flat affect A/P Assessment and Plan Diagnosis: (1) Dehydration (2) Dysphagia (3) Squamous cell cancer of tongue (4) Mass of left side of neck (5) Depression (6) HTN (hypertension) (7) Dementia (8) Uncontrolled diabetes mellitus with hyperglycemia (9) Leukocytosis Assessment and Plan 71-year-old man sent as a direct admit for dehydration and dysphagia, recently diagnoses with squamous cell cancer of the mobile tongue, had resection. 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 Has not started chemo and radiation. Dysphagia, unable to clear secretions, came in with diffuse rhonchi and Rales, some respiratory distress -Oxygen as needed -DuoNeb's when necessary -Appreciate GI input -S/P peg placement, pt. pulled out 426. Dr. Neves plan for reinsertion. -Keep NPO Change IVF to D5 at 100cc/hr. -On Levsin to control secretions, improving Dementia, hx psychosis, doesn't appear to be competent to make healthcare decision. -Psychiatry input appreciated, recommended Seroquel for agitation. Not much improvement -appreciate palliative care input. Leukocytosis, poss. sec steroids -WBC trending down, Dehydration, secondary to poor PO intake, malnourished. Resolved -continue with IVF -monitor labs HTN,BP elevated -continue home meds -Added Vasotec PRN Type 2 diabetes, uncontrolled blood glucose Continue with Accu-Cheks before meals and at bedtime and insulin therapy -labile, pt. removed peg. Oral pain, thrush -Pain management Continue with nystatin Continue with Magic mouth wash Leukocytosis poss. sec. to steroids -DC steroids -WBC improving. Monitor. Heparin for DVT prophylaxis poor prognosis Labs in am per Dr. Villeda, pt. not appropriate for chemo considering he is removing peg, decannulated port. He can't go to a SNF while on chemo. Brother has health problems and will likely be very challenging to provide care for pt. and make sure he remains compliant. Will have palliative care also reach out to family. Replace K D/W RN D/W pt Overall prognosis is poor/hospice is appropriate. Family is not ready for hospice at this time Possible DC toSNF in a.m.[no chemotherapy recommended by oncology] Dionne Rollins MD Jan 01, 2017 18:35
[2017-01-01] MEDS: traZODone HCL 50 MG TAB PO SCH (19:27)
[2017-01-01] MEDS: INSULIN DETEMIR 100 UNITS/ML VIAL SQ SCH (19:51)
--- NOTE | 2017-01-01 23:27 | HHI.GIFU ---
Subjective Remarks Comfortable in bed in no acute distress Objective Vitals I&O Vital Signs Date Time Temp Pulse Resp B/P Pulse Ox O2 Delivery O2 Flow Rate FiO2 01/01/17 20:00 97.2 92 18 163/94 95 01/01/17 16:00 96.3 85 16 167/73 95 01/01/17 12:00 96.7 91 20 166/78 97 01/01/17 08:00 97.6 86 20 182/92 96 01/01/17 07:03 174/84 01/01/17 05:23 19 01/01/17 04:00 97.4 96 18 183/80 99 01/01/17 00:00 98.1 88 18 151/73 96 I/O 12/31/16 12/31/16 12/31/16 01/01/17 01/01/17 01/01/17 07:00 15:00 23:00 07:00 15:00 23:00 Intake Total 1460 ml 811 ml 1248 ml 0 ml 1215 ml Output Total 300 ml 450 ml 550 ml 375 ml 500 ml Balance 1160 ml -450 ml 261 ml 873 ml -500 ml 1215 ml Intake Oral 0 ml IV Total 1460 ml 811 ml 1248 ml 1215 ml Output Urine Total 300 ml 450 ml 550 ml 375 ml 500 ml # Voids 2 Laboratory Laboratory Tests Test 01/01/17 06:54 White Blood Count 17.8 Red Blood Count 3.89 Hemoglobin 10.5 Hematocrit 32.2 Mean Corpuscular Volume 82.7 Mean Corpuscular Hemoglobin 27.0 Mean Corpuscular Hemoglobin 32.6 Concent Red Cell Distribution Width 14.5 Platelet Count 289 Mean Platelet Volume 10.0 Physical Exam HEENT: Normocephalic; atraumatic; no jaundice. CHEST: CTA CARDIAC: RRR ABDOMEN: Soft, nondistended, nontender; no hepatosplenomegaly; bowel sounds are present in all four quadrants. EXTREMITIES: No clubbing, cyanosis, or edema. SKIN: Normal; no rash; no jaundice. BLACK OXIDE OPERATOR: Alert,Garbled speech Assessment and Plan Plan ASSESSMENT: - Dysphagia, FEN. 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 Port was placed on 12/14/16. He was also supposed to have teeth extraction by maxillofacial in anticipation of radiation. He was seen in Dr. Villeda' office for induction chemotherapy, but was found to be having difficulty clearing his secretions. Pt. has missed oncology follow and they have not been able to coordinate treatment with radiation oncology. GI was consulted for PEG tube placement. Pt had been adamantly refusing, but was seen by the psychiatrist and declared incompetent. Palliative care/CM following. Durable POA has never been completed. Per the nursing staff the pts son was located but does not want to be the pts healthcare decision maker and the pts brother has reportedly stepped in as decision maker. 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 Port has been placed. Needs teeth extraction for radiation and PEG for nutrition prior to tx for cancer. - DM, HTN, Hyperlipidemia, Dementia per primary. PLAN: -We will plan for PEG tube placement Tuesday reason being is that we have not received the consent as of yet Continue present supportive care Lexa Neves MD Jan 01, 2017 23:27
[2017-01-02] VITALS (7 sets, daily range): BP systolic 130–182; BP diastolic 76–98; PULSE 92–100; RESP 16–21; TEMP 96–98.3; O2SAT 93–98
[2017-01-02] MEDS: HEPARIN SODIUM - SQ 10,000 UNITS/ML VIAL SQ SCH ×3 (05:00→23:03)
[2017-01-02] MEDS: MORPHINE SULFATE 4 MG/ML INJ IV PUSH PRN ×2 (05:35→23:41)
[2017-01-02] MEDS: INSULIN ASPART SUPPLEMENTAL SCALE SQ SCH ×4 (05:46→22:01)
[2017-01-02] MEDS: DEXT 5%-NACL 0.9% 1000 ML INJ 1,000 ML IV SCH ×3 (05:50→22:05)
[2017-01-02] MEDS: NYSTAT/DIPHENHY/LIDO MOUTHWASH (Adult) 120ML SWISH-SWAL SCH ×4 (05:51→22:02)
[2017-01-02] MEDS: RESP: ALBUTEROL 2.5 MG/IPRATROPIUM 0.5 MG NEB (SCH) NEB ×4 (07:46→19:21)
[2017-01-02 08:15] LABS: AUTOMATED NEUTROPHIL # 13.7 TH/MM3 (1.8-7.7); BASOPHIL # 0.2 TH/MM3 (0-0.2); BASOPHIL % 0.9 % (0.0-2.0); EOSINOPHIL # 0.3 TH/MM3 (0-0.4); EOSINOPHIL % 1.5 % (0.0-4.0); HEMATOCRIT 35.3 % (39.0-51.0); LYMPH % 2.4 % (9.0-44.0); LYMPHOCYTE # 0.4 TH/MM3 (1.0-4.8); MEAN CELL VOLUME 82.9 FL (80.0-100.0); MEAN CORPUSCULAR HEMOGLOBIN 26.6 PG (27.0-34.0); MEAN CORPUSCULAR HGB CONC 32.1 % (32.0-36.0); MONO % 19.7 % (0.0-8.0); NEUT % 75.5 % (16.0-70.0); PLATELET COUNT 289 TH/MM3 (150-450); RED BLOOD COUNT 4.26 MIL/MM3 (4.50-5.90); RED CELL DISTRIBUTION WIDTH 14.7 % (11.6-17.2); WHITE BLOOD COUNT 18.2 TH/MM3 (4.0-11.0)
[2017-01-02] MEDS: NYSTATIN SUSP 500,000 U/5 ML CUP SWISH-SWAL SCH ×4 (08:37→22:01)
[2017-01-02] MEDS: QUEtiapine FUMARATE 25 MG TAB PO SCH ×2 (08:37→21:00)
[2017-01-02] MEDS: SODIUM CHLORIDE 0.9% FLUSH 10 ML FLUSH IV FLUSH SCH ×2 (08:38→21:00)
[2017-01-02 08:42] LABS: HEMO FLAGS AUTO DIFF
--- NOTE | 2017-01-02 12:51 | HHI.GIFU ---
Subjective Remarks 71 yo male lying in bed in no apparent distress. (Cynthia Lynn) Objective Vitals I&O Vital Signs Date Time Temp Pulse Resp B/P Pulse Ox O2 Delivery O2 Flow Rate FiO2 01/02/17 07:50 96.3 99 20 130/76 98 01/02/17 05:51 19 01/02/17 05:35 96.0 95 20 146/81 93 01/02/17 00:00 96.9 93 18 182/84 98 01/01/17 20:00 97.2 92 18 163/94 95 01/01/17 16:00 96.3 85 16 167/73 95 I/O 01/01/17 01/01/17 01/01/17 01/02/17 01/02/17 01/02/17 07:00 15:00 23:00 07:00 15:00 23:00 Intake Total 1248 ml 0 ml 1215 ml 609 ml Output Total 375 ml 500 ml 300 ml Balance 873 ml -500 ml 1215 ml 309 ml Intake Oral 0 ml IV Total 1248 ml 1215 ml 609 ml Output Urine Total 375 ml 500 ml 300 ml # Voids 1 Laboratory Laboratory Tests Test 01/02/17 05:38 White Blood Count 18.2 Red Blood Count 4.26 Hemoglobin 11.3 Hematocrit 35.3 Mean Corpuscular Volume 82.9 Mean Corpuscular Hemoglobin 26.6 Mean Corpuscular Hemoglobin 32.1 Concent Red Cell Distribution Width 14.7 Platelet Count 289 Mean Platelet Volume 10.7 Neutrophils (%) (Auto) 75.5 Lymphocytes (%) (Auto) 2.4 Monocytes (%) (Auto) 19.7 Eosinophils (%) (Auto) 1.5 Basophils (%) (Auto) 0.9 Neutrophils # (Auto) 13.7 Lymphocytes # (Auto) 0.4 Monocytes # (Auto) 3.6 Eosinophils # (Auto) 0.3 Basophils # (Auto) 0.2 CBC Comment AUTO DIFF Imaging Last Impressions Lower Extremity Ultrasound 12/28/16 0000 Signed Impressions: Service Date/Time: Wednesday, December 28, 2016 15:18 - CONCLUSION: Negative exam with no evidence of deep venous thrombosis. Eron Hernandez MD Chest X-Ray 12/22/16 0000 Signed Impressions: Service Date/Time: Thursday, December 22, 2016 19:51 - CONCLUSION: No acute disease. Ji Trevino Jr., MD Physical Exam HEENT: Normocephalic; atraumatic; no jaundice. CHEST: CTA CARDIAC: RRR ABDOMEN: Soft, nondistended, nontender; no hepatosplenomegaly; bowel sounds are present in all four quadrants. EXTREMITIES: No clubbing, cyanosis, or edema. SKIN: Normal; no rash; no jaundice. EVIDENCE SPECIALIST: Alert,Garbled speech (Cynthia Lynn) Assessment and Plan Plan ASSESSMENT: - Dysphagia, FEN. 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 Port was placed on 12/14/16. He was also supposed to have teeth extraction by maxillofacial in anticipation of radiation. He was seen in Dr. Villeda' office for induction chemotherapy, but was found to be having difficulty clearing his secretions. Pt. has missed oncology follow and they have not been able to coordinate treatment with radiation oncology. GI was consulted for PEG tube placement. Pt had been adamantly refusing, but was seen by the psychiatrist and declared incompetent. Palliative care/CM following. Durable POA has never been completed. Per the nursing staff the pts son was located but does not want to be the pts healthcare decision maker and the pts brother has reportedly stepped in as decision maker. 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 Port has been placed. Needs teeth extraction for radiation and PEG for nutrition prior to tx for cancer. - DM, HTN, Hyperlipidemia, Dementia per primary. PLAN: -Plan for PEG tube placement Tuesday -Supportive care -Further recommendations to follow based on results of above Patient seen and examined by Dr. Neves and myself and this note is written on his behalf. (Cynthia Lynn) Physician Comments Patient seen and examined Agree with above Continue with current supportive care Monitor labs PEG placement tomorrow (Lexa Neves MD) Cynthia Lynn Jan 02, 2017 12:51 Lexa Neves MD Jan 02, 2017 14:37
[2017-01-02 14:46] LABS: BANDS 7 % (0-6); EOSINOPHILS 2 % (0-4); METAMYELOCYTES 1 % (0-1); NEUTROPHIL # MANUAL DIFF 15.7 TH/MM3 (1.8-7.7); POLYS (SEG NEUTROPHILS) 78 % (16-70); WBC DIFF SAMPLE 100
[2017-01-02 14:47] LABS: PLATELET ESTIMATE SMEAR NORMAL (NORMAL); PLATELET MORPHOLOGY NORMAL (NORMAL); SCAN/DIFF FINAL DIFF MANUAL
--- NOTE | 2017-01-02 17:02 | HHI.PR ---
Subjective Remarks Less cough C/o oral pain. pulled off his PEG on 12/29/16. Need to be replaced by GI. Refusing meds/vitals per RN. flat affect NPO difficult to obtain ROS Objective Objective Results - Vital Signs Date Time Temp Pulse Resp B/P Pulse Ox O2 Delivery O2 Flow Rate FiO2 01/02/17 12:00 97.3 100 21 165/80 97 01/02/17 07:50 96.3 99 20 130/76 98 01/02/17 05:51 19 01/02/17 05:35 96.0 95 20 146/81 93 01/02/17 00:00 96.9 93 18 182/84 98 01/01/17 20:00 97.2 92 18 163/94 95 I/O 01/01/17 01/01/17 01/01/17 01/02/17 01/02/17 01/02/17 07:00 15:00 23:00 07:00 15:00 23:00 Intake Total 1248 ml 0 ml 1215 ml 609 ml 0 ml Output Total 375 ml 500 ml 300 ml 400 ml Balance 873 ml -500 ml 1215 ml 309 ml -400 ml Intake Oral 0 ml 0 ml IV Total 1248 ml 1215 ml 609 ml Output Urine Total 375 ml 500 ml 300 ml 400 ml # Voids 1 Result Diagram: 01/02/17 0538 12/31/16 0640 Imaging Last Impressions Chest X-Ray 12/22/16 0000 Signed Impressions: Service Date/Time: Thursday, December 22, 2016 19:51 - CONCLUSION: No acute disease. Ji Trevino Jr., MD Other Results Laboratory Tests Test 01/02/17 05:38 White Blood Count 18.2 Red Blood Count 4.26 Hemoglobin 11.3 Hematocrit 35.3 Mean Corpuscular Volume 82.9 Mean Corpuscular Hemoglobin 26.6 Mean Corpuscular Hemoglobin 32.1 Concent Red Cell Distribution Width 14.7 Platelet Count 289 Mean Platelet Volume 10.7 Neutrophils (%) (Auto) 75.5 Lymphocytes (%) (Auto) 2.4 Monocytes (%) (Auto) 19.7 Eosinophils (%) (Auto) 1.5 Basophils (%) (Auto) 0.9 Neutrophils # (Auto) 13.7 Lymphocytes # (Auto) 0.4 Monocytes # (Auto) 3.6 Eosinophils # (Auto) 0.3 Basophils # (Auto) 0.2 CBC Comment AUTO DIFF Differential Total Cells 100 Counted Neutrophils % (Manual) 78 Band Neutrophils % 7 Lymphocytes % 6 Monocytes % 6 Eosinophils % 2 Neutrophils # (Manual) 15.7 Metamyelocytes 1 Differential Comment FINAL DIFF MANUAL Platelet Estimate NORMAL Platelet Morphology Comment NORMAL Red Cell Morphology Comment NORMAL ROS General: No: Fatigue, Weakness, Other HEENT: Sore Throat Cardiac: No: Chest Pain, Edema, Palpitations, Other Pulmonary: No: Cough, SOB, Wheezing, Other GI: No: Abdominal Pain, BM, Diarrhea, N/V, Other /CUSHION WORKER: No: Dysuria, Urgency, Other Neuro/MS: No: Lightheaded, Confusion, Other Psych: No: Anxiety, Depression, Other Skin: No: Itching, Rash, Other Physical Exam Physical Exam PHYSICAL EXAMINATION GENERAL: This is a well-developed, well-nourished male who appears to be in no acute distress. He is alert and awake. HEAD: Normocephalic without any lesion or mass noted. EYES: [place], Normal eye movement. MOUTH/THROAT: Partial glossectomy, thrush noted. Some retained oral secretions. NECK: Supple. CARDIAC: Regular rhythm, regular rate, S1 and S2 are heard. LUNGS: Clear to auscultation bilaterally. ABDOMEN: Soft, nontender, no organomegaly or masses. Bowel sounds are heard in all four quadrants. No rebound. No guarding. EXTREMITIES: No CCE. NEUROLOGICAL: Speech slurred due to partial glossectomy, oriented to year, place, self, doesn't understand why he is here. No focal deficits. SKIN:Warm and moist PSYCH: flat affect A/P Assessment and Plan Diagnosis: (1) Dehydration (2) Dysphagia (3) Squamous cell cancer of tongue (4) Mass of left side of neck (5) Depression (6) HTN (hypertension) (7) Dementia (8) Uncontrolled diabetes mellitus with hyperglycemia (9) Leukocytosis Assessment and Plan 71-year-old man sent as a direct admit for dehydration and dysphagia, recently diagnoses with squamous cell cancer of the mobile tongue, had resection. 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 Has not started chemo and radiation. Dysphagia, unable to clear secretions, came in with diffuse rhonchi and Rales, some respiratory distress -Oxygen as needed -DuoNeb's when necessary -Appreciate GI input -S/P peg placement, pt. pulled out 12/29. Dr. Neves: plan for reinsertion on tuesday. -Keep NPO Changed IVF to D5 at 100cc/hr. -On Levsin to control secretions, improving Dementia, hx psychosis, doesn't appear to be competent to make healthcare decision. -Psychiatry input appreciated, recommended Seroquel for agitation. Not much improvement -appreciate palliative care input. Leukocytosis, poss. sec steroids -Monitor, Dehydration, secondary to poor PO intake, malnourished. Resolved -continue with IVF -monitor labs HTN,BP elevated -continue home meds -Added Vasotec PRN Type 2 diabetes, uncontrolled blood glucose Continue with Accu-Cheks before meals and at bedtime and insulin therapy -labile, pt. removed peg. Oral pain, thrush -Pain management Continue with nystatin Continue with Magic mouth wash Leukocytosis poss. sec. to steroids -DC steroids -Monitor WBC. Heparin for DVT prophylaxis poor prognosis Labs in am per Dr. Villeda, pt. not appropriate for chemo considering he is removing peg, decannulated port. He can't go to a SNF while on chemo. Brother has health problems and will likely be very challenging to provide care for pt. and make sure he remains compliant. Will have palliative care also reach out to family. Replace K D/W RN D/W pt Overall prognosis is poor/hospice is appropriate. Family is not ready for hospice at this time Possible DC to SNF in a.m.[no chemotherapy recommended by oncology] Dionne Rollins MD Jan 02, 2017 17:02
[2017-01-02] MEDS: traZODone HCL 50 MG TAB PO SCH (21:00)
[2017-01-02] MEDS: INSULIN DETEMIR 100 UNITS/ML VIAL SQ SCH (22:01)
[2017-01-02] MEDS: SODIUM CHLORIDE 0.9% FLUSH 10 ML FLUSH IV FLUSH PRN (23:41)
[2017-01-03] VITALS (8 sets, daily range): BP systolic 111–166; BP diastolic 65–94; PULSE 86–120; RESP 16–18; TEMP 96.7–99.3; O2SAT 90–98
[2017-01-03] MEDS ORDERED: LACTATED RINGER'S 1000 ML IV PRN (02:45)
[2017-01-03] MEDS ORDERED: SODIUM CHLORID 0.9% 500 ML IV PRN (02:45)
[2017-01-03] MEDS ORDERED: POVIDONE IODINE 5% (ANTISEPSIS KIT) 4 APPLICATIONS EACH NARE PRN (02:45)
[2017-01-03] MEDS ORDERED: CHLORHEXIDINE GLUCONATE 2 % 1 PACK (2 CLOTHS) TOPICAL PRN (02:45)
[2017-01-03] MEDS: SODIUM CHLORIDE 0.65% NASAL SPRAY 45 ML BTL NASAL PRN ×2 (03:39→11:15)
[2017-01-03] MEDS: DEXT 5%-NACL 0.9% 1000 ML INJ 1,000 ML IV SCH (04:48)
[2017-01-03] MEDS: SODIUM CHLORIDE 0.9% FLUSH 10 ML FLUSH IV FLUSH PRN ×2 (04:48→23:21)
[2017-01-03] MEDS: INSULIN ASPART SUPPLEMENTAL SCALE SQ SCH ×4 (05:07→21:54)
[2017-01-03] MEDS: NYSTAT/DIPHENHY/LIDO MOUTHWASH (Adult) 120ML SWISH-SWAL SCH ×4 (05:09→21:54)
[2017-01-03] MEDS: MORPHINE SULFATE 4 MG/ML INJ IV PUSH PRN ×3 (05:12→23:21)
[2017-01-03 05:57] LABS: AUTOMATED NEUTROPHIL # 17.3 TH/MM3 (1.8-7.7); BASOPHIL # 0.1 TH/MM3 (0-0.2); BASOPHIL % 0.4 % (0.0-2.0); EOSINOPHIL # 0.4 TH/MM3 (0-0.4); HEMATOCRIT 33.8 % (39.0-51.0); HEMO FLAGS DIFF FINAL; LYMPH % 9.6 % (9.0-44.0); LYMPHOCYTE # 2.1 TH/MM3 (1.0-4.8); MEAN CELL VOLUME 81.9 FL (80.0-100.0); MEAN CORPUSCULAR HEMOGLOBIN 26.3 PG (27.0-34.0); MEAN CORPUSCULAR HGB CONC 32.1 % (32.0-36.0); MONO % 8.5 % (0.0-8.0); NEUT % 79.5 % (16.0-70.0); PLATELET COUNT 296 TH/MM3 (150-450); RED BLOOD COUNT 4.13 MIL/MM3 (4.50-5.90); RED CELL DISTRIBUTION WIDTH 14.5 % (11.6-17.2); WHITE BLOOD COUNT 21.8 TH/MM3 (4.0-11.0)
[2017-01-03 06:02] LABS: APTT (PATIENT) 32.8 SEC (24.3-30.1); INTERNATIONAL NORMALIZED RATIO 1.1 RATIO; PROTHROMBIN TIME - PATIENT 11.9 SEC (9.8-11.6)
[2017-01-03 06:24] LABS: BICARBONATE 27.5 MEQ/L (21.0-32.0)
[2017-01-03 06:28] LABS: POTASSIUM 2.3 MEQ/L (3.5-5.1)
[2017-01-03] MEDS: POTASSIUM CHLOR 20 MEQ PREMIX 100 ML IV SCH ×5 (07:16→21:17)
[2017-01-03] MEDS: RESP: ALBUTEROL 2.5 MG/IPRATROPIUM 0.5 MG NEB (SCH) NEB (08:16)
[2017-01-03] MEDS: QUEtiapine FUMARATE 25 MG TAB PO SCH ×2 (09:00→21:00)
[2017-01-03] MEDS: NYSTATIN SUSP 500,000 U/5 ML CUP SWISH-SWAL SCH ×4 (09:00→21:54)
[2017-01-03] MEDS: SODIUM CHLORIDE 0.9% FLUSH 10 ML FLUSH IV FLUSH SCH ×2 (09:17→19:10)
--- NOTE | 2017-01-03 11:03 | HHI.PR ---
Subjective History of Present Illness resting in bed awake & responsive still coughing , +ve sputum / using trochar /suctioning c/o oral pain No fever or chills No N/V denies CP , No SOB forgetful low K offers no c/o Vitals/Results Intake & Output 01/02/17 01/02/17 01/03/17 15:00 23:00 07:00 Intake Total 0 ml 1350 ml 810 ml Output Total 400 ml 400 ml 300 ml Balance -400 ml 950 ml 510 ml Intake Oral 0 ml 0 ml IV Total 1350 ml 810 ml Output Urine Total 400 ml 400 ml 300 ml # Voids 2 # Bowel Movements 0 0 Vital Signs Vital Signs Date Time Temp Pulse Resp B/P Pulse Ox O2 Delivery O2 Flow Rate FiO2 01/03/17 08:15 96.8 99 18 111/69 98 01/03/17 05:30 96.8 96 16 137/73 97 01/03/17 00:17 101 154/87 01/02/17 23:43 97.6 98 17 156/96 94 01/02/17 20:00 98.3 100 16 161/98 94 01/02/17 16:00 97.5 92 18 143/87 94 01/02/17 12:00 97.3 100 21 165/80 97 CBC/BMP: 01/03/17 0500 01/03/17 0500 Lab Results Laboratory Tests Test 01/03/17 05:00 White Blood Count 21.8 TH/MM3 Red Blood Count 4.13 MIL/MM3 Hemoglobin 10.9 GM/DL Hematocrit 33.8 % Mean Corpuscular Volume 81.9 FL Mean Corpuscular Hemoglobin 26.3 PG Mean Corpuscular Hemoglobin 32.1 % Concent Red Cell Distribution Width 14.5 % Platelet Count 296 TH/MM3 Mean Platelet Volume 9.2 FL Neutrophils (%) (Auto) 79.5 % Lymphocytes (%) (Auto) 9.6 % Monocytes (%) (Auto) 8.5 % Eosinophils (%) (Auto) 2.0 % Basophils (%) (Auto) 0.4 % Neutrophils # (Auto) 17.3 TH/MM3 Lymphocytes # (Auto) 2.1 TH/MM3 Monocytes # (Auto) 1.9 TH/MM3 Eosinophils # (Auto) 0.4 TH/MM3 Basophils # (Auto) 0.1 TH/MM3 CBC Comment DIFF FINAL Differential Comment Prothrombin Time 11.9 SEC Prothromb Time International 1.1 RATIO Ratio Activated Partial 32.8 SEC Thromboplast Time Sodium Level 137 MEQ/L Potassium Level 2.3 MEQ/L Chloride Level 98 MEQ/L Carbon Dioxide Level 27.5 MEQ/L Anion Gap 12 MEQ/L Blood Urea Nitrogen 4 MG/DL Creatinine 0.55 MG/DL Estimat Glomerular Filtration 146 ML/MIN Rate Random Glucose 222 MG/DL Calcium Level 8.2 MG/DL Physical Exam General General Appearance: No Acute Distress, Comfortable, Anxious Eyes Eye Exam: Pupils Equal, Sclera White, Extraocular Movement Intact Ears & Nose Ears & Nose Exam: Nasal Mucosa [place] Ears & Nose Remarks thickened coated disfigured tongue w left sided resection Throat Throat Exam: Oral Mucosa [place] & Moist Neck Neck Exam: Neck Supple, Trachea Midline Pulmonary Resp Exam: Breath Sounds Equal, No Distress Cardiology CV Exam: Normal Sinus Rhythm, Good Perfusion Gastrointestinal/Abdomen GI Exam: Soft, Non-Tender, Bowel Sounds Present Integumentary Skin Exam: Warm, Dry, Intact Neurologic Neuro Exam: Alert, Awake, Moving All Extremities Neuro Remarks thick tongue, speech is not clear Psychiatric Psych Exam: Appropriate Responses PUD Prophylasis PUD Prophylaxis: Protonix Assessment/Plan Assessment/Plan A/P Diagnosis: (1) Dehydration (2) Dysphagia (3) Squamous cell cancer of tongue (4) Mass of left side of neck (5) Depression (6) HTN (hypertension) (7) Dementia (8) Uncontrolled diabetes mellitus with hyperglycemia (9) Leukocytosis Assessment and Plan 71-year-old man sent as a direct admit for dehydration and dysphagia, recently diagnoses with squamous cell cancer of the mobile tongue, had resection. 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 Has not started chemo and radiation. Dysphagia, unable to clear secretions, came in with diffuse rhonchi and Rales, - worsening WBC - check CXR - IV abx , levaquin/flagyl - suctioning prn - replace kcl -Oxygen as needed -DuoNeb's prn -S/P peg placement, pt. pulled out 12/29. -for repeat placement per GI -Keep NPO continue IVF to 100/hr -On Levsin to control secretions, improving Dementia, hx psychosis, doesn't appear to be competent to make healthcare decision. -Psychiatry input appreciated, recommended Seroquel for agitation. Not much improvement -appreciate palliative care input. Leukocytosis, poss. sec steroids -WBC trending down, Dehydration, secondary to poor PO intake, malnourished. Resolved -continue with IVF -monitor labs HTN,BP elevated -continue home meds -Add Vasotec PRN Type 2 diabetes, uncontrolled blood glucose Continue with Accu-Cheks before meals and at bedtime and insulin therapy -labile, pt. removed peg. Oral pain, thrush -Pain management Continue with nystatin Continue with Magic mouth wash Leukocytosis poss. sec. to steroids -off steroids -CBC in am Heparin for DVT prophylaxis poor prognosis Labs in am d/w pt's brother again over the phone , he wants to go ahead w PEG replacement than SNF placement . I explained him that pt probably will pull PEG again & it will hard to maintain it as he suffers from dementia /confusion . ss for d.c planning d/w RN will f/u Memo Ulrich MD January 03, 2017 11:03
[2017-01-03] MEDS ORDERED: metroNIDAZOLE 500 MG INJ 100 ML IV SCH (12:00)
--- NOTE | 2017-01-03 12:01 | RADRPT ---
EXAM DATE/TIME: 01/03/2017 11:31 [facility] COMPARISON: CHEST SINGLE AP, December 22, 2016, 19:51. INDICATIONS : Cough and shortness of breath. MEDICAL HISTORY : Dementia. Diabetes mellitus type 2. Carcinoma, oral cavity. SURGICAL HISTORY : Tonsillectomy. ENCOUNTER: Initial ACUITY: 1 day PAIN SCORE: 0/10 LOCATION: Bilateral chest FINDINGS: A single view of the chest demonstrates the lungs to be symmetrically aerated without evidence of mas s, infiltrate or effusion. The cardiomediastinal contours are unremarkable. Osseous structures are intact. A left subclavian power port. CONCLUSION: No acute disease. Ji Trevino Jr., MD on January 03, 2017 at 11:58 Board Certified Radiologist. This report was verified electronically.
[2017-01-03] MEDS: LEVOFLOXACIN 500 MG PREMIX INJ 100 ML IV SCH (13:48)
[2017-01-03] MEDS: D5-NS + KCL 20 MEQ INJ 1,000 ML IV SCH ×2 (16:42→17:00)
[2017-01-03] MEDS: HEPARIN SODIUM - SQ 10,000 UNITS/ML VIAL SQ SCH (16:47)
[2017-01-03 17:39] LABS: BICARBONATE 28.8 MEQ/L (21.0-32.0)
[2017-01-03 18:22] LABS: POTASSIUM 2.8 MEQ/L (3.5-5.1)
[2017-01-03] MEDS: traZODone HCL 50 MG TAB PO SCH (21:00)
[2017-01-03] MEDS: INSULIN DETEMIR 100 UNITS/ML VIAL SQ SCH (21:54)
[2017-01-03] MEDS: metroNIDAZOLE 500 MG INJ 100 ML IV SCH (23:26)
[2017-01-04] VITALS (15 sets, daily range): BP systolic 104–149; BP diastolic 52–81; PULSE 101–163; RESP 18–24; TEMP 98.1–99.5; O2SAT 91–97
[2017-01-04] MEDS: diphenhydrAMINE HCL 50 MG/ML VIAL IV PRN (00:45)
[2017-01-04] MEDS: POTASSIUM CHLOR 20 MEQ PREMIX 100 ML IV SCH (00:51)
[2017-01-04] MEDS ORDERED: DILTIAZEM HCL 25 MG/5 ML VIAL IV PUSH PRN (02:45)
[2017-01-04 03:01] LABS: HEMATOCRIT 34.2 % (39.0-51.0); MEAN CELL VOLUME 82.5 FL (80.0-100.0); MEAN CORPUSCULAR HEMOGLOBIN 26.8 PG (27.0-34.0); MEAN CORPUSCULAR HGB CONC 32.5 % (32.0-36.0); PLATELET COUNT 316 TH/MM3 (150-450); RED BLOOD COUNT 4.14 MIL/MM3 (4.50-5.90); RED CELL DISTRIBUTION WIDTH 14.8 % (11.6-17.2); REVIEW FLAG FINAL
[2017-01-04] MEDS: DILTIAZEM 125 MG/NS 100 ML IV SCH ×2 (03:13)
[2017-01-04] MEDS: D5-NS + KCL 20 MEQ INJ 1,000 ML IV SCH ×3 (03:22→23:00)
[2017-01-04 04:16] LABS: BICARBONATE 28.3 MEQ/L (21.0-32.0); POTASSIUM 3.7 MEQ/L (3.5-5.1)
[2017-01-04] MEDS: MORPHINE SULFATE 4 MG/ML INJ IV PUSH PRN (04:58)
[2017-01-04] MEDS: metroNIDAZOLE 500 MG INJ 100 ML IV SCH ×3 (06:39→21:47)
[2017-01-04] MEDS: INSULIN ASPART SUPPLEMENTAL SCALE SQ SCH ×4 (06:45→22:00)
[2017-01-04] MEDS: NYSTAT/DIPHENHY/LIDO MOUTHWASH (Adult) 120ML SWISH-SWAL SCH ×4 (07:00→21:45)
--- NOTE | 2017-01-04 07:55 | EKG ---
Date Performed: 01/04/2017 Time Performed: 02:20:14 PTAGE: 71 years EKG: ATRIAL FIBRILLATION WITH RAPID VENTRICULAR RESPONSE WITH ABERRANT CONDUCTION OR VENTRICULAR PREMATURE COMPLEXES ST/T-WAVE ABNORMALITY, CONSIDER ANTERIOR AND LATERAL ISCHEMIA ABNORMAL ECG PREVIOUS TRACING : 06/07/2016 11.55 Compared to previous tracing, atrial fibrillation has repla mildred Sinus rhythm , heart rate has increased, anterolateral ST/T changes are now present. DOCTOR: Greg Castañeda Interpretating Date/Time 01/04/2017 07:53:38
[2017-01-04] MEDS: NYSTATIN SUSP 500,000 U/5 ML CUP SWISH-SWAL SCH ×4 (08:23→21:44)
[2017-01-04] MEDS: QUEtiapine FUMARATE 25 MG TAB PO SCH ×2 (08:23→21:44)
[2017-01-04] MEDS: SODIUM CHLORIDE 0.9% FLUSH 10 ML FLUSH IV FLUSH SCH ×2 (08:24→21:00)
--- NOTE | 2017-01-04 10:51 | HHI.PR ---
Subjective History of Present Illness pt went into A fib w RVR , was started on IV cardizem & transferred to tele currently on 15mg cardizem/hr , HR in control awake & responsive still coughing , +ve sputum / using trochar /suctioning No fever or chills WBC remained elevated No N/V denies CP , No SOB forgetful offers no c/o Vitals/Results Intake & Output 01/03/17 01/03/17 01/04/17 15:00 23:00 07:00 Intake Total 1012 ml 1595 ml Output Total 150 ml Balance 862 ml 1595 ml IV Total 1012 ml 1595 ml Output Urine Total 150 ml # Voids 2 Vital Signs Vital Signs Date Time Temp Pulse Resp B/P Pulse Ox O2 Delivery O2 Flow Rate FiO2 01/04/17 08:00 117 01/04/17 08:00 98.3 101 18 123/56 92 01/04/17 06:00 124 01/04/17 05:00 136 01/04/17 04:00 163 01/04/17 03:30 98.4 107 24 149/71 94 01/04/17 03:00 99.0 112 20 122/81 95 01/04/17 01:35 122 01/04/17 00:00 98.1 18 97 01/03/17 23:33 100 01/03/17 23:31 120 137/65 01/03/17 20:00 99.3 95 18 146/90 97 01/03/17 16:49 97.0 86 18 166/94 90 01/03/17 12:00 96.7 89 18 166/79 98 CBC/BMP: 01/04/17 0240 01/04/17 0240 Lab Results Laboratory Tests Test 01/03/17 01/04/17 16:40 02:40 Sodium Level 136 MEQ/L 137 MEQ/L Potassium Level 2.8 MEQ/L 3.7 MEQ/L Chloride Level 98 MEQ/L 102 MEQ/L Carbon Dioxide Level 28.8 MEQ/L 28.3 MEQ/L Anion Gap 9 MEQ/L 7 MEQ/L Blood Urea Nitrogen 4 MG/DL 4 MG/DL Creatinine 0.52 MG/DL 0.71 MG/DL Estimat Glomerular Filtration 156 ML/MIN 109 ML/MIN Rate Random Glucose 218 MG/DL 180 MG/DL Calcium Level 7.9 MG/DL 8.0 MG/DL White Blood Count 23.0 TH/MM3 Red Blood Count 4.14 MIL/MM3 Hemoglobin 11.1 GM/DL Hematocrit 34.2 % Mean Corpuscular Volume 82.5 FL Mean Corpuscular Hemoglobin 26.8 PG Mean Corpuscular Hemoglobin 32.5 % Concent Red Cell Distribution Width 14.8 % Platelet Count 316 TH/MM3 Mean Platelet Volume 8.0 FL Troponin I 0.53 NG/ML Physical Exam General General Appearance: No Acute Distress, Comfortable, Anxious Eyes Eye Exam: Pupils Equal, Sclera White, Extraocular Movement Intact Ears & Nose Ears & Nose Exam: Nasal Mucosa [place] Ears & Nose Remarks thick white coated disfigured tongue w left sided resection Throat Throat Exam: Oral Mucosa [place] & Moist Neck Neck Exam: Neck Supple, Trachea Midline Pulmonary Resp Exam: Breath Sounds Equal, No Distress, Crackles Cardiology CV Exam: Irregular, Tachycardia Gastrointestinal/Abdomen GI Exam: Soft, Non-Tender, Bowel Sounds Present Integumentary Skin Exam: Warm, Dry, Intact Neurologic Neuro Exam: Alert, Awake, Moving All Extremities Neuro Remarks thick tongue, speech is not clear Psychiatric Psych Exam: Appropriate Responses PUD Prophylasis PUD Prophylaxis: Protonix Assessment/Plan Assessment/Plan A/P Diagnosis: (1) Dehydration (2) severe oropharyngeal Dysphagia (3) Squamous cell cancer of tongue (4) Mass of left side of neck (5) Depression (6) HTN (hypertension) (7) Dementia (8) Uncontrolled diabetes mellitus with hyperglycemia (9) Leukocytosis (10) New onset A fib w RVR Assessment and Plan 71-year-old man sent as a direct admit for dehydration and dysphagia, recently diagnoses with squamous cell cancer of the mobile tongue, had resection. 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 Has not started chemo and radiation. Dysphagia, unable to clear secretions, came in with diffuse rhonchi and Rales, - worsening WBC - CXR negative - IV abx , levaquin/flagyl , add diflican for fungal infection - suctioning prn - replace kcl -Oxygen as needed -DuoNeb's prn -S/P peg placement, pt. pulled out 12/29. -for repeat placement per GI -Keep NPO , continue IVF to 100/hr -On Levsin to control secretions, improving -Iv cardizem -card consult , d/w Dr henning , he rec to cont IV cardizem drip & proceed w PEG placement Dementia, hx psychosis, doesn't appear to be competent to make healthcare decision. -Psychiatry input appreciated, recommended Seroquel for agitation. however cannot give as pt cant swallow -appreciate palliative care input. Leukocytosis, poss. sec steroids >> developing infection -cont abx & monitor, Dehydration, secondary to poor PO intake, malnourished. Resolved -continue with IVF -monitor labs HTN,BP elevated -continue home meds -Add Vasotec PRN Type 2 diabetes, uncontrolled blood glucose Continue with Accu-Cheks before meals and at bedtime and insulin therapy -labile, pt. removed peg. Oral pain, thrush -Pain management Continue with nystatin/ Add IV diflucan Continue with Magic mouth wash Leukocytosis poss. sec. 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
--- NOTE | 2017-01-04 11:02 | HHI.HCPN ---
Reason for visit a. To assist with evaluation and management of symptoms including: dysphagia , pain b. To assist medical decision maker(s) with: better understanding of current medical conditions; weighing benefits/burdens of medical treatment options; making medical treatment decisions. Subjective/Interval History Pt seen to follow-up on comfort, goals. He had been planned for PEG replacement following his self d/c on 12/29. Planned for today. Pt cont to be confused, yesterday refusing some VS per nursing. Pt w episode Afib RVR overnight, requiring cardizem, transfer to cardiac unit. Cont to be in atrial fibrillation, rate controlled. Remains on cardizem drip. Troponin 0.53, cardiology consult pending. Potassium low yesterday, s/p repletion, today WNL. CXR yesterday negative for acute process. Pt seen in room, no visitors. Sleeping arouses some. Partially oriented/ Poor insight to hospital course/condition change and reason for transfer. Thinks he is in hospital for PEG placement. Falls asleep during exam. + still with some oral pain, using prn. Unable to quantify. Following exam call to brother Anmol. Updated him on transfer to [facility], cardiac assess etc, pending GI PEG today etc. Anmol again expresses aggressive goals. He continues to go back to discussion that the pt was initially offered chemo for neck cancer and he does not understand why they will no longer treat the cancer. He is frustrated as he states pt has had dementia all along and feels that pt would be cured by now if he had begun chemo 6 weeks ago. I reviewed complications and difficulty tx complications in a confused pt, and that pt remains high risk for ongoing complications/setback, removing PEG again, etc, further decline and . Gently explore hospice role /recommend consider meeting with them as a treatment option to manage symptoms as disease progresses. I explored pt will likely experience readmissions and at some point possible resuscitation/life support/ventilator. He is NOT interested in hospice . He talks of other family members who have beat cancer and he feels his brother could too. Anmol has many health concerns of his own and it sounds as if he is struggling to accept the very limited options for his brother. Goals remain aggressive. He would like nursing to notify him when PEG planned so he can plan to be here afterwards. From initial consultation note from Richie TOLEDO on 12/23/16: --Psychiatry has evaluated patient 12/22- psychiatry notes patient is unable to verbalize rational understanding or appreciation of medical conditions unable to express rational reasons to discharge home or refused treatments and patient does not seem aware of consequences of his actions. Further notes he does not have decision-making capacity to refuse PEG or to leave AMA. Recommended next of kin or appropriate proxy be contacted for decision making for the patient. . Advance Directives Living Will: Never completed Health Care Surrogate: Never completed Durable Power of Wastewater Analyst Lab Analyst: Completed, but not made available Advance Directive Specifics Health Care Surrogate(s): The family confirm that the patient is not , that he has no living parents, and that his son Bart has been estranged for more than 25 years and they have no idea where he is or how to reach him. [employer] reports here indicate pt's son Bart may be in [place] with a phone # [phone] -- that number was called 4 times on 12/24/16, and it just gives a "busy" sound, no VM option. The patient's brother Anmol notes that he has the DPOA to handle the patient's affairs, and he does believe that that also includes healthcare ( although they're having construction done at their home and he was unable to find that paperwork up to this point in time -- he says he will bring it in so we can copy it). The patient's two sisters opt out of any decision-making role for the pt, wanting the patient's brother Anmol to be the decision making proxy. Anmol has been functioning as the decision-maker the past couple years, granting consents for surgery, etc. Healthcare Proxy form completed, signed by Anmol 12/24/16. . Objective Vital Signs Date Time Temp Pulse Resp B/P Pulse Ox O2 Delivery O2 Flow Rate FiO2 01/04/17 08:00 117 01/04/17 08:00 98.3 101 18 123/56 92 01/04/17 06:00 124 01/04/17 05:00 136 01/04/17 04:00 163 01/04/17 03:30 98.4 107 24 149/71 94 01/04/17 03:00 99.0 112 20 122/81 95 01/04/17 01:35 122 01/04/17 00:00 98.1 18 97 01/03/17 23:33 100 01/03/17 23:31 120 137/65 01/03/17 20:00 99.3 95 18 146/90 97 01/03/17 16:49 97.0 86 18 166/94 90 01/03/17 12:00 96.7 89 18 166/79 98 Intake & Output 01/04/17 01/04/17 07:00 19:00 Intake Total 1595 ml Balance 1595 ml IV Total 1595 ml Physical Exam CONSTITUTIONAL/GENERAL: This is an adequately nourished patient,alert, in no apparent distress. ENT:Nose without bleeding or purulent drainage.+ erosion left tongue, tissue deficit left tongue. +copious oral secretions. voice faint/soft. Large palpable mass left neck/jaw region. + white exudate on tongue, oral mucosa NECK: Trachea midline.+ large mass left neck. CARDIOVASCULAR: Regular rate and rhythm no murmur. Peripheral pulses symmetric. no edema. RESPIRATORY/CHEST: Symmetric, unlabored respirations on room air. Clear to auscultation. Breath sounds equal bilaterally. GASTROINTESTINAL: Abdomen soft, non-tender, nondistended. No palpable masses. No guarding. Bowel sounds present. NEUROLOGICAL: Awake and alert.Oriented x 2. Insight poor . speech is soft and fairly garbled, speaks only a few words, difficult to understand. Gestures. Moves all 4 extremities PSYCHIATRIC: No obvious anxiety/depression. . Diagnostic Tests Laboratory Laboratory Tests Test 01/02/17 01/03/17 01/03/17 01/04/17 05:38 05:00 16:40 02:40 White Blood Count 18.2 TH/MM3 21.8 TH/MM3 23.0 TH/MM3 (4.0-11.0) (4.0-11.0) (4.0-11.0) Red Blood Count 4.26 MIL/MM3 4.13 MIL/MM3 4.14 MIL/MM3 (4.50-5.90) (4.50-5.90) (4.50-5.90) Hemoglobin 11.3 GM/DL 10.9 GM/DL 11.1 GM/DL (13.0-17.0) (13.0-17.0) (13.0-17.0) Hematocrit 35.3 % 33.8 % 34.2 % (39.0-51.0) (39.0-51.0) (39.0-51.0) Mean Corpuscular Volume 82.9 FL 81.9 FL 82.5 FL (80.0-100.0) (80.0-100.0) (80.0-100.0) Mean Corpuscular Hemoglobin 26.6 PG 26.3 PG 26.8 PG (27.0-34.0) (27.0-34.0) (27.0-34.0) Mean Corpuscular Hemoglobin 32.1 % 32.1 % 32.5 % Concent (32.0-36.0) (32.0-36.0) (32.0-36.0) Red Cell Distribution Width 14.7 % 14.5 % 14.8 % (11.6-17.2) (11.6-17.2) (11.6-17.2) Platelet Count 289 TH/MM3 296 TH/MM3 316 TH/MM3 (150-450) (150-450) (150-450) Mean Platelet Volume 10.7 FL 9.2 FL 8.0 FL (7.0-11.0) (7.0-11.0) (7.0-11.0) Neutrophils (%) (Auto) 75.5 % 79.5 % (16.0-70.0) (16.0-70.0) Lymphocytes (%) (Auto) 2.4 % 9.6 % (9.0-44.0) (9.0-44.0) Monocytes (%) (Auto) 19.7 % 8.5 % (0.0-8.0) (0.0-8.0) Eosinophils (%) (Auto) 1.5 % (0.0-4.0) 2.0 % (0.0-4.0) Basophils (%) (Auto) 0.9 % (0.0-2.0) 0.4 % (0.0-2.0) Neutrophils # (Auto) 13.7 TH/MM3 17.3 TH/MM3 (1.8-7.7) (1.8-7.7) Lymphocytes # (Auto) 0.4 TH/MM3 2.1 TH/MM3 (1.0-4.8) (1.0-4.8) Monocytes # (Auto) 3.6 TH/MM3 1.9 TH/MM3 (0-0.9) (0-0.9) Eosinophils # (Auto) 0.3 TH/MM3 0.4 TH/MM3 (0-0.4) (0-0.4) Basophils # (Auto) 0.2 TH/MM3 0.1 TH/MM3 (0-0.2) (0-0.2) CBC Comment AUTO DIFF DIFF FINAL Differential Total Cells 100 Counted Neutrophils % (Manual) 78 % (16-70) Band Neutrophils % 7 % (0-6) Lymphocytes % 6 % (9-44) Monocytes % 6 % (0-8) Eosinophils % 2 % (0-4) Neutrophils # (Manual) 15.7 TH/MM3 (1.8-7.7) Metamyelocytes 1 % (0-1) Differential Comment FINAL DIFF MANUAL Platelet Estimate NORMAL (NORMAL) Platelet Morphology Comment NORMAL (NORMAL) Red Cell Morphology Comment NORMAL (NORMAL) Prothrombin Time 11.9 SEC (9.8-11.6) Prothromb Time International 1.1 RATIO Ratio Activated Partial 32.8 SEC Thromboplast Time (24.3-30.1) Sodium Level 137 MEQ/L 136 MEQ/L 137 MEQ/L (136-145) (136-145) (136-145) Potassium Level 2.3 MEQ/L 2.8 MEQ/L 3.7 MEQ/L (3.5-5.1) (3.5-5.1) (3.5-5.1) Chloride Level 98 MEQ/L 98 MEQ/L 102 MEQ/L (98-107) (98-107) (98-107) Carbon Dioxide Level 27.5 MEQ/L 28.8 MEQ/L 28.3 MEQ/L (21.0-32.0) (21.0-32.0) (21.0-32.0) Anion Gap 12 MEQ/L (5-15) 9 MEQ/L (5-15) 7 MEQ/L (5-15) Blood Urea Nitrogen 4 MG/DL (7-18) 4 MG/DL (7-18) 4 MG/DL (7-18) Creatinine 0.55 MG/DL 0.52 MG/DL 0.71 MG/DL (0.60-1.30) (0.60-1.30) (0.60-1.30) Estimat Glomerular Filtration 146 ML/MIN 156 ML/MIN 109 ML/MIN Rate (>89) (>89) (>89) Random Glucose 222 MG/DL 218 MG/DL 180 MG/DL (74-106) (74-106) (74-106) Calcium Level 8.2 MG/DL 7.9 MG/DL 8.0 MG/DL (8.5-10.1) (8.5-10.1) (8.5-10.1) Troponin I 0.53 NG/ML (0.02-0.05) Result Diagram: 01/04/17 0240 01/04/17 0240 Imaging Last Impressions Chest X-Ray 01/03/17 0000 Signed Impressions: Service Date/Time: Tuesday, January 03, 2017 11:31 - CONCLUSION: No acute disease. Ji Trevino Jr., MD Lower Extremity Ultrasound 12/28/16 0000 Signed Impressions: Service Date/Time: Wednesday, December 28, 2016 15:18 - CONCLUSION: Negative exam with no evidence of deep venous thrombosis. Eron Hernandez MD Assessment and Plan Disease Oriented Problem List: (1) Hyponatremia (2) Depression (3) Dementia (4) Dysphagia (5) Squamous cell cancer of tongue (6) Mass of left side of neck (7) Uncontrolled diabetes mellitus with hyperglycemia (8) HTN (hypertension) Symptom Scale: (1) Dysphagia 0-10 Scale: Unable to quantify (due to tumor growth) (2) Mouth pain (3) Insomnia Pertinent Non-Medical Issues Psychosocial:Patient currently lives with his brother and [id number]. He has 1 son who lives in [place]. He apparently has previously been under a [place] act for possible polysubstance-induced mood disorder. Per review of prior psychiatric records from 2013 here it appears he is originally from [facility] parents are . He is supported by 2 sisters and one brother. He has been and twice. His son Bart apparently lives in [place] and time of psychiatry (2012) evaluation was age 40. During that psychiatric admission family indicated some signs of dementia for the prior 2 years. 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 Spiritual: Legal: The family on 12/24/16 confirm that the patient is not , that he has no living parents, and that his son Bart has been estranged for more than 25 years and they have no idea where he is or how to reach him. [facility] reports here indicate pt's son Bart may be in [place] with a phone # -- I tried to call that number 4 times today, and it just gives a "busy " sound, no VM option. The patient's brother Anmol notes that he has the DPOA to handle the patient's affairs, and he does believe that that also includes healthcare (although they're having construction done at their home and he was unable to find that paperwork up to this point in time -- he says he will bring it in so we can copy it). The patient's two sisters opt out of any decision- making role for the pt, wanting the patient's brother Anmol to be the decision making proxy. Healthcare Proxy form completed, signed by Anmol. Ethical issues impacting care: none . Important Contacts brother Anmol ([phone]) healthcare proxy Sister in law Kimberly Crissy friend Alexandria Graves [phone] Sister Demond Bundy Son? ___ Bart ([facility]?) # [phone] -->> this number has not been working per multiple attempts 12/24 . 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 He has had pending treatments with concurrent chemotherapy and radiation though has been unable to obtain these treatments thus far. He has had delay in treatment due to airway /nutrition issues. Oncology indicates that nutritional status will need to be supplemented, IV fluids for dehydration , will need to manage acute medical issues before pursuing chemotherapy. Oncology 10 again offered chemotherapy once overall condition stable and nutrition is managed. Code Status: Full Code Plan * FULL CODE * Legal decision maker: The family confirm that the patient is not , that he has no living parents, and that his son Bart has been estranged for more than 25 years and they have no idea where he is or how to reach him. [employer] reports here indicate pt's son Bart may be in [place] with a phone # [phone] -- that number was called 4 times on 12/24/16, and it just gives a "busy" sound, no VM option. The patient's brother Anmol notes that he has the DPOA to handle the patient's affairs, and he does believe that that also includes healthcare (although they're having construction done at their home and he was unable to find that paperwork up to this point in time -- he says he will bring it in so we can copy it). The patient's two sisters opt out of any decision-making role for the pt, wanting the patient's brother Anmol to be the decision making proxy. Anmol has been functioning as the decision-maker the past couple years, granting consents for surgery, etc. Healthcare Proxy form completed, signed by Anmol . * Goals: initial palliative meeting: After much discussion on 12/24/16, the patient is now accepting the recommendations of his family and his doctors to have the PEG tube placed and to start chemotherapy and radiation. (Brother) Anmol and (S-I-L ) Kimberly understand that the burden for getting the patient to all of these appointments, for managing his medicines and symptoms that will develop, and for ensuring strict and consistent follow-up will fall on their shoulders. Anmol notes that he is 74 years old and has a malignancy and is weak, and Kimberly cries and wonders how she "will manage all of this." They understand that, should chemotherapy and radiation ultimately be impossible to complete (whether due to refusal to cooperate by the patient, symptoms that become too severe, or other psychosocial or medical issues), it is likely that a transition to hospice services would be appropriate at that time. The patient and his family want to proceed with PEG tube placement, chemotherapy, and radiation. Scheduled for PEG tube 12/27/16. 01/04/17 - spoke w/ patient brother/proxy Anmol at length via telephone. He cont to express frustration with his brothers condition and not being offered chemotherapy; NOT interested in hospice. GOALS REMAIN AGGRESSIVE. * SYMPTOMS: --Dysphagia-progressive swallowing difficulties, unable to manage secretions. 2/2 disease process. + Able to swallow some thickened liquids via spoon only, per ST assessment, for pleasure only. Continue bypass feedings for nutrition. s/p peg, pt removed, plan for replacement today --Oral pain- some erosion to tongue/oral mucosa. 2/2 disease process. reported to oncology was well managed at home on liq lortab. On IV morpine here. + Oral thrush, on Magic mouthwash currently. Also has prn Morphine available. has used 1x today, 3x yesterday, reported effective relief. Today during my exam , lethargic, does endorse oral pain when asked (last prn 4am) . -- insomnia- pt prev. endorses not sleeping well, unable to qualify why, or how many nights. no longer having insomnia. has prn ambien available * Palliative care will continue to follow during hospital course as condition evolves, to assist patient/decision-maker with understanding of medical conditions, weighing benefits/burdens of treatment options, for clarification of goals of treatment. Additionally will assist with any symptoms of palliative concern . Time Spent >50% Counseling/Coord of Care: Yes (d/w RN, medical attending ) Attestation To help prompt me to consider important information that might be impacting today's encounter and assessment, information from prior notes written by myself or my colleagues may have been "brought forward" into today's note. My signature on this note, however, is an attestation that I personally performed the exam, history, and/or decision-making noted today, and, unless otherwise indicated, the interactions with patient, family, and staff as well as the review of records all occurred today. I also attest that the listed assessment and stated plan reflect my best clinical judgment today based on the combination of historical information, prior notes, and today's exam/ interactions. When time spent is documented, it refers only to time spent today by the signer, or if indicated, combined time spent today by collaborating physician/nurse practitioner. Cynthia Caal January 04, 2017 11:02
[2017-01-04] MEDS: LEVOFLOXACIN 500 MG PREMIX INJ 100 ML IV SCH (11:59)
--- NOTE | 2017-01-04 13:03 | HHI.GIFU ---
Subjective Remarks Pt resting in bed, in no apparent distress. Noncontributory, nonverbal. (Delores Srivastava) Objective Vitals I&O Vital Signs Date Time Temp Pulse Resp B/P Pulse Ox O2 Delivery O2 Flow Rate FiO2 01/04/17 12:22 99.5 109 18 111/52 94 01/04/17 08:00 117 01/04/17 08:00 98.3 101 18 123/56 92 01/04/17 06:00 124 01/04/17 05:00 136 01/04/17 04:00 163 01/04/17 03:30 98.4 107 24 149/71 94 01/04/17 03:00 99.0 112 20 122/81 95 01/04/17 01:35 122 01/04/17 00:00 98.1 18 97 01/03/17 23:33 100 01/03/17 23:31 120 137/65 01/03/17 20:00 99.3 95 18 146/90 97 01/03/17 16:49 97.0 86 18 166/94 90 I/O 01/03/17 01/03/17 01/03/17 01/04/17 01/04/17 01/04/17 07:00 15:00 23:00 07:00 15:00 23:00 Intake Total 810 ml 1012 ml 1595 ml Output Total 300 ml 150 ml Balance 510 ml 862 ml 1595 ml Intake Oral 0 ml IV Total 810 ml 1012 ml 1595 ml Output Urine Total 300 ml 150 ml # Voids 2 # Bowel Movements 0 Laboratory Laboratory Tests Test 01/03/17 01/04/17 16:40 02:40 Sodium Level 136 137 Potassium Level 2.8 3.7 Chloride Level 98 102 Carbon Dioxide Level 28.8 28.3 Anion Gap 9 7 Blood Urea Nitrogen 4 4 Creatinine 0.52 0.71 Estimat Glomerular Filtration 156 109 Rate Random Glucose 218 180 Calcium Level 7.9 8.0 White Blood Count 23.0 Red Blood Count 4.14 Hemoglobin 11.1 Hematocrit 34.2 Mean Corpuscular Volume 82.5 Mean Corpuscular Hemoglobin 26.8 Mean Corpuscular Hemoglobin 32.5 Concent Red Cell Distribution Width 14.8 Platelet Count 316 Mean Platelet Volume 8.0 Troponin I 0.53 Imaging Last Impressions Chest X-Ray 01/03/17 0000 Signed Impressions: Service Date/Time: Tuesday, January 03, 2017 11:31 - CONCLUSION: No acute disease. Ji Trevino Jr., MD Lower Extremity Ultrasound 12/28/16 0000 Signed Impressions: Service Date/Time: Wednesday, December 28, 2016 15:18 - CONCLUSION: Negative exam with no evidence of deep venous thrombosis. Eron Hernandez MD Physical Exam HEENT: Normocephalic; atraumatic; no jaundice. CHEST: coarse breath sounds CARDIAC: irregularly irregular HR ABDOMEN: Soft, nondistended, nontender; no hepatosplenomegaly; bowel sounds are present in all four quadrants. EXTREMITIES: No clubbing, cyanosis, or edema. SKIN: Normal; no rash; no jaundice. 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 s/p EGD w/ PEG placement but was pulled out by pt, demented. Pt diagnosed with squamous cell cancer of the tongue, s/p resection 06/10/16. 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 Port was placed on 12/14/16. He was also supposed to have teeth extraction by maxillofacial in anticipation of radiation. He was seen in Dr. Villeda' office for induction chemotherapy, but was found to be having difficulty clearing his secretions. Pt. has missed oncology follow and they have not been able to coordinate treatment with radiation oncology. GI was consulted for PEG tube placement. Pt had been adamantly refusing, but was seen by the psychiatrist and declared incompetent. Palliative care/CM following. Durable POA has never been completed. Per the nursing staff the pts son was located but does not want to be the pts healthcare decision maker and the pts brother has reportedly stepped in as decision maker. 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 Port has been placed. Needs teeth extraction for radiation and PEG for nutrition prior to tx for cancer. - DM, HTN, Hyperlipidemia, Dementia per primary. PLAN: -Plan for PEG tube placement when cleared by cardiology -Supportive care -Further recommendations to follow based on results of above Patient seen and examined by Dr. Dukes and myself and this note is written on his behalf. (Delores Srivastava) Physician Comments Seen and examined with CAR CLERK PULLMAN, EGD/PEG once cleared by cardiology. (Jerald Dukes MD) Delores Srivastava January 04, 2017 13:03 Jerald Dukes MD January 04, 2017 15:02
--- NOTE | 2017-01-04 19:22 | MB ---
cc: AZALIA SALAMANCA MD DATE OF CONSULTATION 01/04/17 HISTORY OF PRESENT ILLNESS A 71 year old white male with a history of multiple medical problems including dementia with psychosis, mood disorder. He was admitted on 12/22. He has history of neck squamous cell carcinoma. He has great difficulty eating and drinking. PEG tube was placed, but the patient pulled it on 12/29. Repeat placement by GI is planned. The patient denies any chest pain or shortness of breath. He has cough and difficulty clearing secretions. PAST MEDICAL HISTORY 1. Diabetes mellitus 2. Hypertension 3. Dyslipidemia 4. Dementia with psychosis, [place] Act 5. Polysubstance induced mood disorder 6. History of squamous cell cancer of the neck 7. History of inability eating and clearing secretions. 8. Tongue cancer 9. Degenerative disease of cervical spine 10. Hyponatremia 11. Hemiglossectomy 12. Port placement MEDICATIONS 1. Diltiazem IV 2. Metronidazole 3. Levofloxacin 4. Potassium chloride 5. Seroquel 6. Desyrel 7. Levemir. ALLERGIES None. SOCIAL HISTORY The patient smokes. He drinks alcohol occasionally. His family lives in [place]. He lives with his brother and [id number]. FAMILY HISTORY Negative for heart disease REVIEW OF SYSTEMS Otherwise negative. PHYSICAL EXAMINATION VITAL SIGNS: Blood pressure 104/57, pulse 102 and irregular. HEENT: Negative, 2+ carotid upstrokes LUNGS: Clear. HEART: Irregularly irregular, tachycardic with no murmurs or gallops ABDOMEN: Soft, no bruits. EXTREMITIES: Without edema, 1-2+ distal pulses. NEUROLOGIC: Grossly nonfocal. CARDIOLOGY STUDIES Electrocardiogram was reviewed and showed atrial fibrillation with rapid ventricular response and diffuse nonspecific ST-T change. LABORATORY DATA Hemoglobin 11.1, potassium 3.7, creatinine 0.7, troponin 0.53. DIAGNOSES 1. Atrial fibrillation with rapid ventricular response. 2. Dehydration 3. Dysphagia 4. Squamous cell cancer of the tongue 5. Depression 6. Dementia 7. Hypertension 8. Diabetes mellitus DISPOSITION Mr. Moura was found to have atrial fibrillation with rapid ventricular response. He cannot take by mouth medications due to his dysphagia. I recommend to continue IV Diltiazem and titrate Diltiazem with a goal of heart rate less than 110. I recommend to proceed with PEG placement as planned. We should be able to switch him to Diltiazem per PEG tube afterwards. He will be monitored on telemetry. I will follow him for cardiology during his hospitalization. MD TEMO Hinson/ /5:29 PM /7:02 PM YOBANY
[2017-01-04] MEDS: traZODone HCL 50 MG TAB PO SCH (21:44)
[2017-01-04] MEDS: INSULIN DETEMIR 100 UNITS/ML VIAL SQ SCH (21:45)
[2017-01-05] VITALS (21 sets, daily range): BP systolic 117–148; BP diastolic 59–74; PULSE 77–120; RESP 16–20; TEMP 97.4–98.2; O2SAT 96–98
[2017-01-05] MEDS: FLUCONAZOLE 200 MG PREMIX BAG 100 ML IV SCH (01:27)
[2017-01-05] MEDS: metroNIDAZOLE 500 MG INJ 100 ML IV SCH ×3 (05:42→22:47)
[2017-01-05] MEDS: NYSTAT/DIPHENHY/LIDO MOUTHWASH (Adult) 120ML SWISH-SWAL SCH ×4 (05:42→20:43)
[2017-01-05] MEDS: INSULIN ASPART SUPPLEMENTAL SCALE SQ SCH ×4 (05:49→21:00)
[2017-01-05 06:26] LABS: HEMATOCRIT 26.8 % (39.0-51.0); MEAN CELL VOLUME 82.2 FL (80.0-100.0); MEAN CORPUSCULAR HEMOGLOBIN 27.8 PG (27.0-34.0); MEAN CORPUSCULAR HGB CONC 33.9 % (32.0-36.0); PLATELET COUNT 273 TH/MM3 (150-450); RED BLOOD COUNT 3.26 MIL/MM3 (4.50-5.90); REVIEW FLAG FINAL; WHITE BLOOD COUNT 16.5 TH/MM3 (4.0-11.0)
[2017-01-05 06:54] LABS: BICARBONATE 26.2 MEQ/L (21.0-32.0); POTASSIUM 3.1 MEQ/L (3.5-5.1)
[2017-01-05] MEDS: SODIUM CHLORIDE 0.9% FLUSH 10 ML FLUSH IV FLUSH SCH ×2 (08:36→20:47)
[2017-01-05] MEDS: NYSTATIN SUSP 500,000 U/5 ML CUP SWISH-SWAL SCH ×4 (08:36→20:44)
[2017-01-05] MEDS: QUEtiapine FUMARATE 25 MG TAB PO SCH ×2 (08:36→20:44)
[2017-01-05] MEDS: D5-NS + KCL 20 MEQ INJ 1,000 ML IV SCH ×3 (09:00→20:36)
--- NOTE | 2017-01-05 11:38 | HHI.PR ---
Subjective History of Present Illness pt went into A fib w RVR , was started on IV cardizem & transferred to tele currently on 15mg cardizem/hr , HR in control awake & responsive still coughing , +ve sputum / using trochar /suctioning No fever or chills WBC remained elevated No N/V denies CP , No SOB forgetful offers no c/o Vitals/Results Intake & Output 01/04/17 01/04/17 01/05/17 15:00 23:00 07:00 Intake Total 700 ml 1620 ml Output Total 375 ml Balance 700 ml 1245 ml Intake Oral 50 ml 120 ml IV Total 650 ml 1500 ml Output Urine Total 375 ml # Voids 2 # Bowel Movements 0 Vital Signs Vital Signs Date Time Temp Pulse Resp B/P Pulse Ox O2 Delivery O2 Flow Rate FiO2 01/05/17 10:48 77 01/05/17 09:31 98 01/05/17 08:00 101 01/05/17 08:00 97.7 89 20 119/67 96 01/05/17 06:00 92 01/05/17 05:00 90 01/05/17 04:17 97.7 97 121/59 96 01/05/17 04:00 98 01/05/17 03:00 101 01/05/17 02:00 100 01/05/17 01:00 102 01/05/17 00:00 116 01/05/17 00:00 97.4 105 117/63 98 01/04/17 23:00 117 01/04/17 22:00 118 01/04/17 21:00 118 01/04/17 20:00 114 01/04/17 20:00 98.3 113 135/74 91 01/04/17 19:00 111 01/04/17 16:09 99.0 102 18 104/57 95 01/04/17 12:22 99.5 109 18 111/52 94 CBC/BMP: 01/05/17 0600 01/05/17 0600 Lab Results Laboratory Tests Test 01/05/17 06:00 White Blood Count 16.5 TH/MM3 Red Blood Count 3.26 MIL/MM3 Hemoglobin 9.1 GM/DL Hematocrit 26.8 % Mean Corpuscular Volume 82.2 FL Mean Corpuscular Hemoglobin 27.8 PG Mean Corpuscular Hemoglobin 33.9 % Concent Red Cell Distribution Width 15.0 % Platelet Count 273 TH/MM3 Mean Platelet Volume 7.7 FL Sodium Level 140 MEQ/L Potassium Level 3.1 MEQ/L Chloride Level 106 MEQ/L Carbon Dioxide Level 26.2 MEQ/L Anion Gap 8 MEQ/L Blood Urea Nitrogen 5 MG/DL Creatinine 0.68 MG/DL Estimat Glomerular Filtration 115 ML/MIN Rate Random Glucose 241 MG/DL Calcium Level 7.6 MG/DL Physical Exam General General Appearance: No Acute Distress, Comfortable, Anxious Eyes Eye Exam: Pupils Equal, Sclera White, Extraocular Movement Intact Ears & Nose Ears & Nose Exam: Nasal Mucosa [place] Ears & Nose Remarks thick white coated disfigured tongue w left sided resection Throat Throat Exam: Oral Mucosa [place] & Moist Neck Neck Exam: Neck Supple, Trachea Midline Pulmonary Resp Exam: Breath Sounds Equal, No Distress, Crackles Cardiology CV Exam: Irregular, Tachycardia Gastrointestinal/Abdomen GI Exam: Soft, Non-Tender, Bowel Sounds Present Integumentary Skin Exam: Warm, Dry, Intact Neurologic Neuro Exam: Alert, Awake, Moving All Extremities Neuro Remarks thick tongue, speech is not clear Psychiatric Psych Exam: Appropriate Responses PUD Prophylasis PUD Prophylaxis: Protonix Assessment/Plan Assessment/Plan A/P Diagnosis: (1) Dehydration (2) severe oropharyngeal Dysphagia (3) Squamous cell cancer of tongue (4) Mass of left side of neck (5) Depression (6) HTN (hypertension) (7) Dementia (8) Uncontrolled diabetes mellitus with hyperglycemia (9) Leukocytosis (10) New onset A fib w RVR Assessment and Plan 71-year-old man sent as a direct admit for dehydration and dysphagia, recently diagnoses with squamous cell cancer of the mobile tongue, had resection. 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 Has not started chemo and radiation. Dysphagia, unable to clear secretions, came in with diffuse rhonchi and Rales, - worsening WBC - CXR negative - IV abx , levaquin/flagyl , add diflican for fungal infection - suctioning prn - replace kcl -Oxygen as needed -DuoNeb's prn -S/P peg placement, pt. pulled out 12/29. -for repeat placement per GI -Keep NPO , continue IVF to 100/hr -On Levsin to control secretions, improving -Iv cardizem -card consult , d/w Dr henning , he rec to cont IV cardizem drip & proceed w PEG placement Dementia, hx psychosis, doesn't appear to be competent to make healthcare decision. -Psychiatry input appreciated, recommended Seroquel for agitation. however cannot give as pt cant swallow -appreciate palliative care input. Leukocytosis, poss. sec steroids >> developing infection -cont abx & monitor, Dehydration, secondary to poor PO intake, malnourished. Resolved -continue with IVF -monitor labs HTN,BP elevated -continue home meds -Add Vasotec PRN Type 2 diabetes, uncontrolled blood glucose Continue with Accu-Cheks before meals and at bedtime and insulin therapy -labile, pt. removed peg. Oral pain, thrush -Pain management Continue with nystatin/ Add IV diflucan Continue with Magic mouth wash Leukocytosis poss. sec. to steroids -off steroids -CBC in am Heparin for DVT prophylaxis poor prognosis Labs in am d/w Palliative care [employer] cont supportive care will f/u Memo Ulrich MD January 05, 2017 11:38
[2017-01-05] MEDS ORDERED: ceFAZolin INJ 1,000 MG VIAL IV ONE (12:10)
[2017-01-05] MEDS ORDERED: PROPOFOL 200 MG/20 ML AMP IV ONE (12:29)
--- NOTE | 2017-01-05 12:42 | GIPROC ---
[facility] [address] [facility]. [facility], [id number] EGD WITH PEG PROCEDURE REPORT EXAM DATE: 01/05/2017 PATIENT NAME: Devante Moura MR#: [id number] BIRTHDATE: 1945 ATTENDING: Jerald Dukes MD ORDER #: [id number] WEB CONTENT DIRECTOR: Madelin Garcia Schulman, Neal, and Thomas Adame STATUS: inpatient INDICATIONS: The patient is a 71 yr old male here for an EGD with PEG due to placement of PEG PROCEDURE PERFORMED: EGD with PEG placement EGD with biopsy MEDICATIONS: None, Per Anesthesia, and Ancef TOPICAL ANESTHETIC: CONSENT: The patient understands the risks and benefits of the procedure and understands that these risks include, but are not limited to: sedation, allergic reaction, infection, perforation and/or bleeding. Alternative means of evaluation and treatment include, among others: physical exam, x-rays, and/or surgical intervention. The patient elects to proceed with this endoscopic procedure. medical equipment was checked for proper function. Hand hygiene and appropriate measures for infection prevention was taken. After the risks, benefits and alternatives of the procedure were thoroughly explained, Informed consent was verified, confirmed and timeout was successfully executed by the treatment team. The patient was anesthetized with topical anesthesia and the Pentax [id number] endoscope was introduced through the mouth and advanced to the descending duodenum. The instrument was slowly withdrawn as the mucosa was fully examined. Esophagitis was found in the distal esophagus. The stomach was then inflated with air, and by a combination of transillumination and manual palpation, the site for the gastrostomy tube placement was selected and marked on the anterior abdominal wall. The skin of the anterior abdomen was surgically prepped and draped with sterile towels. Utilizing strict sterile technique, the selected site was then anesthetized with 1% xylocaine by injection into the skin and subcutaneous tissue. A 1 cm incision was made through the skin and subcutaneous tissue, and the needle/cannula assembly was then passed through the abdominal wall and through the anterior wall of the stomach, maintaining visualization with the endoscope. A snare device previously placed through the instrument channel was then opened and placed around the cannula, the needle was removed, and the insertion wire was passed through the cannula and into the stomach lumen. The snare was then loosened from the cannula, and repositioned to snare the insertion wire. The snare was then pulled up to the endoscope distal tip, and the scope was then withdrawn bringing with it the snare and insertion wire. The insertion wire was then released from the snare, and then loop-attached to the Bard 20 Fr gastrostomy tube. Using the "pull technique", the G-tube was then pulled into place by traction on the insertion wire at the abdominal wall end. The G-tube insertion site was then cleansed once again, and the external bolster was placed over the tube to secure it to the abdominal wall. A sterile dressing was then applied, and the procedure terminated. no abnormalities The gastroscope was then slowly withdrawn and removed. ADVERSE EVENT: There were no complications. IMPRESSIONS: 1. Esophagitis was found in the distal esophagus 2. No abnormalities RECOMMENDATIONS: 1. Anti-reflux regimen 2. Continue PPI 3. PEG recomendations: 1- NPO for 6 hours except for meds 2- Flush PEG tube every 6 hours with water and after each PEG feeding 3- May resume regular diet in the morning 4- May use Ensure or Boost etc. for PEG tube feeding REPEAT EXAM: procedure as needed Jerald Dukes MD eSigned: Jerald Dukes MD 01/05/2017 12:42 PM cc: PATIENT NAME: Devante Moura MR#: [id number]
[2017-01-05] MEDS ORDERED: DO NOT ADM ANY ANTICOAGULANT DRUGS PRN (13:10)
[2017-01-05] MEDS ORDERED: *RESP: ALBUTEROL 2.5 MG/3 ML NEB (PRN) PERIprocedural Use ONLY NEB ONE (13:21)
[2017-01-05] MEDS: LEVOFLOXACIN 500 MG PREMIX INJ 100 ML IV SCH (13:44)
[2017-01-05] MEDS ORDERED: *morphine SULFATE 8 MG/ML PERIprocedure ONLY ONE (14:46)
--- NOTE | 2017-01-05 16:12 | HHI.PR ---
Subjective Remarks s/p peg insertion tolerated well oral pain + cough on Cardizem at 15/hr, HR 90s no fever Objective Objective Results - Vital Signs Date Time Temp Pulse Resp B/P Pulse Ox O2 Delivery O2 Flow Rate FiO2 01/05/17 15:15 94 01/05/17 15:09 97.7 102 20 118/66 98 01/05/17 10:48 77 01/05/17 09:31 98 01/05/17 08:00 101 01/05/17 08:00 97.7 89 20 119/67 96 01/05/17 06:00 92 01/05/17 05:00 90 01/05/17 04:17 97.7 97 121/59 96 01/05/17 04:00 98 01/05/17 03:00 101 01/05/17 02:00 100 01/05/17 01:00 102 01/05/17 00:00 116 01/05/17 00:00 97.4 105 117/63 98 01/04/17 23:00 117 01/04/17 22:00 118 01/04/17 21:00 118 01/04/17 20:00 114 01/04/17 20:00 98.3 113 135/74 91 01/04/17 19:00 111 01/04/17 16:09 99.0 102 18 104/57 95 I/O 01/04/17 01/04/17 01/04/17 01/05/17 01/05/17 01/05/17 07:00 15:00 23:00 07:00 15:00 23:00 Intake Total 1595 ml 700 ml 1620 ml Output Total 375 ml Balance 1595 ml 700 ml 1245 ml Intake Oral 50 ml 120 ml IV Total 1595 ml 650 ml 1500 ml Output Urine Total 375 ml # Voids 2 # Bowel Movements 0 Result Diagram: 01/05/17 0600 01/05/17 0600 Imaging Last Impressions Chest X-Ray 12/22/16 0000 Signed Impressions: Service Date/Time: Thursday, December 22, 2016 19:51 - CONCLUSION: No acute disease. Ji Trevino Jr., MD Other Results Laboratory Tests Test 01/05/17 06:00 White Blood Count 16.5 Red Blood Count 3.26 Hemoglobin 9.1 Hematocrit 26.8 Mean Corpuscular Volume 82.2 Mean Corpuscular Hemoglobin 27.8 Mean Corpuscular Hemoglobin 33.9 Concent Red Cell Distribution Width 15.0 Platelet Count 273 Mean Platelet Volume 7.7 Sodium Level 140 Potassium Level 3.1 Chloride Level 106 Carbon Dioxide Level 26.2 Anion Gap 8 Blood Urea Nitrogen 5 Creatinine 0.68 Estimat Glomerular Filtration 115 Rate Random Glucose 241 Calcium Level 7.6 ROS General: Other (poor historian) Physical Exam Physical Exam GENERAL: This is a well-nourished, well-developed patient, in no apparent distress. SKIN: No rashes, ecchymoses or lesions. Cool and dry. HEAD: Atraumatic. Normocephalic. No temporal or scalp tenderness. EYES: Pupils equal round and reactive. Extraocular motions intact. No scleral icterus. No injection or drainage. ENT: Nose without bleeding, purulent drainage or septal hematoma. Throat without erythema, tonsillar hypertrophy or exudate. Uvula midline. Airway patent. Partial glossectomy, thrush noted. NECK: Trachea midline.Left neck mass. CARDIOVASCULAR: Regular rate and rhythm without murmurs, gallops, or rubs. RESPIRATORY: diffuse ronchi, faint, minimal wheezing GASTROINTESTINAL: Abdomen soft, non-tender, nondistended. No hepato-splenomegaly , or palpable masses. No guarding. Peg site with dressing intact. MUSCULOSKELETAL: Extremities without clubbing, cyanosis, or edema. No joint tenderness, effusion, or edema noted. No calf tenderness. Negative Homans sign bilaterally. NEUROLOGICAL: Speech slurred due to partial glossectomy, oriented to year, place , self, doesn't understand why he is here. No focal deficits. Urinary Catheter: No Vascular Central Line Catheter: No A/P Diagnosis: (1) Dehydration (2) Dysphagia (3) Squamous cell cancer of tongue (4) Mass of left side of neck (5) Depression (6) HTN (hypertension) (7) Dementia (8) Uncontrolled diabetes mellitus with hyperglycemia (9) Leukocytosis Assessment and Plan 71-year-old man sent as a direct admit for dehydration and dysphagia, recently diagnoses with squamous cell cancer of the mobile tongue, had resection. 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 Has not started chemo and radiation. Dysphagia, unable to clear secretions, came in with diffuse rhonchi and Rales, some respiratory distress -Oxygen as needed -DuoNeb's when necessary -Appreciate GI input -S/P peg placement, pt. pulled out 12/29. Dr. Neves following -On Levsin to control secretions, improving -S/P Peg placement 01/05, ok for meds, tube feeding to start in am afib RVR, required tx to [facility]. HR improved, coming down -appreciate card input -remains on Cardizem gtt Dementia, hx psychosis, doesn't appear to be competent to make healthcare decision. -Psychiatry input appreciated, recommended Seroquel for agitation. Not much improvement -appreciate palliative care input. Leukocytosis, poss. sec steroids -off steroids now -continue abx -WBC trending down, Dehydration, secondary to poor PO intake, malnourished. Resolved -continue with IVF -monitor labs HTN,BP elevated -continue home meds - Vasotec PRN Type 2 diabetes, uncontrolled blood glucose Continue with Accu-Cheks before meals and at bedtime and insulin therapy Oral pain, thrush -Pain management Continue with nystatin Continue with Magic mouth wash Heparin for DVT prophylaxis poor prognosis Labs in am per Dr. Villeda, pt. not appropriate for chemo considering he is removing peg, decannulated port. He can't go to a SNF while on chemo. Brother has health problems and will likely be very challenging to provide care for pt. and make sure he remains compliant. Palliative care following, brother Anmol is POA. Goals remain aggressive. Replace K Labs in am to start TF in am D/W RN D/W pt D/W Dr. Ulrich This patient was seen by myself and Dr. Ulrich, this note is written on his behalf Problem Qualifiers (1) Dysphagia: Qualified Code: R13.10 - Dysphagia, unspecified type (2) Depression: Qualified Code: F32.9 - Depression, unspecified depression type (3) HTN (hypertension): Qualified Code: I10 - Essential hypertension (4) Dementia: Qualified Code: F03.90 - Dementia without behavioral disturbance, unspecified dementia type (5) Uncontrolled diabetes mellitus with hyperglycemia: Qualified Code: E11.65 - Uncontrolled type 2 diabetes mellitus with hyperglycemia, unspecified nursing home insulin use status (6) Leukocytosis: Qualified Code: D72.829 - Leukocytosis, unspecified type Savanna Kent January 05, 2017 16:12
[2017-01-05] MEDS ORDERED: POTASSIUM CHLOR 20 MEQ PREMIX 100 ML IV ONE (16:15)
--- NOTE | 2017-01-05 17:14 | PD.CARD.PN ---
Subjective Subjective Remarks No CP or SOB, tolerated PEG placement well, confused Objective Medications Current Medications Medications (Trade) Dose Ordered Sig/Rosalind Route Start Time Stop Time Status Last Admin (NS Flush) 2 ml UNSCH PRN IV FLUSH 12/22/16 16:15 01/03/17 23:21 (NS Flush) 2 ml BID IV FLUSH 12/22/16 21:00 01/05/17 08:36 (Zofran Inj) 4 mg Q6H PRN IVP 12/22/16 16:15 (Heparin Inj) 5,000 units Q12H SQ 12/22/16 17:00 Hold 01/03/17 16:47 (Narcan Inj) 0.4 mg UNSCH PRN IV 12/22/16 16:15 (D50w (Vial) Inj) 25 ml UNSCH PRN IV PUSH 12/22/16 18:30 (Glucagon Inj) 1 mg UNSCH PRN OTHER 12/22/16 18:30 (Hycet 325-7.5 Mg Liq) 10 ml Q6H PRN PO 12/22/16 18:30 12/22/16 22:44 (Mycostatin Liq) 5 ml QID SWISH-SWAL 12/22/16 21:00 01/05/17 08:36 (Magic Mouthwash Adult Liq) 10 ml ACHS SWISH-SWAL 12/22/16 21:00 01/05/17 16:00 (Desyrel) 50 mg HS PO 12/22/16 21:00 01/04/17 21:44 (Levemir Inj) 5 units HS SQ 12/22/16 21:00 01/04/17 21:45 (Morphine Inj) 4 mg Q3H PRN IV PUSH 12/22/16 18:45 01/04/17 04:58 (Levsin Liq) 0.125 mg Q4H PRN PO 12/23/16 14:45 (SEROquel) 25 mg BID PO 12/23/16 15:00 01/05/17 08:36 (Ambien) 5 mg HS PRN PO 12/24/16 19:30 12/28/16 00:23 (Heparin Central Flush) 250 units UNSCH PRN IV FLUSH 12/29/16 02:30 01/01/17 04:01 (Heparin Central Flush) 500 units UNSCH IV FLUSH 12/29/16 02:30 (NS Flush) 5 ml UNSCH PRN IV FLUSH 12/29/16 02:30 01/03/17 04:48 Enalaprilat 1.25 mg 1.25 mg Q6H PRN IV PUSH 12/31/16 11:00 01/01/17 19:44 Lactated Ringer's 1,000 ml @ 30 mls/hr Q24H PRN IV 01/03/17 02:45 01/06/17 02:44 (NS 500 ml Inj) 500 ml @ 30 mls/hr [id number] PRN IV 01/03/17 02:45 01/06/17 02:44 Sodium Chloride 1 spray 1 spray Q4H PRN NASAL 01/03/17 03:45 01/03/17 11:15 Potassium Chloride/Dextrose/ Sod Cl 1,000 ml @ 100 mls/hr Q10H IV 01/03/17 07:00 01/05/17 09:00 Levofloxacin/ Dextrose 100 ml @ 100 mls/hr Q24H IV 01/03/17 12:00 01/05/17 13:44 (Flagyl 500 Mg Inj) 100 ml @ 100 mls/hr Q8H IV 01/03/17 23:00 01/05/17 15:00 Diphenhydramine HCl 25 mg 25 mg HS PRN IV 01/04/17 00:45 01/04/17 00:45 Diltiazem HCl 125 mg/Sodium Chloride 125 ml @ 0 mls/hr TITRATE IV 01/04/17 02:45 01/04/17 03:13 (Diflucan 200 Mg Premix Bag) 100 ml @ 100 mls/hr Q24H IV 01/05/17 01:00 01/05/17 01:27 Miscellaneous Information ALL NURSING DEPARTME... UNSCH PRN .XX 01/05/17 13:10 01/06/17 13:09 (KCl 20 Meq Premix Inj) 100 ml @ 50 mls/hr BOLUS ONCE IV 01/05/17 16:15 01/05/17 18:14 01/05/17 16:15 (Cardizem) 60 mg Q6HR G-TUBE 01/05/17 18:00 Vital Signs / I&O Vital Signs Date Time Temp Pulse Resp B/P Pulse Ox O2 Delivery O2 Flow Rate FiO2 01/05/17 17:01 94 01/05/17 16:05 104 01/05/17 15:15 94 01/05/17 15:09 97.7 102 20 118/66 98 01/05/17 10:48 77 01/05/17 09:31 98 01/05/17 08:00 101 01/05/17 08:00 97.7 89 20 119/67 96 01/05/17 06:00 92 01/05/17 05:00 90 01/05/17 04:17 97.7 97 121/59 96 01/05/17 04:00 98 01/05/17 03:00 101 01/05/17 02:00 100 01/05/17 01:00 102 01/05/17 00:00 116 01/05/17 00:00 97.4 105 117/63 98 01/04/17 23:00 117 01/04/17 22:00 118 01/04/17 21:00 118 01/04/17 20:00 114 01/04/17 20:00 98.3 113 135/74 91 01/04/17 19:00 111 I/O 01/04/17 01/04/17 01/04/17 01/05/17 01/05/17 01/05/17 07:00 15:00 23:00 07:00 15:00 23:00 Intake Total 1595 ml 700 ml 1620 ml Output Total 375 ml Balance 1595 ml 700 ml 1245 ml Intake Oral 50 ml 120 ml IV Total 1595 ml 650 ml 1500 ml Output Urine Total 375 ml # Voids 2 # Bowel Movements 0 Physical Exam GENERAL: IN NAD SKIN: Warm and dry. HEAD: Normocephalic. EYES: No scleral icterus. No injection or drainage. NECK: Supple, trachea midline. No JVD or lymphadenopathy. CARDIOVASCULAR: Regular rate and rhythm without murmurs, gallops, or rubs. RESPIRATORY: Breath sounds equal bilaterally. No accessory muscle use. GASTROINTESTINAL: Abdomen soft, non-tender, nondistended. MUSCULOSKELETAL: No cyanosis, or edema. Laboratory Laboratory Tests Test 01/05/17 06:00 White Blood Count 16.5 TH/MM3 Red Blood Count 3.26 MIL/MM3 Hemoglobin 9.1 GM/DL Hematocrit 26.8 % Mean Corpuscular Volume 82.2 FL Mean Corpuscular Hemoglobin 27.8 PG Mean Corpuscular Hemoglobin 33.9 % Concent Red Cell Distribution Width 15.0 % Platelet Count 273 TH/MM3 Mean Platelet Volume 7.7 FL Sodium Level 140 MEQ/L Potassium Level 3.1 MEQ/L Chloride Level 106 MEQ/L Carbon Dioxide Level 26.2 MEQ/L Anion Gap 8 MEQ/L Blood Urea Nitrogen 5 MG/DL Creatinine 0.68 MG/DL Estimat Glomerular Filtration 115 ML/MIN Rate Random Glucose 241 MG/DL Calcium Level 7.6 MG/DL Imaging Last Impressions Chest X-Ray 01/03/17 0000 Signed Impressions: Service Date/Time: Tuesday, January 03, 2017 11:31 - CONCLUSION: No acute disease. Ji Trevino Jr., MD Lower Extremity Ultrasound 12/28/16 0000 Signed Impressions: Service Date/Time: Wednesday, December 28, 2016 15:18 - CONCLUSION: Negative exam with no evidence of deep venous thrombosis. Eron Hernandez MD Assessment and Plan Problem List: (1) Atrial fibrillation (2) Dysphagia (3) Squamous cell cancer of tongue (4) Dementia (5) HTN (hypertension) (6) Dehydration Assessment and Plan In sinus tachycardia w PACs. Continue IV diltiazem, switch to short-acting diltiazem per PEG tube. No new cardiac issues. PT/OT. Problem Qualifiers (1) Dysphagia: Qualified Code: R13.10 - Dysphagia, unspecified type (2) Dementia: Qualified Code: F03.90 - Dementia without behavioral disturbance, unspecified dementia type (3) HTN (hypertension): Qualified Code: I10 - Essential hypertension Stephania Edwards MD January 05, 2017 17:14
[2017-01-05] MEDS: DILTIAZEM HCL 60 MG TAB G-TUBE SCH (17:20)
[2017-01-05] MEDS: MORPHINE SULFATE 4 MG/ML INJ IV PUSH PRN (20:32)
[2017-01-05] MEDS: traZODone HCL 50 MG TAB PO SCH (20:44)
[2017-01-05] MEDS: INSULIN DETEMIR 100 UNITS/ML VIAL SQ SCH (20:45)
[2017-01-05] MEDS: ZOLPIDEM TARTRATE 5 MG TAB PO PRN (22:45)
[2017-01-05] MEDS: ACETAMINOPHEN 325MG/HYDROcodone 7.5MG/15ML UDC PO PRN (22:51)
[2017-01-06] VITALS (21 sets, daily range): BP systolic 109–137; BP diastolic 57–75; PULSE 88–118; RESP 16–26; TEMP 98–98.6; O2SAT 92–98
[2017-01-06] MEDS: FLUCONAZOLE 200 MG PREMIX BAG 100 ML IV SCH (00:25)
[2017-01-06] MEDS: DILTIAZEM HCL 60 MG TAB G-TUBE SCH ×5 (00:27→23:19)
[2017-01-06] MEDS: diphenhydrAMINE HCL 50 MG/ML VIAL IV PRN (00:27)
[2017-01-06] MEDS: DILTIAZEM 125 MG/NS 100 ML IV SCH ×2 (06:51)
[2017-01-06] MEDS: MORPHINE SULFATE 4 MG/ML INJ IV PUSH PRN (06:51)
[2017-01-06] MEDS: INSULIN ASPART SUPPLEMENTAL SCALE SQ SCH ×4 (06:55→21:00)
[2017-01-06] MEDS: metroNIDAZOLE 500 MG INJ 100 ML IV SCH ×3 (06:59→23:22)
[2017-01-06] MEDS: NYSTAT/DIPHENHY/LIDO MOUTHWASH (Adult) 120ML SWISH-SWAL SCH ×4 (06:59→23:21)
[2017-01-06] MEDS: QUEtiapine FUMARATE 25 MG TAB PO SCH ×2 (09:00→23:19)
[2017-01-06 09:15] LABS: BICARBONATE 24.4 MEQ/L (21.0-32.0); POTASSIUM 3.3 MEQ/L (3.5-5.1)
[2017-01-06] MEDS ORDERED: POTASSIUM CHLORIDE 25 MEQ EFFERVESCENT TAB PO ONE ×2 (09:30→15:00)
[2017-01-06] MEDS: NYSTATIN SUSP 500,000 U/5 ML CUP SWISH-SWAL SCH ×4 (09:32→23:21)
--- NOTE | 2017-01-06 09:32 | HHI.PR ---
Subjective Remarks s/p peg insertion 01/05 + cough, can't bring up secretions c/o oral pain slept poorly HR better controlled, 90s cardizem gtt at 15/hr no fever Objective Objective Results - Vital Signs Date Time Temp Pulse Resp B/P Pulse Ox O2 Delivery O2 Flow Rate FiO2 01/06/17 08:15 98.0 92 24 120/63 96 01/06/17 03:31 98.6 103 26 109/57 92 01/06/17 03:00 106 01/06/17 02:00 88 01/06/17 01:27 98.2 113 16 135/75 98 01/06/17 01:00 108 01/06/17 00:00 118 01/05/17 23:00 106 01/05/17 22:00 96 01/05/17 21:00 108 01/05/17 21:00 98.2 108 16 148/74 98 01/05/17 20:00 120 01/05/17 19:00 106 01/05/17 18:12 110 01/05/17 17:01 94 01/05/17 16:05 104 01/05/17 15:15 94 01/05/17 15:09 97.7 102 20 118/66 98 01/05/17 14:15 97.4 100 24 105/60 100 Nasal Cannula 2 01/05/17 14:00 112 23 107/62 99 Nasal Cannula 2 01/05/17 13:45 95 19 114/64 99 Nasal Cannula 2 01/05/17 13:30 96 20 114/58 100 Nasal Cannula 2 01/05/17 13:15 92 16 116/57 96 Nasal Cannula 2 01/05/17 13:00 92 16 127/68 100 Nasal Cannula 2 01/05/17 12:50 97.4 91 11 112/57 96 Nasal Cannula 4 01/05/17 10:48 77 01/05/17 09:31 98 I/O 01/05/17 01/05/17 01/05/17 01/06/17 01/06/17 01/06/17 07:00 15:00 23:00 07:00 15:00 23:00 Intake Total 1620 ml 300 ml 950 ml Output Total 375 ml Balance 1245 ml 300 ml 950 ml Intake Oral 120 ml 0 ml 240 ml IV Total 1500 ml 100 ml 710 ml Other 200 ml Output Urine Total 375 ml # Voids 0 3 # Bowel Movements 0 Result Diagram: 01/05/17 0600 01/06/17 0807 Imaging Last Impressions Chest X-Ray 12/22/16 0000 Signed Impressions: Service Date/Time: Thursday, December 22, 2016 19:51 - CONCLUSION: No acute disease. Ji Trevino Jr., MD Other Results Laboratory Tests Test 01/06/17 08:07 Sodium Level 139 Potassium Level 3.3 Chloride Level 106 Carbon Dioxide Level 24.4 Anion Gap 9 Blood Urea Nitrogen 4 Creatinine 0.62 Estimat Glomerular Filtration 128 Rate Random Glucose 224 Calcium Level 7.3 ROS General: Other (oral pain, poor historian, speech difficulty ) Pulmonary: Cough, SOB, Wheezing Physical Exam Physical Exam GENERAL: This is a well-nourished, well-developed patient, in no apparent distress. SKIN: No rashes, ecchymoses or lesions. Cool and dry. HEAD: Atraumatic. Normocephalic. No temporal or scalp tenderness. EYES: Pupils equal round and reactive. Extraocular motions intact. No scleral icterus. No injection or drainage. ENT: Nose without bleeding, purulent drainage or septal hematoma. Throat without erythema, tonsillar hypertrophy or exudate. Uvula midline. Airway patent. Partial glossectomy, thrush noted. NECK: Trachea midline.Left neck mass. CARDIOVASCULAR: Regular rate and rhythm without murmurs, gallops, or rubs. RESPIRATORY: coarse ronchi GASTROINTESTINAL: Abdomen soft, non-tender, nondistended. No hepato-splenomegaly , or palpable masses. No guarding. Peg site with dressing intact. MUSCULOSKELETAL: Extremities without clubbing, cyanosis, or edema. No joint tenderness, effusion, or edema noted. No calf tenderness. Negative Homans sign bilaterally. NEUROLOGICAL: Speech slurred due to partial glossectomy, oriented to year, place , self, doesn't understand why he is here. No focal deficits. Urinary Catheter: No Vascular Central Line Catheter: No A/P Diagnosis: (1) Dehydration (2) Dysphagia (3) Squamous cell cancer of tongue (4) Mass of left side of neck (5) Depression (6) HTN (hypertension) (7) Dementia (8) Uncontrolled diabetes mellitus with hyperglycemia (9) Leukocytosis Assessment and Plan 71-year-old man sent as a direct admit for dehydration and dysphagia, recently diagnoses with squamous cell cancer of the mobile tongue, had resection. 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 Has not started chemo and radiation. Dysphagia, unable to clear secretions, came in with diffuse rhonchi and Rales, some respiratory distress -Oxygen as needed -DuoNeb's when necessary -Appreciate GI input -S/P peg placement, pt. pulled out 12/29. Dr. Neves following -On Levsin to control secretions, improving -S/P Peg placement 01/05 -start Glucerna 1.5, add water flushes. afib RVR, required tx to [facility]. HR improved, coming down -appreciate card input -wean off drip,started on PO cardizem -HR better controlled. Dementia, hx psychosis, doesn't appear to be competent to make healthcare decision. -Psychiatry input appreciated, recommended Seroquel for agitation. Not much improvement -appreciate palliative care input. Leukocytosis, poss. sec steroids -off steroids now -continue abx -WBC trending down, Dehydration, secondary to poor PO intake, malnourished. Resolved -continue with IVF -monitor labs HTN,BP elevated -continue home meds - Vasotec PRN Type 2 diabetes, uncontrolled blood glucose Continue with Accu-Cheks before meals and at bedtime and insulin therapy Oral pain, thrush -Pain management Continue with nystatin Continue with Magic mouth wash Heparin for DVT prophylaxis poor prognosis Replace K per Dr. Villeda, pt. not appropriate for chemo considering he is removing peg, decannulated port. He can't go to a SNF while on chemo. Brother has health problems and will likely be very challenging to provide care for pt. and make sure he remains compliant. Palliative care following, brother Anmol is POA. Goals remain aggressive. Will need to discuss with heme/onc if treatment is planned. Per palliative care notes, brother wants treatment Discharge planning in progress. Overall prognosis poor, however, family not ready to transition pt. to comfort care D/W RN D/W pt D/W Dr. Ulrich This patient was seen by myself and Dr. Ulrich, this note is written on his behalf Problem Qualifiers (1) Dysphagia: Qualified Code: R13.10 - Dysphagia, unspecified type (2) Depression: Qualified Code: F32.9 - Depression, unspecified depression type (3) HTN (hypertension): Qualified Code: I10 - Essential hypertension (4) Dementia: Qualified Code: F03.90 - Dementia without behavioral disturbance, unspecified dementia type (5) Uncontrolled diabetes mellitus with hyperglycemia: Qualified Code: E11.65 - Uncontrolled type 2 diabetes mellitus with hyperglycemia, unspecified mcc insulin use status (6) Leukocytosis: Qualified Code: D72.829 - Leukocytosis, unspecified type Savanna Kent January 06, 2017 09:32
[2017-01-06 09:36] LABS: CALCIUM-PROTEIN CORRECTED 8.7 MG/DL (8.5-10.1)
[2017-01-06] MEDS: RESP: ALBUTEROL 2.5 MG/IPRATROPIUM 0.5 MG NEB (SCH) NEB ×3 (11:36→20:00)
[2017-01-06] MEDS: LEVOFLOXACIN 500 MG PREMIX INJ 100 ML IV SCH (12:33)
[2017-01-06] MEDS: SODIUM CHLORIDE 0.9% FLUSH 10 ML FLUSH IV FLUSH SCH ×2 (12:39→23:19)
[2017-01-06 13:11] LABS: HEMATOCRIT 27.1 % (39.0-51.0); MEAN CELL VOLUME 82.2 FL (80.0-100.0); MEAN CORPUSCULAR HEMOGLOBIN 27.6 PG (27.0-34.0); MEAN CORPUSCULAR HGB CONC 33.6 % (32.0-36.0); PLATELET COUNT 318 TH/MM3 (150-450); RED CELL DISTRIBUTION WIDTH 15.5 % (11.6-17.2); REVIEW FLAG FINAL; WHITE BLOOD COUNT 15.2 TH/MM3 (4.0-11.0)
--- NOTE | 2017-01-06 13:23 | HHI.GIFU ---
GI Follow-up Note Consult Follow-up Subjective: Patient laying in bed comfortably, no new complaints Objective: PHYSICAL EXAMINATION: Vitals signs stable No fever HEENT: Pupils round and reactive to light; normocephalic; atraumatic; no jaundice. Throat is clear. NECK: Neck is supple, no JVD, no lymphadenopathy. CHEST: Chest is clear to auscultation and percussion. CARDIAC: Regular rate and rhythm with no murmur gallop or rubs. ABDOMEN: Soft, nondistended, nontender; no hepatosplenomegaly; bowel sounds are present in all four quadrants. EXTREMITIES: No clubbing, cyanosis, or edema. SKIN: Normal; no rash; no jaundice. QUARANTINE OFFICER: No focal deficits; alert and oriented times three. Available Data (labs, X- Rays, Procedues) : Vital Signs Date Time Temp Pulse Resp B/P Pulse Ox O2 Delivery O2 Flow Rate FiO2 01/06/17 08:15 98.0 92 24 120/63 96 Last Impressions Chest X-Ray 01/03/17 0000 Signed Impressions: Service Date/Time: Tuesday, January 03, 2017 11:31 - CONCLUSION: No acute disease. Ji Trevino Jr., MD Lower Extremity Ultrasound 12/28/16 0000 Signed Impressions: Service Date/Time: Wednesday, December 28, 2016 15:18 - CONCLUSION: Negative exam with no evidence of deep venous thrombosis. Eron Hernandez MD Laboratory Tests Test 01/05/17 01/06/17 01/06/17 06:00 08:07 12:57 White Blood Count 16.5 TH/MM3 15.2 TH/MM3 Red Blood Count 3.26 MIL/MM3 3.30 MIL/MM3 Hemoglobin 9.1 GM/DL 9.1 GM/DL Hematocrit 26.8 % 27.1 % Mean Corpuscular Volume 82.2 FL 82.2 FL Mean Corpuscular Hemoglobin 27.8 PG 27.6 PG Mean Corpuscular Hemoglobin 33.9 % 33.6 % Concent Red Cell Distribution Width 15.0 % 15.5 % Platelet Count 273 TH/MM3 318 TH/MM3 Mean Platelet Volume 7.7 FL 7.5 FL Sodium Level 140 MEQ/L 139 MEQ/L Potassium Level 3.1 MEQ/L 3.3 MEQ/L Chloride Level 106 MEQ/L 106 MEQ/L Carbon Dioxide Level 26.2 MEQ/L 24.4 MEQ/L Anion Gap 8 MEQ/L 9 MEQ/L Blood Urea Nitrogen 5 MG/DL 4 MG/DL Creatinine 0.68 MG/DL 0.62 MG/DL Estimat Glomerular Filtration 115 ML/MIN 128 ML/MIN Rate Random Glucose 241 MG/DL 224 MG/DL Calcium Level 7.6 MG/DL 7.3 MG/DL Protein Corrected Calcium 8.7 MG/DL Total Protein 4.6 GM/DL Allergies Coded Allergies Type Severity Reaction Last Updated Verified No Known Allergies 11/10/16 No Active Scripts Medications Dose Route/Sig Days Date Category Dose Instructions Hydrocodone-Acetaminophen Liq 7.5-325 Mg/15 Ml Soln 10 Ml PO Q6H PRN 12/14/16 Rx Nystatin Liq 100,000 unit/ml Susp 5 Ml SWISH-SWAL QID 12/14/16 Reported Magic Mouthwash Adult Liq (Multi-Ingredient Mouthwash/Gargle) 120 Ml Susp 10 Ml SWISH-SWAL ACHS 12/14/16 Reported Each 5mL contains: Nystatin 200,000units, Diphenhydramine 4.25mg, Viscous Lidocaine 10mg, Archer syrup 0.8 mL Lantus Solostar Pen Inj (Insulin Glargine) 300 Unit/3 Ml Pen 5 Units SQ HS 12/14/16 Reported Novolog Flexpen Inj (Insulin Aspart) 300 Unit/3 Ml Pen Unknown Dose SQ 12/14/16 Reported Lisinopril 20 Mg Tab 20 Mg PO DAILY 11/21/16 Rx Walker with Front Wheels (Device) 1 Mis Mis 1 Ea .ROUTE DIRECTED 11/18/16 Rx Ambien (Zolpidem Tartrate) 5 Mg Tab 5 Mg PO HS PRN 10 11/16/16 Rx Trazodone (Trazodone HCl) 50 Mg Tab 50 Mg PO HS 30 11/16/16 Rx Aspirin 325 Mg Tab 325 Mg PO DAILY 07/15/16 Reported ASSESSMENT/PLAN: Seen and examined with nurse. Tolerating TF. Advance feedings as tolerated, flush with water Q shift. Binder on peg site. Gi will sign off, reconsult PRN. Thank you It was a pleasure seeing Devante Moura. Thank you for this consult. Entered by: Jerald Mckeon MD January 06, 2017 13:23
[2017-01-06] MEDS: ACETAMINOPHEN 325MG/HYDROcodone 7.5MG/15ML UDC PO PRN ×2 (15:28→23:18)
[2017-01-06] MEDS: traZODone HCL 50 MG TAB PO SCH (23:19)
[2017-01-06] MEDS: INSULIN DETEMIR 100 UNITS/ML VIAL SQ SCH (23:20)
[2017-01-06] MEDS: D5-NS + KCL 20 MEQ INJ 1,000 ML IV SCH (23:20)
[2017-01-07] VITALS (14 sets, daily range): BP systolic 118–147; BP diastolic 58–81; PULSE 18–109; RESP 16–18; TEMP 96.3–99.2; O2SAT 93–96
[2017-01-07] MEDS: D5-NS + KCL 20 MEQ INJ 1,000 ML IV SCH ×3 (01:00→20:55)
[2017-01-07] MEDS: FLUCONAZOLE 200 MG PREMIX BAG 100 ML IV SCH ×2 (01:09→23:39)
[2017-01-07] MEDS: diphenhydrAMINE HCL 50 MG/ML VIAL IV PRN ×2 (01:09→23:41)
[2017-01-07] MEDS: MORPHINE SULFATE 4 MG/ML INJ IV PUSH PRN ×6 (05:09→20:57)
[2017-01-07] MEDS: DILTIAZEM HCL 60 MG TAB G-TUBE SCH ×4 (06:20→23:39)
[2017-01-07] MEDS: metroNIDAZOLE 500 MG INJ 100 ML IV SCH ×3 (06:20→23:39)
[2017-01-07] MEDS: INSULIN ASPART SUPPLEMENTAL SCALE SQ SCH ×5 (06:21→21:07)
[2017-01-07] MEDS: NYSTAT/DIPHENHY/LIDO MOUTHWASH (Adult) 120ML SWISH-SWAL SCH ×4 (06:21→20:54)
[2017-01-07] MEDS: RESP: ALBUTEROL 2.5 MG/IPRATROPIUM 0.5 MG NEB (SCH) NEB ×4 (08:00→21:13)
[2017-01-07] MEDS: NYSTATIN SUSP 500,000 U/5 ML CUP SWISH-SWAL SCH ×4 (08:27→20:54)
[2017-01-07] MEDS: SODIUM CHLORIDE 0.9% FLUSH 10 ML FLUSH IV FLUSH SCH ×2 (08:27→20:55)
[2017-01-07] MEDS: QUEtiapine FUMARATE 25 MG TAB PO SCH ×2 (08:27→20:54)
--- NOTE | 2017-01-07 10:37 | HHI.PR ---
Subjective Remarks s/p peg insertion 5 + cough, can't bring up secretions c/o oral pain a little better today HR better controlled, 90s off Cardizem gtt no fever (Savanna Kent) Objective Objective Results - Vital Signs Date Time Temp Pulse Resp B/P Pulse Ox O2 Delivery O2 Flow Rate FiO2 01/07/17 08:02 92 01/07/17 08:00 97.2 100 17 145/70 96 01/07/17 02:00 88 01/07/17 01:42 98.4 88 16 122/67 96 01/07/17 01:00 98 01/07/17 00:00 100 01/06/17 23:00 102 01/06/17 22:00 102 01/06/17 21:44 98.2 98 16 137/73 97 01/06/17 21:00 102 01/06/17 20:00 102 01/06/17 19:00 113 01/06/17 17:00 100 01/06/17 16:30 22 01/06/17 15:12 98.6 104 24 126/73 97 01/06/17 15:00 96 01/06/17 14:00 104 01/06/17 13:00 100 01/06/17 12:00 108 01/06/17 12:00 98.1 114 22 124/75 98 I/O 01/06/17 01/06/17 01/06/17 01/07/17 01/07/17 01/07/17 07:00 15:00 23:00 07:00 15:00 23:00 Intake Total 895 ml 2420 ml Output Total 250 ml 200 ml Balance 645 ml 2220 ml Intake Oral 0 ml IV Total 895 ml 2000 ml Tube Feeding 420 ml Output Urine Total 250 ml 200 ml # Voids 3 3 # Bowel Movements 0 (Savanna Kent) Result Diagram: 01/06/17 1257 01/06/17 0807 Imaging Last Impressions Chest X-Ray 12/22/16 0000 Signed Impressions: Service Date/Time: Thursday, December 22, 2016 19:51 - CONCLUSION: No acute disease. Ji Trevino Jr., MD Other Results Laboratory Tests Test 01/06/17 12:57 White Blood Count 15.2 Red Blood Count 3.30 Hemoglobin 9.1 Hematocrit 27.1 Mean Corpuscular Volume 82.2 Mean Corpuscular Hemoglobin 27.6 Mean Corpuscular Hemoglobin 33.6 Concent Red Cell Distribution Width 15.5 Platelet Count 318 Mean Platelet Volume 7.5 (Savanna Kent) ROS General: Other (difficult to obtain BRONWYN ) HEENT: Dysphagia Pulmonary: Cough, SOB, Wheezing (Savanna Kent) Physical Exam Physical Exam GENERAL: This is a well-nourished, well-developed patient, in no apparent distress. SKIN: No rashes, ecchymoses or lesions. Cool and dry. HEAD: Atraumatic. Normocephalic. No temporal or scalp tenderness. EYES: Pupils equal round and reactive. Extraocular motions intact. No scleral icterus. No injection or drainage. ENT: Nose without bleeding, purulent drainage or septal hematoma. Throat without erythema, tonsillar hypertrophy or exudate. Uvula midline. Airway patent. Partial glossectomy, thrush noted. NECK: Trachea midline.Left neck mass. CARDIOVASCULAR: Regular rate and rhythm without murmurs, gallops, or rubs. RESPIRATORY: coarse ronchi GASTROINTESTINAL: Abdomen soft, non-tender, nondistended. No hepato-splenomegaly , or palpable masses. No guarding. Peg site with dressing intact. MUSCULOSKELETAL: Extremities without clubbing, cyanosis, or edema. No joint tenderness, effusion, or edema noted. No calf tenderness. Negative Homans sign bilaterally. NEUROLOGICAL: Speech slurred due to partial glossectomy, oriented to year, place , self, doesn't understand why he is here. No focal deficits. 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 Has not started chemo and radiation. Dysphagia, unable to clear secretions, came in with diffuse rhonchi and Rales, some respiratory distress -Oxygen as needed -DuoNeb's when necessary -Appreciate GI input -S/P peg placement, pt. pulled out 12/29. Dr. Neves following -On Levsin to control secretions, improving -S/P Peg placement 01/05 -start Glucerna 1.5, add water flushes. afib RVR, required tx to [facility]. HR improved, coming down -appreciate card input -Continue with PO cardizem -HR better controlled. Dementia, hx psychosis, doesn't appear to be competent to make healthcare decision. -Psychiatry input appreciated, recommended Seroquel for agitation. Not much improvement -appreciate palliative care input. Leukocytosis, poss. sec steroids -off steroids now -continue abx -WBC trending down, Dehydration, secondary to poor PO intake, malnourished. Resolved -continue with IVF -monitor labs HTN,BP elevated -continue home meds - Vasotec PRN Type 2 diabetes, uncontrolled blood glucose Continue with Accu-Cheks before meals and at bedtime and insulin therapy Oral pain, thrush -Pain management Continue with nystatin Continue with Magic mouth wash Heparin for DVT prophylaxis poor prognosis Replace K per Dr. Villeda, pt. not appropriate for chemo considering he is removing peg, decannulated port. He can't go to a SNF while on chemo. Brother has health problems and will likely be very challenging to provide care for pt. and make sure he remains compliant. Palliative care following, brother Anmol is POA. Goals remain aggressive. Dr. Ulrich has discussed with pt's brother, he wants SNF. for dc planning, SNF placement. Overall prognosis poor, however, family not ready to transition pt. to comfort care Continue with treatment as above D/W RN D/W pt D/W Dr. Ulrich This patient was seen by myself and Dr. Ulrich, this note is written on his behalf (Savanna Kent) Assessment and Plan pt is seen & examined d/w PT' 's RN . Off cardizem drip on Peg cardizem HR in 90s ASA tolerating Glucerna 1.5 Tube feeding at 40 cc/hr change IV abx to po medically stable overall prognosis is poor d/t progressive /metastatic ca & dementia & poor performance status I called & spoke w PT's brother Anmol again over the phone , updated him of pt' s conditions answered all of his questions , he verbalized understanding. I also rec getting Hospice service involved , he wants to think about it . d/w LALA d/w savanna d/c to SNF when arrangements are made see MRS see HRS f/u pcp (Memo Ulrich MD) Problem Qualifiers (1) Dysphagia: Qualified Code: R13.10 - Dysphagia, unspecified type (2) Depression: Qualified Code: F32.9 - Depression, unspecified depression type (3) HTN (hypertension): Qualified Code: I10 - Essential hypertension (4) Dementia: Qualified Code: F03.90 - Dementia without behavioral disturbance, unspecified dementia type (5) Uncontrolled diabetes mellitus with hyperglycemia: Qualified Code: E11.65 - Uncontrolled type 2 diabetes mellitus with hyperglycemia, unspecified intermediate insulin use status (6) Leukocytosis: Qualified Code: D72.829 - Leukocytosis, unspecified type Savanna Kent January 07, 2017 10:37 Memo Ulrich MD January 07, 2017 13:25
[2017-01-07] MEDS ORDERED: POTASSIUM CHLORIDE 25 MEQ EFFERVESCENT TAB PO ONE (10:45)
[2017-01-07] MEDS: LEVOFLOXACIN 500 MG PREMIX INJ 100 ML IV SCH (11:19)
--- NOTE | 2017-01-07 12:42 | RADRPT ---
EXAM DATE/TIME: 01/07/2017 11:24 [facility] COMPARISON: CHEST SINGLE AP, January 03, 2017, 11:31. INDICATIONS : Cough. MEDICAL HISTORY : Carcinoma, oral cavity. SURGICAL HISTORY : None. ENCOUNTER: Initial ACUITY: 1 day PAIN SCORE: 0/10 LOCATION: Bilateral chest FINDINGS: Portable AP view of the chest demonstrates a normal-sized cardiac silhouette. Left chest wall Infuse- a-Port remains present. There is a small left basilar pleural-parenchymal opacity and hazy opacity at the right base. No pneumothorax is visualized. CONCLUSION: 1. New opacity at the left base likely representing pleural effusion with associated volume loss and/ or airspace consolidation. 2. Mild airspace opacity at the right base represents either atelectasis or consolidation. Milton Laughlin MD on January 07, 2017 at 12:39 Board Certified Radiologist. This report was verified electronically.
[2017-01-07] MEDS ORDERED: HYOS0.1231 PO (13:30)
[2017-01-07] MEDS ORDERED: QUET1TAB7 PO (13:30)
[2017-01-07] MEDS ORDERED: LEVA500T PO (13:30)
[2017-01-07] MEDS ORDERED: DILT60TA33 G-TUBE (13:30)
[2017-01-07] MEDS ORDERED: METR-1 PO (13:30)
[2017-01-07] MEDS ORDERED: HYDR1SOL3 PO (13:30)
[2017-01-07] MEDS ORDERED: IPRASOL NEB (13:30)
[2017-01-07] MEDS ORDERED: DIFL200T PO (13:30)
--- NOTE | 2017-01-07 16:27 | HHI.DS ---
Discharge Summary Admission Date Dec 22, 2016 at 16:13 Discharge Date: January 07, 2017 Admitting Diagnosis (1) Dehydration (2) Dysphagia (3) Squamous cell cancer of tongue (4) Mass of left side of neck (5) Depression (6) HTN (hypertension) (7) Dementia (8) Uncontrolled diabetes mellitus with hyperglycemia (9) Leukocytosis (10) Atrial fibrillation (11) Thrombocytopenia (12) Mouth pain Procedures -S/P peg placement, pt. pulled out 12/29. -S/P Peg placement 01/05 CBC/BMP: 01/06/17 1257 01/06/17 0807 Significant Findings Laboratory Tests Test 01/05/17 01/06/17 01/06/17 06:00 08:07 12:57 White Blood Count 16.5 TH/MM3 15.2 TH/MM3 (4.0-11.0) (4.0-11.0) Red Blood Count 3.26 MIL/MM3 3.30 MIL/MM3 (4.50-5.90) (4.50-5.90) Hemoglobin 9.1 GM/DL 9.1 GM/DL (13.0-17.0) (13.0-17.0) Hematocrit 26.8 % 27.1 % (39.0-51.0) (39.0-51.0) Potassium Level 3.1 MEQ/L 3.3 MEQ/L (3.5-5.1) (3.5-5.1) Blood Urea Nitrogen 5 MG/DL (7-18) 4 MG/DL (7-18) Random Glucose 241 MG/DL 224 MG/DL (74-106) (74-106) Calcium Level 7.6 MG/DL 7.3 MG/DL (8.5-10.1) (8.5-10.1) Troponin I 3.26 NG/ML (0.02-0.05) Total Protein 4.6 GM/DL (6.4-8.2) Imaging Last Impressions Chest X-Ray 01/07/17 0000 Signed Impressions: Service Date/Time: Saturday, January 07, 2017 11:24 - CONCLUSION: 1. New opacity at the left base likely representing pleural effusion with associated volume loss and/or airspace consolidation. 2. Mild airspace opacity at the right base represents either atelectasis or consolidation. Milton Laughlin MD Lower Extremity Ultrasound 12/28/16 0000 Signed Impressions: Service Date/Time: Wednesday, December 28, 2016 15:18 - CONCLUSION: Negative exam with no evidence of deep venous thrombosis. Eron Hernandez MD Hospital Course Pt is a 71-year-old man with PMHx of diabetes, hypertension, hyperlipidemia, dementia with psychoses, previous Baked Act, possible polysubstance induced mood disorder. Pt. was sent as a direct admit. Information is obtained from medical record, pt. is a poor historian and has difficulty speaking. He was diagnosed last year with left oral tongue cancer by Dr. Denise. 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 Denise on 06/10/2016. Most recently was admitted November 2016 after fall and hyponatremia. Was noted to have left neck swelling, Hematology/ Oncology was consulted. A CT-guided biopsy was performed of the left neck mass on November 12, 2016 that confirmed a moderately differentiated keratinizing squamous, cell carcinoma. He was discharged to rehab. Pt. has missed oncology follow up and they have not been able to coordinate treatment with radiation oncology. Has also missed appointment for induction chemotherapy. Yesterday, he presented to Dr. Vick's office for induction chemotherapy, and was noted with difficulty clearing secretions. Per Dr. Vick's notes, family has reported difficulty caring for patient as pt's own brother also has cancer. He had a port placed on 12/14/2016 and was supposed to have tooth extraction by maxillofacial but has refused. Family reports patient taking medications crushed and drinking Boost and Ensure. Pt. was sent to hospital for admission. He was noted dehydrated. He was pending peg placement per Dr. Montes De Oca and was already scheduled.Pt. was evaluated in the oncology unit. He wanted to go home and refused peg placement. He wanted to drink coffee and stated there was nothing wrong with him even as he is obviously drooling and can't control secretions. When asked why type of cancer he has, stated he doesn't know. He was seen by Dr. Villeda who recommended GI evaluation as well as psychiatric evaluation for competency. Pt. stated he has a son in [place] and stated it was okay to contact him. Pt. was admitted for further evaluation and treatment for (1) Dehydration (2) Dysphagia (3) Squamous cell cancer of tongue (4) Mass of left side of neck (5) Depression (6) HTN (hypertension) (7) Dementia (8) Uncontrolled diabetes mellitus with hyperglycemia (9) Leukocytosis (10)PNA (11) Afib RVR (12) COPD During the course of the hospitalization, the following took place: 71-year-old man sent as a direct admit for dehydration and dysphagia, recently diagnoses with squamous cell cancer of the mobile tongue, had resection. 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 Has not started chemo and radiation. Head and neck cancer -Oncology consulted, they followed pt. and spoke to family. -per Dr. Villeda, pt. not appropriate for chemo considering he is removing peg, decannulated port. He can't go to a SNF while on chemo. Brother has health problems and will likely be very challenging to provide care for pt. and make sure he remains compliant. Dysphagia, unable to clear secretions, came in with diffuse rhonchi and Rales, some respiratory distress -Was given Oxygen as needed -DuoNeb's when necessary, initially put on IV steroids. -Appreciate GI input -S/P peg placement, pt. pulled out 12/29. Dr. Neves following -On Levsin to control secretions, improved -S/P Peg placement 01/05 -started on tube feeding, tolerated well. Went into afib RVR, required tx to [facility]. HR improved, coming down -Put on Cardizem gtt -cardiology consulted. -Transitioned to PO Cardizem -Rhythm improved, SR 90 Dementia, hx psychosis, did not appear to be competent to make healthcare decision. -Psychiatry input appreciated, recommended Seroquel for agitation. Improved -Palliative care also evaluated, discussed with family. Pt. not able to make decisions. Pt's son deferred to pt's brother. Brother made POA Leukocytosis, poss. sec steroids -off steroids now -pt put on antibiotics, concerned over pulm infection vs left neck abscess superimposed. -continue abx -WBC trending down, Dehydration, secondary to poor PO intake, malnourished. Resolved -given IVF -monitored labs HTN,BP elevated -continued home meds - Vasotec PRN added Type 2 diabetes, uncontrolled blood glucose Continued with Accu-Cheks before meals and at bedtime and insulin therapy Oral pain, thrush -Pain management Continue with nystatin Continue with Magic mouth wash Heparin for DVT prophylaxis Pt's condition remained fair, continued with cough, wheezing, difficulty clearing secretions. Tolerating feedings fair. Had oral pain which was treated. Prognosis poor, likely not able to tolerate chemo. Medical team discussed in detail with family. Dr. Ulrich discussed with pt's brother, he initially wanted SNF but then accepted that pt's prognosis was poor and was agreeable with hospice. CM assisted with DC planning. Pt. discharged to hospice Pt Condition on Discharge: Fair Discharge Disposition: Hospice/Med Facility Discharge Instructions DIET: Follow Instructions for: Nothing By Mouth, On Tube Feeding Additional Diet Instructions: Glucerna 1.5 @ 50 cc/hr , titrate to goal rate 60 cc/hr Fluid Restrictions: none Activities you can perform: Weight Bearing as Aravind Other Activity Instructions: aspiration precautions/ fall precautione/ keep binder on all time [pt pulls his peg ] Follow up Referrals: PCP Follow-up - 1 Week New Medications: Fluconazole (Diflucan) 200 Mg Tab 200 MG PO DAILY Infection #7 Ref 0 TAB Levofloxacin (Levaquin) 500 Mg Tab 500 MG PO DAILY Infection #7 Ref 0 TAB Metronidazole (Flagyl) 500 Mg Tab 500 MG PO TID Infection #21 Ref 0 TAB Diltiazem (Cardizem) 60 Mg Tab 60 MG G-TUBE Q6HR a fib #120 TAB Hydrocodone-Acetaminophen Liq (Hydrocodone-Acetaminophen Liq) 7.5-325 Mg/15 Ml Soln 10 ML PO Q6H PRN PAIN 1-6 Days 30 ML Hyoscyamine Liq Drops (Hyosyne Liq Drops) 0.125 Mg/Ml Soln 0.125 MG PO q6h PRN secretions #90 ML Ipratropium-Albuterol Neb (Duoneb) 0.5-2.5 Mg/3 Ml Neb 1 AMPULE NEB QID NEB Shortness of Breath Days 30 ML Quetiapine (Quetiapine) 25 Mg Tab 25 MG PO BID agitation #60 TAB Continued Medications: Aspirin (Aspirin) 325 Mg Tab 325 MG PO DAILY #30 Ref 0 TAB Insulin Aspart Inj (Novolog Flexpen Inj) 300 Unit/3 Ml Pen Unknown Dose SQ Blood Sugar Management #1 Ref 0 PEN Insulin Glargine Inj (Lantus Solostar Pen Inj) 300 Unit/3 Ml Pen 5 UNITS SQ HS Blood Sugar Management Ref 0 PEN Nystatin Liq (Nystatin Liq) 100,000 unit/ml Susp 5 ML SWISH-SWAL QID Infection Ref 0 ML Ikwyxkuw-Egngsgxmwkhrwds-Luozikehy Liq (Magic Mouthwash Adult Liq) 120 Ml Susp 10 ML SWISH-SWAL ACHS Each 5mL contains: Nystatin 200,000units, Diphenhydramine 4.25mg, Viscous Lidocaine 10mg, Archer syrup 0.8 mL Mouth sores #120 Ref 0 ML Trazodone (Trazodone) 50 Mg Tab 50 MG PO HS Depression Control Days 30 Ref 0 TAB Discontinued Medications: Hydrocodone-Acetaminophen Liq (Hydrocodone-Acetaminophen Liq) 7.5-325 Mg/15 Ml Soln 10 ML PO Q6H PRN PAIN #200 Ref 0 ML Lisinopril (Lisinopril) 20 Mg Tab 20 MG PO DAILY #30 Ref 0 TAB Zolpidem (Ambien) 5 Mg Tab 5 MG PO HS PRN INSOMNIA Days 10 Ref 0 TAB [place] [facility] January 07, 2017 16:27
[2017-01-07] MEDS: INSULIN DETEMIR 100 UNITS/ML VIAL SQ SCH (20:54)
[2017-01-07] MEDS: traZODone HCL 50 MG TAB PO SCH (20:54)
[2017-01-07] MEDS: ZOLPIDEM TARTRATE 5 MG TAB PO PRN (20:54)
[2017-01-08] VITALS (22 sets, daily range): BP systolic 135–166; BP diastolic 65–92; PULSE 92–136; RESP 12–20; TEMP 96.6–98.7; O2SAT 90–96
[2017-01-08] MEDS: MORPHINE SULFATE 4 MG/ML INJ IV PUSH PRN ×3 (04:40→20:18)
[2017-01-08] MEDS: DILTIAZEM HCL 60 MG TAB G-TUBE SCH ×3 (06:00→17:51)
[2017-01-08] MEDS: metroNIDAZOLE 500 MG INJ 100 ML IV SCH ×2 (06:51→16:31)
[2017-01-08] MEDS: NYSTAT/DIPHENHY/LIDO MOUTHWASH (Adult) 120ML SWISH-SWAL SCH ×4 (06:52→20:20)
[2017-01-08] MEDS: INSULIN ASPART SUPPLEMENTAL SCALE SQ SCH ×4 (06:52→20:20)
[2017-01-08] MEDS: D5-NS + KCL 20 MEQ INJ 1,000 ML IV SCH ×2 (06:53→17:00)
[2017-01-08] MEDS: RESP: ALBUTEROL 2.5 MG/IPRATROPIUM 0.5 MG NEB (SCH) NEB ×4 (07:53→20:22)
[2017-01-08] MEDS: NYSTATIN SUSP 500,000 U/5 ML CUP SWISH-SWAL SCH ×4 (10:25→20:21)
[2017-01-08] MEDS: QUEtiapine FUMARATE 25 MG TAB PO SCH ×2 (10:25→20:18)
[2017-01-08] MEDS: SODIUM CHLORIDE 0.9% FLUSH 10 ML FLUSH IV FLUSH SCH ×2 (10:27→20:20)
--- NOTE | 2017-01-08 11:52 | HHI.PR ---
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 brother's final approval still needing pain meds round the clock less coughing , +ve sputum No fever or chills No N/V tolerating Tube feeding denies CP , No SOB forgetful offers no c/o (Memo Ulrich MD) Vitals/Results Intake & Output 01/07/17 01/07/17 01/08/17 15:00 23:00 07:00 Intake Total 1068 ml Balance 1068 ml IV Total 549 ml Tube Feeding 269 ml Other 250 ml Vital Signs Vital Signs Date Time Temp Pulse Resp B/P Pulse Ox O2 Delivery O2 Flow Rate FiO2 01/08/17 06:00 94 01/08/17 05:29 98.2 105 18 146/79 92 01/08/17 05:00 94 01/08/17 04:00 110 01/08/17 03:00 101 01/08/17 02:00 96 01/08/17 01:00 98 01/08/17 00:24 98.7 99 18 135/65 90 01/08/17 00:00 92 01/07/17 23:00 109 01/07/17 22:00 94 01/07/17 21:00 99.2 108 18 131/71 95 01/07/17 21:00 100 01/07/17 20:00 90 01/07/17 19:00 94 01/07/17 18:36 16 01/07/17 16:00 96.3 103 16 118/58 95 01/07/17 16:00 92 01/07/17 12:00 97 (Memo Ulrich MD) CBC/BMP: 01/06/17 1257 01/06/17 0807 Physical Exam General General Appearance: No Acute Distress, Comfortable, Anxious (Memo Ulrich MD) Eyes Eye Exam: Pupils Equal, Sclera White, Extraocular Movement Intact (Memo Ulrich MD) Ears & Nose Ears & Nose Exam: Nasal Mucosa [place] Ears & Nose Remarks thick white coated disfigured tongue w left sided resection (Memo Ulrich MD) Throat Throat Exam: Oral Mucosa [place] & Moist (Memo Ulrich MD) Neck Neck Exam: Neck Supple, Trachea Midline (Memo Ulrich MD) Pulmonary Resp Exam: Breath Sounds Equal, No Distress, Crackles (Memo Ulrich MD) Cardiology CV Exam: Irregular, Tachycardia (Memo Ulrich MD) Gastrointestinal/Abdomen GI Exam: Soft, Non-Tender, Bowel Sounds Present (Memo Ulrich MD) Integumentary Skin Exam: Warm, Dry, Intact (Memo Ulrich MD) Neurologic Neuro Exam: Alert, Awake, Moving All Extremities Neuro Remarks thick tongue, speech is not clear (Memo Ulrich MD) Psychiatric Psych Exam: Appropriate Responses (Memo Ulrich MD) PUD Prophylasis PUD Prophylaxis: Protonix (Memo Ulrich MD) Assessment/Plan Assessment/Plan A/P Diagnosis: (1) Dehydration (2) severe oropharyngeal Dysphagia (3) Squamous cell cancer of tongue (4) Mass of left side of neck (5) Depression (6) HTN (hypertension) (7) Dementia (8) Uncontrolled diabetes mellitus with hyperglycemia (9) Leukocytosis (10) New onset A fib w RVR Assessment and Plan 71-year-old man sent as a direct admit for dehydration and dysphagia, recently diagnoses with squamous cell cancer of the mobile tongue, had resection. 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 Has not started chemo and radiation. Dysphagia, unable to clear secretions, came in with diffuse rhonchi and Rales, - worsening WBC - CXR negative - IV abx , levaquin/flagyl , add diflican for fungal infection - suctioning prn - replace kcl -Oxygen as needed -DuoNeb's prn -S/P peg placement, pt. pulled out 12/29. -for repeat placement per GI -Keep NPO , continue IVF to 100/hr -On Levsin to control secretions, improving -Iv cardizem -card consult , d/w Dr henning , he rec to cont IV cardizem drip & proceed w PEG placement Dementia, hx psychosis, doesn't appear to be competent to make healthcare decision. -Psychiatry input appreciated, recommended Seroquel for agitation. however cannot give as pt cant swallow -appreciate palliative care input. Leukocytosis, poss. sec steroids >> developing infection -cont abx & monitor, Dehydration, secondary to poor PO intake, malnourished. Resolved -continue with IVF -monitor labs HTN,BP elevated -continue home meds -Add Vasotec PRN Type 2 diabetes, uncontrolled blood glucose Continue with Accu-Cheks before meals and at bedtime and insulin therapy -labile, pt. removed peg. Oral pain, thrush -Pain management Continue with nystatin/ Add IV diflucan Continue with Magic mouth wash Leukocytosis poss. sec. 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
[2017-01-08] MEDS ORDERED: FENT50T T-DERMAL (11:55)
[2017-01-08] MEDS ORDERED: fentaNYL 50 MCG/HR PATCH T-DERMAL SCH (12:00)
[2017-01-08] MEDS: LEVOFLOXACIN 500 MG PREMIX INJ 100 ML IV SCH (12:34)
--- NOTE | 2017-01-08 14:28 | HHI.PR ---
Subjective Remarks Resting in bed Patient awake, speech garbled, but understandable most of the time Complaints of oral tongue pain Afebrile PEG tube in for feedings, no acute issues (Juanita Ni) Objective Objective Results - Vital Signs Date Time Temp Pulse Resp B/P Pulse Ox O2 Delivery O2 Flow Rate FiO2 01/08/17 14:00 114 01/08/17 13:00 106 01/08/17 12:00 114 01/08/17 11:00 111 01/08/17 10:00 110 01/08/17 09:00 108 01/08/17 08:00 98 01/08/17 07:00 108 01/08/17 06:00 94 01/08/17 05:29 98.2 105 18 146/79 92 01/08/17 05:00 94 01/08/17 04:00 110 01/08/17 03:00 101 01/08/17 02:00 96 01/08/17 01:00 98 01/08/17 00:24 98.7 99 18 135/65 90 01/08/17 00:00 92 01/07/17 23:00 109 01/07/17 22:00 94 01/07/17 21:00 99.2 108 18 131/71 95 01/07/17 21:00 100 01/07/17 20:00 90 01/07/17 19:00 94 01/07/17 18:36 16 01/07/17 16:00 96.3 103 16 118/58 95 01/07/17 16:00 92 I/O 01/07/17 01/07/17 01/07/17 01/08/17 01/08/17 01/08/17 07:00 15:00 23:00 07:00 15:00 23:00 Intake Total 2420 ml 1068 ml 1800 ml Output Total 200 ml 150 ml Balance 2220 ml 1068 ml 1650 ml Intake Oral 0 ml 0 ml IV Total 2000 ml 549 ml 1200 ml Tube Feeding 420 ml 269 ml 600 ml Other 250 ml Output Urine Total 200 ml 150 ml # Voids 3 3 # Bowel Movements 0 0 (Juanita Ni) Result Diagram: 01/06/17 1257 01/06/17 0807 Medications and IVs Administered Medications Medications (Trade) Dose Ordered Sig/Rosalind Route PRN Reason Start Time Stop Time Status Last Admin Dose Admin Sodium Chloride (NS Flush) 2 ml UNSCH PRN IV FLUSH FLUSH AFTER USING IV ACCESS 12/22/16 16:15 01/03/17 23:21 Sodium Chloride (NS Flush) 2 ml BID IV FLUSH 12/22/16 21:00 01/08/17 10:27 Heparin Sodium (Porcine) (Heparin Inj) 5,000 units Q12H SQ 12/22/16 17:00 Hold 01/03/17 16:47 Acetaminophen/ Hydrocodone Bitart (Hycet 325-7.5 Mg Liq) 10 ml Q6H PRN PO PAIN 1-6 12/22/16 18:30 01/06/17 23:18 Nystatin (Mycostatin Liq) 5 ml QID SWISH-SWAL 12/22/16 21:00 01/08/17 12:34 Multi-Ingredient Mouthwash/Gargle (Magic Mouthwash Adult Liq) 10 ml ACHS SWISH-SWAL 12/22/16 21:00 01/08/17 10:25 Trazodone HCl (Desyrel) 50 mg HS PO 12/22/16 21:00 01/07/17 20:54 Insulin Detemir (Levemir Inj) 5 units HS SQ 12/22/16 21:00 01/07/17 20:54 Morphine Sulfate (Morphine Inj) 4 mg Q3H PRN IV PUSH pain 7-10 12/22/16 18:45 01/08/17 12:35 Quetiapine Fumarate (SEROquel) 25 mg BID PO 12/23/16 15:00 01/08/17 10:25 Zolpidem Tartrate (Ambien) 5 mg HS PRN PO INSOMNIA 12/24/16 19:30 01/07/17 20:54 Heparin Sodium (Porcine) (Heparin Central Flush) 250 units UNSCH PRN IV FLUSH SEE PROTOCOL TABLE 12/29/16 02:30 01/01/17 04:01 Sodium Chloride (NS Flush) 5 ml UNSCH PRN IV FLUSH FLUSH AFTER USING IV ACCESS 12/29/16 02:30 01/03/17 04:48 Enalaprilat (Vasotec Inj) 1.25 mg Q6H PRN IV PUSH SBP>160, DBP>90 12/31/16 11:00 01/01/17 19:44 Sodium Chloride 1 spray 1 spray Q4H PRN NASAL CONGESTION 01/03/17 03:45 01/03/17 11:15 Potassium Chloride/Dextrose/ Sod Cl 1,000 ml @ 100 mls/hr Q10H IV 01/03/17 07:00 01/07/17 20:55 Levofloxacin/ Dextrose 100 ml @ 100 mls/hr Q24H IV 01/03/17 12:00 01/08/17 12:34 Metronidazole (Flagyl 500 Mg Inj) 100 ml @ 100 mls/hr Q8H IV 01/03/17 23:00 01/08/17 06:51 Diphenhydramine HCl 25 mg 25 mg HS PRN IV INSOMNIA 01/04/17 00:45 01/07/17 23:41 Diltiazem HCl 125 mg/Sodium Chloride 125 ml @ 0 mls/hr TITRATE IV 01/04/17 02:45 01/06/17 06:51 Fluconazole/ Sodium Chloride (Diflucan 200 Mg Premix Bag) 100 ml @ 100 mls/hr Q24H IV 01/05/17 01:00 01/07/17 23:39 Diltiazem HCl (Cardizem) 60 mg Q6HR G-TUBE 01/05/17 18:00 01/08/17 12:35 (Juanita Ni) ROS General: Fatigue, Weakness, Other (10 point ROS done positives noted with was systems negative or unremarkable or without acute changes) HEENT: Dysphagia, Other (oral tongue cancer pain management) Pulmonary: SOB (none at rest) GI: Other (PEG tube present for feedings aphagia) (Juanita Ni) Physical Exam Physical Exam PHYSICAL EXAMINATION GENERAL: This is a chronically ill male who appears to be in no acute distress resting in the bed He is awake, responds to verbal stimuli HEAD: Normocephalic without any lesion or mass noted. Facial features appear symmetric. OROPHARYNGEAL: Oropharynx coating thrush, improving NECK: Supple. CARDIAC: Regular rhythm, with some tachycardia noted, S1 and S2 are heard. LUNGS: Low volumes to auscultation bilaterally. Mild rhonchi and occasional cough ABDOMEN: Soft, nontender, no organomegaly or masses. Bowel sounds are heard EXTREMITIES: No edema. . NEUROLOGICAL: Patient mood and affect appropriate for now. Does answer simple questions SKIN:Warm and moist (Juanita Ni) A/P Assessment and Plan (1) Dehydration (2) Dysphagia (3) Squamous cell cancer of tongue (4) Mass of left side of neck (5) Depression (6) HTN (hypertension) (7) Dementia (8) Uncontrolled diabetes mellitus with hyperglycemia (9) Leukocytosis Dysphagia, with some aphagia, unable to take any food PEG tube for feedings. Currently tolerating without any distress or residuals Monitoring patient's oral secretions and saliva, currently controlled on Levsin Appreciate GI consult and input, stable from his perspective will only see as needed -Oxygen as needed -DuoNeb's when necessary afib RVR, required tx to [facility]. HR improved, coming down appreciate card input and medical management Continue with PO cardizem -HR better controlled, but still has some pulse rates that are greater than 100 Dementia, hx psychosis, doesn't appear to be competent to make healthcare decision. -Psychiatry input appreciated, recommended Seroquel for agitation. Not much improvement -appreciate palliative care input. Brother is the POA HTN,BP elevated -continue home meds - Vasotec PRN Type 2 diabetes, uncontrolled blood glucose Continue with Accu-Cheks before meals and at bedtime and insulin therapy Oral pain, thrush and complaints of tongue pain -Pain management Continue with nystatin Continue with Magic mouth wash Heparin for DVT prophylaxis per Dr. Villeda, pt. not appropriate for chemo considering he is removing peg, decannulated port. He can't go to a SNF while on chemo. Dr. Ulrich has discussed with pt's brother, he wants SNF. for dc planning, SNF placement. Per brother's request patient is still full code full aggressive care. Will honor wishes and attempt to find transition to snf. According to case management note brother was also agreeable for hospice facility. Will follow up on needs No family present at hospital. Overall prognosis poor, however, family not ready to transition pt. to comfort care Spoke with patient Discussed with nurse Discussed with Dr. ulrich, seen on his behalf (Juanita Ni) Juanita Ni January 08, 2017 14:28 Memo Ulrich MD January 08, 2017 16:01
[2017-01-08] MEDS: diphenhydrAMINE HCL 50 MG/ML VIAL IV PRN (20:17)
[2017-01-08] MEDS: traZODone HCL 50 MG TAB PO SCH (20:18)
[2017-01-08] MEDS: INSULIN DETEMIR 100 UNITS/ML VIAL SQ SCH (20:20)
[2017-01-11] MEDS ORDERED: REMOVE OLD PATCH T-DERMAL SCH (09:00)
== END 2017-01-08 21:51 | disposition hospice, inpatient (51) | DRG 640 ==
LOC: HOCA 16:13 → HOCB 21:54 → HCIS 01-04 04:33
PROVIDERS: ADMIT Specialist; ATTEND Specialist
PROC: 0DH63UZ Insertion of Feeding Device into Stomach, Percutaneous Approach (ICD-10-PCS; principal; 2016-12-27 15:15)
PROC: 0DB38ZX Excision of Lower Esophagus, Via Natural or Artificial Opening Endoscopic, Diagnostic (ICD-10-PCS; 2017-01-05)
PROC: 0DH63UZ Insertion of Feeding Device into Stomach, Percutaneous Approach (ICD-10-PCS; 2017-01-05 11:53)
DX: E86.0 Dehydration (principal); J18.9 Pneumonia, unspecified organism; E46 Unspecified protein-calorie malnutrition; B37.0 Candidal stomatitis; C77.0 Secondary and unspecified malignant neoplasm of lymph nodes of head, face and neck; R13.12 Dysphagia, oropharyngeal phase; F03.90 Unspecified dementia, unspecified severity, without behavioral disturbance, psychotic disturbance, mood disturbance, and anxiety; D69.6 Thrombocytopenia, unspecified; E11.65 Type 2 diabetes mellitus with hyperglycemia; C02.3 Malignant neoplasm of anterior two-thirds of tongue, part unspecified; E87.1 Hypo-osmolality and hyponatremia; G89.3 Neoplasm related pain (acute) (chronic); E78.5 Hyperlipidemia, unspecified; I10 Essential (primary) hypertension; F32.9 Major depressive disorder, single episode, unspecified; Z68.23 Body mass index [BMI] 23.0-23.9, adult; K20.9 Esophagitis, unspecified; E87.6 Hypokalemia; Z51.5 Encounter for palliative care; I48.91 Unspecified atrial fibrillation; D63.8 Anemia in other chronic diseases classified elsewhere; G47.00 Insomnia, unspecified; D72.829 Elevated white blood cell count, unspecified; T38.0X5A Adverse effect of glucocorticoids and synthetic analogues, initial encounter; Z79.4 Long term (current) use of insulin
CPT/HCPCS: 36591; 71010; 80048; 80053; 80076; 82607; 82728; 82948; 83036; 83540; 83550; 83615; 83735; 84100; 84155; 84484; 85007; 85025; 85027; 85044; 85384; 85610; 85730; 88305; 88312; 93005; 93970; 94640; 94664; 96374; 96375; C1769; J0690; J1100; J1200; J1450; J1626; J1642; J1644; J1815; J1956; J2270; J2920; J3480; J7030; J7042; J7613